=== PATIENT | male | born 1950 | race Caucasian/White ===

== ENCOUNTER 2024-01-20 09:47 | Outpatient (OUT) | payer MEDICARE, SELFPAY ==
--- NOTE | 2024-01-20 09:56 | ECG_ITS ---
[facility] Test Date: 2024-01-20 Pat Name: EDWARD SANDERS Department: Room: - Gender: Male Content Writer: : 1950 Requested By: SLOAN DOWNEY Order Number: [id number] Reading MD: NAOMI MONTOYA Measurements Intervals [place] Rate: 70 P: NM: 200 QRS: 41 QRSD: 141 T: 43 QT: 410 QTc: 444 Interpretive Statements Sinus rhythm with first degree AV block RIGHT BUNDLE BRANCH BLOCK [120+ ms QRS DURATION, UPRIGHT V1, 40+ ms S IN I/aVL/V4/V5/V6] No previous ECG available for comparison Electronically Signed On 01-20-2024 18:02:10 EDT by NAOMI MONTOYA
--- NOTE | 2024-01-20 11:09 | P.GSHP_ITS ---
History of Present Illness History of Present Illness Chief complaint: bph with obst Narrative: Patient presents for preadmission testing. Please see HPI from Dr. Ruff dated January 13, 2024. Review of Systems ROS Narrative Please see ROS from Dr. Ruff dated January 13, 2024. PFSH PFS Medical History (Updated 01/20/24 @ 10:39 by Ana Rosa Luque NP) Arthritis ?M19.90 - Unspecified osteoarthritis, unspecified site (ICD-10) Migraine ?G43.909 - Migraine, unspecified, not intractable, without status migrainosus (ICD-10) Cataract ?H26.9 - Unspecified cataract (ICD-10) Sleep apnea ?G47.30 - Sleep apnea, unspecified (ICD-10) Back pain with history of spinal surgery ?M54.9 - Dorsalgia, unspecified (ICD-10) ?Z98.890 - Other specified postprocedural states (ICD-10) Headache ?R51.9 - Headache, unspecified (ICD-10) Diabetes ?E11.9 - Type 2 diabetes mellitus without complications (ICD-10) Hypertension ?I10 - Essential (primary) hypertension (ICD-10) Incomplete bladder emptying ?R33.9 - Retention of urine, unspecified (ICD-10) Hyperlipidemia ?E78.5 - Hyperlipidemia, unspecified (ICD-10) Gout ?M10.9 - Gout, unspecified (ICD-10) Elevated PSA ?R97.20 - Elevated prostate specific antigen [PSA] (ICD-10) BPH with obstruction/lower urinary tract symptoms ?N40.1 - Benign prostatic hyperplasia with lower urinary tract symptoms (ICD- 10) ?N13.8 - Other obstructive and reflux uropathy (ICD-10) Surgical History (Updated 01/20/24 @ 10:39 by Ana Rosa Luque NP) History of esophagogastroduodenoscopy (EGD) ?Z98.890 - Other specified postprocedural states (ICD-10) History of carpal tunnel release ?Z98.890 - Other specified postprocedural states (ICD-10) H/O shoulder surgery ?Z98.890 - Other specified postprocedural states (ICD-10) History of lumbar surgery ?Z98.890 - Other specified postprocedural states (ICD-10) Hx of tonsillectomy ?Z90.89 - Acquired absence of other organs (ICD-10) H/O colonoscopy ?Z98.890 - Other specified postprocedural states (ICD-10) History of cataract extraction with lens replacement H/O prostate biopsy ?Z98.890 - Other specified postprocedural states (ICD-10) History of cholecystectomy ?Z90.49 - Acquired absence of other specified parts of digestive tract (ICD- 10) Family History (Updated 01/20/24 @ 10:39 by Ana Rosa Luque NP) Other Family history of Alzheimer's disease Family history of hypertension Family history of lung cancer Family history of myocardial infarction Family history of prostate cancer Social History (Updated 01/20/24 @ 10:28 by Ana Rosa Luque NP) Within the past year, how often did you have a drink containing alcohol: 2-3 times a week Smoking status: Former smoker Non-prescribed substance use: denies use Previous occupational history: Retired Highest level of school completed/degree received: some college, no degree Meds Home Medications and Allergies Home Medications ?Medication ?Instructions ?Recorded ?Confirmed ?Type alfuzosin 10 mg tablet,extended 10 mg PO DAILY 01/20/24 01/20/24 History release 24 hr allopurinol 100 mg tablet 100 mg PO Q12H 01/20/24 01/20/24 History fiber 1 cap PO DAILY 01/20/24 01/20/24 History lisinopril 20 1 tab PO DAILY 01/20/24 01/20/24 History mg-hydrochlorothiazide 25 mg tablet metoprolol succinate 50 mg 50 mg PO DAILY 01/20/24 01/20/24 History tablet,extended release 24 hr pravastatin 40 mg tablet 40 mg PO DAILY 01/20/24 01/20/24 History semaglutide 7 mg tablet (Rybelsus) 7 mg PO DAILY 01/20/24 01/20/24 History vitamin A-vitamin C-vit E-min 1 tab PO DAILY 01/20/24 01/20/24 History tablet Allergies Allergy/AdvReac Type Severity Reaction Status Date / Time sulfamethoxazole (From Allergy SOB Verified 01/20/24 10:20 Bactrim) trimethoprim (From Bactrim) Allergy SOB Verified 01/20/24 10:20 Exam Narrative Exam Narrative: Constitutional: Awake, alert, comfortable, well-appearing, nontoxic, interactive, vital signs as charted Head: Normocephalic, atraumatic Neck: Supple, normal appearance, normal range of motion, no meningeal signs, no lymphadenopathy Respiratory: No respiratory distress, breath sounds clear Cardiovascular: Regular rate and rhythm, strong and regular heart tones Abdomen: Nontender, normal bowel sounds, soft, no CVA tenderness Musculoskeletal: Normal gait, no swelling or edema Skin: No rashes or induration, no lesions, only visible skin inspected Neuro: No neurological deficits, normal sensation Psychiatric: Oriented ?3, normal affect Assessment and Plan Assessment and Plan (1) BPH with obstruction/lower urinary tract symptoms: (2) Elevated PSA: Plan Cystoscopy/TURP scheduled with Dr. Ruff February 04, 2024.
[2024-01-20 11:33] LABS: INR 1.05; Partial Thromboplastin Time 29.5 sec (22.3-36.2); Prothrombin Time 11.1 sec (9.0-11.6)
== END 2024-01-20 09:48 | disposition home or self-care (01) ==
LOC: PST 09:51
PROVIDERS: PCP Family Medicine; Visit Provider Urology
DX: Z01.810 Encounter for preprocedural cardiovascular examination (principal); Z01.812 Encounter for preprocedural laboratory examination; Z01.818 Encounter for other preprocedural examination; N40.1 Benign prostatic hyperplasia with lower urinary tract symptoms
CPT/HCPCS: 80048; 85610; 85730; 93005; G0463

== ENCOUNTER 2024-02-04 10:23 | Day surgery (SDC) | payer MEDICARE, SELFPAY ==
[2024-01-20 10:50] VITALS: BP 154/87; PULSE 77; TEMP 36.6; O2SAT 95; BMI 40.7
[2024-02-04] VITALS (16 sets, daily range): BP systolic 138–166; BP diastolic 75–124; PULSE 64–86; TEMP 36.1–36.8; O2SAT 90–96; BMI 40.9
--- OUTSIDE RECORDS SUMMARY | 2024-02-04 10:40 | XMS_ITS | CCD ---
Author Organization [facility] Care Team Providers Care Senior Sas Developer Name Role Phone EDGAR, VALERIE A Unavailable Unavailable EDGAR, VALERIE A Unavailable Unavailable EDGAR, VALERIE A Unavailable Unavailable EDGAR, VALERIE A Unavailable Unavailable MICHAELA VILLAVICENCIO Primary Care Physician [phone] Michaela Villavicencio Unavailable Unavailable Unavailable Mary MCKINLEY, Dr. Adalberto Stinson Referring Unavailable Mary MCKINLEY, Dr. Adalberto Stinson Attending Unavailable Maye, Dr. Michaela Atkinson Primary Care Unavaila ble MAYE, DR WALTER Admitting Unavailable MAYE, DR WALTER Primary Care Unavailable MAYE, DR WALTER Consulting Unavailable MAYE, DR WALTER Attending Unavailable MAYE, DR WALTER Admitting Unavailable MAYE, DR WALTER Consulting Unavailable MAYE, DR WALTER Attending Unavailable MAYE, DR WALTER Attending Unavailable MAYE, DR WALTER Admitting Unavailable MAYE, DR WALTER Primary Care Unavailable Maye, MD Michaela Santillan Primary Care Provider [phone] DO Taran James Attending Provider Taran James Attending Unavailable Michaela Villavicencio Primary Care Unavailable Taran James Admitting Unavailable Taran James Admitting Unavailable Taran James Attending Unavailable Michaela Villavicencio Primary Care Unavailable Maye Michaela CARMONA Primary Care Provider MICHAELA VILLAVICENCIO Attending Unavailable MICHAELA VILLAVICENCIO Attending Unavailable BRITTNY ALVARADO Attending Unavailable MICHAELA VILLAVICENCIO Referring Unavailable MICHAELA VILLAVICENCIO Attending Unavailable Milad RUFF Referring Unavailable Milad RUFF Admitting Unavailable RUFF, Milad R Attending Unavailable RUFF, Milad R Attending Unavailable RUFF, Milad R Admitting Unavailable RUFF, Milad R Attending Unavailable RUFF, Milad R Attending Unavailable RUFF, Milad R Attending Unavailable RUFF, Milad R Attending Unavailable RUFF, Milad R Attending Unavailable RUFF, Milad R Attending Unavailable Allergies Allergy Classification Reported Allergen(s) Allergy Type Date of Onset Reaction(s) Facility (14 sources) Sulfamethoxazole / Trimethoprim; Translations: [sulfamethoxazole-t rimethoprim] Drug Allergy 11-10-19 Eruption of skin (disorder), Tachycardia (finding) [facility] (3 sources) Sulfonamides (Antibiotic); Translations: [Sulfa (Sulfonamide Antibiotics)] Propensity to adverse reactions 01-14-20 Palpitations [facility] Medications Current Medications Medication Drug Class(es) Dates Sig (Normalized) Sig (Original) acetaminophen 325 mg / HYDROcodone bitartrate 7.5 mg oral tablet (1 source) Opioid Agonist Start: 06-26-2022 take 1 tablet by mouth once [place] 325 mg-7.5 mg oral tablet 1 tab(s), Oral, Once, 1 tab(s), Refill(s) 0, Take 1 hour prior to procedure DX: R97.20, [facility], 177, cm, 06/25/22 15:16:00 EDT, Height/Length Dosing, 125.8, kg, 06/25/22 15:16:00 EDT, Weight Dosing Start Date: 06/26/22 Status: Ordered acetaminophen 325 mg / oxyCODONE hydrochloride 5 mg oral tablet (1 source) Opioid Agonist Start: 01-27-2023 take 1 tablet by mouth every six hours Oxycodone-Acetami nophen (Percocet) 5-325 mg tablet Active 1 TAB PO Q6H 12 January 27, 2023 Start: 01-27-2023 take 1 tablet by king th every six hours Oxycodone-Acetaminophen (Percocet) 5-325 mg tablet Active 1 TAB PO Q6H 12 January 27, 2023 24 hr alfuzosin hydrochloride 10 mg extended release oral tablet (12 sources) alpha-Adrenergic Christopher Start: 01-13-2024 End: 01-07-2025 take 1 tablet by mouth once daily alfuzosin 10 mg ER Tab 10 mg = 1 tab(s), Oral, Daily, X 30 day(s), # 30 tab(s), Refills(s) 11, Pharmacy: [facility], 177, cm, 01/13/24 14:10:00 EDT, Height/Length Dosing, 124.5, kg, 01/13/24 14:10:00 EDT, Weight Dosing Start Date: 01/13/24 Stop Date: 01/07/25 Status: Ordered Start: 10-17-2022 take 1 tablet by king th every twenty-four hours in the morning alfuzosin ER (Uroxatral) 10 MG 24 hr tablet Take 1 tablet by mouth in the morning. 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 0 10/04/2022 Active Start: 07-10-2022 take 1 tablet by king th at bedtime Atorvastatin Calcium 10 MG Oral Tablet take 1 tablet by mouth at bedtime Quantity: 90 Refills: 3 Ordered: 10-Jul-2022 Adalberto Hernandez MD Start : 10-Jul-2022 Active stop pravastatin/ new start betamethasone 0.5 mg/ml topical cream (5 sources) Corticosteroid Start: 12-02-2022 betamethasone dipropionate 0.05 % cream Indications: Eczema, unspecified type Apply 1 application topically Daily as needed for irritation. 45 g 2 12/02/2022 Active calcium polycarbophil 625 mg oral tablet (5 sources) take 1 tablet by mouth in the morning polycarbophil (Fibercon) 625 MG tablet Take 1 tablet by mouth in the morning. Active dutasteride 0.5 mg oral capsule (6 sources) 5-alpha Reductase Inhibitor Start: 07-24-2022 take 1 capsule by mouth in the morning dutasteride (Avodart) 0.5 MG capsule Take 0.5 mg by mouth in the morning. 0 10/17/2022 Active Fiber (4 sources) Start: 01-13-2024 take 1 mg by mouth four times daily Fiber Lax mg, Oral, QID, Refills(s) 0 Start Date: 01/13/24 Status: Ordered Start: 01-13-2023 take 1 tablet by king th once daily at bedtime Fiber Active 1 TAB PO Daily at bedtime January 13, 2023 12:00am Fiber TABS USE A S DIRECTED. Quantity: 0 Refills: 0 Ordered: 10-Jul-2022 DO Active hydroCHLOROthiazide 25 mg / lisinopril 20 mg oral tablet (15 sources) Thiazide Diuretic, Angiotensin Converting Enzyme Inhibitor Start: 10-13-2022 take 1 tablet by mouth in the morning lisinopril-hydroCHLOROthiazide 20-25 MG tablet Indications: Primary hypertension (CMS/HCC) Take 1 tablet by mouth in the morning. 100 tablet 3 10/13/2022 Active Start: 06-25-2022 take 1 tablet by king th once daily lisinopril-hydroCHLOROthiazide 20-25 MG tablet Indications: Primary hypertension (CMS/HCC) Take 1 tablet by mouth Daily 100 tablet 3 12/17/2023 Active take 1 tablet by king th once daily Lisinopril-hydroCHLOROthiazide 20-12.5 M G Oral Tablet TAKE 1 TABLET DAILY. Quantity: 90 Refills: 3 Ordered: 13-Apr-2023 DO Active indomethacin 50 mg oral capsule (13 sources) Nonsteroidal Anti-inflammatory Drug Start: 06-01-2023 take 1 capsule by mouth once daily indomethacin (Indocin) 50 MG capsule Indications: Gout, unspecified cause, unspecified chronicity, unspecified site Take 1 capsule (50 mg) by mouth 1 (one) time each day at the same time 06/01/2023 Active Start: 01-13-2023 take 50 mg by mouth once daily Indomethacin Active 50 MG PO Daily January 13, 2023 12:00am Start: 06-25-2022 take 1 mg by mouth t hree times daily indomethacin 50 mg oral capsule mg cap(s), Oral, TID Start Date: 06/25/22 Status: Ordered 24 hr metoprolol succinate 50 mg extended release oral tablet (15 sources) beta-Adrenergic Christopher Start: 06-25-2022 take 1 tablet by mouth once daily metoprolol succinate XL (Toprol-XL) 50 MG 24 hr tablet Indications: Essential hypertension (CMS/HCC) Take 1 tablet by mouth once daily 100 tablet 3 02/09/2023 Active pravastatin sodium 40 mg oral tablet (10 sources) HMG-CoA Reductase Inhibitor Start: 06-25-2022 End: 09-07-2024 take 1 tablet by mouth once daily pravastatin (Pravachol) 40 MG tablet Indications: Hyperchylomicronemia (CMS/HCC) Take 1 tablet (40 mg) by mouth Daily 100 tablet 3 08/04/2023 09/07/2024 Active semaglutide 7 mg oral tablet (6 sources) Start: 08-31-2023 take 1 tablet by mouth once daily Rybelsus 7 mg oral tablet 7 mg = 1 tab(s), Oral, Daily Start Date: 01/13/24 Status: Ordered Start: 11-10-2022 take 1 tablet by king th before mealtime semaglutide (Rybelsus) 3 MG tablet Indications: Impaired fasting glucose Take 1 tablet (3 mg) by mouth in the morning. Take before meals. 30 tablet 0 11/10/2022 Active tamsulosin hydrochloride 0.4 mg oral capsule (2 sources) alpha-Adrenergic Christopher take 1 capsule by mouth once daily tamsulosin (Flomax) 0.4 MG 24 hr capsule Take 1 capsule by mouth 1 (one) time each day at the same time. 0 Active Completed/Discontinued Medications Medication Drug Class(es) Dates Sig (Normalized) Sig (Original) aspirin 81 mg delayed release oral tablet (1 source) Platelet Aggregation Inhibitor, Nonsteroidal Anti-inflammatory Drug Start: 07-10-2022 take 1 tablet by mouth once daily Aspirin 81 MG Oral Tablet Delayed Release TAKE 1 TABLET DAILY. Quantity: 90 Refills: 3 Ordered: 10-Jul-2022 Adalberto Hernandez MD Start : 10-Jul-2022 Active new start ciprofloxacin 500 mg oral tablet (3 sources) Quinolone Antimicrobial Start: 02-04-2023 Cipro 500 mg Tab 500 mg = 1 tab(s), Oral, As Directed, Patient to take 1 tab the day before procedure and the 2nd tab the day of procedure once completed, # 2 tab(s), Refills(s) 0, Pharmacy: [facility], 177, cm, 02/04/23 9:52:00 EST, Height/Length Dosing, 125, kg, 02/04/23 9:52:00 EST, Weight Dosing Start Date: 02/04/23 Status: Ordered take 1 tablet by mouth once moraima y Ciprofloxacin HCl - 500 MG Oral Tablet TAKE 1 TABLET EVERY 12 HOURS DAILY. Quantity: 0 Refills: 0 Ordered: 10-Jul-2022 DO Active Eye Vitamins CAPS (1 source) Eye Vitamins CAP S TAKE DIRECTED. Quantity: 0 Refills: 0 Ordered: 10-Jul-2022 DO Active Problems Active Problems Problem Classification Problem Date Documented Date Episodic/Chronic Cardiac dysrhythmias (7 sources) Premature atrial contraction; Translations: [Supraventricular premature beats] Onset: 11-08-2022 11-08-2022 Chronic Conduction disorders (1 source) EKG: right bundle branch block; Translations: [Right bundle branch block] Chronic Diabetes mellitus with complications (5 sources) Type 2 diabetes mellitus; Translations: [Type 2 diabetes mellitus with other specified complication] Onset: 09-22-2023 01-11-2024 Chronic Disorders of lipid metabolism (18 sources) Hyperlipidemia; Translations: [Other and unspecified hyperlipidemia] Onset: 06-10-2022 06-25-2022 Chronic Diverticulosis and diverticulitis (10 sources) Diverticulosis of colon; Translations: [Diverticulosis of large intestine without perforation or abscess without bleeding] Onset: 11-08-2022 11-08-2022 Chronic Essential hypertension (20 sources) Essential (primary) hypertension; Translations: [Hypertensive disorder] Onset: 01-11-2018 06-25-2022 Chronic Gout and other crystal arthropathies (12 sources) Gout; Translations: [Primary chronic gout without tophus of ankle and/or foot] Onset: 11-08-2022 06-25-2022 Chronic Headache; including migraine (7 sources) Headache 06-25-2022 Episodic Heart valve disorders (1 source) Nonrheumatic mitral (valve) insufficiency; Translations: [NONRHEUMATIC MITRAL INSUFFICIENCY] Onset: 07-11-2022 Chronic Hyperplasia of prostate (17 sources) Benign prostatic hypertrophy with outflow obstruction; Translations: [Benign prostatic hyperplasia with lower urinary tract symptoms] Onset: 06-25-2022 Chronic Immunizations and screening for infectious disease (4 sources) Encounter for immunization; Translations: [Patient encounter status] Onset: 01-11-2018 01-11-2024 Episodic Inflammatory conditions of male genital organs (6 sources) Prostatitis; Translations: [Inflammatory disease of prostate, unspecified] Onset: 02-04-2023 07-23-2022 Episodic Nonspecific chest pain (8 sources) Chest pain, unspecified; Translations: [Atypical chest pain] Onset: 01-11-2018 Episodic Osteoarthritis (10 sources) Idiopathic osteoarthritis; Translations: [Primary osteoarthritis, unspecified site] Onset: 11-08-2022 11-08-2022 Chronic Other circulatory disease (1 source) H/O: rheumatic fever; Translations: [Personal history of other infectious and parasitic diseases] Episodic Other congenital anomalies (5 sources) Congenital spondylolisthesis; Translations: [Spondylolisthesis] Onset: 11-08-2022 11-08-2022 Chronic Other connective tissue disease (2 sources) Pain in unspecified lower leg; Translations: [Pain in unspecified lower leg] Onset: 01-11-2018 Episodic Other connective tissue disease (1 source) Pain in left lower leg; Translations: [Pain in left lower leg] Onset: 01-11-2018 Episodic Other diseases of bladder and urethra (2 sources) Urethral false passage; Translations: [Urethral false passage] Onset: 01-13-2024 Episodic Other diseases of kidney and ureters (1 source) Urinary tract obstruction; Translations: [Other obstructive and reflux uropathy] Onset: 01-21-2023 Episodic Other ear and sense organ disorders (3 sources) Hearing loss of right ear; Translations: [Unspecified hearing loss, right ear] Onset: 09-22-2023 09-22-2023 Chronic Other endocrine disorders (5 sources) Male hypogonadism; Translations: [Testicular hypofunction] Onset: 11-08-2022 11-08-2022 Chronic Other liver diseases (5 sources) Steatosis of liver; Translations: [Fatty (change of) liver, not elsewhere classified] Onset: 12-02-2022 12-02-2022 Chronic Other male genital disorders (2 sources) Male erectile dysfunction, unspecified; Translations: [Erectile dysfunction] Onset: 01-13-2024 Chronic Other nutritional; endocrine; and metabolic disorders (1 source) Body mass index 40+ - severely obese; Translations: [Morbid obesity] Chronic Other nutritional; endocrine; and metabolic disorders (2 sources) Morbid obesity; Translations: [Morbid (severe) obesity due to excess calories] Onset: 11-08-2022 11-08-2022 Chronic Other nutritional; endocrine; and metabolic disorders (5 sources) Body mass index 30+ - obesity; Translations: [Obesity, unspecified] Onset: 11-08-2022 11-08-2022 Chronic Other nutritional; endocrine; and metabolic disorders (5 sources) Obesity caused by energy imbalance; Translations: [Morbid (severe) obesity due to excess calories] Onset: 11-08-2022 01-11-2024 Chronic Other screening for suspected conditions (not mental disorders or infectious disease) (16 sources) Raised prostate specific antigen; Translations: [Elevated prostate specific antigen [PSA]] Onset: 06-25-2022 Episodic Other upper respiratory disease (5 sources) Allergic rhinitis; Translations: [Allergic rhinitis, unspecified] Onset: 11-08-2022 11-08-2022 Chronic Residual codes; unclassified (1 source) Obstructive sleep apnea syndrome; Translations: [Obstructive sleep apnea (adult)(pediatric)] Chronic Residual codes; unclassified (7 sources) Sleep apnea; Translations: [Sleep apnea, unspecified] Onset: 11-08-2022 11-08-2022 Chronic Screening and history of mental health and substance abuse codes (1 source) Ex-smoker; Translations: [Personal history of tobacco use] Episodic Comment on above: 20+ years ago; Spondylosis; intervertebral disc disorders; other back problems (5 sources) Inflammation of sacroiliac joint; Translations: [Sacroiliitis, not elsewhere classified] Onset: 11-08-2022 11-08-2022 Chronic Unclassified (2 sources) Localized edema; Translations: [Localized edema] Onset: 01-11-2018 Episodic Unclassified (7 sources) Finding of sensation of bladder 06-25-2022 Unclassified (1 source) Encounter for preprocedural laboratory examination; Translations: [Encounter for preprocedural laboratory examination] Onset: 01-13-2023 Past or Other Problems Problem Classification Problem Date Documented Da te Episodic/Chronic Abdominal pain (5 sources) Left lower quadrant pain; Translations: [Left lower quadrant pain] Onset: 11-10-2022 11-10-2022 Episodic Allergic reactions (5 sources) Eczema; Translations: [Dermatitis, unspecified] Onset: 12-02-2022 12-02-2022 Episodic Biliary tract disease (8 sources) Biliary calculus; Translations: [Calculus of gallbladder with chronic cholecystitis without obstruction] Onset: 12-18-2022 01-27-2023 Episodic Diabetes mellitus without complication (9 sources) Impaired fasting glycemia; Translations: [Impaired fasting glucose] Onset: 11-08-2022 11-08-2022 Episodic Gastrointestinal hemorrhage (5 sources) Blood-tinged feces; Translations: [Melena] Onset: 11-10-2022 11-10-2022 Episodic Genitourinary symptoms and ill-defined conditions (18 sources) Sensation as if bladder still full; Translations: [Feeling of incomplete bladder emptying] Onset: 06-25-2022 Episodic Results Test Name Value Interpretation Reference Range Facility [facility] APTTon 01-20-2024 aPTT Coag (Bld) [Time] 29.5 s NO [facility] No Panel Informationon 01-19 [facility] PROTHROMBIN TIME INR W/O COUMon 01-20-2024 PT Coag (PPP) [Time] 11.1 s [facility] TB INR 1.05 [facility] Comment on above: DESIRED INR: 2.0-3.0 CONDITIONS NOT LISTED BELOW 2.5-3.5 FOR PROSTHETIC HEART VALVE REPLACEMENT 2.5-3.5 RECURRENT THROMBOSIS Ambulatory Visit Summaryon Ambulatory Visit Summary Ambulatory Visit Summary EDWARD DARBY :1950 Visit Date:01/13/2024 Ambulatory Visit Instructions Your Diagnosis Elevated PSA BPH with obstruction/lower urinary tract symptoms Incomplete bladder emptying Urethral false passage Erectile dysfunction Your Care Team Attending Physician - Milad RUFF MD Primary Care Physician - MICHAELA VILLAVICENCIO MD This Is Your Medications List alfuzosin (alfuzosin 10 mg ER Tab) Contact prescribing physician if questions or concerns allopurinol (allopurinol 100 mg Tab) hydrochlorothiazide-lis inopril (hydrochlorothiazide-li sinopril 25 mg-20 mg Tab) metoprolol (metoprolol 50 mg ER Tab) multivitamin with minerals (Ocuvite) polycarbophil (Fiber Lax) pravastatin (pravastatin 40 mg Tab) semaglutide (Rybelsus 7 mg oral tablet) Procedures Performed Gallbladder (01/27/2023), Transrectal needle biopsy of prostate (07/09/2022), Cataract extraction and insertion of intraocular lens, Colonoscopy, Procedure on back, Tonsillectomy. Discharge Vitals Heart Rate (Peripheral) 74 Respiratory Rate 16 Blood Pressure 146/78 Height 177 cm Height 70 in Weight 124.5 kg Weight 273.9 lb BMI 39.74 What to do next Scheduled Follow-Up Appointments Thursday 9:30 AM EST With: Where: [facility] [address] [address]- Thursday 9:15 AM EST With: Milad RUFF MD Where: [facility] [address] [address]- You Need to Schedule the Following Appointments Follow Up with Milad RUFF MD, URL When: Where: [facility] [address] [place] [address] [place] [address]- Medications What How Much When Instructions New alfuzosin (alfuzosin 10 mg ER Tab) 1 Tablets By Mouth Every day Duration: 30 Days Refills: 11 Pickup at [facility] Unchanged allopurinol (allopurinol 100 mg Tab) By Mouth Contact prescribing physician if questions or concerns Unchanged hydrochlorothiazide-lis inopril (hydrochlorothiazide-li sinopril 25 mg-20 mg Tab) By Mouth Every day Contact prescribing physician if questions or concerns Unchanged metoprolol (metoprolol 50 mg ER Tab) By Mouth Every day Contact prescribing physician if questions or concerns Unchanged multivitamin with minerals (Ocuvite) By Mouth Every day Contact prescribing physician if questions or concerns Unchanged polycarbophil (Fiber Lax) By Mouth 4 times a day Contact prescribing physician if questions or concerns Unchanged pravastatin (pravastatin 40 mg Tab) By Mouth Every day Contact prescribing physician if questions or concerns Unchanged semaglutide (Rybelsus 7 mg oral tablet) 1 Tablets By Mouth Every day Contact prescribing physician if questions or concerns Pharmacy Information [facility]: [address] [place], [place] [id number] [phone] Allergies Bactrim (Rash, Tachycardia) Problems Ongoing - Any problem that you are currently receiving treatment for. BPH with obstruction/lower urinary tract symptoms Elevated PSA Erectile dysfunction Feeling of incomplete bladder emptying Gout Head ache Hyperlipidemia Hypertension Incomplete bladder emptying Urethral false passage Historical - Any problem that you are no longer receiving treatment for. Prostatitis Patient Survey You may receive a survey via text or e-mail asking about your office visit. Please share your experience with us by completing your survey. We appreciate your feedback and thank you for choosing us for your care. Education Materials Erectile Dysfunction Erectile dysfunction (ED) is the inability to get or keep an erection in order to have sexual intercourse. ED is considered a symptom of an underlying disorder and is not considered a disease. ED may include: ? Inability to get an erection. ? Lack of enough hardness of the erection to allow penetration. ? Loss of erection before sex is finished. What are the causes? This condition may be caused by: ? Physical causes, such as: ? Artery problems. This may include heart disease, high blood pressure, atherosclerosis, and diabetes. ? Hormonal problems, such as low testosterone. ? Obesity. ? Nerve problems. This may include back or pelvic injuries, multiple sclerosis, Parkinson's disease, spinal cord injury, and stroke. ? Certain medicines, such as: ? Pain relievers. ? Antidepressants. ? Blood pressure medicines and water pills (diuretics). ? Cancer medicines. ? Antihistamines. ? Muscle relaxants. ? Lifestyle factors, such as: ? Use of drugs such as marijuana, cocaine, or opioids. ? Excessive use of alcohol. ? Smoking. ? Lack of physical activity or exercise. ? Psychological causes, such as: ? Anxiety or stress. ? Sadness or depression. (more content not included)... Normal [facility] Urology Office/Clinic Noteon 01-13-2024 Urology Office/Clinic Note Urology Office/Clinic Note Chief Complaint Office visit HPI Staff Office visit due to elevated PSA Previous DX: BPH w/ obstruction/lower urinary tract symptoms, elevated PSA, feeling of incomplete bladder emptying. S/P TRUS/bx done on 07/09/22. Pathology done on 07/10/22 was negative. Previous PSA 4.6 done 01/21/23, Current PSA 9.39 01/11/24 Dysuria: denies pain or burning Incomplete bladder emptying: denies Hematuria: denies visible blood Frequency: denies Urgency: denies Nocturia: denies Stream: denies hesitancy, denies weak stream Leaking: denies Post void dripping: denies Wearing pads/ Depends: denies Urge incontinence: denies Stress incontinence: denies Incontinence without Sensory Awareness: denies Abdominal pain: denies Flank pain: denies Sexual complaints: denies History of Present Illness Tests reviewed: UA, PSA I have reviewed the previous health record information and history for this patient from Dr. Ruff. I have reviewed and verified the staff HPI to be accurate for this encounter. Review of Systems PHQ Score Initial Depression Screen Score: 0 SCORE ROS - Provider Constitutional: denies weight loss, denies hot flashes. Eyes: denies eye problems. Gastrointestinal: denies nausea, denies vomiting. Cardiovascular: denies chest pain or angina. Integumentary: no dryness Musculoskeletal: denies musculoskeletal symptoms. ENMT: denies otolaryngeal symptoms. Respiratory: no shortness of breath. Heme/Lymph: denies easy bleeding tendency, denies easy bruising tendency. Psychiatric: no confusion, no anxiety. Genitourinary: See HPI. Physical Exam Vitals & Measurements HR: 74(Peripheral) RR: 16 BP: 146/78 HT: 70 in HT: 177 cm WT: 124.5 kg WT: 273.9 lb BMI: 39.74 General Appearance: alert, no distress, well nourished, well developed male. Assessment/Plan Pt here with his today. 1. Elevated PSA (R97.20: Elevated prostate specific antigen [PSA]) PSA: 09/04/20 - 2.97 05/09/22 - 5.18 completed abx course 06/11/22 - 7.10 & 11% 07/23/22 - started Dutasteride 08/14/23 - completed 3 wk abx course for prostatitis 01/21/23 - 4.60 (9.20) 02/04/23 - stopped Dutasteride 01/11/24 - 9.39 TRUS/bx 07/09/22 - Neg. Prostate volume 55.8 cc. PSA increased from prior. Will cont to monitor since pt is now interested in TURP, will repeat after TURP. 2. 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 [2] Trabeculated (Severe (3), Open diverticuli diffusely. [3] He is desirous for TURP. [4] Urodynamics 03/31/23 - Avg flow rate 2.5 ml/sec, max flow 5.7 ml/sec. Max detrusor pressure 57.1 cm H2O. PVR 16 cc. Urodynamically, he is obstructed. [1] UA neg. IPSS 10 (13). No longer taking Alfuzosin 10 mg ER qd either, states it gave him UUI. Stopped Dutasteride at prior OV due to SE of ED. Urination stable. Nocturia 1-3x/night. Reviewed cysto and uros findings with pt. Educated pt on risks of chronic RM including urinary retention/atonic bladder, infection. Recommended either oral therapy or prostate procedure (TURP) to help prevent these risks. R/Bs of options discussed. Pt elects to restart Alfuzosin. -Restart Alfuzosin 10 mg ER qd. SEs discussed. Rx sent to [facility]. Please notify office if pt makes any medication changes on his own. -Will schedule TURP. The procedural risks, benefits, details, and treatment alternatives have been discussed with the patient. These include bleeding, infection, need for blood transfusion, continued urinary difficulties, urinary leakage which could be permanent, need for catheter, retrograde ejaculation, scar tissue formation in the urinary channel or area of prostate shaving, erection problems, blood clot formation in the lower extremities which could travel to the lungs, among others. A secondary operation could also be required. Full informed consent has been obtained. Will order General anesthesia. 3. Incomplete bladder emptying (R33.9: Retention of urine, unspecified) PVR (cc): 06/25/22 - 92 02/04/23 - 166 01/13/24 - 46 Emptying improved. Mostly feels he empties completely. 4. 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 [1] 5. Erectile dysfunction (N52.9: Male erectile dysfunction, unspecified) Briefly discussed oral meds for ED. Pt not interested at this time but knows to call if he would like to start oral therapy. Follow-up With When Contact Information Milad RUFF MD, URL [facility] [address], [place] [address]- Additional Instructions: schedule TURP Patient Education Erectile Dysfunction Prostate Cancer Screening I, Silvia Choi, personally scribed for Dr. Ruff on 01/13/2024 15:06:37. . Documentation recorde (more content not included)... [facility] Comment on above: Result Comment: Elec tronically Signed By: Milad RUFF MD\.br\Date and Time Signed: 01/13/24 15:08 EDT\.br\Electronically Co-Signed By: Silvia Choi\.br\Date and Time Co-Signed: 01/13/24 15:07 EDT Laboratory - Hematology and Cell countson 01-11-2024 HbA1c (Bld) [Mass fraction] 6.2 % [facility] No Panel Informationon 01-10 Interpretation and review of laboratory results Normal [facility] Consent for Procedure/Surger yon 03-31-2023 Consent for Procedure/Surgery [id number]#1.00 TIFF [facility] Consent for Treatmenton Consent for Treatment [id number] IFF [facility] IntraOperative Documentson 0 03-31-2023 IntraOperative Documents [id number]#1.00 TIFF [facility] IntraOperative Documents [id number] TIFF [facility] Main OR Intraoperative Recor don 03-31-2023 Main OR Intraoperative Record IntraOp Document Type FTURO Summary Primary Physician: Milad RUFF MD Finalized Date/Time: 03/31/23 10:53:50 Pt. Name: EDWARD DARBY/Sex: 1950 Male Med Rec #: [id number] Physician: Milad RUFF MD Financial #: [id number] Pt. Type: O Room/Bed: / Admit/Disch: 03/31/23 08:55:00 - Institution: Case Times FTURO Entry 1 Patient Times In Room 03/31/23 10:44:00 Out Room 03/31/23 10:56:00 Procedure Times Start 03/31/23 10:47:00 Stop 03/31/23 10:51:00 Anesthesia Times Last Modified By: Lara CALLE, Lotus SWARTZ 03/31/23 10:51:39 Case Attendance FTURO Entry 1 Entry 2 Entry 3 Case Attendee Milad RUFF MD, RN, JANELOR, Heather Mitchell Role Performed Surgeon - Primary Lock Assembler - Primary Scrub - Primary Time In 03/31/23 10:44:00 03/31/23 10:44:00 03/31/23 10:44:00 Time Out 03/31/23 10:56:00 03/31/23 10:56:00 03/31/23 10:56:00 Procedure CYSTOSCOPY LOCAL(.) CYSTOSCOPY LOCAL(.) CYSTOSCOPY LOCAL(.) Jin REID RN IN ORIENTATION Last Modified By: Lara CALLE, CNOR, Lara CALLE, JANELOR, Lara CALLE, MAXIME, Lotus 03/31/23 Lotus 03/31/23 Lotus 03/31/23 10:51:42 10:51:42 10:51:42 Surgical Procedures FTURO Entry 1 Procedure Description Procedure CYSTOSCOPY LOCAL Modifiers . Surgeon Description CYSTOCOPY Primary Procedure Yes Primary Surgeon Milad RUFF MD 03/31/23 10:47:00 Stop 03/31/23 10:51:00 Anesthesia Type Local Surgical Service Urology Wound Class 2 - Clean-Contaminated Last Modified By: MAXIME Bermudez RN, Ruthann 03/31/23 10:51:44 General Case Data FTURO Pre-Care Text: Classifies surgical wound, implements aseptic technique, initiates traffic control Entry 1 Case Information OR URO 1 FT Case Level None Wound Class 2 - Clean-Contaminated Specialty Urology Preop Diagnosis BPH WITH LUTS AND Postop Same As Preop No INCOMPLETE EMPTYING Postop Diagnosis BPH WITH LUTS, FALSE Outcomes Met? Yes PASSAGE Last Modified By: MAXIME Bermudez RN, Ruthann 03/31/23 10:51:28 Post-Care Text: The patient is free from signs and symptoms of infection EU IntraOp - FTURO Pre-Care Text: Implements protective measures prior to operative or invasive procedure, confirms identity before the operative or invasive procedure, verifies operative procedure, surgical site, and laterality Entry 1 EU Perioperative Protocols Procedure(s) CYSTOSCOPY LOCAL(.) Patient Identity Birthday, ID Band Verified (select at Check, Patient least 2): Participation Consents / H and P HandP, Surgery/Procedure Operative Site N/A Verified Consent, Transfusion Marking Verified Consent Surgical Site Yes Laterality Verified Yes Verified Procedure Verified Yes Correct Patient Yes Position Verified Availability Equipment, Medication Time Out Heather Mitchell, Verified (If Participants MAXIME Bermudez RN, Applicable) Lotus Time Out Complete 03/31/23 10:45:00 Allergies Reviewed? Yes Allergies Reviewed Self/Patient With Body Position Supine Prep Area PERINEAL AREA Prep Agents Betadine Solution Skin. Condition Dry, Warm Additional None Specimens Collected Vitals - EU Blood Pressure 156/90 Pulse 69 bpm Respirations 16 br/min SPO2 94 % EBL 0 IandO - EU Total Intake 0 mL Total Output 0 mL Outcomes Met? Yes Last Modified By: MAXIME Bermudez RN, Ruthann 03/31/23 10:49:23 Post-Care Text: The patient is free from signs and symptoms of injury caused by extraneous objects Sign Out FTURO Entry 1 Before Patient Leaves OR Nurse verbally Yes Nurse verbally n/a confirms with the confirms with the team the name of team that the procedure(s) instrument, sponge, recorded and needle counts are correct (or N/A) Nurse verbally n/a Nurse verbally n/a confirms with the confirms with the team how the team whether there specimen is labeled are any equipment (including patient problems to be name), if applicable addressed Sign Out Complete 03/31/23 10:51:00 Last Modified By: MAXIME Bermudez RN, Ruthann 03/31/23 10:51:31 Case Comments Finalized By: MAXIME Bermudez RN, Ruthann Document Signatures Signed By: MAXIME Bermudez RN, Ruthann 03/31/23 10:51 MAXIME Bermudez RN, Ruthann 03/31/23 10:53 Normal [facility] Main OR Preoperative Recordo n 03-31-2023 Main OR Preoperative Record Holding Area Document Type FTURO Summary Primary Physician: Milad RUFF MD Finalized Date/Time: 03/31/23 10:12:02 Pt. Name: EDWARD DARBY/Sex: 1950 Male Med Rec #: [id number] Physician: Milad RUFF MD Financial #: [id number] Pt. Type: O Room/Bed: / Admit/Disch: 03/31/23 08:55:00 - Institution: Case Times Holding FTURO Pre-Care Text: Verifies consent for planned procedure, identifies individual values and wishes concerning care, includes family members in perioperative teaching Secures patient's records' belongings, and valuables, maintains patient's dignity and privacy, and maintains patient confidentiality Entry 1 In Holding 03/31/23 10:09:00 Outcomes Met? Yes Last Modified By: Savanna Snowden RN 03/31/23 10:09:55 Post-Care Text: The patient participates in decisions affecting his or her perioperative plan of care The patient's right to privacy is maintained Surgery Checklist FTURO Entry 1 Patient Birthday, ID Band Procedure History and Physical, Identification: Check, Patient Verification: Surgical Consent, With Participation Patient NPO after Midnight: n/a Personal Items: Cataract Lens Implant, Glasses, Jewelry Personal Items BILATERAL CATARACT LENS Limitations: UP AD MATHIEU Comment: IMPLANTS, GLASSES, RING X 2 Complaints of Pain: No Pain Comment: 0/10 Skin Integrity Dry, Warm Vitals - EU Blood Pressure 156/90 Pulse 69 bpm Respirations 16 br/min SPO2 94 % Additional None RN Reviewed Yes Specimens Collected Last Modified By: Savanna Snowden RN 03/31/23 10:11:14 Finalized By: Savanna Snowden RN Document Signatures Signed By: Savanna Snowden RN 03/31/23 10:12 [facility] Operative Reporton Operative Report Patient: MELODY DARBY Age: 72 years Sex: Male : 1950 Associated Diagnoses: None Author: Milad RUFF MD Procedure Operative Information Details: Date/ Time: 03/31/2023 11:02:00. Pre-Op Dx: BPH w/ LUTS - N40.1, Incomplete Bladder Emptying - R39.14. Post-Op Dx: Same. Anesthesia Type: Local. Procedure: Local Cystoscopy. Complications: None. Risks/Benefits/Informed Consent: Surgical risks, benefits, details of the procedure have been explained to the patient, Full informed consent has been obtained. Intraoperative Information Prepped: Patient is brought back to the endoscopy suite, Patient is placed in supine position, Patient prepped in the usual fashion with Betadine solution, 2% Xylocaine Jelly is placed per Urethra, After waiting several minutes the Cystoscope is introduced. 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 The Prostatic Urethra is: Obstructed, Obstructing lateral lobes.. The Bladder is: Abnormal, Trabeculated (Severe (3), Open diverticuli diffusely. No bladder tumors.). The ureteral orifices: Show efflux of clear urine. Devices Implanted: None. Removal: Cystoscope is removed, The patient tolerated it well. Postoperative Information Discharge: Patient is discharged home with antibiotic coverage, Follow up arranged. He is desirous for TURP. He will talk with his and call us back. Urodynamically, he is obstructed.. [facility] Comment on above: Result Comment: Elec tronically Signed By: Milad RUFF MD\.br\Date and Time Signed: 03/31/23 11:04 EST Outpatient Surgery Discharge Instructionon 03-31-2023 Outpatient Surgery Discharge Instruction [id number] TIFF [facility] Screenson 02-05-2023 Screens [id number]#[id number] 0TIFF [facility] Ambulatory Visit Summaryon 1 04-06-2022 Ambulatory Visit Summary TOMMY, EDWARD Toussaint :1950 Visit Date:02/04/2023 Ambulatory Visit Instructions Your Diagnosis Elevated PSA BPH with obstruction/lower urinary tract symptoms Incomplete bladder emptying Prostatitis Tests Performed Urnls Dip Stick Auto w/o Microscopy POC 22630 Your Care Team Attending Physician - Milad RUFF MD Primary Care Physician - MICHAELA VILLAVICENCIO MD This Is Your Medications List alfuzosin (alfuzosin 10 mg ER Tab) dutasteride (dutasteride 0.5 mg Cap) Contact prescribing physician if questions or concerns allopurinol (allopurinol 100 mg Tab) hydrochlorothiazide-lis inopril (hydrochlorothiazide-li sinopril 25 mg-20 mg Tab) indomethacin (indomethacin 50 mg oral capsule) metoprolol (metoprolol 50 mg ER Tab) pravastatin (pravastatin 40 mg Tab) Procedures Performed Gallbladder (01/27/2023), Transrectal needle biopsy of prostate (07/09/2022), Cataract extraction and insertion of intraocular lens, Colonoscopy, Procedure on back, Tonsillectomy. Discharge Vitals Heart Rate (Peripheral) 70 Blood Pressure 125/67 Height 177 cm Height 70 in Weight 125.4 kg Weight 275.88 lb BMI 40.03 What to do next You Need to Schedule the Following Appointments Follow Up with NASREEN CARMONA, Milad Westfall, SIXTO When: Where: [facility] [address] [place] [address]- Medications What How Much When Instructions Unchanged alfuzosin (alfuzosin 10 mg ER Tab) 1 Tablets By Mouth Every day Duration: 30 Days Unchanged dutasteride (dutasteride 0.5 mg Cap) 1 Capsules By Mouth Every day Unchanged allopurinol (allopurinol 100 mg Tab) By Mouth Contact prescribing physician if questions or concerns Unchanged hydrochlorothiazide-lis inopril (hydrochlorothiazide-li sinopril 25 mg-20 mg Tab) By Mouth Every day Contact prescribing physician if questions or concerns Unchanged indomethacin (indomethacin 50 mg oral capsule) By Mouth 3 times a day Contact prescribing physician if questions or concerns Unchanged metoprolol (metoprolol 50 mg ER Tab) By Mouth Every day Contact prescribing physician if questions or concerns Unchanged pravastatin (pravastatin 40 mg Tab) By Mouth Every day Contact prescribing physician if questions or concerns Test Results Urnls Dip Stick Auto w/o Microscopy POC 66267 (02/04/2023) Bilirubin Urine Dipstick - Negative Blood Urine Dipstick - Trace-intact Glucose Urine Dipstick - Negative Ketones Urine Dipstick - Negative Leukocytes Urine Dipstick - Negative Nitrite Urine Dipstick - Negative Protein Urine Dipstick - Negative Specific [place] Urine Dipstick - 1.020 Urine Appearance Urine Dipstick - Clear Urine Color Urine Dipstick - Yellow Urobilinogen Urine Dipstick - Normal 0.2-1 EU/dl pH Urine Dipstick - 7.5 Allergies Bactrim (Rash, Tachycardia) Problems Ongoing - Any problem that you are currently receiving treatment for. BPH with obstruction/lower urinary tract symptoms Elevated PSA Feeling of incomplete bladder emptying Gout Head ache Hyperlipidemia Hypertension Incomplete bladder emptying Prostatitis Patient Survey You may receive a survey via text or e-mail asking about your office visit. Please share your experience with us by completing your survey. We appreciate your feedback and thank you for choosing us for your care. Education Materials Urodynamic Testing Urodynamic tests are done to determine how well your lower urinary tract is working. The lower urinary tract includes your bladder and the part of your body that drains urine from the bladder (urethra). When your kidneys filter your blood, urine is stored in your bladder until you feel the urge to urinate. Urination requires coordination between the nerves and muscles of your bladder and urethra. When your lower urinary tract is working well, you should be able to: ? Start urinating when your bladder is full. ? Empty your bladder completely. ? Control the flow of your urine. Why do I need urodynamic testing? You may need urodynamic testing to help find the cause of any of these problems: ? Leaking urine (incontinence). ? Problems starting or stopping your urine flow. ? Frequent or painful urination. ? Frequent urinary tract infections. ? Being unable to empty your bladder completely. ? Having strong urges to pass urine (urgency). ? Having a weak flow of urine. What are the risks? Generally, these tests are safe. However, some of the tests have risks, including: ? Discomfort. ? Frequent urge to urinate. ? Bleeding. ? Infection. ? Allergic reactions to medicines or dyes (contrast material). What happens before the test? ? Ask your health care provider about changing or stopping your regular medicines. This is especially important if you are taking diabetes medicines or blood thinners. ? You may be asked to avoid urinating before coming to the test so that you (more content not included)... [facility] Patient Educationon 02-05-20 Patient Education Urology Urodynamic Testing Urodynamic tests are done to determine how well your lower urinary tract is working. The lower urinary tract includes your bladder and the part of your body that drains urine from the bladder (urethra). When your kidneys filter your blood, urine is stored in your bladder until you feel the urge to urinate. Urination requires coordination between the nerves and muscles of your bladder and urethra. When your lower urinary tract is working well, you should be able to: ? Start urinating when your bladder is full. ? Empty your bladder completely. ? Control the flow of your urine. Why do I need urodynamic testing? You may need urodynamic testing to help find the cause of any of these problems: ? Leaking urine (incontinence). ? Problems starting or stopping your urine flow. ? Frequent or painful urination. ? Frequent urinary tract infections. ? Being unable to empty your bladder completely. ? Having strong urges to pass urine (urgency). ? Having a weak flow of urine. What are the risks? Generally, these tests are safe. However, some of the tests have risks, including: ? Discomfort. ? Frequent urge to urinate. ? Bleeding. ? Infection. ? Allergic reactions to medicines or dyes (contrast material). What happens before the test? ? Ask your health care provider about changing or stopping your regular medicines. This is especially important if you are taking diabetes medicines or blood thinners. ? You may be asked to avoid urinating before coming to the test so that you arrive with a full bladder. ? Tell a health care provider about: ? Any allergies you have. ? All medicines you are taking, including vitamins, herbs, eye drops, creams, and [id number] medicines. ? Whether you are or may be . What happens during the test? You may have various urodynamic tests. The tests may be done separately or may all be done during one visit. You may be given an antibiotic medicine before or after testing to help prevent infection. The types of tests that may be done include: Uroflowmetry This test measures how much urine you pass and how long it takes to pass. ? You will urinate into a certain type of toilet or device (flowmeter). ? The device will measure the volume and the time of your urine flow. ? These measurements will be sent to a computer that creates a graph of your urine flow. Postvoid residual measurement This test measures how much urine is left in your bladder after you urinate. ? The test may be done with ultrasound. In this method, sound waves and a computer will be used to create an image of your bladder. ? The test can also be done by inserting a thin, flexible tube (catheter) into your bladder after you urinate. The remaining urine will be removed through the catheter so it can be measured. ? Remaining urine will be measured in milliliters (mL). If you have more than 100 mL left in your bladder after you urinate, your bladder is not emptying as it should. Cystometric testing This test uses a type of bladder catheter that can measure pressure. ? You may be given a medicine to numb the area (local anesthetic). ? The area around the opening of your urethra will be cleaned. ? A urinary catheter will be passed through your urethra into your bladder and used to empty your bladder completely. ? A measuring catheter will be placed, and your bladder will be filled with warm, germ-free (sterile) water. ? Pressure measurements will be taken: ? As your bladder fills. ? When you feel the need to urinate. ? As your bladder is emptied. ? You may be asked to cough or bear down to check for leakage. ? In some cases, your bladder may be filled with a material that shows up on X-rays (contrast material) so that X-ray pictures can be taken during the test. Electromyogram This test measures the electrical activity of the nerves and muscles of your bladder and the opening of your urethra. ? Sticky patches (electrodes) will be placed near your rectum and urethra to measure electrical activity. ? The measurements will show how well your nerves are communicating with your muscles. What can I expect after the test? ? You should be able to go home right away and do your usual activities. ? You may be told to drink a glass of water every 30 minutes for the first 2 hours after testing. ? Taking a warm bath or using warm, wet cloths (warm compresses) may relieve any discomfort near your urethra. What do the results mean? Talk with your health care provider about what your results mean. Some common causes for abnormal results from urodynamic tests include: ? Enlarged prostate in men. ? Overactive bladder. ? Urinary tract infection. ? Nervous system diseases. ? Spinal cord damage. Questions to ask your health care provider Ask your health care provider, or the department that is doing the test: ? When will my results be (more content not included)... [facility] Urology Office/Clinic Noteon 02-04-2023 Urology Office/Clinic Note Chief Complaint 6 month follow up w/ PSA HPI Staff 6 month follow up w/PSA. Current PSA 4.6 done 01/21/23-[facility] [place], previous PSA 7.1 & 11% done 06/11/22. Previous DX: BPH w/ obstruction/lower urinary tract symptoms, elevated PSA, feeling of incomplete bladder emptying. S/P TRUS/bx done on 07/09/22. Pathology done on 07/10/22 was negative. *Dutasteride 0.5mg qd, Alfuzosin 10mg ER qd. PVR today 166ml. Dysuria: denies pain and burning Incomplete bladder emptying: denies Hematuria: denies visible blood Frequency: sometimes every hour Urgency: denies Nocturia: 4x a night Stream: denies hesitancy, strong stream Leaking: sometimes Post void dripping: sometimes Wearing pads/ Depends: denies Urge incontinence: denies Stress incontinence: denies Incontinence without Sensory Awareness: denies Abdominal pain: denies Flank pain: denies Sexual complaints: Pt states he believes Dutasteride medication is causing ED History of Present Illness Tests reviewed: reviewed UA, PSA I have reviewed the previous health record information and history for this patient from Dr. Ruff. I have reviewed and verified the staff HPI to be accurate for this encounter. There have been no associated fever, chills, flank pain, or blood in the urine. Denies any urinary infections since last encounter. Review of Systems ROS - Provider Constitutional: denies weight loss, denies hot flashes. Eyes: denies eye problems. Gastrointestinal: denies nausea, denies vomiting. Cardiovascular: denies chest pain or angina. Integumentary: no dryness Musculoskeletal: denies musculoskeletal symptoms. ENMT: denies otolaryngeal symptoms. Respiratory: no shortness of breath. Heme/Lymph: denies easy bleeding tendency, denies easy bruising tendency. Psychiatric: no confusion, no anxiety. Genitourinary: See HPI. Physical Exam Vitals & Measurements HR: 70(Peripheral) BP: 125/67 HT: 70 in HT: 177 cm WT: 125.4 kg WT: 275.88 lb BMI: 40.03 General Appearance: alert, no distress, well nourished, well developed male. Genitourinary: normal scrotum, normal testes, normal urethra, normal epididymis, normal vas deferens/spermatic cord. Flank Pain: none. Bladder: nonpalpable. Assessment/Plan Pt here with a family member today. 1. Elevated PSA (R97.20: Elevated prostate specific antigen [PSA]) PSA: 09/04/20 - 2.97 05/09/22 - 5.18 Completed abx course 06/11/22 - 7.10 & 11% Started Dutasteride 07/23/22 01/21/23 - 4.60 (9.2 Dutasteride) Denies paternal or fraternal hx of prostate cancer. [1] TRUS/bx 07/09/22 - All benign. Prostate volume 55.8 cc. PSA increased from prior. Will cont to monitor. -PSA FT in 6 mos (due 07/2023). -Consider MRI in future if PSA concerning. 2. BPH with obstruction/lower urinary tract symptoms (N40.1: Benign prostatic hyperplasia with lower urinary tract symptoms) Started Dutasteride 0.5 mg qd at prior OV. Taking Alfuzosin 10 mg ER qd. IPSS 13 (11). Pt does not like Dutasteride, developed ED as a SE after he started taking. No noticeable SE from Alfuzosin. Educated pt on RM and long-term effects, including but not limited to atonic bladder. Discussed evaluation process including cysto and uros which could lead to a RM procedure. -D/c Dutasteride. -Will schedule urodynamics and cysto. The risks and benefits for cystoscopy have been discussed. The risks include bleeding, infection, and irritation of the bladder and urinary channel, among others. The patient, after being informed of procedural details and after questions have been answered, wishes to proceed. Full informed consent has been obtained. Will order Local anesthesia. prophylactic abx sent to [facility]. 3. Incomplete bladder emptying (R33.9: Retention of urine, unspecified) PVR (cc): 06/25/22 - 92 02/04/23 - 166 Emptying has worsened as well, proceed with workup for #2. 4. Prostatitis (N41.9: Inflammatory disease of prostate, unspecified) Completed Doxycycline 100 mg bid x 3 week course from prior OV. UA today negative for blood and infection, prostatitis resolved. Follow-up With When Contact Information NASREEN CARMONA, Milad Westfall, URL [facility] [address], [place] [address]- Additional Instructions: schedule cysto and uros Patient Education Urodynamic Testing Cystoscopy I, Silvia Choi, personally scribed for Dr. Ruff on 02/04/2023 10:39:14. . Documentation recorded by the scribe, Silvia Choi, accurately reflects the services(s) I performed and decisions made by me. Authenticated by Dr. Ruff on 02/04/2023 10:42:59. Problem List/Past Medical History Ongoing BPH with obstruction/lower urinary tract symptoms Elevated PSA Feeling of incomplete bladder emptying Gout Head ache Hyperlipidemia Hypertension Incomplete bladder emptying Prostatitis Historical No qualifying data Procedure/Surgical History Gallbladder (01/27/2023), Transrec (more content not included)... Normal [facility] Comment on above: Result Comment: Elec tronically Signed By: Milad RUFF MD\.br\Date and Time Signed: 02/04/23 10:43 EST\.br\Electronically Co-Signed By: Silvia Choi\.br\Date and Time Co-Signed: 11/08/23 10:39 EST Alkaline Phosphataseon 10-31 -2023 ALP [Catalytic activity/Vol] 88 U/L Normal 34-104 [facility] Comment on above: Performed By: #### A KULDEEP MALIK AMY #### [facility] [address] Alkaline phosphatase [Enzyma tic activity/volume] in Serum or PlasmaOrdered By: Taran James on 01-27-2023 ALP [Catalytic activity/Vol] 88 U/L 34-104 [facility] Amylaseon 01-27-2023 Amylase [Catalytic activity/Vol] 38 U/L Normal 29-103 [facility] Comment on above: Result Comment: PERF ORMED BY: [facility] [address] [place] [address] PATHOLOGIST [employer] MAGALY CEJA M.D. Performed By: #### A KULDEEP MALIK AMY #### [facility] [address] Amylase [Enzymatic activity/ volume] in Serum or PlasmaOrdered By: Taran James on 01-27-2023 Amylase [Catalytic activity/Vol] 38 U/L 29-103 [facility] Bilirubin,Totalon 01-27-2023 Bilirubin [Mass/Vol] 0.6 mg/dL Normal 0.3-1.[address] [facility] Comment on above: Performed By: #### A KULDEEP MALIK AMY #### [facility] [address] Bilirubin.total [Mass/volume ] in Serum or PlasmaOrdered By: Taran James on 01-27-2023 Bilirubin [Mass/Vol] 0.6 mg/dL 0.3-1.[address] [facility] Hipolito 01-27-2023 L --- Specimen: [id number] Received: 01/27/23 Status: ADIA Chavezlayo Num: [id number] Spec Type: Surgical Subm Dr: Taran James DO Tissues: A Gallbladder (GALLBLADDER) B Lymph Node - Biopsy (Needle or Incisional) (LN) Procedures: HE/3, Gross/Micro L4, Gross/Micro L3 Age/ Patient Sex Location Account Attending Physician Edward Darby/M ID [id number] Taran James DO SPEC NUM: [id number] RECD: 01/27/23 STATUS: ADIA LINDA NUM: [id number] ASHIA: 01/27/23- SUBM DR: Taran James DO ENTERED: 01/27/[address]: SPEC TYPE: Surgical DEPT: S ORDERED: HE/3, Gross/Micro L4, Gross/Micro L3 ORDERED: HE/3, Gross/Micro L4, Gross/Micro L3 Pathological Diagnosis A. Gallbladder, cholecystectomy: - Chronic cholecystitis and cholelithiasis B. Lymph node, calot , excision: - One reactive lymph node (0) Clinical Information Cholelithiasis Gross Description A. Received in formalin labeled with the patient's name, date of and gallbladder is a 9.8 x 3.5 x 3.2 cm previously incised gallbladder with a yellow-green, focally hyperemic serosa. The average wall thickness is 0.1 cm. The lumen contains green bile and multiple (greater than 30) yellow, multifaceted choleliths measuring up to 2.2 cm. The mucosa is ayon red to green, focally denuded and trabecular. The 0.1 cm in diameter apparent cystic duct margin is inked. Boat Hop sections are submitted in one cassette labeled A1. B. Received in formalin labeled with the patient's name, date of and calot lymph node Is a 0.7 x 0.5 x 0.3 cm ayon-randolph rubbery tissue. Entirely submitted in one cassette Specimen: [id number] Received: 01/27/23 Status: ADIA Redman Num: [id number] Spec Type: Surgical Subm Dr: Taran James DO Tissues: A Gallbladder (GALLBLADDER) B Lymph Node - Biopsy (Needle or Incisional) (LN) Procedures: HE/, Gross/Micro L4, Gross/Micro L3 Patient: Edward Darby [id number] (Continued) Specimen: [id number] Received: 01/27/23 (Continued) Gross Description (Continued) Signed (signature on file) Harley Aguilar MD 01/29/23 1311 Specimen: [id number] Received: 01/27/23 Status: ADIA Redman Num: [id number] Spec Type: Surgical Subm Dr: Taran James DO Tissues: A Gallbladder (GALLBLADDER) B Lymph Node - Biopsy (Needle or Incisional) (LN) Procedures: LORENZA/Miguel, Gross/Micro L4, Gross/Micro L3 Patient: Edward Darby [id number] (Continued) Specimen: [id number] Received: 01/27/23 (Continued) Gross Description (Continued) labeled B1. Microscopic Description A. One H E slide reviewed. The microscopic examination confirms the diagnosis. B. One H E slide reviewed. The microscopic examination confirms the diagnosis. CPT Codes 26453, 21016 Specimen: [id number] Received: 01/27/23 Status: ALEXMazin Redman Num: [id number] Spec Type: Surgical Subm Dr: Taran James DO Tissues: A Gallbladder (GALLBLADDER) B Lymph Node - Biopsy (Needle or Incisional) (LN) Procedures: HE/3, Gross/Micro L4, Gross/Micro L3 Patient: Edward Darby [id number] (Continued) Signed (signature on file) Harley Aguilar MD 01/29/23 1311 [facility] CHEMISTRYOrdered By: SYSTEM SYSTEM on 01-21-2023 Prostate specific Ag [Mass/Vol] 4.6 ng/mL High 0.1 - 3.5 ng/mL [facility]isol Comment on above: Interpretive Data: T he concentration of PSA determined by different manufacturers can vary due to differences in assay methods and reagent specificity. Values obtained from different assay methods cannot be used interchangeably. The methodology used for this result was chemiluminescence using [employer]'s Access Hybritech PSA reagent. PSA Totalon 01-21-2023 Prostate specific Ag [Mass/Vol] 4.6 ng/mL High 0.1-3.5 [facility] Comment on above: Result Comment: The concentration of PSA determined by different manufacturers can vary due to differences in assay methods and reagent specificity. Values obtained from different assay methods cannot be used interchangeably. The methodology used for this result was chemiluminescence using [employer] [place]'s Access Hybritech PSA reagent. Performed By: #### 1 [id number] ####[facility] [address] [place] [address] Basic Metabolic Panelon 12-28 Anion gap [Moles/Vol] 9.7 mmol/L Normal 6.0-15.0 [facility] Comment on above: Performed By: #### B MP, CBC #### [facility] [address] Calcium [Mass/Vol] 9.3 mg/dL Normal 8.6-10.3 [facility] Comment on above: Result Comment: PERF ORMED BY: [facility] [address] [place] [address] PATHOLOGIST [employer] MAGALY CEJA M.D. Performed By: #### B MP, CBC #### [facility] [address] [place] [id number] [place] Chloride [Moles/Vol] 102 mmol/L Normal 98-[address] [facility] Comment on above: Performed By: #### B MP, CBC #### [facility] [address] [place] [id number] [place] CO2 [Moles/Vol] 29.3 mmol/L Normal 21.0-31.0 [facility] Comment on above: Performed By: #### B MP, CBC #### [facility] [address] [place] [address] [place] Creatinine [Mass/Vol] 0.77 mg/dL Normal 0.70-1.30 [facility] Comment on above: Performed By: #### B MP, CBC #### [facility] [address] [place] [address] [place] GFR/1.73 sq M.predicted MDRD (S/P/Bld) [Vol rate/Area] mL/min/{1.73_m2} Normal [facility] Comment on above: Performed By: #### B MP, CBC #### [place] [address] [place] Glucose [Mass/Vol] 148 mg/dL High 70-100 [facility] Comment on above: Result Comment: [place] Glucose Reference Range is dependent on time and content of last meal. Glucose of more than 200 mg/dL in a nonstressed, ambulatory subject supports the diagnosis of Diabetes Mellitus. ADA recommended reference range Performed By: #### B MP, CBC #### [facility] [address] [place] [address] [place] Potassium [Moles/Vol] 4.0 mmol/L Normal 3.5-5.1 [facility] Comment on above: Performed By: #### B MP, CBC #### [facility] [address] [place] [id number] [place] Sodium [Moles/Vol] 137 mmol/L Normal 136-145 [facility] Comment on above: Performed By: #### B MP, CBC #### [facility] [address] Urea nitrogen [Mass/Vol] 13 mg/dL Normal 7-25 [facility] Comment on above: Performed By: #### B MP, CBC #### [facility] [address] Basophils Auto (Bld) [#/Vol] Ordered By: Taran James on 01-13-2023 Basophils (Bld) [#/Vol] 0.1 10*3/uL 0.0-0.2 [facility] Basophils/100 WBC Auto (Bld) Ordered By: Taran James on 01-13-2023 Basophils/100 WBC (Bld) 1.2 % . F [facility] Calcium [Mass/volume] in Ser um or PlasmaOrdered By: Taran James on 01-13-2023 Calcium [Mass/Vol] 9.3 mg/dL 8.6-10.3 [facility] Carbon dioxide, total [Moles /volume] in Serum or PlasmaOrdered By: Taran James on 01-13-2023 CO2 [Moles/Vol] 29.3 mmol/L 21.0-31.0 [facility] Chloride [Moles/volume] in S shweta or PlasmaOrdered By: Taran James on 01-13-2023 Chloride [Moles/Vol] 102 mmol/L 98-[address] [facility] Complete Blood Count Auto Di ffon 01-13-2023 Basophils (Bld) [#/Vol] 0.1 10*3/uL Normal 0.0-0.2 [facility] Comment on above: Result Comment: PERF ORMED BY: [place] [address] PATHOLOGIST [employer] MAGALY CEJA M.D. Performed By: #### B MP, CBC #### [facility] [address] Basophils/100 WBC (Bld) 1.2 % Normal . F [facility] Comment on above: Performed By: #### B MP, CBC #### [facility] [address] Eosinophils (Bld) [#/Vol] 0.1 10*3/uL Normal 0.0-0.45 [facility] Comment on above: Performed By: #### B MP, CBC #### [address] Eosinophils/100 WBC (Bld) 2.0 % Normal . [facility] Comment on above: Performed By: #### B MP, CBC #### [address] Erythrocyte distribution width (RBC) [Ratio] 14.2 % Normal 12.0-14.8 [facility] Comment on above: Performed By: #### B MP, CBC #### [address] Hematocrit (Bld) [Volume fraction] 45.0 % Normal 38.8-50.0 [facility] Comment on above: Performed By: #### B MP, CBC #### [address] Hemoglobin (Bld) [Mass/Vol] 15.5 g/dL Normal 13.0-17.0 [facility] Comment on above: Performed By: #### B MP, CBC #### [address] Lymphocytes (Bld) [#/Vol] 1.0 10*3/uL Normal 1.00-4.8 [facility] Comment on above: Performed By: #### B MP, CBC #### [place] [address] [place] Lymphocytes/100 WBC (Bld) 20.5 % Normal . [facility] Comment on above: Performed By: #### B MP, CBC #### [address] MCH (RBC) [Entitic mass] 30.9 pg Normal 27.5-35.2 [facility] Comment on above: Performed By: #### B MP, CBC #### [facility] [address] MCV (RBC) [Entitic vol] 89.5 fL Normal 83.5-[address] [facility] Comment on above: Performed By: #### B MP, CBC #### [facility] [address] Mean Corpuscular HGB Conc 34.5 g/dL Normal 32.5-35.6 [facility] Comment on above: Performed By: #### B MP, CBC #### [facility] [address] Monocytes (Bld) [#/Vol] 0.5 10*3/uL Normal 0.0-0.8 [facility] Comment on above: Performed By: #### B MP, CBC #### [address] Monocytes/100 WBC (Bld) 9.3 % Normal . F [facility] Comment on above: Performed By: #### B MP, CBC #### [address] Neutrophils (Bld) [#/Vol] 3.4 10*3/uL Normal 1.8-7.7 [facility] Comment on above: Performed By: #### B MP, CBC #### [address] Neutrophils/100 WBC (Bld) 67.0 % Normal . [facility] Comment on above: Performed By: #### B MP, CBC #### [address] NRBC% 0.1 /100{WBC} Normal 0-0.5 [facility] Comment on above: Performed By: #### B MP, CBC #### [address] Platelet mean volume (Bld) [Entitic vol] 7.4 fL Normal 6.6-10.1 [facility] Comment on above: Performed By: #### B MP, CBC #### [address] [place] [address] [place] Platelets (Bld) [#/Vol] 177 10*3/uL Normal 150-450 [facility] Comment on above: Performed By: #### B MP, CBC #### [address] RBC (Bld) [#/Vol] 5.02 10*6/uL Normal 3.90-5.60 [facility] Comment on above: Performed By: #### B MP, CBC #### [facility] [address] WBC (Bld) [#/Vol] 5.1 10*3/uL Normal 4.1-10.5 [facility] Comment on above: Performed By: #### B MP, CBC #### [address] Creatinine [Mass/volume] in Serum or PlasmaOrdered By: Taran James on 01-13-2023 Creatinine [Mass/Vol] 0.77 mg/dL 0.70-1.30 [facility] ECG 12 lead ECGon 01-13-2023 ECG 12 lead ECG [facility] Main Show Low [address] [place] [address] Electrocardiograph Report Signed Patient: Edward Darby MR#: [id number] : 1950 Acct:[id number] Age/Sex: 72 / M ADM Date: 01/13/23 Loc: Room: Type: [facility] Attending Dr: Taran James DO Ordering Provider: Taran James DO Date of Service: 01/13/23 ECG/ECG 12 lead ECG: surgery 01/27 Copies to: Test Reason : Blood Pressure : / mmHG Vent. Rate : 068 BPM Atrial Rate : 068 BPM P-R Int : 172 ms QRS Dur : 134 ms QT Int : 414 ms P-R-T Axes : 024 068 040 degrees QTc Int : 440 ms Normal sinus rhythm Right bundle branch block Abnormal ECG No previous ECGs available Confirmed by MARY CARMONA [id number] on 01/13/2023 2:42:48 PM Referred By: MAME Electronically Signed By:MILAD HERNANDEZ MD [facility] Transcribed By: MUS Signed By Adalberto Hernandez MD 01/13/23 1442 Normal [facility] Eosinophils Auto (Bld) [#/Vo l]Ordered By: Taran James on 01-13-2023 Eosinophils (Bld) [#/Vol] 0.1 10*3/uL 0.0-0.45 [facility] Eosinophils/100 WBC Auto (Bl d)Ordered By: Taran James on 01-13-2023 Eosinophils/100 WBC (Bld) 2.0 % . [facility] Erythrocyte distribution wid th Auto (RBC) [Ratio]Ordered By: Taran James on 01-13-2023 Erythrocyte distribution width (RBC) [Ratio] 14.2 % 12.0-14.8 [facility] Glucose [Mass/volume] in Ser um or PlasmaOrdered By: Taran James on 01-13-2023 Glucose [Mass/Vol] 148 mg/dL 70-100 [facility] Comment on above: ADA recommended refe rence rangeRandom Glucose Reference Range is dependent on time and content of last meal. Glucose of more than 200 mg/dL in a nonstressed, ambulatory subject supports the diagnosis of Diabetes Mellitus. Hematocrit Auto (Bld) [Volum e fraction]Ordered By: Taran James on 01-13-2023 Hematocrit (Bld) [Volume fraction] 45.0 % 38.8-50.0 [facility] Hemoglobin [Mass/volume] in BloodOrdered By: Taran James on 01-13-2023 Hemoglobin (Bld) [Mass/Vol] 15.5 g/dL 13.0-17.0 [facility] Leukocytes [#/volume] correc shahbaz for nucleated erythrocytes in Blood by Automated counOrdered By: Taran James on 01-13-2023 WBC corrected for nucl RBC Auto (Bld) [#/Vol] 5.1 10*3/uL 4.1-10.5 [facility] Lymphocytes Auto (Bld) [#/Vo l]Ordered By: Taran James on 01-13-2023 Lymphocytes (Bld) [#/Vol] 1.0 10*3/uL 1.00-4.8 [facility] Lymphocytes/100 WBC Auto (Bl d)Ordered By: Taran James on 01-13-2023 Lymphocytes/100 WBC (Bld) 20.5 % . [facility] MCH Auto (RBC) [Entitic mass ]Ordered By: Taran James on 01-13-2023 MCH (RBC) [Entitic mass] 30.9 pg 27.5-35.2 [facility] MCHC Auto (RBC) [Mass/Vol]Or dered By: Taran James on 01-13-2023 MCHC (RBC) [Mass/Vol] 34.5 g/dL 32.5-35.6 [facility] MCV Auto (RBC) [Entitic vol] Ordered By: Taran James on 01-13-2023 MCV (RBC) [Entitic vol] 89.5 fL 83.5-[address] [facility] Monocytes Auto (Bld) [#/Vol] Ordered By: Taran James on 01-13-2023 Monocytes (Bld) [#/Vol] 0.5 10*3/uL 0.0-0.8 [facility] Monocytes/100 WBC Auto (Bld) Ordered By: Taran James on 01-13-2023 Monocytes/100 WBC (Bld) 9.3 % . F [facility] Neutrophils Auto (Bld) [#/Vo l]Ordered By: Taran James on 01-13-2023 Neutrophils (Bld) [#/Vol] 3.4 10*3/uL 1.8-7.7 [facility] Neutrophils/100 WBC Auto (Bl d)Ordered By: Taran James on 01-13-2023 Neutrophils/100 WBC (Bld) 67.0 % . [facility] No Panel InformationOrdered By: Taran James on 01-13-2023 Estimated GFR (CKD-EPI) > 60.0 mL/Min [facility] Creatinine Clearance (Chem N/A [facility] Nucleated erythrocytes [Pres ence] in Blood by Automated countOrdered By: Taran James on 01-13-2023 Nucleated RBC Auto Ql (Bld) 0.1 /100{WBC} 0-0.5 [facility] Platelet mean volume Auto (B ld) [Entitic vol]Ordered By: Taran James on 01-13-2023 Platelet mean volume (Bld) [Entitic vol] 7.4 fL 6.6-10.1 [facility] Platelets Auto (Bld) [#/Vol] Ordered By: Taran James on 01-13-2023 Platelets (Bld) [#/Vol] 177 10*3/uL 150-450 [facility] Potassium [Moles/volume] in Serum or PlasmaOrdered By: Taran James on 01-13-2023 Potassium [Moles/Vol] 4.0 mmol/L 3.5-5.1 [facility] RBC Auto (Bld) [#/Vol]Ordere d By: Taran James on 01-13-2023 RBC (Bld) [#/Vol] 5.02 10*6/uL 3.90-5.60 [facility] Serum or plasma anion gap de terminationOrdered By: Taran James on 01-13-2023 Anion gap [Moles/Vol] 9.7 mmol/L 6.0-15.0 [facility] Sodium [Moles/volume] in Ser um or PlasmaOrdered By: Taran James on 01-13-2023 Sodium [Moles/Vol] 137 mmol/L 136-145 [facility] Urea nitrogen [Mass/volume] in Serum or PlasmaOrdered By: Taran James on 01-13-2023 Urea nitrogen [Mass/Vol] 13 mg/dL 7-25 [facility] WBC Auto (Bld) [#/Vol]Ordere d By: Taran James on 01-13-2023 WBC (Bld) [#/Vol] 5.1 10*3/uL 4.1-10.5 [facility] Office Visit (Cardiology)on 07-10-2022 Follow-up visit Diagnoses/Problems Assessed Chest pain, atypical (786.59) (R07.89) Abnormal stress test (794.39) (R94.39) Hyperlipidemia (272.4) (E78.5) Hypertension (401.9) (I10) History of rheumatic fever (V12.09) (Z86.79) Former smoker (V15.82) (Z87.891) 20+ years ago Morbid obesity with BMI of 40.0-44.9, adult (278.01,V85.41) (E66.01,Z68.41) Obstructive sleep apnea on CPAP (327.23,V46.8) (G47.33,Z99.89) Right bundle branch block (RBBB) on electrocardiography (426.4) (I45.10) PAC (premature atrial contraction) (427.61) (I49.1) PVC (premature ventricular contraction) (427.69) (I49.3) Orders Abnormal stress test, Chest pain, atypical IO EKG Electrocardiogram- 12 Lead; Status:Complete; Done: [id number] Abnormal stress test, Chest pain, atypical, Hyperlipidemia Start: Aspirin 81 MG Oral Tablet Delayed Release; TAKE 1 TABLET DAILY Hyperlipidemia Start: Atorvastatin Calcium 10 MG Oral Tablet; take 1 tablet by mouth at bedtime Morbid obesity with BMI of 40.0-44.9, adult Healthy Weight Tips; Status:Complete - Retrospective Authorization; Done: [id number] Some eating tips that can help you lose weight.; Status:Complete - Retrospective Authorization; Done: [id number] SocHx: Former smoker Stop: Pravastatin Sodium 40 MG Oral Tablet Tobacco Use Screening; Status:Complete; Done: [id number] Patient Instructions Please bring all medicines, vitamins, and herbal supplements with you when you come to the office. Prescriptions will not be filled unless you are compliant with your follow up appointments or have a follow up appointment scheduled as per instruction of your physician. Refills should be requested at the time of your visit. Follow up in 6 months Chief Complaint EDWARD DARBY is being seen for a consultation for abnormal test(s) results. History of Present Illness Patient is seen at the request of his primary care physician because of an abnormal echocardiogram He is an individual who has a history of hypertension. He has also been treated for hyperlipidemia. He was checking his blood pressure and noted an irregular rhythm. Because of this history physician ordered a stress test. It was a treadmill Cardiolite. The electrocardiographic component of this study is not available to us as it was not sent. The perfusion study, though, was provided to us. It demonstrates diaphragmatic attenuation. He was told that his stress test was okay and because of this he was not concerned about blockage. He does describe chest pain but it is atypical and more often occurs at rest and with activity. He had an echocardiogram as well. It also had some findings. It demonstrated biatrial enlargement, right ventricular dilatation and enlargement, and diastolic dysfunction. No segmental wall motion abnormalities, no left ventricular dysfunction. Advised him that his findings on the echo are most consistent with obstructive sleep apnea. He acknowledges this and in fact is being treated with CPAP. I also pointed out to him that increased body mass index will cause these findings and he is working diligently on a diet. It appears that pressure is adequately controlled. We had a long detailed discussion, though, regarding risk. Apparently all of his siblings have coronary disease or had a coronary event. The patient himself is on a low potency statin. Blood pressure is acceptable. He is not on aspirin. He was told recently that he has hyperglycemia and her diabetes and is not being treated. I advised him that he needs to be on a more aggressive statin and we will make a change from pravastatin to atorvastatin. He also should be on aspirin even without a diagnosis of coronary disease because of a high suspicion of subclinical disease. Also very important is he needs to be on a GLP-1 inhibitor because it is his best chance and/or possibility of mitigating risk of progressive coronary atherosclerosis. I provided him information on this and encouraged him to talk to his primary care physician in this regard. We discussed his smoking history. He was congratulated on cessation. Body mass index and the importance of dieting were also discussed. Lastly I explained to him that with prompted all of this testing was PACs and PVCs which are evident on today's EKG. They are benign in the absence of coronary disease or structural heart disease and because of this he was advised that no treatment is necessary. Because he requires aggressive risk factor modification and attention to detail I suggest he see me in about 6 months. Surgical History Problems History of Back surgery L4, L5 fused History of Carpal tunnel surgery rt History of Colonoscopy History of Shoulder surgery History of Tonsillectomy Current Meds Medication NameInstruction Alfuzosin HCl ER 10 MG Oral Tablet Extended Release 24 HourTAKE 1 TABLET DAILY. Allopurinol 100 MG Oral TabletTAKE 1 TABLET TWICE DAILY. Ciprofloxacin HCl - 500 MG Oral TabletTAKE 1 TABLET EVERY 12 HOURS DAILY. [facility] (more content not included)... Normal [facility] Tobacco Screening.on 023 Adult depression screening assessment No [facility] [employer] 250 DO Work Phone: Fall risk assessment a) No falls within the last year [facility] [employer] [employer] [place] 250 DO Work Phone: Tobacco use status CPHS b) No M [facility] [employer] 250 DO Work Phone: ECHOCARDIO M/2D COMPLETEon 0 07-02-2022 ECHOCARDIO M/2D COMPLETE Patient: EDWARD DARBY Exam Date: 07/02/2022 : 1950 Gender:M Ordering : DR MICHAELA VILLAVICENCIO M.D. Admission #: [id number] Family : Order #: [id number] CLICK HERE TO VIEW EXAM ECHOCARDIOGRAM REPORT PROCEDURE: CARDIO PULMONARY ECHOCARDIO M/2D COMP INDICATIONS: Abnormal stress test, hypertension, former smoker, h/o rheumatic fever COMPARISON: None. DESCRIPTION: COMPLETE ECHOCARDIOGRAM Real-time transthoracic echocardiography with 2D, M-mode, spectral and color flow Doppler performed. QUALITY: Technical quality was good. LEFT VENTRICLE: Normal chamber size. Normal left ventricular wall thickness. LV EF: Normal left ventricular ejection fraction, (55%). DIASTOLIC: Grade II diastolic dysfunction. Doppler velocities indicate elevated filling pressures. ATRIAL SEPTUM: Visually appears intact. LEFT ATRIUM: Moderate dilatation. RIGHT ATRIUM: Moderate dilatation. RIGHT VENTRICLE: Mild dilatation. Mildly decreased right ventricular systolic function. TRICUSPID VALVE: Normal mobility and thickness. No stenosis with trivial regurgitation. Unable to assess right-sided pressures due to lack of measurable tricuspid regurgitation. MITRAL VALVE: Normal mobility and thickness. No evidence of mitral valve stenosis. Mild mitral annular calcification. Trivial mitral regurgitation. AORTIC VALVE: Normal trileaflet appearance. Mildly calcified aortic valve. Normal leaflet mobility. No evidence of aortic valve stenosis. No aortic regurgitation. AORTIC ROOT: Normal diameter and appearance. PULMONIC VALVE: Normal thickness and mobility. No stenosis. No regurgitation. PERICARDIUM: No evidence of pericardial effusion. IVC: Collapses with inspirations. PLEURA: CONCLUSION: 1. Normal left ventricular systolic function. LVEF is 55%. 2. Mildly dilated right ventricle with mildly decreased right ventricular systolic function. 3. Grade 2 diastolic dysfunction. Doppler velocities indicate elevated filling pressures. 4. Moderate biatrial dilatation. 5. No significant valvular dysfunction. 6. Unable to assess right-sided pressures due to lack of measurable tricuspid regurgitation. Adult Echocardiography Procedure Report Left Ventricle LVEDD (3.7 - 5.6 cm): 5.26 cm LVESD (2.2 - 4.0 cm): 3.52 cm LVIVS thickness (0.6 - 1.2 cm): 1.03 cm LVPW thickness (0.5 - 1.0 cm): 1.00 cm e': 0.06 m/s E - e': 14.86 LVOT Max Gradient: 3.74 mm[Hg] Peak Velocity (LVOT): 0.97 m/s LVOT Diameter 2.38 cm Left Ventricular Ejection Fraction: 55 % Left Atrium LA Volume Index (2D A2C): 103.19 ml, 103.19 ml Left Atrium Systolic Dimension: 4.18 cm Mitral Valve MV E to A Ratio: 0.83 Mitral Valve A-Wave Peak Velocity: 1.15 m/s Mitral Valve E-Wave Peak Velocity: 0.95 m/s Right Ventricle Aorta AO Root Diam: 3.55 cm Aortic Valve AoV Area (Peak Lloyd): 2.46 cm2, 2.46 cm2 Peak Velocity(Antegrade Flow): 1.75 m/s Peak Gradient(Antegrade Flow): 12.19 mm[Hg] Tricuspid Valve Peak Velocity (Regurgitant Flow): 2.42 m/s Peak Velocity: 0.55 m/s Pulmonic Valve Peak Velocity: 1.07 m/s, 1.19 m/s Peak Gradient: 4.60 mm[Hg], 5.67 mm[Hg] Right Atrium Right Atrium Systolic Pressure: 62.53 ml, 62.53 ml Dictated by: Dagoberto Rider M.D. on 07/03/2022 at 18:53 Approved by: Dagoberto Rider M.D. on 07/03/2022 at 18:57 Normal [facility] NM STRESS/REST MULTIon 05-22 NM STRESS/REST MULTI Patient: REESE DARBY Exam Date: 05/22/2022 : 1950 Gender:M Ordering : DR MICHAELA VILLAVICENCIO M.D. Admission #: [id number] Family : Order #: [id number] CLICK HERE TO VIEW EXAM RADIOLOGY REPORT PROCEDURE: RADIONUCLIDE IMAGING STRESS/REST MULTI COMPARISON: None. INDICATIONS: Chest pain TECHNIQUE: Exam Description: Stress/Rest two day protocol gated SPECT Rest Imagin.4 mCi Tc-99m Cardiolite IV on 05/22/2022 Stress Imaging 25.0 mCi Tc-99m Cardiolite IV on 05/22/2022 Exercise Protocol: Sriram Heart Rate (bpm): Rest: 81 Max: 131 PMHR: 86 Blood Pressure: Rest: 132/78 Max: 188/80 Exercise Time: Minutes: 4 Seconds: 00 Stage Reached: Stage: 2 Mets 5.6 Symptoms: Rest and peak stress ECG findings were abnormal and the exercise portion of the study was abnormal per attending physician Dr. Hanks due to EKG changes. For more details please see separate cardiac stress test report. FINDINGS: QUALITY OF STUDY: PERFUSION DEFECT: LOCATION: Basal inferior. Mid-inferior. SIZE: Small (1-2 segments). SEVERITY: Mild. TYPE: Persistent. WALL MOTION: Normal. LV SIZE: Normal. 95 mL. TID / TCD: None; 1.0 LVEF: Normal. Calculated EF 70%. SUMMARY: Myocardial perfusion imaging study has ABNORMAL findings. CONCLUSION: 1. Decreased activity in the inferior wall, diaphragmatic attenuation artifact versus a fixed defect 2. No reversible ischemia 3. Abnormal exercise test secondary EKG changes Dictated by: Theo Barragan MD on 06/09/2022 at 13:53 Approved by: Theo Barragan MD on 06/09/2022 at 13:55 Normal [facility] XR Hip Complete Right*on XR Hip Complete Right* FINDINGS: Mild superior medial hip joint space loss. No pincer or CAM deformities. No cortical or stress fracture. Lumbosacral fusion. IMPRESSION: 1. Mild bilateral hip osteoarthritis. Report reported and signed by Deven Mcguire on 08/02/2021 1422 Normal [facility] Assistant XR Knee Complete Right*on XR Knee Complete Right* FINDINGS: Mild to moderate patellofemoral joint space reduction is seen. Tibial plateaus are maintained in height. No significant osteophyte formation is present. Small to moderate size superior patellar enthesophyte. Moderate size infrapatellar enthesophyte, sclerotic rimmed lucency separting it from the anterior patellar base (nonacute appearance). 1.0 x 2.5 cm anterior tibial ossicle, nonacute appearance. Small suprapatellar effusion is suggested. Menisci are non-calcified. IMPRESSION: 1. Mild patellofemoral arthritis, no acute fracture. 2. Anterior tibial tubercle consistent with remote [place]. Report reported and signed by Deven Mcguire on 08/02/2021 1422 Normal [facility] [employer] XR Knee Standing AP Bilatera hipolito 08-02-2021 XR Knee Standing AP Bilateral FINDINGS: Standing weight-bearing view demonstrates mild joint space reduction within the left medial compartment without cortical or subchondral fracture suggested. Menisci are not calcified. IMPRESSION: Mild left medial joint space loss. Report reported and signed by Deven Mcguire on 08/02/2021 1424 Normal [facility] Vital Signs Date Time Vital Sign Value Performing Clinician Facility 01-13-2024 14:07-0400 Blood Pressure Location Miladkevin RUFF [facility] 01-13-2024 14:07-0400 Diastolic blood pressure 78 mm[Hg] Milad RUFF [facility] 01-13-2024 14:07-0400 Heart rate 74 /min Milad RUFF [facility] 01-13-2024 14:07-0400 Respiratory rate 16 /min Milad RUFF [facility] 01-13-2024 14:07-0400 Systolic blood pressure 146 mm[Hg] Milad RUFF [facility] 01-11-2024 11:01-0400 Body height 177.8 cm Michaela Villavicencio MD Work Phone: [facility] 01-11-2024 11:01-0400 Body mass index (BMI) [Ratio] 38.88 kg/m2 Michaela Villavicencio MD Work Phone: [facility] 01-11-2024 11:01-0400 Body weight 122.92 kg Michaela Villavicencio MD Work Phone: [facility] 01-11-2024 11:01-0400 Diastolic blood pressure 80 mm[Hg] Michaela Villavicencio MD Work Phone: [facility] 01-11-2024 11:01-0400 Heart rate 69 /min Michaela Villavicencio MD Work Phone: [facility] 01-11-2024 11:01-0400 SaO2% (BldA) [Mass fraction] 96 % Michaela Villavicencio MD Work Phone: [facility] 01-11-2024 11:01-0400 Systolic blood pressure 128 mm[Hg] Michaela Villavicencio MD Work Phone: [facility] 02-04-2023 09:32-0500 Blood Pressure Location Milad RUFF [facility] 02-04-2023 09:32-0500 Diastolic blood pressure 67 mm[Hg] Milad RUFF [facility] 02-04-2023 09:32-0500 Heart rate 70 /min Milad RUFF [facility] 02-04-2023 09:32-0500 Systolic blood pressure 125 mm[Hg] Milad RUFF [facility] 10-31-2023 10:50-0400 Diastolic blood pressure 68 mm[Hg] MD Michaela Villavicencio Work Phone: [facility] 01-27-2023 10:50-0400 Heart rate 74 /min MD Michaela Villavicencio Work Phone: [facility] 01-27-2023 10:50-0400 Respiratory rate 16 /min MD Michaela Villavicencio Work Phone: [facility] 01-27-2023 10:50-0400 SaO2% (BldA) [Mass fraction] 96 % MD Michaela Villavicencio Work Phone: [facility] 01-27-2023 10:50-0400 Systolic blood pressure 115 mm[Hg] MD Michaela Villavicencio Work Phone: [facility] 01-27-2023 09:30-0400 Body temperature 98.2 [degF] MD Michaela Villavicencio Work Phone: [facility] 01-27-2023 09:30-0400 Inhaled oxygen flow rate 3 L/min MD Michaela Villavicencio Work Phone: [facility] 01-27-2023 08:02-0400 Body height 177.8 cm MD Michaela Villavicencio Work Phone: [facility] 01-27-2023 08:02-0400 Body mass index (BMI) [Ratio] 39.7 kg/m2 MD Michaela Villavicencio Work Phone: [facility] 01-27-2023 08:02-0400 Body weight 125.64 kg MD Michaela Villavicencio Work Phone: [facility] 07-10-2022 09:46-0400 Body height 177.8 cm Michaela Villavicencio Work Phone: [facility] 250 DO Work Phone: 07-10-2022 09:46-0400 Body mass index (BMI) [Ratio] 40.03 kg/m2 Michaela Kima Work Phone: [facility] 250 DO Work Phone: 07-10-2022 09:46-0400 Body surface area Derived from formula 2.4 m2 Rugen M Maye Work Phone: [facility] 250 DO Work Phone: 07-10-2022 09:46-0400 Body weight 126.55 kg Rugen M Maye Work Phone: [facility] 250 DO Work Phone: 07-10-2022 09:46-0400 Diastolic blood pressure 82 mm[Hg] Rugen M Kelly Work Phone: [facility] 250 DO Work Phone: 07-10-2022 09:46-0400 Diastolic blood pressure 72 mm[Hg] Rugen M Kelly Work Phone: [facility] 250 DO Work Phone: 07-10-2022 09:46-0400 Heart rate 81 /min Rugen M Kelly Work Phone: [facility] 250 DO Work Phone: 07-10-2022 09:46-0400 Systolic blood pressure 128 mm[Hg] Rugen M Maye Work Phone: [facility] 250 DO Work Phone: 07-10-2022 09:46-0400 Systolic blood pressure 132 mm[Hg] Rugen M Kelly Work Phone: [facility] 250 DO Work Phone: 07-09-2022 07:40-0400 Blood Pressure Location Milad RUFF [facility] 07-09-2022 07:40-0400 Diastolic blood pressure 84 mm[Hg] Milad RUFF [facility] 07-09-2022 07:40-0400 Heart rate 72 /min Milad RUFF [facility] 07-09-2022 07:40-0400 Respiratory rate 16 /min Milad RUFF [facility] 07-09-2022 07:40-0400 Systolic blood pressure 137 mm[Hg] Miladkevin RUFF [facility] 06-25-2022 15:07-0400 Blood Pressure Location Miladkevin RUFF [facility] 06-25-2022 15:07-0400 Diastolic blood pressure 74 mm[Hg] Milad RUFF [facility] 06-25-2022 15:07-0400 Heart rate 65 /min Milad RUFF [facility] 06-25-2022 15:07-0400 Systolic blood pressure 138 mm[Hg] Milad RUFF [facility] Encounters Encounter Date Encounter Type Care Provider Facility Start: 02-29-2024 ambulatory Milad Alvarezi ty:[facility] [place] Start: 02-08-2024 ambulatory Milad R RUFF Facili ty:[facility] Start: 02-04-2024 ambulatory Milad R RUFF Facili ty:[id number] Start: 01-20-2024 End: 01-20-2024 Clinisync Result Encounter Generic External Data Provider [facility] External Department Unsolicited Start: 01-20-2024 End: 01-20-2024 Clinisync Result Encounter Generic External Data Provider [facility] External Department Unsolicited Start: 01-13-2024 End: 01-13-2024 ambulatory Milad RUFF Facility:[facility] Start: 01-13-2024 End: 01-13-2024 Patient encounter procedure Milad RUFF [facility] [place] Start: 01-11-2024 End: 01-11-2024 Assay of hemosiderin, quant Michaela Villavicencio MD Work Phone: [facility] Start: 01-11-2024 End: 01-11-2024 Patient encounter procedure Michaela Villavicencio MD Work Phone: [facility] Comment on above: [facility] (Primary Dx); Abnormal glucose tolerance test; Benign essential hypertension ([facility]/HCC); Nocturia; Medicare annual wellness visit, subsequent; Hyperlipidemia, unspecified hyperlipidemia type (CMS/HCC); Impaired fasting glucose; Hyperchylomicronemia (CMS/HCC); Type 2 diabetes mellitus with other specified complication, without long-term current use of insulin (CMS/[facility]); Morbid (severe) obesity due to excess calories ([facility]); Encounter for vaccination; Sleep apnea in adult Start: 01-11-2024 ambulatory RUGEN M MAYE Not Availa ble Start: 12-02-2023 End: 12-02-2023 ambulatory BRITTNY ALVARADO Not Available Start: 09-22-2023 End: 09-22-2023 ambulatory RUGEN M MAYE Not Available Start: 06-01-2023 End: 06-01-2023 ambulatory RUGEN M MAYE Not Available Start: 05-10-2023 Chart abstracting Michaela Villavicencio MD Work Phone: [facility] Start: 03-31-2023 End: 03-31-2023 ambulatory Milad RUFF Facility:[facility] Start: 03-31-2023 End: 03-31-2023 Patient encounter procedure Milad RUFF [facility] Start: 02-04-2023 End: 02-04-2023 ambulatory Milad RUFF Facility: [place] Start: 02-04-2023 End: 02-04-2023 Patient encounter procedure Milad RUFF [facility] [place] Start: 01-27-2023 End: 01-27-2023 ambulatory Taran Mame Facility:[facility] Start: 01-27-2023 End: 01-27-2023 Admission to same day surgery center MD Michaela Villavicencio Work Phone: [facility] Start: 01-27-2023 End: 01-27-2023 ambulatory MD Michaela Villavicencio Work Phone: [facility] Work Phone: Start: 01-21-2023 End: 01-21-2023 Lab Drop off Milad RUFF [facility] Start: 01-21-2023 End: 01-21-2023 ambulatory Milad RUFF Facility:[facility] Start: 01-21-2023 End: 01-21-2023 Patient encounter procedure Milad RUFF [facility] Start: 01-13-2023 End: 01-13-2023 ambulatory Taran Mame Facility:[facility] Start: 01-13-2023 End: 01-13-2023 ambulatory MD Michaela Villavicencio Work Phone: [facility] Work Phone: Start: 01-13-2023 End: 01-13-2023 Patient encounter procedure MD Michaela Villavicencio Work Phone: [facility] Work Phone: Start: 07-10-2022 Office consultation new/estab patient 80 min Michaela Villavicencio Work Phone: [facility] 250 DO Work Phone: Start: 07-10-[address] Adalberto Hernandez II Facility: Start: 07-09-2022 End: 07-09-2022 Patient encounter procedure Milad RUFF [facility] [place] Start: 07-02-2022 End: 07-03-[address] MICHAELA VILLAVICENCIO Facility:[facility] Start: 06-25-2022 End: 06-25-2022 Patient encounter procedure Milad RUFF [facility] [place] Start: 06-09-2022 End: 06-10-[address] MICHAELA VILLAVICENCIO Facility:[facility] Start: 05-22-2022 End: 05-23-[address] MICHAELA VILLAVICENCIO Facility:[facility] Start: 01-11-2018 End: 01-14-2018 Patient encounter VALERIE HERÁNNDEZ [facility] Procedures Date Procedure Procedure Detail Performing Clinician Start: 01-20-2024 [facility] APTT Generic Ex ternal Data Provider Start: 01-20-2024 SRMCOH PROTHROMBIN T JONES INR W/O COUM Generic External Data Provider Start: 01-11-2024 Hemoglobin glycosylated a1c Michaela Villavicencio MD Work Phone: Start: 01-27-2023 Laparoscopic cholecystectomy MD Michaela Villavicencio Work Phone: Start: 01-27-2023 Gallbladder structur e (body structure) Milad RUFF Start: 12-29-2022 Colonoscopy Michaela Villavicencio MD Work Phone: Start: 07-09-2022 Transrectal needle b iopsy of prostate Milad RUFF Start: 01-11-2018 Dup-scan xtr veins unilateral/limited study VALERIE HERNÁNDEZ Start: 01-11-2018 EKG 12-LEAD VALERIEKEVIN Urena Cataract extraction and insertion of intraocular lens Milad RUFF Colonoscopy Milad RUFF Colonoscopy Michaela Santillan Kelly Work Phone: Decompression of med wander nerve Michaela Santillan Kelly Work Phone: Comment on above: rt; Procedure on back Milad PHILLIPS Procedure on back Michaela Hager da Work Phone: Comment on above: L4, L5 fused; Repair of shoulder Michaela Santillan A lda Work Phone: Tonsillectomy Milad RUFF Tonsillectomy Michaela Villavicencio Work Phone: Plan of Treatment Date Care Activity Detail Author Start: 12-29-2032 Screening for malign ant neoplasm of colon [facility] Start: 2025 Glaucoma screening Diabetes: R etinopathy Screening [facility] Start: 01-10-2025 Medicare Annual Wellness (AWV) Medicare Annual Wellness (AWV) [facility] Start: 01-10-2025 Urine screening for protein Diabetes: Urine Protein Screening [facility] Start: 09-21-2024 Urine screening for protein Diabetes: Urine Protein Screening [facility] Start: 04-12-2024 Hemoglobin A1c measurement Diabetes: Hemoglobin A1C [facility] Start: 01-11-2024 End: 01-10-2025 CBC W Auto Differential panel - Blood CBC and differential Lab Routine Medicare annual wellness visit, subsequent Hyperlipidemia, unspecified hyperlipidemia type (CMS/HCC) Impaired fasting glucose Expected: 01/11/2024 (Approximate), Expires: 01/10/2025 [facility] Work Phone: Comment on above: Expected: 01/11/2024 (Approximate), Expires: 01/10/2025 Start: 01-11-2024 End: 01-10-2025 Comprehensive metabolic 2000 panel - Serum or Plasma Comprehensive metabolic panel Lab Routine Abnormal glucose tolerance test Benign essential hypertension (CMS/HCC) Medicare annual wellness visit, subsequent Expected: 01/11/2024 (Approximate), Expires: 01/10/2025 [facility] Comment on above: Expected: 01/11/2024 (Approximate), Expires: 01/10/2025 Start: 01-11-2024 End: 01-10-2025 Lipid 1996 panel - Serum or Plasma Lipid panel Lab Routine Medicare annual wellness visit, subsequent Hyperlipidemia, unspecified hyperlipidemia type (CMS/HCC) Expected: 01/11/2024 (Approximate), Expires: 01/10/2025 [facility] Comment on above: Expected: 01/11/2024 (Approximate), Expires: 01/10/2025 Start: 01-11-2024 End: 01-10-2025 Prostate specific Ag [Mass/volume] in Serum or Plasma PSA Lab Routine Nocturia Medicare annual wellness visit, subsequent Expected: 01/11/2024 (Approximate), Expires: 01/10/2025 [facility] Comment on above: Expected: 01/11/2024 (Approximate), Expires: 01/10/2025 Start: 01-07-2024 Medicare Annual Wellness (AWV) Medicare Annual Wellness (AWV) [facility] Start: 05-11-2023 End: 05-11-2023 Patient encounter procedure 05/11/2023 2:30 PM EST Office Visit [facility] [address] [facility] [address] [place] [id number] Michaela Villavicencio MD [address] [place] [facility] [address] [place] [address] [facility] Start: 01-27-2023 [facility] Start: 01-27-2023 [facility] Start: 01-21-2023 FUV, Provider: Adalberto Hernandez, Status: Pen, Time: 9:10 AM FUV, Provider: Adalberto Hernandez, Status: Pen, Time: 9:10 AM -[facility] 250 DO Work Phone: Start: 1950 Screening for malign ant neoplasm of colon [facility] Patient referral [facility] Work Phone: Immunizations Immunization Date Immunization Notes Care Provider Fa cility 01-11-2024 Influenza, High-dose Seasonal, Quadrivalent, Preservative Free Michaela Villavicencio MD Work Phone: [facility] 01-06-2023 influenza virus vacc ine, unspecified formulation Milad RUFF [facility] 01-06-2023 Influenza, High-dose Seasonal, Quadrivalent, Preservative Free Michaela Villavicencio MD Work Phone: [facility] 02-14-2022 Moderna COVID-19 Biv al Booster 50 MCG/0.5ML Intramuscular Suspension Rugen M Maye Work Phone: [facility] 01-09-2022 Fluzone High-Dose Quadrivalent 0.7 ML Intramuscular Suspension Prefilled Syringe Rugen M Maye Work Phone: [facility] 250 DO Work Phone: 01-09-2022 influenza virus vacc ine, unspecified formulation Milad RUFF [facility] 08-21-2021 Moderna COVID-19 Vac cine 100 MCG/0.5ML Intramuscular Suspension Rugen M Kelly Work Phone: [facility] Comment on above: Result Comment: 2022: [id number] 04-21-2021 Moderna COVID-19 Vac cine 100 MCG/0.5ML Intramuscular Suspension Rugen M Maye Work Phone: [facility] 02-18-2021 Fluzone High-Dose Quadrivalent 0.7 ML Intramuscular Suspension Prefilled Syringe Rugen M Maye Work Phone: [facility] 250 DO Work Phone: 02-18-2021 influenza virus vacc ine, unspecified formulation Milad [employer] [facility] 01-22-2021 Moderna COVID-19 Vac cine 100 MCG/0.5ML Intramuscular Suspension Rugen M Kelly Work Phone: [facility] 06-20-2020 Moderna COVID-19 Vac cine 100 MCG/0.5ML Intramuscular Suspension Rugen M Maye Work Phone: [facility] 05-23-2020 Moderna COVID-19 Vac cine 100 MCG/0.5ML Intramuscular Suspension Rugen M Kelly Work Phone: [facility] 03-06-2020 pneumococcal polysaccharide vaccine, 23 valent Rugen M Kelly Work Phone: [facility] 12-23-2019 influenza virus vacc ine, unspecified formulation ReferralMD [facility] 12-23-2019 Seasonal, quadrivale nt, recombinant, injectable influenza vaccine, preservative free Rugen M Maye Work Phone: [facility] 250 DO Work Phone: 03-04-2019 pneumococcal conjuga te vaccine, 13 valent Rugen M Maye Work Phone: [facility] 02-08-2019 influenza virus vacc ine, unspecified formulation [facility]erralMD [facility] 02-08-2019 influenza, high dose seasonal, preservative-free Rugen M Maye Work Phone: [facility] 250 DO Work Phone: Payers Date Payer Category Payer Self-pay 2021 Medicaid [employer] MEDICARE A DVANTAGE [id number] 2021 Medicare A[employer]NA MEDICARE A DVANTAGE AETNA MEDICARE REPLACEMENT [id number] 2021-Present [address] [place] [address] [id number] 2017 Medicare [id number] 1959 Private Health Insurance [id number] 1950 Unknown [id number] 1950 Unknown [id number] 1950 Unknown [id number] 1950 Unknown [id number] 1950 Unknown [id number] 1950 Unknown [id number] 1950 Unknown [id number]. 1259 1950 Unknown [id number] 2.16.840.1.249822.3.579.2. 1259 1950 Unknown [id number] 2.16.840.1.291910.3.579.2. 1259 1950 Unknown [id number] 2.16.840.1.484385.3.579.2. 1259 1950 Unknown [id number] 2.16.840.1.940750.3.579.2. 727 1950 Unknown [id number] 2.16.840.1.752267.3.579.2. 727 1950 Unknown [id number] 2.16.840.1.007573.3.579.2. 727 1950 Unknown [id number] 2.16.840.1.408157.3.579.2. 727 1950 Unknown [id number] 2.16.840.1.547729.3.579.2. 727 1950 Unknown [id number] 2.16.840.1.668641.3.579.2. 727 1950 Unknown [id number] 2.16.840.1.254801.3.579.2. 727 Medicare Medicare [id number] Unknown [employer] Unknown O [id number] Unknown [id number] 2.16.840.1.653903.3.579.2. 531 Unknown [id number] 2.16.840.1.810059.3.579.2. 531 Social History Date Type Detail Facility Start: 06-25-2022 End: 11-10-2022 Tobacco smoking status Ex-smoker (finding) [facility] Tobacco smoking status Never [facility] Start: 11-10-2022 End: 01-11-2024 Sex Assigned At Male [facility] Start: 11-10-2022 End: 01-11-2024 No illicit drug use No illicit drug use [place] [id number] DO Work Phone: Comment on above: 20+ years ago; Start: 1950 Sex Assigned At Male F [facility] End: 03-30-2001 History of tobacco use Current smoker [facility] End: 03-30-2001 History of tobacco use Cigarette Smoker [facility] Start: 11-10-2022 Tobacco use and exposure Former smokeless tobacco user [facility] End: 03-30-1979 History of tobacco use Chews Tobacco [facility] Start: 05-08-2023 End: 01-11-2024 Alcohol intake Current drinker of alcohol (finding) [facility] How often to you hav e a drink containing alcohol? 4 or more times a week [facility] How many standard drinks containing alcohol do you have on a typical day? 1 or 2 [facility] How often do you hav e 6 or more drinks on 1 occasion? Never [facility] Start: 11-13-2022 Alcohol Comment 1-2 drinks 2-4 times a month [facility] Start: 1950 Sex Assigned At Not on file [facility] Goals Date Patient Goal Desired Activity /State Functional Status Date Assessment Result Facility 01-13-2024 Functional Status N/A [facility] 03-31-2023 Functional Status N/A [facility] 02-04-2023 Functional Status N/A [facility] 07-09-2022 Functional Status N/A [facility] 06-25-2022 Functional Status N/A [facility] Clinical Notes 06-25-2022 to 01-13-2024 Michaela Villavicencio MD - 01/11/2024 11:21 AM Rose Marie Villavicencio MD - 01/11/2024 11:09 AM Rose Marie Villavicencio MD - 01/11/2024 11:09 AM Rose Marie Villavicencio MD - 01/11/2024 11:09 AM [facility] Date & Type Note Facility 01-13-2024 Hospital Discharge instructions Patient Education 01/13/2024 15:21:36 Transurethral Resection of the Prostate Transurethral Resection of the Prostate Transurethral resection of the prostate (TURP) is the removal, or resection, of part of the prostate tissue. This procedure is done to treat an enlarged prostate gland (benign prostatic hyperplasia). The goal of TURP is to remove enough prostate tissue to allow for a normal flow of urine. The procedure will allow you to empty your bladder more completely when you urinate so that you can urinate less often. In a transurethral resection, a thin telescope with a light, a camera, and an electric cutting edge (resectoscope) is passed through the urethra and into the prostate. The opening of the urethra is at the end of the penis. Tell a health care provider about: Any allergies you have. All medicines you are taking, including vitamins, herbs, eye drops, creams, and iwyw-suj-wobrype medicines. Any problems you or family members have had with anesthetic medicines. Any bleeding problems you have. Any surgeries you have had. Any medical conditions you have. Any prostate infections you have had. What are the risks? Generally, this is a safe procedure. However, problems may occur, including: Infection. Bleeding. Allergic reactions to medicines. Blood in the urine (hematuria). Damage to nearby structures or organs. Other problems may occur, but they are rare. They include: Dry ejaculation, or having no semen come out during orgasm. Erectile dysfunction, or being unable to have or keep an erection. Scarring that leads to narrowing of the urethra. This narrowing may block the flow of urine. Inability to control when you urinate (incontinence). Deep vein thrombosis. This is a blood clot that can develop in your leg. TURP syndrome. This can happen when you lose too much sodium during or after the procedure. Some signs and symptoms of this condition include: ?Weakness. ?Headaches. ?Nausea or vomiting. ?Muscle cramping. What happens before the procedure? When to stop eating and drinking Follow instructions from your health care provider about what you may eat and drink before your procedure. These may include: 8 hours before your procedure ?Stop eating most foods. Do not eat meat, fried foods, or fatty foods. ?Eat only light foods, such as toast or crackers. ?All liquids are okay except energy drinks and alcohol. 6 hours before your procedure ?Stop eating. ?Drink only clear liquids, such as water, clear fruit juice, black coffee, plain tea, and sports drinks. ?Do not drink energy drinks or alcohol. 2 hours before your procedure ?Stop drinking all liquids. ?You may be allowed to take medicines with small sips of water. If you do not follow your health care provider's instructions, your procedure may be delayed or canceled. Medicines Ask your health care provider about: Changing or stopping your regular medicines. This is especially important if you are taking diabetes medicines or blood thinners. Taking medicines such as aspirin and ibuprofen. These medicines can thin your blood. Do not take these medicines unless your health care provider tells you to take them. Taking jlrj-mlg-aabavhd medicines, vitamins, herbs, and supplements. Surgery safety Ask your health care provider what steps will be taken to help prevent infection. These steps may include: Removing hair at the surgery site. Washing skin with a germ-killing soap. Taking antibiotic medicine. General instructions Do not use any products that contain nicotine or tobacco for at least 4 weeks before the procedure. These products include cigarettes, chewing tobacco, and vaping devices, such as e-cigarettes. If you need help quitting, ask your health care provider. If you will be going home right after the procedure, plan to have a responsible adult: ?Take you home from the hospital or clinic. You will not be allowed to drive. ?Care for you for the time you are told. What happens during the procedure? An IV will be inserted into one of your veins. You will be given one or more of the following: ?A medicine to help you relax (sedative). ?A medicine to make you fall asleep (general anesthetic). ?A medicine that is injected into your spine to numb the area below and slightly above the injection site (spinal anesthetic). Your legs will be placed in foot rests (stirrups) so that your legs are apart and your knees are bent. The resectoscope will be passed through your urethra to your prostate. Parts of your prostate will be resected using the cutting edge of the resectoscope. Fluid will be passed to rinse out the cut tissues (irrigation). The resectoscope will be removed. A small, thin tube (catheter) will be passed through your urethra and into your bladder. The catheter will drain urine into a bag outside of your body. The procedure may vary among health care providers and hospitals. What happens after the procedure? Your blood pressure, heart rate, breathing rate, and blood oxygen level will be monitored until you leave the hospital or clinic. You will be given fluids through the IV. The IV will be removed when you start eating and drinking normally. You may have some pain. Pain medicine will be available to help you. You will have a catheter draining your urine. ?You may have blood in your urine. Your catheter may be kept in until your urine is clear. ?Your urinary drainage will be monitored. If necessary, your bladder may be rinsed out (irrigated) through your catheter. You will be encouraged to walk around as soon as possible. You may have to wear compression stockings. These stockings help to prevent blood clots and reduce swelling in your legs. If you were given a sedative during the procedure, it can affect you for several hours. Do not drive or operate machinery until your health care provider says that it is safe. Summary Transurethral resection of the prostate (TURP) is the removal (resection) of part of the prostate tissue. The goal of this procedure is to remove enough prostate tissue to allow for a normal flow of urine. Follow instructions from your health care provider about taking medicines and about eating and drinking before the procedure. This information is not intended to replace advice given to you by your health care provider. Make sure you discuss any questions you have with your health care provider. Document Revised: 12/10/2021 Document Reviewed: 12/10/2021 [employer] Patient Education 2023 [employer]. 01/13/2024 15:06:23 Erectile Dysfunction Erectile Dysfunction Erectile dysfunction (ED) is the inability to get or keep an erection in order to have sexual intercourse. ED is considered a symptom of an underlying disorder and is not considered a disease. ED may include: Inability to get an erection. Lack of enough hardness of the erection to allow penetration. Loss of erection before sex is finished. What are the causes? This condition may be caused by: Physical causes, such as: ?Artery problems. This may include heart disease, high blood pressure, atherosclerosis, and diabetes. ?Hormonal problems, such as low testosterone. ?Obesity. ?Nerve problems. This may include back or pelvic injuries, multiple sclerosis, Parkinson's disease, spinal cord injury, and stroke. Certain medicines, such as: ?Pain relievers. ?Antidepressants. ?Blood pressure medicines and water pills (diuretics). ?Cancer medicines. ?Antihistamines. ?Muscle relaxants. Lifestyle factors, such as: ?Use of drugs such as marijuana, cocaine, or opioids. ?Excessive use of alcohol. ?Smoking. ?Lack of physical activity or exercise. Psychological causes, such as: ?Anxiety or stress. ?Sadness or depression. ?Exhaustion. ?Fear about sexual performance. ?Guilt. What are the signs or symptoms? Symptoms of this condition include: Inability to get an erection. Lack of enough hardness of the erection to allow penetration. Loss of the erection before sex is finished. Sometimes having normal erections, but with frequent unsatisfactory episodes. Low sexual satisfaction in either partner due to erection problems. A curved penis occurring with erection. The curve may cause pain, or the penis may be too curved to allow for intercourse. Never having nighttime or morning erections. How is this diagnosed? This condition is often diagnosed by: Performing a physical exam to find other diseases or specific problems with the penis. Asking you detailed questions about the problem. Doing tests, such as: ?Blood tests to check for diabetes mellitus or high cholesterol, or to measure hormone levels. ?Other tests to check for underlying health conditions. ?An ultrasound exam to check for scarring. ?A test to check blood flow to the penis. Doing a sleep study at home to measure nighttime erections. How is this treated? This condition may be treated by: Medicines, such as: ?Medicine taken by mouth to help you achieve an erection (oral medicine). ?Hormone replacement therapy to replace low testosterone levels. ?Medicine that is injected into the penis. Your health care provider may instruct you how to give yourself these injections at home. ?Medicine that is delivered with a short applicator tube. The tube is inserted into the opening at the tip of the penis, which is the opening of the urethra. A tiny pellet of medicine is put in the urethra. The pellet dissolves and enhances erectile function. This is also called MUSE (medicated urethral system for erections) therapy. Vacuum pump. This is a pump with a ring on it. The pump and ring are placed on the penis and used to create pressure that helps the penis become erect. Penile implant surgery. In this procedure, you may receive: ?An inflatable implant. This consists of cylinders, a pump, and a reservoir. The cylinders can be inflated with a fluid that helps to create an erection, and they can be deflated after intercourse. ?A semi-rigid implant. This consists of two silicone rubber rods. The rods provide some rigidity. They are also flexible, so the penis can both curve downward in its normal position and become straight for sexual intercourse. Blood vessel surgery to improve blood flow to the penis. During this procedure, a blood vessel from a different part of the body is placed into the penis to allow blood to flow around (bypass) damaged or blocked blood vessels. Lifestyle changes, such as exercising more, losing weight, and quitting smoking. Follow these instructions at home: Medicines Take rkiu-ofv-bfpqwaz and prescription medicines only as told by your health care provider. Do not increase the dosage without first discussing it with your health care provider. If you are using self-injections, do injections as directed by your health care provider. Make sure you avoid any veins that are on the surface of the penis. After giving an injection, apply pressure to the injection site for 5 minutes. Talk to your health care provider about how to prevent headaches while taking ED medicines. These medicines may cause a sudden headache due to the increase in blood flow in your body. General instructions Exercise regularly, as directed by your health care provider. Work with your health care provider to lose weight, if needed. Do not use any products that contain nicotine or tobacco. These products include cigarettes, chewing tobacco, and vaping devices, such as e-cigarettes. If you need help quitting, ask your health care provider. Before using a vacuum pump, read the instructions that come with the pump and discuss any questions with your health care provider. Keep all follow-up visits. This is important. Contact a health care provider if: You feel nauseous. You are vomiting. You get sudden headaches while taking ED medicines. You have any concerns about your sexual health. Get help right away if: You are taking oral or injectable medicines and you have an erection that lasts longer than 4 hours. If your health care provider is unavailable, go to the nearest emergency room for evaluation. An erection that lasts much longer than 4 hours can result in permanent damage to your penis. You have severe pain in your groin or abdomen. You develop redness or severe swelling of your penis. You have redness spreading at your groin or lower abdomen. You are unable to urinate. You experience chest pain or a rapid heartbeat (palpitations) after taking oral medicines. These symptoms may represent a serious problem that is an emergency. Do not wait to see if the symptoms will go away. Get medical help right away. Call your local emergency services (911 in the [place] Do not drive yourself to the hospital. Summary Erectile dysfunction (ED) is the inability to get or keep an erection during sexual intercourse. This condition is diagnosed based on a physical exam, your symptoms, and tests to determine the cause. Treatment varies depending on the cause and may include medicines, hormone therapy, surgery, or a vacuum pump. You may need follow-up visits to make sure that you are using your medicines or devices correctly. Get help right away if you are taking or injecting medicines and you have an erection that lasts longer than 4 hours. This information is not intended to replace advice given to you by your health care provider. Make sure you discuss any questions you have with your health care provider. Document Revised: 06/12/2021 Document Reviewed: 06/12/2021 [employer] Patient Education 2023 [employer]. 01/13/2024 14:41:49 Prostate Cancer Screening Prostate Cancer Screening Prostate cancer screening is testing that is done to check for the presence of prostate cancer in men. The prostate gland is a walnut-sized gland that is located below the bladder and in front of the rectum in males. The function of the prostate is to add fluid to semen during ejaculation. Prostate cancer is one of the most common types of cancer in men. Who should have prostate cancer screening? Screening recommendations vary based on age and other risk factors, as well as between the professional organizations who make the recommendations. In general, screening is recommended if: You are age 50 to 70 and have an average risk for prostate cancer. You should talk with your health care provider about your need for screening and how often screening should be done. Because most prostate cancers are slow growing and will not cause , screening in this age group is generally reserved for men who have a 10- to 15-year life expectancy. You are younger than age 50, and you have these risk factors: ?Having a father, brother, or uncle who has been diagnosed with prostate cancer. The risk is higher if your family member's cancer occurred at an early age or if you have multiple family members with prostate cancer at an early age. ?Being a male who is Black or is of Daniel or sub-Saharan descent. In general, screening is not recommended if: You are younger than age 40. You are between the ages of 40 and 49 and you have no risk factors. You are 70 years of age or older. At this age, the risks that screening can cause are greater than the benefits that it may provide. If you are at high risk for prostate cancer, your health care provider may recommend that you have screenings more often or that you start screening at a younger age. How is screening for prostate cancer done? The recommended prostate cancer screening test is a blood test called the prostate-specific antigen (PSA) test. PSA is a protein that is made in the prostate. As you age, your prostate naturally produces more PSA. Abnormally high PSA levels may be caused by: Prostate cancer. An enlarged prostate that is not caused by cancer (benign prostatic hyperplasia, or BPH). This condition is very common in older men. A prostate gland infection (prostatitis) or urinary tract infection. Certain medicines such as male hormones (like testosterone) or other medicines that raise testosterone levels. A rectal exam may be done as part of prostate cancer screening to help provide information about the size of your prostate gland. When a rectal exam is performed, it should be done after the PSA level is drawn to avoid any effect on the results. Depending on the PSA results, you may need more tests, such as: A physical exam to check the size of your prostate gland, if not done as part of screening. Blood and imaging tests. A procedure to remove tissue samples from your prostate gland for testing (biopsy). This is the only way to know for certain if you have prostate cancer. What are the benefits of prostate cancer screening? Screening can help to identify cancer at an early stage, before symptoms start and when the cancer can be treated more easily. There is a small chance that screening may lower your risk of dying from prostate cancer. The chance is small because prostate cancer is a slow-growing cancer, and most men with prostate cancer from a different cause. What are the risks of prostate cancer screening? The main risk of prostate cancer screening is diagnosing and treating prostate cancer that would never have caused any symptoms or problems. This is called overdiagnosisand overtreatment. PSA screening cannot tell you if your PSA is high due to cancer or a different cause. A prostate biopsy is the only procedure to diagnose prostate cancer. Even the results of a biopsy may not tell you if your cancer needs to be treated. Slow-growing prostate cancer may not need any treatment other than monitoring, so diagnosing and treating it may cause unnecessary stress or other side effects. Questions to ask your health care provider When should I start prostate cancer screening? What is my risk for prostate cancer? How often do I need screening? What type of screening tests do I need? How do I get my test results? What do my results mean? Do I need treatment? Where to find more information [employer]: www.cancer.org [employer]: www.auanet.org Contact a health care provider if: You have difficulty urinating. You have pain when you urinate or ejaculate. You have blood in your urine or semen. You have pain in your back or in the area of your prostate. Summary Prostate cancer is a common type of cancer in men. The prostate gland is located below the bladder and in front of the rectum. This gland adds fluid to semen during ejaculation. Prostate cancer screening may identify cancer at an early stage, when the cancer can be treated more easily and is less likely to have spread to other areas of the body. The prostate-specific antigen (PSA) test is the recommended screening test for prostate cancer, but it has associated risks. Discuss the risks and benefits of prostate cancer screening with your health care provider. If you are age 70 or older, the risks that screening can cause are greater than the benefits that it may provide. This information is not intended to replace advice given to you by your health care provider. Make sure you discuss any questions you have with your health care provider. Document Revised: 09/09/2021 Document Reviewed: 09/09/2021 [employer] Patient Education 2023 [employer]. Follow Up Care 01/12/2024 15:01:17 With:NASREEN ACRMONA, Milad Westfall, URL Address: [facility] [address] , [place] [address]- When: Unknown [facility] 01-13-2024 Note Patient Education Oncology Prostate Cancer Screening Prostate cancer screening is testing that is done to check for the presence of prostate cancer in men. The prostate gland is a walnut-sized gland that is located below the bladder and in front of the rectum in males. The function of the prostate is to add fluid to semen during ejaculation. Prostate cancer is one of the most common types of cancer in men. Who should have prostate cancer screening? Screening recommendations vary based on age and other risk factors, as well as between the professional organizations who make the recommendations. In general, screening is recommended if: ? You are age 50 to 70 and have an average risk for prostate cancer. You should talk with your health care provider about your need for screening and how often screening should be done. Because most prostate cancers are slow growing and will not cause , screening in this age group is generally reserved for men who have a 10- to 15-year life expectancy. ? You are younger than age 50, and you have these risk factors: ? Having a father, brother, or uncle who has been diagnosed with prostate cancer. The risk is higher if your family member's cancer occurred at an early age or if you have multiple family members with prostate cancer at an early age. ? Being a male who is Black or is of Daniel or sub-Saharan descent. In general, screening is not recommended if: ? You are younger than age 40. ? You are between the ages of 40 and 49 and you have no risk factors. ? You are 70 years of age or older. At this age, the risks that screening can cause are greater than the benefits that it may provide. If you are at high risk for prostate cancer, your health care provider may recommend that you have screenings more often or that you start screening at a younger age. How is screening for prostate cancer done? The recommended prostate cancer screening test is a blood test called the prostate-specific antigen (PSA) test. PSA is a protein that is made in the prostate. As you age, your prostate naturally produces more PSA. Abnormally high PSA levels may be caused by: ? Prostate cancer. ? An enlarged prostate that is not caused by cancer (benign prostatic hyperplasia, or BPH). This condition is very common in older men. ? A prostate gland infection (prostatitis) or urinary tract infection. ? Certain medicines such as male hormones (like testosterone) or other medicines that raise testosterone levels. A rectal exam may be done as part of prostate cancer screening to help provide information about the size of your prostate gland. When a rectal exam is performed, it should be done after the PSA level is drawn to avoid any effect on the results. Depending on the PSA results, you may need more tests, such as: ? A physical exam to check the size of your prostate gland, if not done as part of screening. ? Blood and imaging tests. ? A procedure to remove tissue samples from your prostate gland for testing (biopsy). This is the only way to know for certain if you have prostate cancer. What are the benefits of prostate cancer screening? ? Screening can help to identify cancer at an early stage, before symptoms start and when the cancer can be treated more easily. ? There is a small chance that screening may lower your risk of dying from prostate cancer. The chance is small because prostate cancer is a slow-growing cancer, and most men with prostate cancer from a different cause. What are the risks of prostate cancer screening? The main risk of prostate cancer screening is diagnosing and treating prostate cancer that would never have caused any symptoms or problems. This is called overdiagnosisand overtreatment. PSA screening cannot tell you if your PSA is high due to cancer or a different cause. A prostate biopsy is the only procedure to diagnose prostate cancer. Even the results of a biopsy may not tell you if your cancer needs to be treated. Slow-growing prostate cancer may not need any treatment other than monitoring, so diagnosing and treating it may cause unnecessary stress or other side effects. Questions to ask your health care provider ? When should I start prostate cancer screening? ? What is my risk for prostate cancer? ? How often do I need screening? ? What type of screening tests do I need? ? How do I get my test results? ? What do my results mean? ? Do I need treatment? Where to find more information ? [employer]: www.cancer.org ? [employer]: www.auanet.org Contact a health care provider if: ? You have difficulty urinating. ? You have pain when you urinate or ejaculate. ? You have blood in your urine or semen. ? You have pain in your back or in the area of your prostate. Summary ? Prostate cancer is a common type of cancer in men. The prostate gland is located below the bladder and in front of the rectum. (more content not included)... [facility] 01-11-2024 History of Present illness Narrative Associated Problem(s): Sleep apnea in adult Patient is compliant with CPAP usage and perceives benefit from treatment. Treatment has been effective in controlling the patient's symptoms of Sleep Apnea. Will continue to monitor with routine follow up appointments. Associated Problem(s): Hyperlipidemia (CMS/HCC) This is a chronic medical condition that is stable since last assessment. No changes in treatment are suggested at this time. Continue Current meds. Associated Problem(s): Medicare annual wellness visit, subsequent Colonoscopy every 10 years or Cologuard every 3 years ages 50-75 Flu Vaccine yearly Pneumovax and Prevnar Mammo yearly for women and PSA yearly for men Labs/Screening yearly to rule out Diabetes, Chronic Kidney disease and liver disease Hepatitis Screen forat risk populations Shingles vaccine after 65 if indicated Tetanus Vaccine every 10 years Lipids yearly under the age of 75 If Smoking history: one time CT scan of chest and Ultrasound of Aorta to screen for Anuerysm Associated Problem(s): Morbid (severe) obesity due to excess calories (CMS/HCC) Weight loss encouraged Associated Problem(s): Type 2 diabetes mellitus with other specified complication (CMS/HCC) No Tobacco use Follow ADA 1800 diet low carbohydrate Continue Med Compliance Goal LDL less than 100 Goal BP 130/80 Goal HgbA1c < 7.0% Monitor Feet, monitor for infection Needs Exercise Yearly eye exams Prior to your visit today we reviewed your chart and outlined testing and treatment needed for your care. Reviewed poissble complications of diabetes including, loss of vision, kidney failure and increased risk of heart attacks and stroke. We made recommendations on how to control your blood sugars, and minimize your risk of these complications. We discussed your current barriers to a healthy living and importance of healthy diet and exercise. Images from the original note were not included. Subjective : Chief Complaint: Edward Darby is an 73 y.o. male here for an annual wellness visit. Had some issues with taking a breath I have reviewed and reconciled the history and medication list with the patient today. Current Outpatient Medications Medication Sig Dispense Refill allopurinol (Zyloprim) 100 MG tablet Take 1 tablet by mouth twice daily 200 tablet 3 betamethasone dipropionate 0.05 % cream Apply 1 application topically Daily as needed for irritation. 45 g 2 indomethacin (Indocin) 50 MG capsule Take 1 capsule (50 mg) by mouth 1 (one) time each day at the same time lisinopril-hydroCHLOROthiazide 20-25 MG tablet Take 1 tablet by mouth Daily 100 tablet 3 metoprolol succinate XL (Toprol-XL) 50 MG 24 hr tablet Take 1 tablet by mouth once daily 100 tablet 3 polycarbophil (Fibercon) 625 MG tablet Take 1 tablet by mouth in the morning. pravastatin (Pravachol) 40 MG tablet Take 1 tablet (40 mg) by mouth Daily 100 tablet 3 Rybelsus 7 MG tablet TAKE 1 TABLET BY MOUTH IN THE MORNING BEFORE MEAL(S) 90 tablet 0 No current facility-administered medications for this visit. Review of Systems Constitutional: Negative for chills, fatigue, fever and unexpected weight change. Respiratory: Negative for cough. Cardiovascular: Negative for chest pain. Gastrointestinal: Negative for abdominal pain, blood in stool, constipation, diarrhea, nausea and vomiting. Genitourinary: Negative for dysuria, enuresis, frequency and hematuria. Musculoskeletal: Negative for back pain and gait problem. Neurological: Negative for dizziness, tremors, syncope, facial asymmetry and speech difficulty. Psychiatric/Behavioral: Negative for agitation, behavioral problems, confusion and dysphoric mood. The patient is not nervous/anxious. List of current healthcare providers: Patient Care Team: Michaela Villavicencio MD as PCP - General (Family Medicine) Medicare Annual Visit Over the past 2 weeks, how often have you been bothered by any of the following problems? Little interest or pleasure in doing things: Not at all Feeling down, depressed, or hopeless: Not at all Patient Health Questionnaire-2 Score: 0 Green [place] Risk History of Falling, Immediate or Within 3 Months: No Health Risk Assessment Form Do you need help eating, bathing, using the toilet, dressing, or getting around your home?: No Can you prepare your own meals?: Yes Can you do your own housework without help?: Yes Can you shop for groceries or clothes without help?: Yes Do you exercise for about 20 minutes 3 or more days a week?: Yes How confident are you that you can control and manage most of your health problems?: Very confident Can you mange your money, credit cards and accounts, pay bills and taxes?: Yes Vision Screening: Yes, no gross abnormalities Hearing Screening: Yes, no gross abnormalities Cognitive Screening Self Assessment: No overt cognitive deficiency is apparent by direct observation Three Word Registration: Banana, [place], Chair Clock Drawing: Normal Clock - 2 Three Word Recall: All 3 words correct - 3 Total Score (0-5 Points): 5 Pain Assessment Pain Score: 0 - No pain Objective : BP 128/80 Pulse 69 Ht 5' 10 Wt 271 lb SpO2 96% BMI 38.88 kg/m No results found. Physical Exam Vitals reviewed. Constitutional: Appearance: Normal appearance. HENT: Head: Normocephalic. Neck: Vascular: No carotid bruit. Cardiovascular: Rate and Rhythm: Normal rate and regular rhythm. Pulses: Normal pulses. Pulmonary: Effort: Pulmonary effort is normal. Breath sounds: Normal breath sounds. Neurological: General: No focal deficit present. Mental Status: He is alert and oriented to person, place, and time. Psychiatric: Mood and Affect: Mood normal. Office Visit on 01/11/2024 Component Date Value Ref Range Status Hemoglobin A1C 01/11/2024 6.2 Final Assessment/Plan : The following health maintenance schedule was reviewed with the patient and provided in printed form in the after visit summary: Health Maintenance Topic Date Due Medicare Annual Wellness (AWV) 01/07/2024 Diabetes: Hemoglobin A1C 04/12/2024 Diabetes: Urine Protein Screening 09/21/2024 Diabetes: Retinopathy Screening 2025 Colorectal Cancer Screening 12/29/2032 Influenza Vaccine Completed Pneumococcal Vaccine: 65+ Years Completed Advance Care Planning Patient willing to discuss ACP. If in place, renew periodically. If not in place, recommend obtaining ACP. Assessment/Plan Problem List Items Addressed This Visit Benign essential hypertension (CMS/HCC) Relevant Orders Comprehensive metabolic panel Hyperlipidemia (CMS/HCC) This is a chronic medical condition that is stable since last assessment. No changes in treatment are suggested at this time. Continue Current meds. Relevant Orders CBC and differential Lipid panel Impaired fasting glucose Relevant Orders CBC and differential Morbid (severe) obesity due to excess calories (CMS/HCC) Weight loss encouraged Nocturia Relevant Orders PSA Sleep apnea in adult Patient is compliant with CPAP usage and perceives benefit from treatment. Treatment has been effective in controlling the patient's symptoms of Sleep Apnea. Will continue to monitor with routine follow up appointments. Type 2 diabetes mellitus with other specified complication (CMS/HCC) No Tobacco use Follow ADA 1800 diet low carbohydrate Continue Med Compliance Goal LDL less than 100 Goal BP 130/80 Goal HgbA1c < 7.0% Monitor Feet, monitor for infection Needs Exercise Yearly eye exams Prior to your visit today we reviewed your chart and outlined testing and treatment needed for your care. Reviewed poissble complications of diabetes including, loss of vision, kidney failure and increased risk of heart attacks and stroke. We made recommendations on how to control your blood sugars, and minimize your risk of these complications. We discussed your current barriers to a healthy living and importance of healthy diet and exercise. Relevant Orders POCT Glycated hemoglobin, total (Completed) Medicare annual wellness visit, subsequent Colonoscopy every 10 years or Cologuard every 3 years ages 50-75 Flu Vaccine yearly Pneumovax and Prevnar Mammo yearly for women and PSA yearly for men Labs/Screening yearly to rule out Diabetes, Chronic Kidney disease and liver disease Hepatitis Screen forat risk populations Shingles vaccine after 65 if indicated Tetanus Vaccine every 10 years Lipids yearly under the age of 75 If Smoking history: one time CT scan of chest and Ultrasound of Aorta to screen for Anuerysm Relevant Orders CBC and differential Comprehensive metabolic panel Lipid panel PSA Other Visit Diagnoses Routine general medical examination at health care facility - Primary Abnormal glucose tolerance test Relevant Orders Comprehensive metabolic panel Encounter for vaccination Relevant Orders Influenza, high-dose seasonal, quadrivalent, PF (HYH227) (Fluzone High Dose [place] 0.7mL dose) (Completed) Orders Placed This Encounter Procedures Influenza, high-dose seasonal, quadrivalent, PF (ZIE646) (Fluzone High Dose [place] 0.7mL dose) CBC and differential Standing Status: Future Number of Occurrences: 1 Standing Expiration Date: 01/10/2025 Order Specific Question: Print requisition? Answer: No Comprehensive metabolic panel Standing Status: Future Number of Occurrences: 1 Standing Expiration Date: 01/10/2025 Order Specific Question: Print requisition? Answer: No Lipid panel Standing Status: Future Number of Occurrences: 1 Standing Expiration Date: 01/10/2025 PSA Standing Status: Future Number of Occurrences: 1 Standing Expiration Date: 01/10/2025 Order Specific Question: Print requisition? Answer: No POCT Glycated hemoglobin, total Electronically signed by Michaela Villavicencio MD on January 11, 2024 documented in this encounter [facility] 03-31-2023 Hospital Discharge instructions Patient Education 03/31/2023 11:00:44 EU - Cystoscopy Discharge Instructions (CUSTOM) Cystoscopy Voiding after the procedure: there may be some pain, burning, urgency, frequency and blood tinged urine following the procedure. These symptoms usually resolve within 2-5 days. Drink the amount of fluid it takes to keep the urine pink to yellow or clear in color. Drinking enough water and fluids will help to ease any discomfort after your procedure. If you are having problems that seem out of the ordinary, please call. If unable to contact your physician and you feel it is an emergency, go to the nearest emergency room or call 911 Diet you may resume your normal diet. Activity you may resume your normal activities Call if you have a fever over 100 degrees. Follow Up Care 02/04/2023 10:56:49 With:Milad RUFF Address: [facility] [address] [place] [address]- Business (1) When: Unknown Comments:Patient will callPlease call if you need to reschedule [facility] 03-31-2023 Note [id number] [facility] 03-31-2023 Note Custom Cystoscopy ? Voiding after the procedure: there may be some pain, burning, urgency, frequency and blood tinged urine following the procedure. These symptoms usually resolve within 2-5 days. Drink the amount of fluid it takes to keep the urine pink to yellow or clear in color. Drinking enough water and fluids will help to ease any discomfort after your procedure. ? If you are having problems that seem out of the ordinary, please call. ? If unable to contact your physician and you feel it is an emergency, go to the nearest emergency room or call 911 ? Diet ? you may resume your normal diet. ? Activity ? you may resume your normal activities ? Call if you have a fever over 100 degrees. [facility] 02-04-2023 Hospital Discharge instructions Patient Education 02/04/2023 10:34:35 Urodynamic Testing Urodynamic Testing Urodynamic tests are done to determine how well your lower urinary tract is working. The lower urinary tract includes your bladder and the part of your body that drains urine from the bladder (urethra). When your kidneys filter your blood, urine is stored in your bladder until you feel the urge to urinate. Urination requires coordination between the nerves and muscles of your bladder and urethra. When your lower urinary tract is working well, you should be able to: Start urinating when your bladder is full. Empty your bladder completely. Control the flow of your urine. Why do I need urodynamic testing? You may need urodynamic testing to help find the cause of any of these problems: Leaking urine (incontinence). Problems starting or stopping your urine flow. Frequent or painful urination. Frequent urinary tract infections. Being unable to empty your bladder completely. Having strong urges to pass urine (urgency). Having a weak flow of urine. What are the risks? Generally, these tests are safe. However, some of the tests have risks, including: Discomfort. Frequent urge to urinate. Bleeding. Infection. Allergic reactions to medicines or dyes (contrast material). What happens before the test? Ask your health care provider about changing or stopping your regular medicines. This is especially important if you are taking diabetes medicines or blood thinners. You may be asked to avoid urinating before coming to the test so that you arrive with a full bladder. Tell a health care provider about: ?Any allergies you have. ?All medicines you are taking, including vitamins, herbs, eye drops, creams, and mmrm-ogj-fndtejm medicines. ?Whether you are or may be . What happens during the test? You may have various urodynamic tests. The tests may be done separately or may all be done during one visit. You may be given an antibiotic medicine before or after testing to help prevent infection. The types of tests that may be done include: Uroflowmetry This test measures how much urine you pass and how long it takes to pass. You will urinate into a certain type of toilet or device (flowmeter). The device will measure the volume and the time of your urine flow. These measurements will be sent to a computer that creates a graph of your urine flow. Postvoid residual measurement This test measures how much urine is left in your bladder after you urinate. The test may be done with ultrasound. In this method, sound waves and a computer will be used to create an image of your bladder. The test can also be done by inserting a thin, flexible tube (catheter) into your bladder after you urinate. The remaining urine will be removed through the catheter so it can be measured. Remaining urine will be measured in milliliters (mL). If you have more than 100 mL left in your bladder after you urinate, your bladder is not emptying as it should. Cystometric testing This test uses a type of bladder catheter that can measure pressure. You may be given a medicine to numb the area (local anesthetic). The area around the opening of your urethra will be cleaned. A urinary catheter will be passed through your urethra into your bladder and used to empty your bladder completely. A measuring catheter will be placed, and your bladder will be filled with warm, germ-free (sterile) water. Pressure measurements will be taken: ?As your bladder fills. ?When you feel the need to urinate. ?As your bladder is emptied. You may be asked to cough or bear down to check for leakage. In some cases, your bladder may be filled with a material that shows up on X-rays (contrast material) so that X-ray pictures can be taken during the test. Electromyogram This test measures the electrical activity of the nerves and muscles of your bladder and the opening of your urethra. Sticky patches (electrodes) will be placed near your rectum and urethra to measure electrical activity. The measurements will show how well your nerves are communicating with your muscles. What can I expect after the test? You should be able to go home right away and do your usual activities. You may be told to drink a glass of water every 30 minutes for the first 2 hours after testing. Taking a warm bath or using warm, wet cloths (warm compresses) may relieve any discomfort near your urethra. What do the results mean? Talk with your health care provider about what your results mean. Some common causes for abnormal results from urodynamic tests include: Enlarged prostate in men. Overactive bladder. Urinary tract infection. Nervous system diseases. Spinal cord damage. Questions to ask your health care provider Ask your health care provider, or the department that is doing the test: When will my results be ready? How will I get my results? What are my treatment options? What other tests do I need? What are my next steps? Contact a health care provider if: You have pain. You have blood in your urine. You have chills. You have a fever. Summary Urodynamic tests are done to determine how well your lower urinary tract is working. The lower urinary tract includes your bladder and urethra. You may need urodynamic testing to help find the cause of various problems with urination, such as leaking urine (incontinence) or problems starting or stopping your urine flow. You may have various urodynamic tests. The tests may be done separately or may all be done during one testing visit. Talk with your health care provider about what your results mean. Contact your health care provider if you have pain, chills, a fever, or blood in your urine. This information is not intended to replace advice given to you by your health care provider. Make sure you discuss any questions you have with your health care provider. Document Revised: 11/27/2021 Document Reviewed: 10/19/2020 [employer] Patient Education 2022 [employer]. 02/04/2023 10:34:28 Cystoscopy Cystoscopy Cystoscopy is a procedure that is used to help diagnose and sometimes treat conditions that affect the lower urinary tract. The lower urinary tract includes the bladder and the urethra. The urethra is the tube that drains urine from the bladder. Cystoscopy is done using a thin, tube-shaped instrument with a light and camera at the end (cystoscope). The cystoscope may be hard or flexible, depending on the goal of the procedure. The cystoscope is inserted through the urethra, into the bladder. Cystoscopy may be recommended if you have: Urinary tract infections that keep coming back. Blood in the urine (hematuria). An inability to control when you urinate (urinary incontinence) or an overactive bladder. Unusual cells found in a urine sample. A blockage in the urethra, such as a urinary stone. Painful urination. An abnormality in the bladder found during an intravenous pyelogram (IVP) or CT scan. Cystoscopy may also be done to remove a sample of tissue to be examined under a microscope (biopsy). Tell a health care provider about: Any allergies you have. All medicines you are taking, including vitamins, herbs, eye drops, creams, and dmya-bjv-nspwcyi medicines. Any problems you or family members have had with anesthetic medicines. Any blood disorders you have. Any surgeries you have had. Any medical conditions you have. Whether you are or may be . What are the risks? Generally, this is a safe procedure. However, problems may occur, including: Infection. Bleeding. Allergic reactions to medicines. Damage to other structures or organs. What happens before the procedure? Medicines Ask your health care provider about: Changing or stopping your regular medicines. This is especially important if you are taking diabetes medicines or blood thinners. Taking medicines such as aspirin and ibuprofen. These medicines can thin your blood. Do not take these medicines unless your health care provider tells you to take them. Taking woln-zwt-qvzyhcm medicines, vitamins, herbs, and supplements. Tests You may have an exam or testing, such as: X-rays of the bladder, urethra, or kidneys. CT scan of the abdomen or pelvis. Urine tests to check for signs of infection. General instructions Follow instructions from your health care provider about eating or drinking restrictions. Ask your health care provider what steps will be taken to help prevent infection. These steps may include: ?Washing skin with a germ-killing soap. ?Taking antibiotic medicine. Plan to have a responsible adult take you home from the hospital or clinic. What happens during the procedure? You will be given one or more of the following: ?A medicine to help you relax (sedative). ?A medicine to numb the area (local anesthetic). The area around the opening of your urethra will be cleaned. The cystoscope will be passed through your urethra into your bladder. Germ-free (sterile) fluid will flow through the cystoscope to fill your bladder. The fluid will stretch your bladder so that your health care provider can clearly examine your bladder hoffman. Your doctor will look at the urethra and bladder. Your doctor may take a biopsy or remove stones. The cystoscope will be removed, and your bladder will be emptied. The procedure may vary among health care providers and hospitals. What can I expect after the procedure? After the procedure, it is common to have: Some soreness or pain in your abdomen and urethra. Urinary symptoms. These include: ?Mild pain or burning when you urinate. Pain should stop within a few minutes after you urinate. This may last for up to 1 week. ?A small amount of blood in your urine for several days. ?Feeling like you need to urinate but producing only a small amount of urine. Follow these instructions at home: Medicines Take adpg-pgu-plhjumz and prescription medicines only as told by your health care provider. If you were prescribed an antibiotic medicine, take it as told by your health care provider. Do not stop taking the antibiotic even if you start to feel better. General instructions Return to your normal activities as told by your health care provider. Ask your health care provider what activities are safe for you. If you were given a sedative during the procedure, it can affect you for several hours. Do not drive or operate machinery until your health care provider says that it is safe. Watch for any blood in your urine. If the amount of blood in your urine increases, call your health care provider. Follow instructions from your health care provider about eating or drinking restrictions. If a tissue sample was removed for testing (biopsy) during your procedure, it is up to you to get your test results. Ask your health care provider, or the department that is doing the test, when your results will be ready. Drink enough fluid to keep your urine pale yellow. Keep all follow-up visits. This is important. Contact a health care provider if: You have pain that gets worse or does not get better with medicine, especially pain when you urinate. You have trouble urinating. You have more blood in your urine. Get help right away if: You have blood clots in your urine. You have abdominal pain. You have a fever or chills. You are unable to urinate. Summary Cystoscopy is a procedure that is used to help diagnose and sometimes treat conditions that affect the lower urinary tract. Cystoscopy is done using a thin, tube-shaped instrument with a light and camera at the end. After the procedure, it is common to have some soreness or pain in your abdomen and urethra. Watch for any blood in your urine. If the amount of blood in your urine increases, call your health care provider. If you were prescribed an antibiotic medicine, take it as told by your health care provider. Do not stop taking the antibiotic even if you start to feel better. This information is not intended to replace advice given to you by your health care provider. Make sure you discuss any questions you have with your health care provider. Document Revised: 11/27/2021 Document Reviewed: 10/26/2020 [employer] Patient Education 2022 [employer]. Follow Up Care 07/23/2022 10:08:45 With:NASREEN CARMONA, Milad Westfall, URL Address: [facility] [address] , [place] [address]- When: Unknown [facility] 07-09-2022 Hospital Discharge instructions Patient Education 07/09/2022 07:45:12 Transrectal Ultrasound-Guided Prostate Biopsy, Care After Transrectal Ultrasound-Guided Prostate Biopsy, Care After This sheet gives you information about how to care for yourself after your procedure. Your health care provider may also give you more specific instructions. If you have problems or questions, contact your health care provider. What can I expect after the procedure? After the procedure, it is common to have: Pain and discomfort near your rectum, especially while sitting. Torrey-colored urine due to small amounts of blood in your urine. A burning feeling while urinating. Blood in your stool (feces) or bleeding from your rectum. Blood in your semen. Follow these instructions at home: Medicines Take lhwj-kmp-glqddbo and prescription medicines only as told by your health care provider. If you were prescribed antibiotic medicine, take it as told by your health care provider. Do not stop taking the antibiotic even if you start to feel better. Activity Do not drive for 24 hours if you were given a medicine to help you relax (sedative) during your procedure. Return to your normal activities as told by your health care provider. Ask your health care provider what activities are safe for you. Ask your health care provider when it is okay for you to resume sexual activity. Do not lift anything that is heavier than 10 lb (4.5 kg), or the limit that you are told, until your health care provider says that it is safe. General instructions Drink enough water to keep your urine pale yellow. Watch your urine, stool, and semen for new or increased bleeding. Keep all follow-up visits as told by your health care provider. This is important. Contact a health care provider if: You have any of the following: ?Blood clots in your urine or stool. ?Blood in your urine more than 2 weeks after the procedure. ?Blood in your semen more than 2 months after the procedure. ?New or increased bleeding in your urine, stool, or semen. ?Severe pain in your abdomen. Your urine smells bad or unusual. You have trouble urinating. Your lower abdomen feels firm. You have problems getting an erection. You have nausea or you vomit. Get help right away if: You have a fever or chills. This could be a sign of infection. You have bright red urine. You have severe pain that does not get better with medicine. You cannot urinate. Summary After this procedure, it is common to have pain and discomfort around your rectum, especially while sitting. You may have blood in your urine and stool after the procedure. It is common to have blood in your semen for 1 2 months after this procedure. If you were prescribed antibiotic medicine, take it as told by your health care provider. Do not stop taking the antibiotic even if you start to feel better. Get help right away if you have a fever or chills. This could be a sign of infection. This information is not intended to replace advice given to you by your health care provider. Make sure you discuss any questions you have with your health care provider. Document Released: 09/07/2017 Document Revised: 07/06/2019 Document Reviewed: 09/07/2017 [employer] Patient Education 2020 [employer]. Follow Up Care 06/25/2022 16:49:16 With:NASREEN CARMONA, Milad Westfall, URL Address: [facility] [address] , [place] [address]- When: Unknown [facility] 06-25-2022 Hospital Discharge instructions Patient Education 06/25/2022 16:06:14 Prostate Cancer Screening Prostate Cancer Screening The prostate is a walnut-sized gland that is located below the bladder and in front of the rectum in males. The function of the prostate (prostate gland) is to add fluid to semen during ejaculation. Prostate cancer is the second most common type of cancer in men. A screening test for cancer is a test that is done before cancer symptoms start. Screening can help to identify cancer at an early stage, when the cancer can be treated more easily. The recommended prostate cancer screening test is a blood test called the prostate-specific antigen (PSA) test. PSA is a protein that is made in the prostate. As you age, your prostate naturally produces more PSA. Abnormally high PSA levels may be caused by: Prostate cancer. An enlarged prostate that is not caused by cancer (benign prostatic hyperplasia, BPH). This condition is very common in older men. A prostate gland infection (prostatitis). Medicines to assist with hair growth, such as finasteride. Depending on the PSA results, you may need more tests, such as: A physical exam to check the size of your prostate gland. Blood and imaging tests. A procedure to remove tissue samples from your prostate gland for testing (biopsy). Who should have screening? Screening recommendations vary based on age. If you are younger than age 40, screening is not recommended. If you are age 40 54 and you have no risk factors, screening is not recommended. If you are younger than age 55, ask your health care provider if you need screening if you have one of these risk factors: ?Being of -[place] descent. ?Having a family history of prostate cancer. If you are age 55 69, talk with your health care provider about your need for screening and how often screening should be done. If you are older than age 70, screening is not recommended. This is because the risks that screening can cause are greater than the benefits that it may provide (risks outweigh the benefits). If you are at high risk for prostate cancer, your health care provider may recommend that you have screenings more often or start screening at a younger age. You may be at high risk if you: Are older than age 55. Are -T[place]. Have a father, brother, or uncle who has been diagnosed with prostate cancer. The risk may be higher if your family member's cancer occurred at an early age. What are the benefits of screening? There is a small chance that screening may lower your risk of dying from prostate cancer. The chance is small because prostate cancer is typically a slow-growing cancer, and most men with prostate cancer from a different cause. What are the risks of screening? The main risk of prostate cancer screening is diagnosing and treating prostate cancer that would never have caused any symptoms or problems (overdiagnosis and overtreatment). PSA screening cannot tell you if your PSA is high due to cancer or a different cause. A prostate biopsy is the only procedure to diagnose prostate cancer. Even the results of a biopsy may not tell you if your cancer needs to be treated. Slow-growing prostate cancer may not need any treatment other than monitoring, so diagnosing and treating it may cause unnecessary stress or other side effects. A prostate biopsy may also cause: Infection or fever. A false negative. This is a result that shows that you do not have prostate cancer when you actually do have prostate cancer. Questions to ask your health care provider When should I start prostate cancer screening? What is my risk for prostate cancer? How often do I need screening? What type of screening tests do I need? How do I get my test results? What do my results mean? Do I need treatment? Contact a health care provider if: You have difficulty urinating. You have pain when you urinate or ejaculate. You have blood in your urine or semen. You have pain in your back or in the area of your prostate. You have trouble getting or maintaining an erection (erectile dysfunction, ED). Summary Prostate cancer is a common type of cancer in men. The prostate (prostate gland) is located below the bladder and in front of the rectum. This gland adds fluid to semen during ejaculation. Prostate cancer screening may identify cancer at an early stage, when the cancer can be treated more easily. The prostate-specific antigen (PSA) test is the recommended screening test for prostate cancer. Discuss the risks and benefits of prostate cancer screening with your health care provider. If you are age 70 or older, screening is likely to lead to more risks than benefits (risks outweigh the benefits). This information is not intended to replace advice given to you by your health care provider. Make sure you discuss any questions you have with your health care provider. Document Released: 12/25/2017 Document Revised: 02/26/2018 Document Reviewed: 12/25/2017 [employer] Patient Education 2020 [employer]. Follow Up Care 06/24/2022 15:07:03 With:Milad RUFF MD, URL Address: [facility] [address] , [place] [address]- When: Unknown [facility] Chief complaint Narrative - Reported EDWARD DARBY is being seen for a consultation for abnormal test(s) results. [facility] 250 DO Work Phone: Evaluation + Plan note Future Appointments Appointment Date:07/09/2022 07:45:00 AM Scheduled Provider:Milad RUFF MD Location[facility] Appointment Type:URO Procedure 15 min Appointment Date:07/23/2022 08:45:00 AM Scheduled Provider:Milad RUFF MD Location:Critical access hospital Appointment Type:URO Office Visit [facility] Evaluation + Plan note Future Appointments Appointment Date:07/23/2022 08:45:00 AM Scheduled Provider:Milad RUFF MD Location:Critical access hospital Appointment Type:URO Office Visit Diagnostic Tests PendingProstate Histology ([facility]) 07/09/22 [facility] Evaluation + Plan note Future Appointments Appointment Date:02/04/2023 09:45:00 AM Scheduled Provider:Milad RUFF MD Location:Critical access hospital Appointment Type:URO Office Visit [facility] Evaluation + Plan note Future Appointments Appointment Date:03/31/2023 09:00:00 AM Scheduled Provider: Location:[facility] Appointment Type:Urology FT Appointment Date:03/31/2023 10:00:00 AM Scheduled Provider: Location:[facility] Appointment Type:Urology FT Future Scheduled TestsPSA Free & Total 07/29/23 [facility] Evaluation + Plan note Future Scheduled TestsPSA Free & Total 07/29/23 [facility] Evaluation + Plan note Future Appointments Appointment Date:02/08/2024 09:30:00 AM Scheduled Provider: Location:[facility] Appointment Type:URO Nurse Visit Appointment Date:02/29/2024 09:15:00 AM Scheduled Provider:Milad RUFF MD [facility] Appointment Type:URO Office Visit Future Scheduled TestsPSA Free & Total 07/29/23 [facility] Evaluation note No assessment inform ation available [facility] Work Phone: Evaluation note Diagnosis Impaired fasting glucose- Primary Blood in stool, chaim LLQ pain Abdominal pain, left lower quadrant Diverticulitis Diverticulitis of colon (without mention of hemorrhage) Eczema, unspecified type- Primary Blood in stool, chaim Hepatic steatosis Other chronic nonalcoholic liver disease Routine general medical examination at health care facility- Primary Routine general medical examination at a health care facility Essential hypertension (CMS/HCC) Unspecified essential hypertension Benign prostatic hyperplasia with urinary frequency Impaired fasting glucose Calculus of gallbladder without cholecystitis without obstruction Flu vaccine need Essential hypertension (CMS/HCC)- Primary Unspecified essential hypertension Gout, unspecified cause, unspecified chronicity, unspecified site Impaired fasting glucose Type 2 diabetes mellitus without complication, without long-term current use of insulin (CMS/HCC) Morbid (severe) obesity due to excess calories (E66.01) Body mass index [BMI] 40.0-44.9, adult (Z68.41) Sleep apnea in adult LLQ pain- Primary Abdominal pain, left lower quadrant Impaired fasting glucose Low back pain without sciatica, unspecified back pain laterality, unspecified chronicity Type 2 diabetes mellitus with other specified complication (CMS/HCC) Hyperlipidemia, unspecified (CMS/HCC) Other specified hearing loss of right ear, unspecified hearing status on contralateral side Routine general medical examination at health care facility- Primary Routine general medical examination at a health care facility Abnormal glucose tolerance test Impaired glucose tolerance test Benign essential hypertension (CMS/HCC) Essential hypertension, benign Nocturia Medicare annual wellness visit, subsequent Hyperlipidemia, unspecified hyperlipidemia type (CMS/HCC) Impaired fasting glucose Hyperchylomicronemia (CMS/HCC) Hyperchylomicronemia Type 2 diabetes mellitus with other specified complication, without long-term current use of insulin (CMS/HCC) Morbid (severe) obesity due to excess calories (CMS/HCC) Encounter for vaccination Sleep apnea in adult documented in this encounter [facility]* Patient is seen at the request of his primary care physician because of an abnormal echocardiogram * He is an individual who has a history of hypertension. He has also been treated for hyperlipidemia.He was checking his blood pressure and noted an irregular rhythm. Because of this history physicianordered a stress test. It was a treadmill Cardiolite. The electrocardiographic component of this study is not available to us as it was not sent. The perfusion study, though, was provided to us. It demonstrates diaphragmatic attenuation. He was told that his stress test was okay and because of this he was not concerned about blockage. He does describe chest pain but it is atypical and more often occurs at rest and with activity. * He had an echocardiogram as well. It also had some findings. It demonstrated biatrial enlargement, right ventricular dilatation and enlargement, and diastolic dysfunction. No segmental wall motion abnormalities, no left ventricular dysfunction. * Advised him that his findings on the echo are most consistent with obstructive sleep apnea. He acknowledges this and in fact is being treated with CPAP. I also pointed out to him that increased body mass index will cause these findings and he is working diligently on a diet. It appears that pressure is adequately controlled. * We had a long detailed discussion, though, regarding risk. Apparently all of his siblings have coronary disease or had a coronary event. The patient himself is on a low potency statin. Blood pressureis acceptable. He is not on aspirin. He was told recently that he has hyperglycemia and her diabetes and is not being treated. * I advised him that he needs to be on a more aggressive statin and we will make a change from pravastatin to atorvastatin. He also should be on aspirin even without a diagnosis of coronary disease because of a high suspicion of subclinical disease. Also very important is he needs to be on a GLP-1 inh ibitor because it is his best chance and/or possibility of mitigating risk of progressive coronary atherosclerosis. I provided him information on this and encouraged him to talk to his primary care physician in this regard. * We discussed his smoking history. He was congratulated on cessation. Body mass index and the importance of dieting were also discussed. Lastly I explained to him that with prompted all of this testing was PACs and PVCs which are evident on today's EKG. They are benign in the absence of coronary disease or structural heart disease and because of this he was advised that no treatment is necessary. Because he requires aggressive risk factor modification and attention to detail I suggest he see me in about 6 months. [facility] 250 DO Work Phone: Hospital course Narrative No data available for this section [facility] Hospital Discharge instructions No data available for this section [facility] Hospital Discharge instructions Additional Instructions DISCHARGE INSTRUCTIONS FOR GENERAL SURGERY YOUR ACTIVITY MAY INCLUDE: -Going up and down stairs slowly. -Walking around the house or outside if the weather is satisfactory. -No driving until you are seen in office and cleared for driving. -Light work permitted in 2 weeks. -Heavy lifting permitted when cleared by Dr. James At your first office visit we will discuss: Return to normal activities WOUND CARE/INCISION CARE: The sutures are underneath the skin and will dissolve by themselves. The incisions are covered with surgical glue, there is no need for additional Band-Aids It is safe to get the wounds wet with soap and water in the shower, no hot tubs or tub baths. -Is it common to feel pulling or sharp sticking sensations in the area of incision, these sensations are a part of the normal healing process. -If you develop fever, increasing pain, redness, or swelling around the incision, please notify our office MEDICATION -Resume all previous medications that you were taking for problems unrelated to your surgery, unless informed otherwise. If there are any problems with this, please call the original prescribing doctor. If you have any other questions regarding medications, please call our office. -Over the counter medications such as Acetaminophen, Ibuprofen, Naproxen, and others may be used as directed for pain unless a prescription was provided.[facility] Work Phone: Progress note No data available for this section [facility] Summary Purpose Family History Unknown Family Member Name Dates Details Family history of myocardial infarction: Mother, Father(V17.3, Z82.49) Status:Active Family history of cardiac di sorder: Mother, Father, Brother(V17.49, Z82.49) Status:Active Coronary artery graft presen t: Mother, Father, Brother Status:Active Family history of malignant neoplasm: Mother, Father, Sister, Brother(V16.9, Z80.9) Status:Active Family history of lung cance r: Mother, Father, Sister, Brother(V16.1, Z80.1) Status:Active Relationship Condition Age at Onset Recorded Date/T jones father Myocardial infarction Unknown Not Specified Myocardial infarction Unknown brother Myocardial infarction Unknown Alzheimer's disease Unknown sister Malignant neoplasm of lung Unknown Advance Directives Advance Directive Response Recorded Date/ Time Advance Directives No January 05, 2023 4:19pm Chief Complaint and Reason for Visit Chief Complaint Cholelithiasis Chief Complaint Cholelithiasis Cholelithiasis Additional Source Comments (unrecognized sect ion and content) No Status Records FoundNo Status Records FoundNo Status Records FoundNo Status Records FoundNo Status Records FoundNo Status Records FoundNo Status Records FoundNo Status Records Found INFORMATION SOURCE (unrecogn ized section and content) DATE CREATED AUTHOR 02/14/2018 [facility] DATE CREATED AUTHOR AUTHOR'S ORGANIZ ATION 08/03/2021 [facility] DATE CREATED AUTHOR AUTHOR'S ORGANIZ ATION 07/12/2022 [facility] DATE CREATED AUTHOR AUTHOR'S ORGANIZ ATION 07/12/2022 [employer] DATE CREATED AUTHOR AUTHOR'S ORGANIZ ATION 07/12/2022 [facility] DATE CREATED AUTHOR AUTHOR'S ORGANIZ ATION 02/20/[address] [facility] DATE CREATED AUTHOR AUTHOR'S ORGANIZ ATION 01/12/2024 [facility] EPIC DATE CREATED AUTHOR AUTHOR'S ORGANIZ ATION 01/14/2024 [facility] Patient Care team informatio n (unrecognized section and content) Team Status: Active Member Role Status Dates Micheala Villavicencio MD Primary Care Provider Active Team Status: Inactive Member Role Status Dates Michaela Villavicencio MD Primary Care Provider Active Taran James DO Attending Provider Active Senior Sas Developer Relationship Specialty Start Date End Date Michaela Villavicencio MD [address] [address] PCP - General Family Medicine 08/05/22 Senior Sas Developer Relationship Specialty Start Date End Date Michaela Villavicencio MD [address] [address] PCP - General Family Medicine 08/05/22 Senior Sas Developer Relationship Specialty Start Date End Date Michaela Villavicencio MD [address] [address] PCP - General Family Medicine 08/05/22 Goals (unrecognized section and content) Goals may be documented in a n alternate section Reason for Visit (unrecogniz ed section and content) Reason Comments Medicare Annual Wellness Visit Subsequen t FOR RECORDS PERTAINING TO PATIENTS WHO ARE OR HAVE BEEN ENROLLED IN A CHEMICAL DEPENDENCY/SUBSTANCEABUSE PROGRAM, SOME INFORMATION MAY BE OMITTED. This clinical summary was aggregated from multiple sources. Caution should be exercised in using it in the provision of clinical care. This summary normalizes information from multiple sources, and as a consequence, information in this document may materially change the coding, format and clinical context of patient data. In addition, data may be omitted in some cases. CLINICAL DECISIONS SHOULD BE BASED ON THE PRIMARY CLINICAL RECORDS. [employer] provides no warranty or guarantee of the accuracy or completeness of information in this document.
[2024-02-04 11:10] LABS: Glucometer 107 mg/dL (74-106)
[2024-02-04] MEDS: LACTATED RINGER'S SOLUTION 1,000 ML 50 ML IV (11:17)
[2024-02-04] MEDS: LEVOFLOXACIN IN DEXTROSE 5 % 500 MG/100 ML PREMIX 100 MG IV (12:59)
[2024-02-04] MEDS: LACTATED RINGER'S SOLUTION 1,000 ML 1000 ML IV (14:27)
--- NOTE | 2024-02-04 14:39 | PM.URSON ---
Urology Surgery Operative Note Operative Note Procedure Date: 02/04/24 Time Out Performed: yes Pre-op Diagnosis: BPH with LUTS refractory to medications Post-op Diagnosis: same as pre-op Procedures performed: 1. Cystoscopy. 2. Transurethral resection of the prostate. Anesthesia: GETA Primary Surgeon: Milad Ruff Complications: None Estimated blood loss (mL): 20 Findings: 1. 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 High median bar. 3. Obstructing lateral lobes and apical lobes Specimens: Prostate tissue Drains: 22 Martiniquais three-way coud? Morel catheter to traction and CBI Indications for Procedures: This gentleman has rather significant bladder outlet obstructive symptoms despite taking maximal medications. He is obstructed urodynamically and endoscopically. He is strongly desirous for TURP. He has signed an informed consent after risks were explained. Some of these risks include bleeding, infection, anesthesia, urinary incontinence both temporary and permanent, retrograde ejaculation, erectile dysfunction, need for further operations and persistent difficulty voiding just to name a few. 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 Detailed description of Procedure: The patient was brought to the operating room and placed on the operating room table in the supine position. SCDs were placed on the lower extremities and turned on and functioning during the entire case. Timeout was done by all parties in the room. We all agreed upon the patient's identification and the planned procedures for this patient. Genn. anesthesia was then administered. The patient was then repositioned into the modified dorsal lithotomy position. All pressure points were satisfactorily padded. Genitalia were sterilely prepped and draped in usual fashion. I started by passing a 26 Martiniquais Olympus resectoscope with a standard bipolar loop electrode per urethra. As I arrived near the prostate 1 could see a very large cavernous posterior false passage in the prostatic membranous region I had to torque the scope up anteriorly to get over this and over his high median bar and into the bladder. The ureteral orifices were identified and marked with the loop electrode. I started on the median lobe and resected this high median bar down to the bladder neck level. I then resected posteriorly from the bladder neck to the Veru level. The left lateral lobe was then taken down similarly as was the right lateral lobe. Purulence pockets were unroofed. The anterior tissue was taken down similarly. The bladder neck was opened up at the 5 and 7:00 positions. The apex was rather tightly obstructing and protruding beyond the distorted veru. I open these up to relieve the coaptation. The resection bed was fulgurated with the loop electrode. The Ilich evacuator was used to get all the chips out of the bladder. Upon completion, there was no bleeding. The prostatic urethra was wide open. There were no chips remaining in the bladder. I elected to pass a Glidewire through the resectoscope sheath into the bladder and removed the sheath. I then cut the tip on the 22 Martiniquais three-way coud? Morel and passed it over the wire into the bladder. The wire was removed. The catheter was manually irrigated to verify correct placement. 30 cc of fluid was placed in the balloon. CBI was started. It was taped to traction and it irrigated to a clear color. He was then transferred to a gurnew [place] bed after the anesthetic was reversed. He was then transferred to PACU in stable condition. Urinary Catheter Management Urinary Catheter Management 3-way Urethral: Cath placed during this visit: no
[2024-02-04] MEDS: SODIUM CHLORIDE IRRIG SOLUTION 3,000 ML 3000 ML IRR ×10 (15:41→23:13)
[2024-02-04] MEDS: 0.9 % SODIUM CHLORIDE 1,000 ML 80 ML IV (15:41)
[2024-02-04] MEDS: SOLIFENACIN SUCCINATE 10 MG TABLET PO (15:41)
[2024-02-04] MEDS: TEMAZEPAM 15 MG CAPSULE PO (20:53)
[2024-02-05] MEDS: SODIUM CHLORIDE IRRIG SOLUTION 3,000 ML 3000 ML IRR ×5 (00:03→03:30)
[2024-02-05 03:00] VITALS: BP 164/75; PULSE 81; TEMP 36.3; O2SAT 90
[2024-02-05] MEDS: 0.9 % SODIUM CHLORIDE 1,000 ML 80 ML IV (04:21)
[2024-02-05 07:42] LABS: Glucometer 156 mg/dL (74-106)
[2024-02-05 07:57] VITALS: BP 151/78; PULSE 71; TEMP 36.4; O2SAT 91
--- OUTSIDE RECORDS SUMMARY | 2024-02-05 08:12 | XMS_ITS | CCD ---
Author Organization [facility] CliniSyin Care Team Providers Care Ticket Scheduler Name Role Phone EDGAR, VALERIE A Unavailable Unavailable EDGAR, VALERIE A Unavailable Unavailable EDGAR, VALERIE A Unavailable Unavailable EDGAR, VALERIE A Unavailable Unavailable MICHAELA VILLAVICENCIO Primary Care Physician [phone] Michaela Villavicencio Unavailable Unavailable Unavailable Mary MCKINLEY, [...] Maye, MD Michaela Santillan Primary Care Provider [phone] DO Taran James Attending Provider [phone] Taran James Attending Unavailable Michaela Villavicencio Primary [...] skin (disorder), Tachycardia (finding) [facility] (3 sources) Sulfonamides (Antibiotic); Translations: [Sulfa (Sulfonamide Antibiotics)] Propensity to adverse reactions 01-14-20 Palpitations [facility] Medications Current Medications Medication Drug Class(es) Dates Sig (Normalized) Sig (Original) acetaminophen 325 mg / HYDROcodone bitartrate 7.5 mg oral tablet (1 source) Opioid Agonist Start: 06-26-2022 take 1 tablet by mouth once Triplett 325 mg-7.5 mg oral tablet 1 tab(s), Oral, Once, 1 tab(s), Refill(s) 0, Take 1 hour prior to procedure DX: R97.20, [facility], 177, cm, 06/25/22 15:16:00 EDT, [...] day(s), # 30 tab(s), Refills(s) 11, Pharmacy: [facility], 177, cm, 01/13/24 14:10:00 EDT, [...] day(s), # 30 tab(s), Refills(s) 11, Pharmacy: [facility], 177, cm, 06/25/22 15:16:00 EDT, [...] Active Start: 07-10-2022 take 1 tablet by kign th at bedtime Atorvastatin Calcium 10 MG [...] completed, # 2 tab(s), Refills(s) 0, Pharmacy: [facility], 177, cm, 02/04/23 9:52:00 EST, Height/Length [...] aPTT Coag (Bld) [Time] 29.5 s NO [facility] No Panel Informationon 01-19 [facility] SRMCOH PROTHROMBIN TIME INR W/O COUMon 01-20-2024 PT Coag (PPP) [Time] 11.1 s [facility] TB INR 1.05 [facility] Comment on above: DESIRED INR: 2.0-3.0 CONDITIONS [...] AM EST With: Where: [facility] [address] [address]- Thursday 9:15 AM EST With: Milad RUFF MD Where: [facility] [address] [address]- You Need to Schedule the Following Appointments Follow Up with Milad RUFF MD, URL When: Where: [facility] [address] [place] [address] [place] [address]- Medications What How Much When Instructions New alfuzosin (alfuzosin 10 mg ER Tab) 1 Tablets By Mouth Every day Duration: 30 Days Refills: 11 Pickup at [facility] Unchanged allopurinol (allopurinol 100 mg [...] physician if questions or concerns Pharmacy Information [facility]: [address] [place], [place] [id number] [phone] Allergies Bactrim (Rash, Tachycardia) Problems Ongoing - [...] depression. (more content not included)... Normal [facility] Urology Office/Clinic Noteon 01-13-2024 Urology Office/Clinic Note [...] Urology [address], [place] [address]- Additional Instructions: schedule TURP Patient Education Erectile Dysfunction Prostate Cancer Screening I, Silvia Choi, personally scribed for Dr. Ruff on 01/13/2024 15:06:37. . Documentation recorde (more content not included)... [facility] Comment on above: Result Comment: Elec tronically Signed By: Milad RUFF MD\.br\Date and Time Signed: 01/13/24 15:08 EDT\.br\Electronically Co-Signed By: Silvia Choi\.br\Date and Time Co-Signed: 01/13/24 15:07 EDT Laboratory - Hematology and Cell countson 01-11-2024 HbA1c (Bld) [Mass fraction] 6.2 % [facility] No Panel Informationon 01-10 Interpretation and review of laboratory results Normal [facility] Consent for Procedure/Surger yon 03-31-2023 Consent for Procedure/Surgery [id number]#1.00 TIFF [facility] Consent for Treatmenton Consent for Treatment [id number] IFF Normal [facility] IntraOperative Documentson 0 03-31-2023 IntraOperative Documents [id number]#1.00 TIFF Normal [facility] IntraOperative Documents [id number]#[id number] TIFF Normal [facility] Main OR Intraoperative Recor don 03-31-2023 Main OR Intraoperative Record IntraOp Document Type FTURO Summary Primary Physician: Milad RUFF MD Finalized Date/Time: 03/31/23 10:53:50 Pt. Name: EDWARD DARBY/Sex: 1950 Male Med Rec #: [id number] Physician: Milad RUFF MD Financial #: [id number] Pt. Type: O Room/Bed: / Admit/Disch: 03/31/23 [...] Heather Mitchell Role Performed Surgeon - Primary Physician Coder - Primary Scrub - Primary Time In [...] MAXIME Bermudez RN, Ruthann 03/31/23 10:53 Normal [facility] Main OR Preoperative Recordo n 03-31-2023 Main OR Preoperative Record Holding Area Document Type FTURO Summary Primary Physician: Milad RUFF MD Finalized Date/Time: 03/31/23 10:12:02 Pt. Name: EDWARD DARBY/Sex: 1950 Male Med Rec #: [id number] Physician: Milad RUFF MD Financial #: [id number] Pt. Type: O Room/Bed: / Admit/Disch: 03/31/23 [...] By: Savanna Snowden RN 03/31/23 10:12 Normal [facility] Operative Reporton Operative Report Patient: MELODY DARBY [...] us back. Urodynamically, he is obstructed.. Normal [facility] Comment on above: Result Comment: Elec tronically Signed By: Milad RUFF MD\.br\Date and Time Signed: 03/31/23 11:04 EST Outpatient Surgery Discharge Instructionon 03-31-2023 Outpatient Surgery Discharge Instruction [id number] TIFF Normal [facility] Screenson 02-05-2023 Screens [id number]#1.0 0TIFF Normal [facility] Ambulatory Visit Summaryon 1 04-06-2022 Ambulatory Visit Summary TOMMY, EDWARD Toussaint :1950 Visit Date:02/04/2023 Ambulatory Visit Instructions Your Diagnosis Elevated PSA BPH with obstruction/lower urinary tract symptoms Incomplete bladder emptying Prostatitis Tests Performed Urnls Dip Stick Auto w/o Microscopy POC 04253 Your Care Team Attending Physician - Milad [...] When: Where: [facility] [address] [place] [address]- Medications What How Much When Instructions Unchanged [...] Urnls Dip Stick Auto w/o Microscopy POC 51186 (02/04/2023) Bilirubin Urine Dipstick - Negative Blood Urine Dipstick - Trace-intact Glucose Urine Dipstick - Negative Ketones Urine Dipstick - Negative Leukocytes Urine Dipstick - Negative Nitrite Urine Dipstick - Negative Protein Urine Dipstick - Negative Specific [place] Urine Dipstick - 1.020 Urine Appearance Urine [...] that you (more content not included)... Normal [facility] Patient Educationon 02-05-20 Patient Education Urology Urodynamic [...] including vitamins, herbs, eye drops, creams, and uwaa-stf-welcczg medicines. ? Whether you are or may [...] results be (more content not included)... Normal [facility] Urology Office/Clinic Noteon 02-04-2023 Urology Office/Clinic Note Chief Complaint 6 month follow up w/ PSA HPI Staff 6 month follow up w/PSA. Current PSA 4.6 done [facility], previous PSA 7.1 & [...] [facility] [address], [place] [address]- Additional Instructions: schedule cysto and uros Patient [...] (01/27/2023), Transrec (more content not included)... Normal [facility] Comment on above: Result Comment: Elec tronically Signed By: Milad RUFF MD\.br\Date and Time Signed: 02/04/23 10:43 EST\.br\Electronically Co-Signed By: Silvia Choi\.br\Date and Time Co-Signed: 11/08/23 10:39 EST Alkaline Phosphataseon 10-31 -2023 ALP [Catalytic activity/Vol] 88 U/L Normal 34-104 [facility] Comment on above: Performed By: #### A KULDEEP MALIK AMY #### [facility] [address] Alkaline phosphatase [Enzyma tic activity/volume] in Serum or PlasmaOrdered By: Taran James on 01-27-2023 ALP [Catalytic activity/Vol] 88 U/L 34-104 [facility] Amylaseon 01-27-2023 Amylase [Catalytic activity/Vol] 38 U/L Normal 29-103 [facility] Comment on above: Result Comment: PERF ORMED BY: [facility] [address] [place] [address] PATHOLOGIST EXERCISE TEACHER MAGALY CEJA M.D. Performed By: #### A KULDEEP MALIK AMY #### [facility] [address] Amylase [Enzymatic activity/ volume] in Serum or PlasmaOrdered By: Taran James on 01-27-2023 Amylase [Catalytic activity/Vol] 38 U/L 29-103 [facility] Bilirubin,Totalon 01-27-2023 Bilirubin [Mass/Vol] 0.6 mg/dL Normal 0.3-1.0 [facility] Comment on above: Performed By: #### A KULDEEP MALIK AMY #### [facility] [address] Bilirubin.total [Mass/volume ] in Serum or PlasmaOrdered By: Taran James on 01-27-2023 Bilirubin [Mass/Vol] 0.6 mg/dL 0.3-1.0 [facility] Hipolito 01-27-2023 L --- Specimen: [id number] Received: 01/27/23 Status: ADIA Chavezlayo Num: [id number] Spec Type: Surgical Subm Dr: Taran James DO Tissues: A Gallbladder (GALLBLADDER) B Lymph Node - Biopsy (Needle or Incisional) (LN) Procedures: HE/3, Gross/Micro L4, Gross/Micro L3 Age/ Patient Sex Location Account Attending Physician Edward Darby/M [place] [id number] Taran James DO SPEC NUM: [id number] RECD: 01/27/23 STATUS: ADIA LINDA NUM: [id number] ASHIA: 01/27/23- SUBM DR: Taran James DO [...] diameter apparent cystic duct margin is inked. Credit Collections Manager sections are submitted in one cassette labeled A1. B. Received in formalin labeled with the patient's name, date of and calot lymph node Is a 0.7 x 0.5 x 0.3 cm ayon-randolph rubbery tissue. Entirely submitted in one cassette Specimen: [id number] Received: 01/27/23 Status: ADIA Redman Num: [id number] Spec Type: Surgical Subm Dr: Taran James DO Tissues: A Gallbladder (GALLBLADDER) B Lymph Node - Biopsy (Needle or Incisional) (LN) Procedures: HE/, Gross/Micro L4, Gross/Micro L3 Patient: Edward Darby [id number] (Continued) Specimen: [id number] Received: 01/27/23 (Continued) Gross Description (Continued) Signed (signature on file) Harley Aguilar MD 01/29/23 1311 Specimen: [id number] Received: 01/27/23 Status: ADIA Redman Num: [id number] Spec Type: Surgical Subm Dr: Taran James DO Tissues: A Gallbladder (GALLBLADDER) B Lymph Node - Biopsy (Needle or Incisional) (LN) Procedures: LORENZA/Miguel, Gross/Micro L4, Gross/Micro L3 Patient: Edward Darby [id number] (Continued) Specimen: [id number] Received: 01/27/23 (Continued) Gross Description (Continued) labeled B1. Microscopic Description A. One H E slide reviewed. The microscopic examination confirms the diagnosis. B. One H E slide reviewed. The microscopic examination confirms the diagnosis. CPT Codes 65098, 32992 Specimen: [id number] Received: 01/27/23 Status: ALEXMazin Redman Num: [id number] Spec Type: Surgical Subm Dr: Taran James DO Tissues: A Gallbladder (GALLBLADDER) B Lymph Node - Biopsy (Needle or Incisional) (LN) Procedures: HE/3, Gross/Micro L4, Gross/Micro L3 Patient: Edward Darby [id number] (Continued) Signed (signature on file) Harley Aguilar MD 01/29/23 1311 [facility] CHEMISTRYOrdered By: SYSTEM SYSTEM on 01-21-2023 Prostate specific Ag [Mass/Vol] 4.6 ng/mL High 0.1 - 3.5 ng/mL [facility] Remisol Comment on above: [...] specific Ag [Mass/Vol] 4.6 ng/mL High 0.1-3.5 [facility] Comment on above: Result Comment: The concentration of PSA determined by different manufacturers can vary due to differences in assay methods and reagent specificity. Values obtained from different assay methods cannot be used interchangeably. The methodology used for this result was chemiluminescence using [employer] Access Hybrite[employer] PSA reagent. Performed By: #### 1 [id number] ####[facility] [address] [place] [address] Basic Metabolic Panelon 12-28 Anion gap [Moles/Vol] 9.7 mmol/L Normal 6.0-15.0 [facility] Comment on above: Performed By: #### B MP, CBC #### [facility] [address] Calcium [Mass/Vol] 9.3 mg/dL Normal 8.6-10.3 [facility] Comment on above: Result Comment: PERF ORMED BY: [facility] [address] [place] [address] PATHOLOGIST EXERCISE TEACHER MAGALY CEJA M.D. Performed By: #### B MP, CBC #### [facility] [address] [place] [id number] [place] Chloride [Moles/Vol] 102 mmol/L Normal 98-107 [facility] Comment on above: Performed By: #### B MP, CBC #### [facility] [address] [place] [id number] [place] CO2 [Moles/Vol] 29.3 mmol/L Normal 21.0-31.0 [facility] Comment on above: Performed By: #### B MP, CBC #### [facility] [address] [place] [address] [place] Creatinine [Mass/Vol] 0.77 mg/dL Normal 0.70-1.30 [facility] Comment on above: Performed By: #### B MP, CBC #### [facility] [address] [place] [address] [place] GFR/1.73 sq M.predicted MDRD (S/P/Bld) [Vol rate/Area] mL/min/{1.73_m2} Normal [facility] Comment on above: Performed By: #### B MP, CBC #### [place] [address] [place] Glucose [Mass/Vol] 148 mg/dL High 70-100 [facility] Comment on above: Result Comment: Drury Glucose Reference Range is dependent on time and content of last meal. Glucose of more than 200 mg/dL in a nonstressed, ambulatory subject supports the diagnosis of Diabetes Mellitus. ADA recommended reference range Performed By: #### B MP, CBC #### [facility] [address] [place] [address] [place] Potassium [Moles/Vol] 4.0 mmol/L Normal 3.5-5.1 [facility] Comment on above: Performed By: #### B MP, CBC #### [facility] [address] [place] [phone] [place] Sodium [Moles/Vol] 137 mmol/L Normal 136-145 [facility] Comment on above: Performed By: #### B MP, CBC #### [facility] [address] Urea nitrogen [Mass/Vol] 13 mg/dL Normal 7-25 [facility] Comment on above: Performed By: #### B MP, CBC #### [facility] [address] Basophils Auto (Bld) [#/Vol] Ordered By: Taran James on 01-13-2023 Basophils (Bld) [#/Vol] 0.1 10*3/uL 0.0-0.2 [facility] Basophils/100 WBC Auto (Bld) Ordered By: Taran James on 01-13-2023 Basophils/100 WBC (Bld) 1.2 % . F [facility] Calcium [Mass/volume] in Ser um or PlasmaOrdered By: Taran James on 01-13-2023 Calcium [Mass/Vol] 9.3 mg/dL 8.6-10.3 [facility] Carbon dioxide, total [Moles /volume] in Serum or PlasmaOrdered By: Taran James on 01-13-2023 CO2 [Moles/Vol] 29.3 mmol/L 21.0-31.0 [facility] Chloride [Moles/volume] in S shweta or PlasmaOrdered By: Taran James on 01-13-2023 Chloride [Moles/Vol] 102 mmol/L 98-107 [facility] Complete Blood Count Auto Di ffon 01-13-2023 Basophils (Bld) [#/Vol] 0.1 10*3/uL Normal 0.0-0.2 [facility] Comment on above: Result Comment: PERF ORMED BY: [place] [address] PATHOLOGIST EXERCISE TEACHER MAGALY CEJA M.D. Performed By: #### B MP, CBC #### [facility] [address] Basophils/100 WBC (Bld) 1.2 % Normal . F [facility] Comment on above: Performed By: #### B MP, CBC #### [facility] [address] Eosinophils (Bld) [#/Vol] 0.1 10*3/uL Normal 0.0-0.45 [facility] Comment on above: Performed By: #### B MP, CBC #### [address] Eosinophils/100 WBC (Bld) 2.0 % Normal . [facility] Comment on above: Performed By: #### B MP, CBC #### [address] Erythrocyte distribution width (RBC) [Ratio] 14.2 % Normal 12.0-14.8 [facility] Comment on above: Performed By: #### B MP, CBC #### [address] Hematocrit (Bld) [Volume fraction] 45.0 % Normal 38.8-50.0 [facility] Comment on above: Performed By: #### B MP, CBC #### [address] Hemoglobin (Bld) [Mass/Vol] 15.5 g/dL Normal 13.0-17.0 [facility] Comment on above: Performed By: #### B MP, CBC #### [address] Lymphocytes (Bld) [#/Vol] 1.0 10*3/uL Normal 1.00-4.8 [facility] Comment on above: Performed By: #### B MP, CBC #### [place] [address] [place] Lymphocytes/100 WBC (Bld) 20.5 % Normal . [facility] Comment on above: Performed By: #### B MP, CBC #### [address] MCH (RBC) [Entitic mass] 30.9 pg Normal 27.5-35.2 [facility] Comment on above: Performed By: #### B MP, CBC #### [facility] [address] MCV (RBC) [Entitic vol] 89.5 fL Normal 83.5-101 F [facility] Comment on above: Performed By: #### B MP, CBC #### [facility] [address] Mean Corpuscular HGB Conc 34.5 g/dL Normal 32.5-35.6 [facility] Comment on above: Performed By: #### B MP, CBC #### [facility] [address] Monocytes (Bld) [#/Vol] 0.5 10*3/uL Normal 0.0-0.8 [facility] Comment on above: Performed By: #### B MP, CBC #### [address] Monocytes/100 WBC (Bld) 9.3 % Normal . F [facility] Comment on above: Performed By: #### B MP, CBC #### [address] Neutrophils (Bld) [#/Vol] 3.4 10*3/uL Normal 1.8-7.7 [facility] Comment on above: Performed By: #### B MP, CBC #### [address] Neutrophils/100 WBC (Bld) 67.0 % Normal . [facility] Comment on above: Performed By: #### B MP, CBC #### [address] NRBC% 0.1 /100{WBC} Normal 0-0.5 [facility] Comment on above: Performed By: #### B MP, CBC #### [address] Platelet mean volume (Bld) [Entitic vol] 7.4 fL Normal 6.6-10.1 [facility] Comment on above: Performed By: #### B MP, CBC #### [address] [place] [address] [place] Platelets (Bld) [#/Vol] 177 10*3/uL Normal 150-450 [facility] Comment on above: Performed By: #### B MP, CBC #### [address] RBC (Bld) [#/Vol] 5.02 10*6/uL Normal 3.90-5.60 [facility] Comment on above: Performed By: #### B MP, CBC #### [facility] [address] WBC (Bld) [#/Vol] 5.1 10*3/uL Normal 4.1-10.5 [facility] Comment on above: Performed By: #### B MP, CBC #### [address] Creatinine [Mass/volume] in Serum or PlasmaOrdered By: Taran James on 01-13-2023 Creatinine [Mass/Vol] 0.77 mg/dL 0.70-1.30 [facility] ECG 12 lead ECGon 01-13-2023 ECG 12 lead ECG [facility] Main [place] [address] [place] [address] Electrocardiograph Report Signed Patient: Edward Darby MR#: [id number] : 1950 Acct:[id number] Age/Sex: 72 / M ADM Date: 01/13/23 Loc: Room: Type: [facility] Attending Dr: Taran James DO Ordering Provider: [...] previous ECGs available Confirmed by MARY CARMONA [id number] on 01/13/2023 2:42:48 PM Referred By: MAME Electronically Signed By:MILAD HERNANDEZ MD [facility] Transcribed By: MUS Signed By Adalberto Hernandez MD 01/13/23 1442 Normal [facility] Eosinophils Auto (Bld) [#/Vo l]Ordered By: Taran James on 01-13-2023 Eosinophils (Bld) [#/Vol] 0.1 10*3/uL 0.0-0.45 [facility] Eosinophils/100 WBC Auto (Bl d)Ordered By: Taran James on 01-13-2023 Eosinophils/100 WBC (Bld) 2.0 % . [facility] Erythrocyte distribution wid th Auto (RBC) [Ratio]Ordered By: Taran James on 01-13-2023 Erythrocyte distribution width (RBC) [Ratio] 14.2 % 12.0-14.8 [facility] Glucose [Mass/volume] in Ser um or PlasmaOrdered By: Taran James on 01-13-2023 Glucose [Mass/Vol] 148 mg/dL 70-100 [facility] Comment on above: ADA recommended refe rence rangeRandom Glucose Reference Range is dependent on time and content of last meal. Glucose of more than 200 mg/dL in a nonstressed, ambulatory subject supports the diagnosis of Diabetes Mellitus. Hematocrit Auto (Bld) [Volum e fraction]Ordered By: Taran James on 01-13-2023 Hematocrit (Bld) [Volume fraction] 45.0 % 38.8-50.0 [facility] Hemoglobin [Mass/volume] in BloodOrdered By: Taran James on 01-13-2023 Hemoglobin (Bld) [Mass/Vol] 15.5 g/dL 13.0-17.0 [facility] Leukocytes [#/volume] correc shahbaz for nucleated erythrocytes in Blood by Automated counOrdered By: Taran James on 01-13-2023 WBC corrected for nucl RBC Auto (Bld) [#/Vol] 5.1 10*3/uL 4.1-10.5 [facility] Lymphocytes Auto (Bld) [#/Vo l]Ordered By: Taran James on 01-13-2023 Lymphocytes (Bld) [#/Vol] 1.0 10*3/uL 1.00-4.8 [facility] Lymphocytes/100 WBC Auto (Bl d)Ordered By: Taran James on 01-13-2023 Lymphocytes/100 WBC (Bld) 20.5 % . [facility] MCH Auto (RBC) [Entitic mass ]Ordered By: Taran James on 01-13-2023 MCH (RBC) [Entitic mass] 30.9 pg 27.5-35.2 [facility] MCHC Auto (RBC) [Mass/Vol]Or dered By: Taran James on 01-13-2023 MCHC (RBC) [Mass/Vol] 34.5 g/dL 32.5-35.6 [facility] MCV Auto (RBC) [Entitic vol] Ordered By: Taran James on 01-13-2023 MCV (RBC) [Entitic vol] 89.5 fL 83.5-101 F [facility] Monocytes Auto (Bld) [#/Vol] Ordered By: Taran James on 01-13-2023 Monocytes (Bld) [#/Vol] 0.5 10*3/uL 0.0-0.8 [facility] Monocytes/100 WBC Auto (Bld) Ordered By: Taran James on 01-13-2023 Monocytes/100 WBC (Bld) 9.3 % . F [facility] Neutrophils Auto (Bld) [#/Vo l]Ordered By: Taran James on 01-13-2023 Neutrophils (Bld) [#/Vol] 3.4 10*3/uL 1.8-7.7 [facility] Neutrophils/100 WBC Auto (Bl d)Ordered By: Taran James on 01-13-2023 Neutrophils/100 WBC (Bld) 67.0 % . [facility] No Panel InformationOrdered By: Taran James on 01-13-2023 Estimated GFR (CKD-EPI) > 60.0 mL/Min [facility] Creatinine Clearance (Chem N/A [facility] Nucleated erythrocytes [Pres ence] in Blood by Automated countOrdered By: Taran James on 01-13-2023 Nucleated RBC Auto Ql (Bld) 0.1 /100{WBC} 0-0.5 [facility] Platelet mean volume Auto (B ld) [Entitic vol]Ordered By: Taran James on 01-13-2023 Platelet mean volume (Bld) [Entitic vol] 7.4 fL 6.6-10.1 [facility] Platelets Auto (Bld) [#/Vol] Ordered By: Taran James on 01-13-2023 Platelets (Bld) [#/Vol] 177 10*3/uL 150-450 [facility] Potassium [Moles/volume] in Serum or PlasmaOrdered By: Taran James on 01-13-2023 Potassium [Moles/Vol] 4.0 mmol/L 3.5-5.1 [facility] RBC Auto (Bld) [#/Vol]Ordere d By: Taran James on 01-13-2023 RBC (Bld) [#/Vol] 5.02 10*6/uL 3.90-5.60 [facility] Serum or plasma anion gap de terminationOrdered By: Taran James on 01-13-2023 Anion gap [Moles/Vol] 9.7 mmol/L 6.0-15.0 [facility] Sodium [Moles/volume] in Ser um or PlasmaOrdered By: Taran James on 01-13-2023 Sodium [Moles/Vol] 137 mmol/L 136-145 [facility] Urea nitrogen [Mass/volume] in Serum or PlasmaOrdered By: Taran James on 01-13-2023 Urea nitrogen [Mass/Vol] 13 mg/dL 7-25 [facility] WBC Auto (Bld) [#/Vol]Ordere d By: Taran James on 01-13-2023 WBC (Bld) [#/Vol] 5.1 10*3/uL 4.1-10.5 [facility] Office Visit (Cardiology)on 07-10-2022 Follow-up visit Diagnoses/Problems [...] IO EKG Electrocardiogram- 12 Lead; Status:Complete; Done: [id number] Abnormal stress test, Chest pain, atypical, Hyperlipidemia Start: Aspirin 81 MG Oral Tablet Delayed Release; TAKE 1 TABLET DAILY Hyperlipidemia Start: Atorvastatin Calcium 10 MG Oral Tablet; take 1 tablet by mouth at bedtime Morbid obesity with BMI of 40.0-44.9, adult Healthy Weight Tips; Status:Complete - Retrospective Authorization; Done: [id number] Some eating tips that can help you lose weight.; Status:Complete - Retrospective Authorization; Done: [id number] SocHx: Former smoker Stop: Pravastatin Sodium 40 MG Oral Tablet Tobacco Use Screening; Status:Complete; Done: [id number] Patient Instructions Please bring all medicines, vitamins, [...] Eye Barbara (more content not included)... Normal [facility]ria Tobacco Screening.on 023 Adult depression screening assessment No [facility] [email or web address] 250 DO Work Phone: Fall risk assessment a) No falls within the last year [facility] [email or web address] Me [place] 250 DO Work Phone: Tobacco use status CPHS b) No [facility] MobileAware 250 DO Work Phone: ECHOCARDIO M/2D COMPLETEon 0 07-02-2022 ECHOCARDIO M/2D COMPLETE Patient: EDWARD DARBY Exam Date: 07/02/2022 : 1950 Gender:M Ordering : DR MICHAELA VILLAVICENCIO M.D. Admission #: [id number] Family : Order #: [id number] CLICK HERE TO VIEW EXAM ECHOCARDIOGRAM REPORT [...] Rider M.D. on 07/03/2022 at 18:57 Normal [facility] NM STRESS/REST MULTIon 05-22 NM STRESS/REST MULTI Patient: REESE DARBY Exam Date: 05/22/2022 : 1950 Gender:M Ordering : DR MICHAELA VILLAVICENCIO M.D. Admission #: [id number] Family : Order #: [id number] CLICK HERE TO VIEW EXAM RADIOLOGY REPORT [...] Barragan MD on 06/09/2022 at 13:55 Normal [facility] XR Hip Complete Right*on XR Hip Complete Right* FINDINGS: Mild superior medial hip joint space loss. No pincer or CAM deformities. No cortical or stress fracture. Lumbosacral fusion. IMPRESSION: 1. Mild bilateral hip osteoarthritis. Report reported and signed by Deven Mcguire on 08/02/2021 1422 Normal [facility] Audio/Video Engineer XR Knee Complete Right*on XR Knee Complete [...] 2. 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 Report reported and signed by Deven Mcguire on 08/02/2021 1422 Normal [facility] Audio/Video Engineer XR Knee Standing AP Bilatera hipolito 08-02-2021 XR Knee Standing AP Bilateral FINDINGS: Standing weight-bearing view demonstrates mild joint space reduction within the left medial compartment without cortical or subchondral fracture suggested. Menisci are not calcified. IMPRESSION: Mild left medial joint space loss. Report reported and signed by Deven Mcguire on 08/02/2021 1424 Normal [facility] Vital Signs Date Time Vital Sign Value Performing Clinician Facility 01-13-2024 14:07-0400 Blood Pressure Location Miladkevin RUFF [facility] 01-13-2024 14:07-0400 Diastolic blood pressure 78 mm[Hg] Milad RUFF [facility] 01-13-2024 14:07-0400 Heart rate 74 /min Milad RUFF [facility] 01-13-2024 14:07-0400 Respiratory rate 16 /min Milad RUFF [facility] 01-13-2024 14:07-0400 Systolic blood pressure 146 mm[Hg] Milad RUFF [facility] 01-11-2024 11:01-0400 Body height 177.8 cm Michaela Villavicencio MD Work Phone: [facility] 01-11-2024 11:01-0400 Body mass index (BMI) [Ratio] 38.88 kg/m2 Michaela Villavicencio MD Work Phone: [facility] 01-11-2024 11:01-0400 Body weight 122.92 kg Michaela Villavicencio MD Work Phone: [facility] 01-11-2024 11:01-0400 Diastolic blood pressure 80 mm[Hg] Michaela Villavicencio MD Work Phone: [facility] 01-11-2024 11:01-0400 Heart rate 69 /min Michaela Villavicencio MD Work Phone: [facility] 01-11-2024 11:01-0400 SaO2% (BldA) [Mass fraction] 96 % Michaela Villavicencio MD Work Phone: [facility] 01-11-2024 11:01-0400 Systolic blood pressure 128 mm[Hg] Michaela Villavicencio MD Work Phone: [facility] 02-04-2023 09:32-0500 Blood Pressure Location Milad RUFF [facility] 02-04-2023 09:32-0500 Diastolic blood pressure 67 mm[Hg] Milad RUFF [facility] 02-04-2023 09:32-0500 Heart rate 70 /min Milad RUFF [facility] 02-04-2023 09:32-0500 Systolic blood pressure 125 mm[Hg] Milad RUFF [facility] 10-31-2023 10:50-0400 Diastolic blood pressure 68 mm[Hg] MD Michaela Villavicencio Work Phone: [facility] 01-27-2023 10:50-0400 Heart rate 74 /min MD Michaela Villavicencio Work Phone: [facility] 01-27-2023 10:50-0400 Respiratory rate 16 /min MD Michaela Villavicencio Work Phone: [facility] 01-27-2023 10:50-0400 SaO2% (BldA) [Mass fraction] 96 % MD Michaela Villavicencio Work Phone: [facility] 01-27-2023 10:50-0400 Systolic blood pressure 115 mm[Hg] MD Michaela Villavicencio Work Phone: [facility] 01-27-2023 09:30-0400 Body temperature 98.2 [degF] MD Michaela Villavicencio Work Phone: [facility] 01-27-2023 09:30-0400 Inhaled oxygen flow rate 3 L/min MD Michaela Villavicencio Work Phone: [facility] 01-27-2023 08:02-0400 Body height 177.8 cm MD Michaela Villavicencio Work Phone: [facility] 01-27-2023 08:02-0400 Body mass index (BMI) [Ratio] 39.7 kg/m2 MD Michaela Villavicencio Work Phone: [facility] 01-27-2023 08:02-0400 Body weight 125.64 kg MD Michaela Villavicencio Work Phone: [facility] 07-10-2022 09:46-0400 Body height 177.8 cm Michaela Villavicencio Work Phone: [facility] 250 DO Work Phone: 07-10-2022 09:46-0400 Body mass index (BMI) [Ratio] 40.03 kg/m2 Michaela [place] Work Phone: [facility] 250 DO Work Phone: 07-10-2022 09:46-0400 Body surface area Derived from formula 2.4 m2 Rugen M Maye Work Phone: [facility] 250 DO Work Phone: 07-10-2022 09:46-0400 Body weight 126.55 kg Rugen M Maye Work Phone: [facility] 250 DO Work Phone: 07-10-2022 09:46-0400 Diastolic blood pressure 82 mm[Hg] Rugen M Keo Work Phone: [facility] 250 DO Work Phone: 07-10-2022 09:46-0400 Diastolic blood pressure 72 mm[Hg] Rugen M Keo Work Phone: [facility] 250 DO Work Phone: 07-10-2022 09:46-0400 Heart rate 81 /min Rugen M Keo Work Phone: [facility] 250 DO Work Phone: 07-10-2022 09:46-0400 Systolic blood pressure 128 mm[Hg] Rugen M Maye Work Phone: [facility] 250 DO Work Phone: 07-10-2022 09:46-0400 Systolic blood pressure 132 mm[Hg] Rugen M Keo Work Phone: [facility] 250 DO Work Phone: 07-09-2022 07:40-0400 Blood Pressure Location Milad RUFF [facility] 07-09-2022 07:40-0400 Diastolic blood pressure 84 mm[Hg] Milad RUFF [facility] 07-09-2022 07:40-0400 Heart rate 72 /min Milad RUFF [facility] 07-09-2022 07:40-0400 Respiratory rate 16 /min Milad RUFF [facility] 07-09-2022 07:40-0400 Systolic blood pressure 137 mm[Hg] Miladkevin RUFF [facility] 06-25-2022 15:07-0400 Blood Pressure Location Miladkevin RUFF [facility] 06-25-2022 15:07-0400 Diastolic blood pressure 74 mm[Hg] Milad RUFF [facility] 06-25-2022 15:07-0400 Heart rate 65 /min Milad RUFF [facility] 06-25-2022 15:07-0400 Systolic blood pressure 138 mm[Hg] Milad RUFF [facility] Encounters Encounter Date Encounter Type Care Provider Facility Start: 02-29-2024 ambulatory Milad Alvarezi ty:[facility] [place] Start: 02-08-2024 ambulatory Milad R RUFF Facili ty:[facility] Start: 02-04-2024 ambulatory Milad R RUFF Facili ty:[id number] Start: 01-20-2024 End: 01-20-2024 Clinisync Result Encounter Generic External Data Provider [facility] External Department Unsolicited Start: 01-20-2024 End: 01-20-2024 Clinisync Result Encounter Generic External Data Provider [facility] External Department Unsolicited Start: 01-13-2024 End: 01-13-2024 ambulatory Milad RUFF Facility:[facility] Start: 01-13-2024 End: 01-13-2024 Patient encounter procedure Milad RUFF [facility] Start: 01-11-2024 End: 01-11-2024 Assay of hemosiderin, quant Michaela Villavicencio MD Work Phone: [facility] Start: 01-11-2024 End: 01-11-2024 Patient encounter procedure Michaela Villavicencio MD Work Phone: [facility] Comment on above: Routine general medi viri examination at [facility] (Primary Dx); Abnormal glucose tolerance test; Benign essential hypertension ([facility]/HCC); Nocturia; Medicare annual wellness visit, subsequent; Hyperlipidemia, unspecified hyperlipidemia type (CMS/HCC); Impaired fasting glucose; Hyperchylomicronemia (CMS/HCC); Type 2 diabetes mellitus with other specified complication, without long-term current use of insulin (CMS/[facility]); Morbid (severe) obesity due to excess calories ([facility]); Encounter for vaccination; Sleep apnea in adult [...] Start: 03-31-2023 End: 03-31-2023 ambulatory Milad RUFF Facility:[facility] Start: 03-31-2023 End: 03-31-2023 Patient encounter procedure Milad RUFF [facility] Start: 02-04-2023 End: 02-04-2023 ambulatory Milad RUFF Facility: [place] Start: 02-04-2023 End: 02-04-2023 Patient encounter procedure Milad RUFF [facility] Start: 01-27-2023 End: 01-27-2023 ambulatory Taran Mame Facility:[facility] Start: 01-27-2023 End: 01-27-2023 Admission to same day surgery center MD Michaela Villavicencio Work Phone: [facility] [place] Start: 01-27-2023 End: 01-27-2023 ambulatory MD Michaela Villavicencio Work Phone: [facility] Work Phone: Start: 01-21-2023 End: 01-21-2023 Lab Drop off Milad RUFF [facility] Start: 01-21-2023 End: 01-21-2023 ambulatory Milad RUFF Facility:[facility] Start: 01-21-2023 End: 01-21-2023 Patient encounter procedure Milad RUFF [facility] Start: 01-13-2023 End: 01-13-2023 ambulatory Taran Mame Facility:[facility] Start: 01-13-2023 End: 01-13-2023 ambulatory MD Michaela Villavicencio Work Phone: [facility] Work Phone: Start: 01-13-2023 End: 01-13-2023 Patient encounter procedure MD Michaela Villavicencio Work Phone: [facility] Work Phone: Start: 07-10-2022 Office consultation new/estab patient 80 min Michaela Villavicencio Work Phone: [facility] 250 DO Work Phone: Start: 07-10-[address] Adalberto Hernandez II Facility: Start: 07-09-2022 End: 07-09-2022 Patient encounter procedure Milad RUFF [facility] Start: 07-02-2022 End: 07-03-[address] MICHAELA VILLAVICENCIO Facility:[facility] Start: 06-25-2022 End: 06-25-2022 Patient encounter procedure Milad RUFF [facility] Start: 06-09-2022 End: 06-10-[address] MICHAELA VILLAVICENCIO Facility:[facility] Start: 05-22-2022 End: 05-23-[address] MICHAELA VILLAVICENCIO Facility:[facility] Start: 01-11-2018 End: 01-14-2018 Patient encounter VALERIE HERNÁNDEZ [facility] Procedures Date Procedure Procedure Detail Performing Clinician [...] extraction and insertion of intraocular lens Milad URFF Colonoscopy Milad RUFF Colonoscopy Michaela Santillan Keo Work Phone: Decompression of med wander nerve Michaela Santillan Keo Work Phone: Comment on above: rt; Procedure on back Milad PHILLIPS Procedure on back Michaela Hager da Work Phone: Comment on above: L4, L5 fused; Repair of shoulder Michaela Santillan A lda Work Phone: Tonsillectomy Milad RUFF Tonsillectomy Michaela Villavicencio Work Phone: Plan of Treatment Date Care Activity Detail Author Start: 12-29-2032 Screening for malign ant neoplasm of colon [facility] Start: 2025 Glaucoma screening Diabetes: R etinopathy Screening [facility] Start: 01-10-2025 Medicare Annual Wellness (AWV) Medicare Annual Wellness (AWV) [facility] Start: 01-10-2025 Urine screening for protein Diabetes: Urine Protein Screening [facility] Start: 09-21-2024 Urine screening for protein Diabetes: Urine Protein Screening [facility] Start: 04-12-2024 Hemoglobin A1c measurement Diabetes: Hemoglobin A1C [facility] Start: 01-11-2024 End: 01-10-2025 CBC W Auto Differential panel - Blood CBC and differential Lab Routine Medicare annual wellness visit, subsequent Hyperlipidemia, unspecified hyperlipidemia type (CMS/HCC) Impaired fasting glucose Expected: 01/11/2024 (Approximate), Expires: 01/10/2025 [facility] Work Phone: Comment on above: Expected: 01/11/2024 (Approximate), Expires: 01/10/2025 Start: 01-11-2024 End: 01-10-2025 Comprehensive metabolic 2000 panel - Serum or Plasma Comprehensive metabolic panel Lab Routine Abnormal glucose tolerance test Benign essential hypertension (CMS/HCC) Medicare annual wellness visit, subsequent Expected: 01/11/2024 (Approximate), Expires: 01/10/2025 [facility] Comment on above: Expected: 01/11/2024 (Approximate), Expires: 01/10/2025 Start: 01-11-2024 End: 01-10-2025 Lipid 1996 panel - Serum or Plasma Lipid panel Lab Routine Medicare annual wellness visit, subsequent Hyperlipidemia, unspecified hyperlipidemia type (CMS/HCC) Expected: 01/11/2024 (Approximate), Expires: 01/10/2025 [facility] Comment on above: Expected: 01/11/2024 (Approximate), Expires: 01/10/2025 Start: 01-11-2024 End: 01-10-2025 Prostate specific Ag [Mass/volume] in Serum or Plasma PSA Lab Routine Nocturia Medicare annual wellness visit, subsequent Expected: 01/11/2024 (Approximate), Expires: 01/10/2025 [facility] Comment on above: Expected: 01/11/2024 (Approximate), Expires: 01/10/2025 Start: 01-07-2024 Medicare Annual Wellness (AWV) Medicare Annual Wellness (AWV) [facility] Start: 05-11-2023 End: 05-11-2023 Patient encounter procedure 05/11/2023 2:30 PM EST Office Visit [facility] [address] [facility] [address] [place] [id number] Michaela Villavicencio MD [address] [facility] [address] [place] [address] [facility] Start: 01-27-2023 [facility] Start: 01-27-2023 [facility] Start: 01-21-2023 FUV, Provider: Adalberto Hernandez, Status: Pen, Time: 9:10 AM FUV, Provider: Adalberto Hernandez, Status: Pen, Time: 9:10 AM -[facility] 250 DO Work Phone: Start: 1950 Screening for malign ant neoplasm of colon [facility] Patient referral [facility] Work Phone: Immunizations Immunization Date Immunization Notes Care Provider Fa cility 01-11-2024 Influenza, High-dose Seasonal, Quadrivalent, Preservative Free Michaela Villavicencio MD Work Phone: [facility] 01-06-2023 influenza virus vacc ine, unspecified formulation Milad RUFF [facility] 01-06-2023 Influenza, High-dose Seasonal, Quadrivalent, Preservative Free Michaela Villavicencio MD Work Phone: [facility] 02-14-2022 Moderna COVID-19 Biv al Booster 50 MCG/0.5ML Intramuscular Suspension Rugen M Maye Work Phone: [facility] 01-09-2022 Fluzone High-Dose Quadrivalent 0.7 ML Intramuscular Suspension Prefilled Syringe Rugen M Maye Work Phone: [facility] 250 DO Work Phone: 01-09-2022 influenza virus vacc ine, unspecified formulation Milad RUFF [facility] 08-21-2021 Moderna COVID-19 Vac cine 100 MCG/0.5ML Intramuscular Suspension Rugen M Keo Work Phone: [facility] Comment on above: Result Comment: 2022: [id number] 04-21-2021 Moderna COVID-19 Vac cine 100 MCG/0.5ML Intramuscular Suspension Rugen M Maye Work Phone: [facility] 02-18-2021 Fluzone High-Dose Quadrivalent 0.7 ML Intramuscular Suspension Prefilled Syringe Rugen M Maey Work Phone: [facility] 250 DO Work Phone: 02-18-2021 influenza virus vacc ine, unspecified formulation Milad 3nder [facility] 01-22-2021 Moderna COVID-19 Vac cine 100 MCG/0.5ML Intramuscular Suspension Rugen M Keo Work Phone: [facility] 06-20-2020 Moderna COVID-19 Vac cine 100 MCG/0.5ML Intramuscular Suspension Rugen M Maye Work Phone: [facility] 05-23-2020 Moderna COVID-19 Vac cine 100 MCG/0.5ML Intramuscular Suspension Rugen M Keo Work Phone: [facility] 03-06-2020 pneumococcal polysaccharide vaccine, 23 valent Rugen M Keo Work Phone: [facility] 12-23-2019 influenza virus vacc ine, unspecified formulation [facility] 12-23-2019 Seasonal, quadrivale nt, recombinant, injectable influenza vaccine, preservative free Rugen M Maye Work Phone: [facility] 250 DO Work Phone: 03-04-2019 pneumococcal conjuga te vaccine, 13 valent Rugen M Maye Work Phone: [facility] 02-08-2019 influenza virus vacc ine, unspecified formulation [facility] 02-08-2019 influenza, high dose seasonal, preservative-free Rugen M Maye Work Phone: [facility] 250 DO Work Phone: Payers Date Payer Category Payer Self-pay 2021 Medicaid [employer] MEDICARE A DVANTAGE [id number] 2021 Medicare AETNA MEDICARE A DVANTAGE AETNA MEDICARE REPLACEMENT [id number] 2021-Present [address] [place] [address] [id number] 2017 Medicare [id number] Private Health Insurance [id number] 1950 Unknown [id number] 2.16.840.1.272945.3.579.2. 173 1950 Unknown [id number] 2.16.840.1.161028.3.579.2. 173 1950 Unknown [id number] 2.16.840.1.917462.3.579.2. 356 1950 Unknown [id number] 2.16.840.1.528126.3.579.2. 593 1950 Unknown [id number] 2.16.840.1.620504.3.579.2. 593 1950 Unknown [id number] 2.16.840.1.744724.3.579.2. 593 1950 Unknown [id number] 2.16.840.1.132865.3.579.2. 1259 1950 Unknown [id number] 2.16.840.1.878074.3.579.2. 1259 1950 Unknown [id number] 2.16.840.1.711505.3.579.2. 1259 1950 Unknown [id number] 2.16.840.1.085320.3.579.2. 1259 1950 Unknown [id number] 2.16.840.1.696505.3.579.2. 727 1950 Unknown [id number] 2.16.840.1.371306.3.579.2. 727 1950 Unknown [id number] 2.16.840.1.078397.3.579.2. 727 1950 Unknown [id number] 2.16.840.1.306991.3.579.2. 727 1950 Unknown [id number] 2.16.840.1.791476.3.579.2. 727 1950 Unknown [id number] 2.16.840.1.489163.3.579.2. 727 1950 Unknown [id number] 2.16.840.1.225831.3.579.2. 727 Medicare Medicare [id number] Unknown [employer] Unknown O [id number] Unknown [id number] 2.16.840.1.162451.3.579.2. 531 Unknown [id number] 2.16.840.1.556416.3.579.2. 531 Social History Date Type Detail Facility Start: 06-25-2022 End: 11-10-2022 Tobacco smoking status Ex-smoker (finding) [facility] Tobacco smoking status Never [facility] Start: 11-10-2022 End: 01-11-2024 Sex Assigned At Male [facility] Start: 11-10-2022 End: 01-11-2024 No illicit drug use No illicit drug use [place] [address] DO Work Phone: Comment on above: 20+ years ago; Start: 1950 Sex Assigned At Male F [facility] End: 03-30-2001 History of tobacco use Current smoker [facility] End: 03-30-2001 History of tobacco use [...] Facility 01-13-2024 Functional Status N/A [facility] 03-31-2023 Functional Status N/A [facility] 02-04-2023 Functional Status N/A [facility] 07-09-2022 Functional Status N/A [facility] 06-25-2022 Functional Status N/A [facility] Clinical Notes 06-25-2022 to 01-13-2024 Michaela [...] including vitamins, herbs, eye drops, creams, and ijix-fxw-hhmeths medicines. Any problems you or family members [...] provider tells you to take them. Taking skyc-xqn-frcfdmn medicines, vitamins, herbs, and supplements. Surgery safety [...] provider. Document Revised: 12/10/2021 Document Reviewed: 12/10/2021 [employer] Patient Education 2023 [employer]. 01/13/2024 15:06:23 Erectile Dysfunction Erectile Dysfunction Erectile [...] Follow these instructions at home: Medicines Take tywt-jkg-bviuavc and prescription medicines only as told by [...] provider. Document Revised: 06/12/2021 Document Reviewed: 06/12/2021 [employer] Patient Education 2023 [employer]. 01/13/2024 14:41:49 Prostate Cancer Screening Prostate Cancer [...] treatment? Where to find more information The [employer]: www.cancer.org [employer]: www.auanet.org Contact a health care [...] provider. Document Revised: 09/09/2021 Document Reviewed: 09/09/2021 [employer] Patient Education 2023 Informed[employer]. Follow Up Care 01/12/2024 15:01:17 With:NASREEN CARMONA, Milad Westfall, URL Address: [facility] [address] [place] [address]- When: Unknown [facility] 01-13-2024 Note Patient Education Oncology Prostate [...] Where to find more information ? The [employer]: www.cancer.org ? [employer]: www.auanet.org Contact a health care [...] of the rectum. (more content not included)... [facility] 01-11-2024 History of Present illness Narrative Associated [...] by direct observation Three Word Registration: Banana, [place]ville, Chair Clock Drawing: Normal Clock - 2 [...] Relevant Orders Influenza, high-dose seasonal, quadrivalent, PF ([id number]) (Fluzone High Dose Quad North 0.7mL dose) (Completed) Orders Placed This Encounter Procedures Influenza, high-dose seasonal, quadrivalent, PF ([id number]) (Fluzone High Dose Quad North 0.7mL dose) [...] January 11, 2024 documented in this encounter [facility] 03-31-2023 Hospital Discharge instructions Patient Education 03/31/2023 [...] Address: [facility] [address] [place] [address]- Business (1) When: Unknown Comments:Patient will callPlease call if you need to reschedule [facility] 03-31-2023 Note [phone] [id number] [facility] 03-31-2023 Note Custom Cystoscopy ? Voiding after [...] you have a fever over 100 degrees. [facility] 02-04-2023 Hospital Discharge instructions Patient Education 02/04/2023 [...] including vitamins, herbs, eye drops, creams, and zrza-gur-jxznfql medicines. ?Whether you are or may be [...] provider. Document Revised: 11/27/2021 Document Reviewed: 10/19/2020 [employer] Patient Education 2022 [employer]. 02/04/2023 10:34:28 Cystoscopy Cystoscopy Cystoscopy is a [...] including vitamins, herbs, eye drops, creams, and mvjq-axe-pipriwo medicines. Any problems you or family members [...] provider tells you to take them. Taking xvfe-lqx-pewzqcx medicines, vitamins, herbs, and supplements. Tests You [...] Follow these instructions at home: Medicines Take zyus-vur-psjbdqy and prescription medicines only as told by [...] provider. Document Revised: 11/27/2021 Document Reviewed: 10/26/2020 [employer] Patient Education 2022 Informed[employer]. Follow Up Care 07/23/2022 10:08:45 With:NASREEN CARMONA, Milad Westfall, URL Address: [facility] [address] , [place] [address]- When: Unknown [facility] 07-09-2022 Hospital Discharge instructions Patient Education [...] discomfort near your rectum, especially while sitting. Gall[place]in-colored urine due to small amounts of blood in your urine. A burning feeling while urinating. Blood in your stool (feces) or bleeding from your rectum. Blood in your semen. Follow these instructions at home: Medicines Take vqxz-yqp-dhvnzlb and prescription medicines only as told by [...] 09/07/2017 Document Revised: 07/06/2019 Document Reviewed: 09/07/2017 [employer] Patient Education 2020 [employer]. Follow Up Care 06/25/2022 16:49:16 With:NASREEN CARMONA, Milad Westfall, URL Address: [facility] [address] , [place] [id number]- When: Unknown [facility] 06-25-2022 Hospital Discharge instructions Patient Education [...] one of these risk factors: ?Being of -[place] descent. ?Having a family history of prostate [...] you: Are older than age 55. Are -Swedish. Have a father, brother, or uncle who [...] 12/25/2017 Document Revised: 02/26/2018 Document Reviewed: 12/25/2017 [employer] Patient Education 2020 [employer]. Follow Up Care 06/24/2022 15:07:03 With:Milad RUFF MD, URL Address: [facility] [address] , [place] [id number]- When: Unknown [facility] Chief complaint Narrative - Reported EDWARD DARBY is being seen for a consultation for abnormal test(s) results. [facility] 250 DO Work Phone: Evaluation + Plan note Future Appointments Appointment Date:07/09/2022 07:45:00 AM Scheduled Provider:Milad RUFF MD Location:[facility] Appointment Type:URO Procedure 15 min Appointment Date:07/23/2022 08:45:00 AM Scheduled Provider:Milad RUFF MD Location:[facility] Appointment Type:URO Office Visit [facility] Evaluation + Plan note Future Appointments Appointment Date:07/23/2022 08:45:00 AM Scheduled Provider:Milad RUFF MD Location:[facility] Appointment Type:URO Office Visit Diagnostic Tests PendingProstate Histology ([facility]) 07/09/22 [facility] Evaluation + Plan note Future Appointments Appointment Date:02/04/2023 09:45:00 AM Scheduled Provider:Milad RUFF MD Location:[facility] Appointment Type:URO Office Visit [facility] Evaluation + Plan note Future Appointments Appointment Date:03/31/2023 09:00:00 AM Scheduled Provider: Location:[facility] Appointment Type:Urology FT Appointment Date:03/31/2023 10:00:00 AM Scheduled Provider: Location:[facility] Appointment Type:Urology FT Future Scheduled TestsPSA Free & Total 07/29/23 [facility] Evaluation + Plan note Future Scheduled TestsPSA Free & Total 07/29/23 [facility] Evaluation + Plan note Future Appointments Appointment Date:02/08/2024 09:30:00 AM Scheduled Provider: Location:[facility] Appointment Type:URO Nurse Visit Appointment Date:02/29/2024 09:15:00 AM Scheduled Provider:Milad RUFF MD [facility] Appointment Type:URO Office Visit Future Scheduled TestsPSA Free & Total 07/29/23 [facility] Evaluation note No assessment inform ation available [facility] Work Phone: Evaluation note Diagnosis Impaired fasting [...] he see me in about 6 months. [facility] 250 DO Work Phone: Hospital course Narrative No data available for this section [facility] Hospital Discharge instructions No data available for this section [facility] Hospital Discharge instructions Additional Instructions DISCHARGE [...] directed for pain unless a prescription was provided.[facility] Work Phone: Progress note No data available for this section [facility] Summary Purpose Family History Unknown Family [...] DATE CREATED AUTHOR AUTHOR'S ORGANIZ ATION 08/03/2021 [facility] Special[facility] DATE CREATED AUTHOR AUTHOR'S ORGANIZ ATION 07/12/2022 [facility] DATE CREATED AUTHOR AUTHOR'S ORGANIZ ATION 07/12/2022 [facility] DATE CREATED AUTHOR AUTHOR'S ORGANIZ ATION 07/12/2022 [facility] DATE CREATED AUTHOR AUTHOR'S ORGANIZ ATION 02/20/2023 [facility] DATE CREATED AUTHOR AUTHOR'S ORGANIZ ATION 01/12/2024 [facility]ists EPIC DATE CREATED AUTHOR AUTHOR'S ORGANIZ ATION 01/14/2024 [facility] Patient Care team informatio n (unrecognized section and content) Team Status: Active Member Role Status Dates Michaela Villavicencio MD Primary Care Provider Active Team Status: Inactive Member Role Status Dates Michaela Villavicencio MD Primary Care Provider Active Taran James DO Attending Provider Active Ticket Scheduler Relationship Specialty Start Date End Date Michaela Villavicencio MD [address] [address] PCP - General Family Medicine 08/05/22 Ticket Scheduler Relationship Specialty Start Date End Date Michaela Villavicencio MD [address] [address] PCP - General Family Medicine 08/05/22 Ticket Scheduler Relationship Specialty Start Date End Date Michaela Villavicencio MD [address] [address] PCP - General Family Medicine 08/05/22 Goals [...] BE BASED ON THE PRIMARY CLINICAL RECORDS. [employer] provides no warranty or guarantee of the accuracy or completeness of information in this document.
[2024-02-05] MEDS: SOLIFENACIN SUCCINATE 10 MG TABLET PO (09:27)
== END 2024-02-05 09:32 | disposition home or self-care (01) ==
LOC: SURGOUT 14:34 → MS 02-05 08:39
PROVIDERS: PCP Family Medicine; Visit Provider Urology
PROC: (CPT 52601; principal; 2024-02-04 12:05)
DX: N40.1 Benign prostatic hyperplasia with lower urinary tract symptoms (principal); C61 Malignant neoplasm of prostate; R97.20 Elevated prostate specific antigen [PSA]; M10.9 Gout, unspecified; R33.8 Other retention of urine; I10 Essential (primary) hypertension; E11.9 Type 2 diabetes mellitus without complications; Z90.49 Acquired absence of other specified parts of digestive tract; Z87.891 Personal history of nicotine dependence; G47.33 Obstructive sleep apnea (adult) (pediatric); E78.5 Hyperlipidemia, unspecified; E66.01 Morbid (severe) obesity due to excess calories; Z68.41 Body mass index [BMI] 40.0-44.9, adult
CPT/HCPCS: 52601; 36415; 82948; 88305; 88344; J0330; J1100; J2250; J2405; J2704; J2710; J3010

== ENCOUNTER 2024-02-05 22:30 | Emergency (ER) | payer MEDICARE, SELFPAY ==
--- OUTSIDE RECORDS SUMMARY | 2024-02-05 22:38 | XMS_ITS | CCD ---
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 Name Role Phone EDGAR, VALERIE A Unavailable Unavailable EDGAR, VALERIE A Unavailable Unavailable EDGAR, VALERIE A Unavailable Unavailable EDGAR, VALERIE A Unavailable Unavailable MICHAELA VILLAVICENCIO Primary Care Physician [phone] Michaela Villavicencio Unavailable Unavailable Unavailable Mary MCKINLEY, [...] Maye, MD Michaela Santillan Primary Care Provider [phone] DO Taran James Attending Provider [phone] Taran James Attending Unavailable Michaela Villavicencio Primary Care Unavailable Taran James Admitting Unavailable Taran James Admitting Unavailable Taran James Attending Unavailable Michaela Villavicencio Primary Care Unavailable Maye Michaela CARMONA Primary Care Provider [phone] MICHAELA VILLAVICENCIO Attending Unavailable MICHAELA VILLAVICENCIO Attending [...] skin (disorder), Tachycardia (finding) [facility] (3 sources) Sulfonamides (Antibiotic); Translations: [Sulfa (Sulfonamide Antibiotics)] Propensity to adverse reactions 01-14-20 Palpitations [facility] Medications Current Medications Medication Drug Class(es) Dates Sig (Normalized) Sig (Original) acetaminophen 325 mg / HYDROcodone bitartrate 7.5 mg oral tablet (1 source) Opioid Agonist Start: 06-26-2022 take 1 tablet by mouth once [place] 325 mg-7.5 mg oral tablet 1 tab(s), Oral, Once, 1 tab(s), Refill(s) 0, Take 1 hour prior to procedure DX: R97.20, [facility], 177, cm, 06/25/22 15:16:00 EDT, [...] day(s), # 30 tab(s), Refills(s) 11, Pharmacy: [facility], 177, cm, 01/13/24 14:10:00 EDT, [...] day(s), # 30 tab(s), Refills(s) 11, Pharmacy: [facility], 177, cm, 06/25/22 15:16:00 EDT, [...] completed, # 2 tab(s), Refills(s) 0, Pharmacy: [facility], 177, cm, 02/04/23 9:52:00 EST, Height/Length [...] aPTT Coag (Bld) [Time] 29.5 s NO [facility] No Panel Informationon 01-19 [facility] SRMCOH PROTHROMBIN TIME INR W/O COUMon 01-20-2024 PT Coag (PPP) [Time] 11.1 s [facility] TB INR 1.05 [facility] Comment on above: DESIRED INR: 2.0-3.0 CONDITIONS [...] AM EST With: Where: [facility] [address] [address]- Thursday 9:15 AM EST With: Milad RUFF MD Where: [facility] [address] [address]- You Need to Schedule the Following Appointments Follow Up with Milad RUFF MD, URL When: Where: [facility] [address] [place] [address] [place] [address]- Medications What How Much When Instructions New alfuzosin (alfuzosin 10 mg ER Tab) 1 Tablets By Mouth Every day Duration: 30 Days Refills: 11 Pickup at [facility] Unchanged allopurinol (allopurinol 100 mg [...] physician if questions or concerns Pharmacy Information [facility]: [address] [place], [place] [id number] [phone] Allergies Bactrim (Rash, Tachycardia) Problems Ongoing - [...] not included)... Normal [facility] Urology Office/Clinic Noteon 01-13-2024 Urology Office/Clinic Note [...] Urology [address], [place] [address]- Additional Instructions: schedule TURP Patient Education Erectile Dysfunction Prostate Cancer Screening I, Silvia Choi, personally scribed for Dr. Ruff on 01/13/2024 15:06:37. . Documentation recorde (more content not included)... [facility] Comment on above: Result Comment: Elec tronically Signed By: Milad RUFF MD\.br\Date and Time Signed: 01/13/24 15:08 EDT\.br\Electronically Co-Signed By: Silvia Choi\.br\Date and Time Co-Signed: 01/13/24 15:07 EDT Laboratory - Hematology and Cell countson 01-11-2024 HbA1c (Bld) [Mass fraction] 6.2 % [facility] No Panel Informationon 01-10 Interpretation and review of laboratory results Normal [facility] Consent for Procedure/Surger yon 03-31-2023 Consent for Procedure/Surgery [id number]#1.00 TIFF [facility] Consent for Treatmenton Consent for Treatment [id number] IFF Normal [facility] IntraOperative Documentson 0 03-31-2023 IntraOperative Documents [id number] TIFF Normal [facility] IntraOperative Documents [id number] TIFF Normal [facility] Main OR Intraoperative Recor don 03-31-2023 Main OR Intraoperative Record IntraOp Document Type FTURO Summary Primary Physician: Milad RUFF MD Finalized Date/Time: 03/31/23 10:53:50 Pt. Name: EDWARD DARBY/Sex: 1950 Male Med Rec #: [id number] Physician: Milad RUFF MD Financial #: [id number] Pt. Type: O Room/Bed: / Admit/Disch: 03/31/23 [...] Heather Mitchell Role Performed Surgeon - Primary Salon Coordinator - Primary Scrub - Primary Time In [...] MAXIME Bermudez RN, Ruthann 03/31/23 10:53 Normal [facility] Main OR Preoperative Recordo n 03-31-2023 Main OR Preoperative Record Holding Area Document Type FTURO Summary Primary Physician: Milad RUFF MD Finalized Date/Time: 03/31/23 10:12:02 Pt. Name: EDWARD DARBY/Sex: 1950 Male Med Rec #: [id number] Physician: Milad RUFF MD Financial #: [id number] Pt. Type: O Room/Bed: / Admit/Disch: 03/31/23 [...] By: Savanna Snowden RN 03/31/23 10:12 Normal [facility] Operative Reporton Operative Report Patient: MELODY [...] us back. Urodynamically, he is obstructed.. Normal [facility] Comment on above: Result Comment: Elec tronically Signed By: Milad RUFF MD\.br\Date and Time Signed: 03/31/23 11:04 EST Outpatient Surgery Discharge Instructionon 03-31-2023 Outpatient Surgery Discharge Instruction [id number]#1.00 TIFF Normal [facility] Screenson 02-05-2023 Screens [id number]#1.0 0TIFF Normal [facility] Ambulatory Visit Summaryon 1 04-06-2022 Ambulatory Visit Summary TOMMY, EDWARD Toussaint :1950 Visit Date:02/04/2023 Ambulatory Visit Instructions Your Diagnosis Elevated PSA BPH with obstruction/lower urinary tract symptoms Incomplete bladder emptying Prostatitis Tests Performed Urnls Dip Stick Auto w/o Microscopy POC 05636 Your Care Team Attending Physician - Milad [...] When: Where: [facility] [address] [place] [address]- Medications What How Much When Instructions Unchanged [...] Urnls Dip Stick Auto w/o Microscopy POC 54853 (02/04/2023) Bilirubin Urine Dipstick - Negative Blood Urine Dipstick - Trace-intact Glucose Urine Dipstick - Negative Ketones Urine Dipstick - Negative Leukocytes Urine Dipstick - Negative Nitrite Urine Dipstick - Negative Protein Urine Dipstick - Negative Specific [place] Urine Dipstick - 1.020 Urine Appearance Urine [...] that you (more content not included)... Normal [facility] Patient Educationon 02-05-20 Patient Education Urology [...] including vitamins, herbs, eye drops, creams, and jthj-cuj-hztthui medicines. ? Whether you are or may [...] results be (more content not included)... Normal [facility] Urology Office/Clinic Noteon 02-04-2023 Urology Office/Clinic Note Chief Complaint 6 month follow up w/ PSA HPI Staff 6 month follow up w/PSA. Current PSA 4.6 done [facility], previous PSA 7.1 & 11% done 06/11/22. [...] [facility] [address], [place] [address]- Additional Instructions: schedule cysto and uros Patient [...] (01/27/2023), Transrec (more content not included)... Normal [facility] Comment on above: Result Comment: Elec tronically Signed By: Milad RUFF MD\.br\Date and Time Signed: 02/04/23 10:43 EST\.br\Electronically Co-Signed By: Silvia Choi\.br\Date and Time Co-Signed: 11/08/23 10:39 EST Alkaline Phosphataseon 10-31 -2023 ALP [Catalytic activity/Vol] 88 U/L Normal 34-104 [facility] Comment on above: Performed By: #### A KULDEEP MALIK AMY #### [facility] [address] Alkaline phosphatase [Enzyma tic activity/volume] in Serum or PlasmaOrdered By: Taran James on 01-27-2023 ALP [Catalytic activity/Vol] 88 U/L 34-104 [facility] Amylaseon 01-27-2023 Amylase [Catalytic activity/Vol] 38 U/L Normal 29-103 [facility] Comment on above: Result Comment: PERF ORMED BY: [facility] [address] [place] [address] PATHOLOGIST AUDIT TECH MAGALY CEJA M.D. Performed By: #### A KULDEEP MALIK AMY #### [facility] [address] Amylase [Enzymatic activity/ volume] in Serum or PlasmaOrdered By: Taran James on 01-27-2023 Amylase [Catalytic activity/Vol] 38 U/L 29-103 [facility] Bilirubin,Totalon 01-27-2023 Bilirubin [Mass/Vol] 0.6 mg/dL Normal 0.3-1.0 [facility] Comment on above: Performed By: #### A KULDEEP MALIK AMY #### [facility] [address] Bilirubin.total [Mass/volume ] in Serum or PlasmaOrdered By: Taran James on 01-27-2023 Bilirubin [Mass/Vol] 0.6 mg/dL 0.3-1.0 [facility] Hipolito 01-27-2023 L --- Specimen: [id number] Received: 01/27/23 Status: ADIA Chavezlayo Num: [id number] Spec Type: Surgical Subm Dr: Taran James DO Tissues: A Gallbladder (GALLBLADDER) B Lymph Node - Biopsy (Needle or Incisional) (LN) Procedures: HE/3, Gross/Micro L4, Gross/Micro L3 Age/ Patient Sex Location Account Attending Physician Edward Darby/M [place] [id number] Taran James DO SPEC NUM: [id number] RECD: 01/27/23 STATUS: ADIA LINDA NUM: [id number] ASHIA: 01/27/23- SUBM DR: Taran James DO [...] diameter apparent cystic duct margin is inked. Index Clerk sections are submitted in one cassette labeled A1. B. Received in formalin labeled with the patient's name, date of and calot lymph node Is a 0.7 x 0.5 x 0.3 cm ayon-randolph rubbery tissue. Entirely submitted in one cassette Specimen: [id number] Received: 01/27/23 Status: ADIA Redman Num: [id number] Spec Type: Surgical Subm Dr: Taran James DO Tissues: A Gallbladder (GALLBLADDER) B Lymph Node - Biopsy (Needle or Incisional) (LN) Procedures: HE/, Gross/Micro L4, Gross/Micro L3 Patient: Edward Darby [id number] (Continued) Specimen: [id number] Received: 01/27/23 (Continued) Gross Description (Continued) Signed (signature on file) Harley Aguilar MD 01/29/23 1311 Specimen: [id number] Received: 01/27/23 Status: ADIA Redman Num: [id number] Spec Type: Surgical Subm Dr: Taran James DO Tissues: A Gallbladder (GALLBLADDER) B Lymph Node - Biopsy (Needle or Incisional) (LN) Procedures: LORENZA/Miguel, Gross/Micro L4, Gross/Micro L3 Patient: Edward Darby [id number] (Continued) Specimen: [id number] Received: 01/27/23 (Continued) Gross Description (Continued) labeled B1. Microscopic Description A. One H E slide reviewed. The microscopic examination confirms the diagnosis. B. One H E slide reviewed. The microscopic examination confirms the diagnosis. CPT Codes 71154, 20858 Specimen: [id number] Received: 01/27/23 Status: ALEXMazin Redman Num: [id number] Spec Type: Surgical Subm Dr: Taran James DO Tissues: A Gallbladder (GALLBLADDER) B Lymph Node - Biopsy (Needle or Incisional) (LN) Procedures: HE/3, Gross/Micro L4, Gross/Micro L3 Patient: Edward Darby [id number] (Continued) Signed (signature on file) Harley Aguilar MD 01/29/23 1311 [facility] CHEMISTRYOrdered By: SYSTEM SYSTEM on 01-21-2023 Prostate specific Ag [Mass/Vol] 4.6 ng/mL High 0.1 - 3.5 ng/mL [facility] Remisol Comment on above: Interpretive Data: T he concentration of PSA determined by different manufacturers can vary due to differences in assay methods and reagent specificity. Values obtained from different assay methods cannot be used interchangeably. The methodology used for this result was chemiluminescence using [employer]'s Access Hybritech PSA reagent. PSA Totalon 01-21-2023 Prostate specific Ag [Mass/Vol] 4.6 ng/mL High 0.1-3.5 [facility] Comment on above: Result Comment: The concentration of PSA determined by different manufacturers can vary due to differences in assay methods and reagent specificity. Values obtained from different assay methods cannot be used interchangeably. The methodology used for this result was chemiluminescence using [employer] [place]'s Access Hybritech PSA reagent. Performed By: #### 1 [id number] ####[facility] [address] [place] [address] Basic Metabolic Panelon 12-28 Anion gap [Moles/Vol] 9.7 mmol/L Normal 6.0-15.0 [facility] Comment on above: Performed By: #### B MP, CBC #### [facility] [address] Calcium [Mass/Vol] 9.3 mg/dL Normal 8.6-10.3 [facility] Comment on above: Result Comment: PERF ORMED BY: [facility] [address] [place] [address] PATHOLOGIST AUDIT TECH MAGALY CEJA M.D. Performed By: #### B MP, CBC #### [facility] [address] [place] [id number] [place] Chloride [Moles/Vol] 102 mmol/L Normal 98-107 [facility] Comment on above: Performed By: #### B MP, CBC #### [facility] [address] [place] [id number] [place] CO2 [Moles/Vol] 29.3 mmol/L Normal 21.0-31.0 [facility] Comment on above: Performed By: #### B MP, CBC #### [facility] [address] [place] [address] [place] Creatinine [Mass/Vol] 0.77 mg/dL Normal 0.70-1.30 [facility] Comment on above: Performed By: #### B MP, CBC #### [facility] [address] [place] [address] [place] GFR/1.73 sq M.predicted MDRD (S/P/Bld) [Vol rate/Area] mL/min/{1.73_m2} Normal [facility] Comment on above: Performed By: #### B MP, CBC #### [place] [address] [place] Glucose [Mass/Vol] 148 mg/dL High 70-100 [facility] Comment on above: Result Comment: [place] Glucose Reference Range is dependent on time and content of last meal. Glucose of more than 200 mg/dL in a nonstressed, ambulatory subject supports the diagnosis of Diabetes Mellitus. ADA recommended reference range Performed By: #### B MP, CBC #### [facility] [address] [place] [address] [place] Potassium [Moles/Vol] 4.0 mmol/L Normal 3.5-5.1 [facility] Comment on above: Performed By: #### B MP, CBC #### [facility] [address] [place] [id number] [place] Sodium [Moles/Vol] 137 mmol/L Normal 136-145 [facility] Comment on above: Performed By: #### B MP, CBC #### [facility] [address] Urea nitrogen [Mass/Vol] 13 mg/dL Normal 7-25 [facility] Comment on above: Performed By: #### B MP, CBC #### [facility] [address] Basophils Auto (Bld) [#/Vol] Ordered By: Taran James on 01-13-2023 Basophils (Bld) [#/Vol] 0.1 10*3/uL 0.0-0.2 [facility] Basophils/100 WBC Auto (Bld) Ordered By: Taran James on 01-13-2023 Basophils/100 WBC (Bld) 1.2 % . [facility] Calcium [Mass/volume] in Ser um or PlasmaOrdered By: Taran James on 01-13-2023 Calcium [Mass/Vol] 9.3 mg/dL 8.6-10.3 [facility] Carbon dioxide, total [Moles /volume] in Serum or PlasmaOrdered By: Taran James on 01-13-2023 CO2 [Moles/Vol] 29.3 mmol/L 21.0-31.0 [facility] Chloride [Moles/volume] in S shweta or PlasmaOrdered By: Taran James on 01-13-2023 Chloride [Moles/Vol] 102 mmol/L 98-107 [facility] Complete Blood Count Auto Di ffon 01-13-2023 Basophils (Bld) [#/Vol] 0.1 10*3/uL Normal 0.0-0.2 [facility] Comment on above: Result Comment: PERF ORMED BY: [place] [address] PATHOLOGIST AUDIT TECH MAGALY CEJA M.D. Performed By: #### B MP, CBC #### [facility] [address] Basophils/100 WBC (Bld) 1.2 % Normal . [facility] Comment on above: Performed By: #### B MP, CBC #### [facility] [address] Eosinophils (Bld) [#/Vol] 0.1 10*3/uL Normal 0.0-0.45 [facility] Comment on above: Performed By: #### B MP, CBC #### [address] Eosinophils/100 WBC (Bld) 2.0 % Normal . [facility] Comment on above: Performed By: #### B MP, CBC #### [address] Erythrocyte distribution width (RBC) [Ratio] 14.2 % Normal 12.0-14.8 [facility] Comment on above: Performed By: #### B MP, CBC #### [address] Hematocrit (Bld) [Volume fraction] 45.0 % Normal 38.8-50.0 [facility] Comment on above: Performed By: #### B MP, CBC #### [address] Hemoglobin (Bld) [Mass/Vol] 15.5 g/dL Normal 13.0-17.0 [facility] Comment on above: Performed By: #### B MP, CBC #### [address] Lymphocytes (Bld) [#/Vol] 1.0 10*3/uL Normal 1.00-4.8 [facility] Comment on above: Performed By: #### B MP, CBC #### [place] [address] [place] Lymphocytes/100 WBC (Bld) 20.5 % Normal . [facility] Comment on above: Performed By: #### B MP, CBC #### [address] MCH (RBC) [Entitic mass] 30.9 pg Normal 27.5-35.2 [facility] Comment on above: Performed By: #### B MP, CBC #### [facility] [address] MCV (RBC) [Entitic vol] 89.5 fL Normal 83.5-101 [facility] Comment on above: Performed By: #### B MP, CBC #### [facility] [address] Mean Corpuscular HGB Conc 34.5 g/dL Normal 32.5-35.6 [facility] Comment on above: Performed By: #### B MP, CBC #### [facility] [address] Monocytes (Bld) [#/Vol] 0.5 10*3/uL Normal 0.0-0.8 [facility] Comment on above: Performed By: #### B MP, CBC #### [address] Monocytes/100 WBC (Bld) 9.3 % Normal . [facility] Comment on above: Performed By: #### B MP, CBC #### [address] Neutrophils (Bld) [#/Vol] 3.4 10*3/uL Normal 1.8-7.7 [facility] Comment on above: Performed By: #### B MP, CBC #### [address] Neutrophils/100 WBC (Bld) 67.0 % Normal . [facility] Comment on above: Performed By: #### B MP, CBC #### [address] NRBC% 0.1 /100{WBC} Normal 0-0.5 [facility] Comment on above: Performed By: #### B MP, CBC #### [address] Platelet mean volume (Bld) [Entitic vol] 7.4 fL Normal 6.6-10.1 [facility] Comment on above: Performed By: #### B MP, CBC #### [address] [place] [address] [place] Platelets (Bld) [#/Vol] 177 10*3/uL Normal 150-450 [facility] Comment on above: Performed By: #### B MP, CBC #### [address] RBC (Bld) [#/Vol] 5.02 10*6/uL Normal 3.90-5.60 [facility] Comment on above: Performed By: #### B MP, CBC #### [facility] [address] WBC (Bld) [#/Vol] 5.1 10*3/uL Normal 4.1-10.5 [facility] Comment on above: Performed By: #### B MP, CBC #### [address] Creatinine [Mass/volume] in Serum or PlasmaOrdered By: Taran James on 01-13-2023 Creatinine [Mass/Vol] 0.77 mg/dL 0.70-1.30 [facility] ECG 12 lead ECGon 01-13-2023 ECG 12 lead ECG [facility] Main [place] [address] [place] [address] Electrocardiograph Report Signed Patient: Edward Darby MR#: [id number] : 1950 Acct:[id number] Age/Sex: 72 / M ADM Date: 01/13/23 Loc: Room: Type: [facility] Attending Dr: Taran James DO Ordering [...] previous ECGs available Confirmed by MARY CARMONA [id number] on 01/13/2023 2:42:48 PM Referred By: MAME Electronically Signed By:MILAD HERNANDEZ MD [facility] Transcribed By: MUS Signed By Adalberto Hernandez MD 01/13/23 1442 Normal [facility] Eosinophils Auto (Bld) [#/Vo l]Ordered By: Taran James on 01-13-2023 Eosinophils (Bld) [#/Vol] 0.1 10*3/uL 0.0-0.45 [facility] Eosinophils/100 WBC Auto (Bl d)Ordered By: Taran James on 01-13-2023 Eosinophils/100 WBC (Bld) 2.0 % . [facility] Erythrocyte distribution wid th Auto (RBC) [Ratio]Ordered By: Taran James on 01-13-2023 Erythrocyte distribution width (RBC) [Ratio] 14.2 % 12.0-14.8 [facility] Glucose [Mass/volume] in Ser um or PlasmaOrdered By: Taran James on 01-13-2023 Glucose [Mass/Vol] 148 mg/dL 70-100 [facility] Comment on above: ADA recommended refe rence rangeRandom Glucose Reference Range is dependent on time and content of last meal. Glucose of more than 200 mg/dL in a nonstressed, ambulatory subject supports the diagnosis of Diabetes Mellitus. Hematocrit Auto (Bld) [Volum e fraction]Ordered By: Taran James on 01-13-2023 Hematocrit (Bld) [Volume fraction] 45.0 % 38.8-50.0 [facility] Hemoglobin [Mass/volume] in BloodOrdered By: Taran James on 01-13-2023 Hemoglobin (Bld) [Mass/Vol] 15.5 g/dL 13.0-17.0 [facility] Leukocytes [#/volume] correc shahbaz for nucleated erythrocytes in Blood by Automated counOrdered By: Taran James on 01-13-2023 WBC corrected for nucl RBC Auto (Bld) [#/Vol] 5.1 10*3/uL 4.1-10.5 [facility] Lymphocytes Auto (Bld) [#/Vo l]Ordered By: Taran James on 01-13-2023 Lymphocytes (Bld) [#/Vol] 1.0 10*3/uL 1.00-4.8 [facility] Lymphocytes/100 WBC Auto (Bl d)Ordered By: Taran James on 01-13-2023 Lymphocytes/100 WBC (Bld) 20.5 % . [facility] MCH Auto (RBC) [Entitic mass ]Ordered By: Taran James on 01-13-2023 MCH (RBC) [Entitic mass] 30.9 pg 27.5-35.2 [facility] MCHC Auto (RBC) [Mass/Vol]Or dered By: Taran James on 01-13-2023 MCHC (RBC) [Mass/Vol] 34.5 g/dL 32.5-35.6 [facility] MCV Auto (RBC) [Entitic vol] Ordered By: Taran James on 01-13-2023 MCV (RBC) [Entitic vol] 89.5 fL 83.5-101 [facility] Monocytes Auto (Bld) [#/Vol] Ordered By: Taran James on 01-13-2023 Monocytes (Bld) [#/Vol] 0.5 10*3/uL 0.0-0.8 [facility] Monocytes/100 WBC Auto (Bld) Ordered By: Taran James on 01-13-2023 Monocytes/100 WBC (Bld) 9.3 % . [facility] Neutrophils Auto (Bld) [#/Vo l]Ordered By: Taran James on 01-13-2023 Neutrophils (Bld) [#/Vol] 3.4 10*3/uL 1.8-7.7 [facility] Neutrophils/100 WBC Auto (Bl d)Ordered By: Taran James on 01-13-2023 Neutrophils/100 WBC (Bld) 67.0 % . [facility] No Panel InformationOrdered By: Taran James on 01-13-2023 Estimated GFR (CKD-EPI) > 60.0 mL/Min [facility] Pharmacy Creatinine Clearance (Chem N/A [facility] Nucleated erythrocytes [Pres ence] in Blood by Automated countOrdered By: Taran James on 01-13-2023 Nucleated RBC Auto Ql (Bld) 0.1 /100{WBC} 0-0.5 [facility] Platelet mean volume Auto (B ld) [Entitic vol]Ordered By: Taran James on 01-13-2023 Platelet mean volume (Bld) [Entitic vol] 7.4 fL 6.6-10.1 [facility] Platelets Auto (Bld) [#/Vol] Ordered By: Taran James on 01-13-2023 Platelets (Bld) [#/Vol] 177 10*3/uL 150-450 [facility] Potassium [Moles/volume] in Serum or PlasmaOrdered By: Taran James on 01-13-2023 Potassium [Moles/Vol] 4.0 mmol/L 3.5-5.1 [facility] RBC Auto (Bld) [#/Vol]Ordere d By: Taran James on 01-13-2023 RBC (Bld) [#/Vol] 5.02 10*6/uL 3.90-5.60 [facility] Serum or plasma anion gap de terminationOrdered By: Taran James on 01-13-2023 Anion gap [Moles/Vol] 9.7 mmol/L 6.0-15.0 [facility] Sodium [Moles/volume] in Ser um or PlasmaOrdered By: Taran James on 01-13-2023 Sodium [Moles/Vol] 137 mmol/L 136-145 [facility] Urea nitrogen [Mass/volume] in Serum or PlasmaOrdered By: Taran James on 01-13-2023 Urea nitrogen [Mass/Vol] 13 mg/dL 7-25 [facility] WBC Auto (Bld) [#/Vol]Ordere d By: Taran James on 01-13-2023 WBC (Bld) [#/Vol] 5.1 10*3/uL 4.1-10.5 [facility] Office Visit (Cardiology)on 07-10-2022 Follow-up [...] IO EKG Electrocardiogram- 12 Lead; Status:Complete; Done: [id number] Abnormal stress test, Chest pain, atypical, Hyperlipidemia Start: Aspirin 81 MG Oral Tablet Delayed Release; TAKE 1 TABLET DAILY Hyperlipidemia Start: Atorvastatin Calcium 10 MG Oral Tablet; take 1 tablet by mouth at bedtime Morbid obesity with BMI of 40.0-44.9, adult Healthy Weight Tips; Status:Complete - Retrospective Authorization; Done: [id number] Some eating tips that can help you lose weight.; Status:Complete - Retrospective Authorization; Done: [id number] SocHx: Former smoker Stop: Pravastatin Sodium 40 MG Oral Tablet Tobacco Use Screening; Status:Complete; Done: [id number] Patient Instructions Please bring all medicines, vitamins, [...] Eye Barbara (more content not included)... Normal [employer] Tobacco Screening.on 023 Adult depression screening assessment No [facility] [employer] 250 DO Work Phone: Fall risk assessment a) No falls within the last year [facility] [employer] [place] 250 DO Work Phone: Tobacco use status [facility] b) No M [facility] [employer] 250 DO Work Phone: ECHOCARDIO M/2D COMPLETEon 0 07-02-2022 ECHOCARDIO M/2D COMPLETE Patient: EDWARD DARBY Exam Date: 07/02/2022 : 1950 Gender:M Ordering : DR MICHAELA VILLAVICENCIO M.D. Admission #: [id number] Family : Order #: [id number] CLICK HERE TO VIEW EXAM ECHOCARDIOGRAM REPORT [...] Rider M.D. on 07/03/2022 at 18:57 Normal [facility] NM STRESS/REST MULTIon 05-22 NM STRESS/REST MULTI Patient: REESE DARBY Exam Date: 05/22/2022 : 1950 Gender:M Ordering : DR MICHAELA VILLAVICENCIO M.D. Admission #: [id number] Family : Order #: [id number] CLICK HERE TO VIEW EXAM RADIOLOGY REPORT [...] Barragan MD on 06/09/2022 at 13:55 Normal [facility] XR Hip Complete Right*on XR Hip Complete Right* FINDINGS: Mild superior medial hip joint space loss. No pincer or CAM deformities. No cortical or stress fracture. Lumbosacral fusion. IMPRESSION: 1. Mild bilateral hip osteoarthritis. Report reported and signed by Deven Mcguire on 08/02/2021 1422 Normal [facility] [employer] XR Knee Complete Right*on XR Knee Complete [...] 2. Anterior tibial tubercle consistent with [place]. Report reported and signed by Deven Mcguire on 08/02/2021 1422 Normal [facility] [employer] XR Knee Standing AP Bilatera hipolito 08-02-2021 XR Knee Standing AP Bilateral FINDINGS: Standing weight-bearing view demonstrates mild joint space reduction within the left medial compartment without cortical or subchondral fracture suggested. Menisci are not calcified. IMPRESSION: Mild left medial joint space loss. Report reported and signed by Deven Mcguire on 08/02/2021 1424 Normal [facility] Vital Signs Date Time Vital Sign Value Performing Clinician Facility 01-13-2024 14:07-0400 Blood Pressure Location Miladkevin RUFF [facility] 01-13-2024 14:07-0400 Diastolic blood pressure 78 mm[Hg] Milad RUFF [facility] 01-13-2024 14:07-0400 Heart rate 74 /min Milad RUFF [facility] 01-13-2024 14:07-0400 Respiratory rate 16 /min Milad RUFF [facility] 01-13-2024 14:07-0400 Systolic blood pressure 146 mm[Hg] Milad RUFF [facility] 01-11-2024 11:01-0400 Body height 177.8 cm Michaela Villavicencio MD Work Phone: [facility] 01-11-2024 11:01-0400 Body mass index (BMI) [Ratio] 38.88 kg/m2 Michaela Villavicencio MD Work Phone: [facility] 01-11-2024 11:01-0400 Body weight 122.92 kg Michaela Villavicencio MD Work Phone: [facility] 01-11-2024 11:01-0400 Diastolic blood pressure 80 mm[Hg] Michaela Villavicencio MD Work Phone: [facility] 01-11-2024 11:01-0400 Heart rate 69 /min Michaela Villavicencio MD Work Phone: [facility] 01-11-2024 11:01-0400 SaO2% (BldA) [Mass fraction] 96 % Michaela Villavicencio MD Work Phone: [facility] 01-11-2024 11:01-0400 Systolic blood pressure 128 mm[Hg] Michaela Villavicencio MD Work Phone: [facility] 02-04-2023 09:32-0500 Blood Pressure Location Milad RUFF [facility] 02-04-2023 09:32-0500 Diastolic blood pressure 67 mm[Hg] Milad RUFF [facility] 02-04-2023 09:32-0500 Heart rate 70 /min Milad RUFF [facility] 02-04-2023 09:32-0500 Systolic blood pressure 125 mm[Hg] Milad RUFF [facility] 10-31-2023 10:50-0400 Diastolic blood pressure 68 mm[Hg] MD Michaela Villavicencio Work Phone: [facility] 01-27-2023 10:50-0400 Heart rate 74 /min MD Michaela Villavicencio Work Phone: [facility] 01-27-2023 10:50-0400 Respiratory rate 16 /min MD Michaela Villavicencio Work Phone: [facility] 01-27-2023 10:50-0400 SaO2% (BldA) [Mass fraction] 96 % MD Michaela Villavicencio Work Phone: [facility] 01-27-2023 10:50-0400 Systolic blood pressure 115 mm[Hg] MD Michaela Villavicencio Work Phone: [facility] 01-27-2023 09:30-0400 Body temperature 98.2 [degF] MD Michaela Villavicencio Work Phone: [facility] 01-27-2023 09:30-0400 Inhaled oxygen flow rate 3 L/min MD Michaela Villavicencio Work Phone: [facility] 01-27-2023 08:02-0400 Body height 177.8 cm MD Michaela Villavicencio Work Phone: [facility] 01-27-2023 08:02-0400 Body mass index (BMI) [Ratio] 39.7 kg/m2 MD Michaela Villavicencio Work Phone: [facility] 01-27-2023 08:02-0400 Body weight 125.64 kg MD Michaela Villavicencio Work Phone: [facility] 07-10-2022 09:46-0400 Body height 177.8 cm Michaela Villavicencio Work Phone: [facility] 250 DO Work Phone: 07-10-2022 09:46-0400 Body mass index (BMI) [Ratio] 40.03 kg/m2 Michaela [place] Work Phone: [facility] 250 DO Work Phone: 07-10-2022 09:46-0400 Body surface area Derived from formula 2.4 m2 Rugen M Maye Work Phone: [facility] 250 DO Work Phone: 07-10-2022 09:46-0400 Body weight 126.55 kg Rugen M Maye Work Phone: [facility] 250 DO Work Phone: 07-10-2022 09:46-0400 Diastolic blood pressure 82 mm[Hg] Rugen M [place] Work Phone: [facility] 250 DO Work Phone: 07-10-2022 09:46-0400 Diastolic blood pressure 72 mm[Hg] Rugen M [place] Work Phone: [facility] 250 DO Work Phone: 07-10-2022 09:46-0400 Heart rate 81 /min Rugen M [place] Work Phone: [facility] 250 DO Work Phone: 07-10-2022 09:46-0400 Systolic blood pressure 128 mm[Hg] Rugen M Maye Work Phone: [facility] 250 DO Work Phone: 07-10-2022 09:46-0400 Systolic blood pressure 132 mm[Hg] Rugen M [place] Work Phone: [facility] 250 DO Work Phone: 07-09-2022 07:40-0400 Blood Pressure Location Milad RUFF [facility] 07-09-2022 07:40-0400 Diastolic blood pressure 84 mm[Hg] Milad RUFF [facility] 07-09-2022 07:40-0400 Heart rate 72 /min Milad RUFF [facility] 07-09-2022 07:40-0400 Respiratory rate 16 /min Milad RUFF [facility] 07-09-2022 07:40-0400 Systolic blood pressure 137 mm[Hg] Miladkevin RUFF [facility] 06-25-2022 15:07-0400 Blood Pressure Location Miladkevin RUFF [facility] 06-25-2022 15:07-0400 Diastolic blood pressure 74 mm[Hg] Milad RUFF [facility] 06-25-2022 15:07-0400 Heart rate 65 /min Milad RUFF [facility] 06-25-2022 15:07-0400 Systolic blood pressure 138 mm[Hg] Milad RUFF [facility] Encounters Encounter Date Encounter Type Care Provider Facility Start: 02-29-2024 ambulatory Milad Alvarezi ty:[facility] [place] Start: 02-08-2024 ambulatory Milad R RUFF Facili ty:[facility] [place] Start: 02-04-2024 ambulatory Milad R RUFF Facili ty:[id number] Start: 01-20-2024 End: 01-20-2024 Clinisync Result Encounter Generic External Data Provider [facility] External Department Unsolicited Start: 01-20-2024 End: 01-20-2024 Clinisync Result Encounter Generic External Data Provider [facility] External Department Unsolicited Start: 01-13-2024 End: 01-13-2024 ambulatory Milad RUFF Facility:[facility] Start: 01-13-2024 End: 01-13-2024 Patient encounter procedure Milad RUFF [facility] [place] Start: 01-11-2024 End: 01-11-2024 Assay of hemosiderin, quant Michaela Villavicencio MD Work Phone: [facility] Start: 01-11-2024 End: 01-11-2024 Patient encounter procedure Michaela Villavicencio MD Work Phone: [facility] Comment on above: Routine general medi viri examination at [facility] (Primary Dx); Abnormal glucose tolerance test; Benign essential hypertension ([facility]/HCC); Nocturia; Medicare annual wellness visit, subsequent; Hyperlipidemia, unspecified hyperlipidemia type (CMS/HCC); Impaired fasting glucose; Hyperchylomicronemia (CMS/HCC); Type 2 diabetes mellitus with other specified complication, without long-term current use of insulin (CMS/[facility]); Morbid (severe) obesity due to excess calories ([facility]); Encounter for vaccination; Sleep apnea [...] Start: 03-31-2023 End: 03-31-2023 ambulatory Milad RUFF Facility[facility] Start: 03-31-2023 End: 03-31-2023 Patient encounter procedure Milad RUFF [facility] Start: 02-04-2023 End: 02-04-2023 ambulatory Milad RUFF Facility: [place] Start: 02-04-2023 End: 02-04-2023 Patient encounter procedure Milad RUFF [facility] [place] Start: 01-27-2023 End: 01-27-2023 ambulatory Taran Mame Facility:[facility] Start: 01-27-2023 End: 01-27-2023 Admission to same day surgery center MD Michaela Villavicencio Work Phone: [facility] [place] Start: 01-27-2023 End: 01-27-2023 ambulatory MD Michaela Villavicencio Work Phone: [facility] Work Phone: Start: 01-21-2023 End: 01-21-2023 Lab Drop off Milad RUFF [facility] Start: 01-21-2023 End: 01-21-2023 ambulatory Milad RUFF Facility:[facility] Start: 01-21-2023 End: 01-21-2023 Patient encounter procedure Milad RUFF [facility] [place] Start: 01-13-2023 End: 01-13-2023 ambulatory Taran Mame Facility:[facility] Start: 01-13-2023 End: 01-13-2023 ambulatory MD Michaela Villavicencio Work Phone: [facility] Work Phone: Start: 01-13-2023 End: 01-13-2023 Patient encounter procedure MD Michaela Villavicencio Work Phone: [facility] Work Phone: Start: 07-10-2022 Office consultation new/estab patient 80 min Michaela Villavicencio Work Phone: [facility] 250 DO Work Phone: Start: 07-10-[address] Adalberto Hernandez II Facility: Start: 07-09-2022 End: 07-09-2022 Patient encounter procedure Milad RUFF [facility] [place] Start: 07-02-2022 End: 07-03-[address] MICHAELA VILLAVICENCIO Facility:[facility] Start: 06-25-2022 End: 06-25-2022 Patient encounter procedure Milad RUFF [facility] [place] Start: 06-09-2022 End: 06-10-[address] MICHAELA VILLAVICENCIO Facility:[facility] Start: 05-22-2022 End: 05-23-[address] MICHAELA VILLAVICENCIO Facility:[facility] Start: 01-11-2018 End: 01-14-2018 Patient encounter VALERIE HERNÁNDEZ [facility] Procedures Date Procedure Procedure Detail Performing [...] RUFF Colonoscopy Milad RUFF Colonoscopy Michaela Santillan [place] Work Phone: Decompression of med wander nerve Michaela Santillan [place] Work Phone: Comment on above: rt; Procedure on back Milad PHILLIPS Procedure on back Michaela Hager da Work Phone: Comment on above: L4, L5 fused; Repair of shoulder Michaela Santillan A lda Work Phone: Tonsillectomy Milad RUFF Tonsillectomy Michaela Villavicencio Work Phone: Plan of Treatment Date Care Activity Detail Author Start: 12-29-2032 Screening for malign ant neoplasm of colon [facility] Start: 2025 Glaucoma screening Diabetes: R etinopathy Screening [facility] Start: 01-10-2025 Medicare Annual Wellness (AWV) Medicare Annual Wellness (AWV) [facility] Start: 01-10-2025 Urine screening for protein Diabetes: Urine Protein Screening [facility] Start: 09-21-2024 Urine screening for protein Diabetes: Urine Protein Screening [facility] Start: 04-12-2024 Hemoglobin A1c measurement Diabetes: Hemoglobin A1C [facility] Start: 01-11-2024 End: 01-10-2025 CBC W Auto Differential panel - Blood CBC and differential Lab Routine Medicare annual wellness visit, subsequent Hyperlipidemia, unspecified hyperlipidemia type (CMS/HCC) Impaired fasting glucose Expected: 01/11/2024 (Approximate), Expires: 01/10/2025 [facility] Work Phone: Comment on above: Expected: 01/11/2024 (Approximate), Expires: 01/10/2025 Start: 01-11-2024 End: 01-10-2025 Comprehensive metabolic 2000 panel - Serum or Plasma Comprehensive metabolic panel Lab Routine Abnormal glucose tolerance test Benign essential hypertension (CMS/HCC) Medicare annual wellness visit, subsequent Expected: 01/11/2024 (Approximate), Expires: 01/10/2025 [facility] Comment on above: Expected: 01/11/2024 (Approximate), Expires: 01/10/2025 Start: 01-11-2024 End: 01-10-2025 Lipid 1996 panel - Serum or Plasma Lipid panel Lab Routine Medicare annual wellness visit, subsequent Hyperlipidemia, unspecified hyperlipidemia type (CMS/HCC) Expected: 01/11/2024 (Approximate), Expires: 01/10/2025 [facility] Comment on above: Expected: 01/11/2024 (Approximate), Expires: 01/10/2025 Start: 01-11-2024 End: 01-10-2025 Prostate specific Ag [Mass/volume] in Serum or Plasma PSA Lab Routine Nocturia Medicare annual wellness visit, subsequent Expected: 01/11/2024 (Approximate), Expires: 01/10/2025 [facility] Comment on above: Expected: 01/11/2024 (Approximate), Expires: 01/10/2025 Start: 01-07-2024 Medicare Annual Wellness (AWV) Medicare Annual Wellness (AWV) [facility] Start: 05-11-2023 End: 05-11-2023 Patient encounter procedure 05/11/2023 2:30 PM EST Office Visit [facility] [address] [facility] [address] [place] [id number] Michaela Villavicencio MD [address] [facility] [address] [place] [address] [facility] Start: 01-27-2023 [facility] Start: 01-27-2023 [facility] Start: 01-21-2023 FUV, Provider: Adalberto Hernandez, Status: Pen, Time: 9:10 AM FUV, Provider: Adalberto Hernandez, Status: Pen, Time: 9:10 AM -[facility] 250 DO Work Phone: Start: 1950 Screening for malign ant neoplasm of colon [facility] Patient referral [facility] Work Phone: Immunizations Immunization Date Immunization Notes Care Provider Fa cility 01-11-2024 Influenza, High-dose Seasonal, Quadrivalent, Preservative Free Michaela Villavicencio MD Work Phone: [facility] 01-06-2023 influenza virus vacc ine, unspecified formulation Milad RUFF [facility] 01-06-2023 Influenza, High-dose Seasonal, Quadrivalent, Preservative Free Michaela Villavicencio MD Work Phone: [facility] 02-14-2022 Moderna COVID-19 Biv al Booster 50 MCG/0.5ML Intramuscular Suspension Rugen M Maye Work Phone: [facility] 01-09-2022 Fluzone High-Dose Quadrivalent 0.7 ML Intramuscular Suspension Prefilled Syringe Rugen M Maye Work Phone: [facility] 250 DO Work Phone: 01-09-2022 influenza virus vacc ine, unspecified formulation Milad RUFF [facility] 08-21-2021 Moderna COVID-19 Vac cine 100 MCG/0.5ML Intramuscular Suspension Rugen M [place] Work Phone: [facility] Comment on above: Result Comment: 2022: [id number] 04-21-2021 Moderna COVID-19 Vac cine 100 MCG/0.5ML Intramuscular Suspension Rugen M Maye Work Phone: [facility] 02-18-2021 Fluzone High-Dose Quadrivalent 0.7 ML Intramuscular Suspension Prefilled Syringe Rugen M Maye Work Phone: [facility] 250 DO Work Phone: 02-18-2021 influenza virus vacc ine, unspecified formulation Milad [employer] [facility] 01-22-2021 Moderna COVID-19 Vac cine 100 MCG/0.5ML Intramuscular Suspension Rugen M [place] Work Phone: [facility] 06-20-2020 Moderna COVID-19 Vac cine 100 MCG/0.5ML Intramuscular Suspension Rugen M Maye Work Phone: [facility] 05-23-2020 Moderna COVID-19 Vac cine 100 MCG/0.5ML Intramuscular Suspension Rugen M [place] Work Phone: [facility] 03-06-2020 pneumococcal polysaccharide vaccine, 23 valent Rugen M [place] Work Phone: [facility] 12-23-2019 influenza virus vacc ine, unspecified formulation [employer] [facility] 12-23-2019 Seasonal, quadrivale nt, recombinant, injectable influenza vaccine, preservative free Rugen M Maye Work Phone: [facility] 250 DO Work Phone: 03-04-2019 pneumococcal conjuga te vaccine, 13 valent Rugen M Maye Work Phone: [facility] 02-08-2019 influenza virus vacc ine, unspecified formulation [employer] [facility] 02-08-2019 influenza, high dose seasonal, preservative-free Rugen M Maye Work Phone: [facility] 250 DO Work Phone: Payers Date Payer Category Payer Self-pay 2021 Medicaid [employer] MEDICARE A DVANTAGE [id number] 2021 Medicare AETNA MEDICARE A DVANTAGE AETNA MEDICARE REPLACEMENT [id number] 2021-Present [address] [place] [address] [id number] 2017 Medicare [id number] 1959 Private Health Insurance [id number] 1950 Unknown [id number] 2.16.840.1.795500.3.579.2. 173 1950 Unknown [id number] 2.16.840.1.420427.3.579.2. 173 1950 Unknown [id number] 2.16.840.1.938969.3.579.2. 356 1950 Unknown [id number] 2.16.840.1.850053.3.579.2. 593 1950 Unknown [id number] 2.16.840.1.250630.3.579.2. 593 1950 Unknown [id number] 2.16.840.1.565810.3.579.2. 593 1950 Unknown [id number] 2.16.840.1.301204.3.579.2. 1259 1950 Unknown [id number] 2.16.840.1.864962.3.579.2. 1259 1950 Unknown [id number] 2.16.840.1.963595.3.579.2. 1259 1950 Unknown [id number] 2.16.840.1.125848.3.579.2. 1259 1950 Unknown [id number] 2.16.840.1.582511.3.579.2. 727 1950 Unknown [id number] 2.16.840.1.262155.3.579.2. 727 1950 Unknown [id number] 2.16.840.1.435784.3.579.2. 727 1950 Unknown [id number] 2.16.840.1.968406.3.579.2. 727 1950 Unknown [id number] 2.16.840.1.519229.3.579.2. 727 1950 Unknown [id number] 2.16.840.1.163729.3.579.2. 727 1950 Unknown [id number] 2.16.840.1.608823.3.579.2. 727 Medicare Medicare [id number] Unknown [employer] Unknown O [id number] Unknown [id number] 2.16.840.1.861009.3.579.2. 531 Unknown [id number] 2.16.840.1.509398.3.579.2. 531 Social History Date Type Detail Facility Start: 06-25-2022 End: 11-10-2022 Tobacco smoking status Ex-smoker (finding) [facility] Tobacco smoking status Never [facility] Start: 11-10-2022 End: 01-11-2024 Sex Assigned At Male [facility] Start: 11-10-2022 End: 01-11-2024 No illicit drug use No illicit drug use [place] [address] DO Work Phone: Comment on above: 20+ years ago; Start: 1950 Sex Assigned At Male F [facility] End: 03-30-2001 History of tobacco use Current smoker [facility] End: 03-30-2001 History of tobacco use [...] Facility 01-13-2024 Functional Status N/A [facility] 03-31-2023 Functional Status N/A [facility] 02-04-2023 Functional Status N/A [facility] 07-09-2022 Functional Status N/A [facility] 06-25-2022 Functional Status N/A [facility] Clinical Notes 06-25-2022 to 01-13-2024 Michaela [...] including vitamins, herbs, eye drops, creams, and wfdg-rdt-ikiautg medicines. Any problems you or family members [...] provider tells you to take them. Taking epcw-qqd-osmqqto medicines, vitamins, herbs, and supplements. Surgery safety [...] provider. Document Revised: 12/10/2021 Document Reviewed: 12/10/2021 [employer] Patient Education 2023 [employer] 01/13/2024 15:06:23 Erectile Dysfunction Erectile Dysfunction Erectile [...] Follow these instructions at home: Medicines Take ylrx-qqk-cjjdwgt and prescription medicines only as told by [...] provider. Document Revised: 06/12/2021 Document Reviewed: 06/12/2021 [employer] Patient Education 2023 [employer] 01/13/2024 14:41:49 Prostate Cancer Screening Prostate Cancer [...] treatment? Where to find more information [employer] [place] [employer]: www.cancer.org [place] [employer]: www.auanet.org Contact a health care [...] provider. Document Revised: 09/09/2021 Document Reviewed: 09/09/2021 [employer] Patient Education 2023 [employer] Follow Up Care 01/12/2024 15:01:17 With:NASREEN CARMONA, Milad Westfall, URL Address: [facility] [address] [place] [address]- When: Unknown [facility] [place] 01-13-2024 Note Patient Education Oncology Prostate [...] Where to find more information ? [employer] [place] [employer]: www.cancer.org ? [place] [employer]: www.auanet.org Contact a health care [...] of the rectum. (more content not included)... [place] [facility] History of Present illness Narrative [...] by direct observation Three Word Registration: Banana, Silvana, Chair Clock Drawing: Normal Clock - 2 [...] Relevant Orders Influenza, high-dose seasonal, quadrivalent, PF (MXU590) (Fluzone High Dose Quad North 0.7mL dose) (Completed) Orders Placed This Encounter Procedures Influenza, high-dose seasonal, quadrivalent, PF (TGP803) (Fluzone High Dose Quad North 0.7mL dose) [...] January 11, 2024 documented in this encounter [facility] 03-31-2023 Hospital Discharge instructions Patient Education 03/31/2023 [...] Address: [facility] [address] [place] [address]- Business (1) When: Unknown Comments:Patient will callPlease call if you need to reschedule [facility] 03-31-2023 Note [id number] [facility] 03-31-2023 Note Custom Cystoscopy ? Voiding [...] you have a fever over 100 degrees. [facility] 02-04-2023 Hospital Discharge instructions Patient Education [...] including vitamins, herbs, eye drops, creams, and cnxz-kpw-cxbrwzs medicines. ?Whether you are or may be [...] provider. Document Revised: 11/27/2021 Document Reviewed: 10/19/2020 [employer] Patient Education 2022 [employer] 02/04/2023 10:34:28 Cystoscopy Cystoscopy Cystoscopy is a [...] including vitamins, herbs, eye drops, creams, and gpde-qht-mdvlray medicines. Any problems you or family members [...] provider tells you to take them. Taking oqwz-kuz-rnevxgn medicines, vitamins, herbs, and supplements. Tests You [...] Follow these instructions at home: Medicines Take fsuw-pgd-bkpziir and prescription medicines only as told by [...] provider. Document Revised: 11/27/2021 Document Reviewed: 10/26/2020 [employer] Patient Education 2022 [employer] Follow Up Care 07/23/2022 10:08:45 With:NASREEN CARMONA, Milad Westfall, URL Address: [facility] [address] , [place] [address]- When: Unknown [facility] 07-09-2022 Hospital Discharge instructions Patient Education [...] discomfort near your rectum, especially while sitting. [place]-colored urine due to small amounts of blood in your urine. A burning feeling while urinating. Blood in your stool (feces) or bleeding from your rectum. Blood in your semen. Follow these instructions at home: Medicines Take ranf-tkq-ufkmmlz and prescription medicines only as told by [...] 09/07/2017 Document Revised: 07/06/2019 Document Reviewed: 09/07/2017 [employer] Patient Education 2020 [employer] Follow Up Care 06/25/2022 16:49:16 With:NASREEN CARMONA, Milad Westfall, URL Address: [facility] [address] , [place] [address]- When: Unknown [facility] 06-25-2022 Hospital Discharge instructions Patient Education [...] one of these risk factors: ?Being of -[place] descent. ?Having a family history of prostate [...] you: Are older than age 55. Are -[place]ian. Have a father, brother, or uncle who [...] 12/25/2017 Document Revised: 02/26/2018 Document Reviewed: 12/25/2017 [employer] Patient Education 2020 [employer] Follow Up Care 06/24/2022 15:07:03 With:Milad RUFF MD, URL Address: [facility] [address] , [place] [address]- When: Unknown [facility] Chief complaint Narrative - Reported EDWARD DARBY is being seen for a consultation for abnormal test(s) results. [facility] 250 DO Work Phone: Evaluation + Plan note Future Appointments Appointment Date:07/09/2022 07:45:00 AM Scheduled Provider:Milad RUFF MD Location:[facility] Appointment Type:URO Procedure 15 min Appointment Date:07/23/2022 08:45:00 AM Scheduled Provider:Milad RUFF MD Location:[facility] Appointment Type:URO Office Visit [facility] Evaluation + Plan note Future Appointments Appointment Date:07/23/2022 08:45:00 AM Scheduled Provider:Milad RUFF MD Location:[facility] Appointment Type:URO Office Visit Diagnostic Tests PendingProstate Histology ([facility]) 07/09/22 [facility] Evaluation + Plan note Future Appointments Appointment Date:02/04/2023 09:45:00 AM Scheduled Provider:Milad RUFF MD Location:[facility] Appointment Type:URO Office Visit [facility] Evaluation + Plan note Future Appointments Appointment Date:03/31/2023 09:00:00 AM Scheduled Provider: Location:[facility] Appointment Type:Urology FT Appointment Date:03/31/2023 10:00:00 AM Scheduled Provider: Location:[facility] Appointment Type:Urology FT Future Scheduled TestsPSA Free & Total 07/29/23 [facility] Evaluation + Plan note Future Scheduled TestsPSA Free & Total 07/29/23 [facility] Evaluation + Plan note Future Appointments Appointment Date:02/08/2024 09:30:00 AM Scheduled Provider: Location:[facility] Appointment Type:URO Nurse Visit Appointment Date:02/29/2024 09:15:00 AM Scheduled Provider:Milad RUFF MD [facility] Type:URO Office Visit Future Scheduled TestsPSA Free & Total 07/29/23 [facility] Evaluation note No assessment inform ation available [facility] Work Phone: Evaluation note Diagnosis Impaired [...] he see me in about 6 months. [facility] 250 DO Work Phone: Hospital course Narrative No data available for this section [facility] Hospital Discharge instructions No data available for this section [facility] Hospital Discharge instructions Additional Instructions DISCHARGE [...] directed for pain unless a prescription was provided.[facility] Work Phone: Progress note No data available for this section [facility] Summary Purpose Family History Unknown Family [...] DATE CREATED AUTHOR AUTHOR'S ORGANIZ ATION 08/03/2021 [facility] dical Specialist DATE CREATED AUTHOR AUTHOR'S ORGANIZ ATION 07/12/2022 [facility] DATE CREATED AUTHOR AUTHOR'S ORGANIZ ATION 07/12/2022 [employer] DATE CREATED AUTHOR AUTHOR'S ORGANIZ ATION 07/12/2022 [facility] DATE CREATED AUTHOR AUTHOR'S ORGANIZ ATION 02/20/2023 [facility] DATE CREATED AUTHOR AUTHOR'S ORGANIZ ATION 01/12/2024 [facility] dical Specialists EPIC DATE CREATED AUTHOR AUTHOR'S ORGANIZ ATION 01/14/2024 [facility] Patient Care team informatio n (unrecognized section and content) Team Status: Active Member Role Status Dates Michaela Villavicencio MD Primary Care Provider Active Team Status: Inactive Member Role Status Dates Michaela Villavicencio MD Primary Care Provider Active Taran James DO Attending Provider Active 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 [employer] provides no warranty or guarantee of the accuracy or completeness of information in this document.
[2024-02-05 22:40] VITALS: BP 138/80; PULSE 81; TEMP 36.4; O2SAT 95; BMI 40.6
--- NOTE | 2024-02-05 22:51 | PC.NURSE ---
PT STATES TURP YESTERDAY WITH DR DOWNEY. PT STATES DC FROM [place] THIS MORNING AND HAS HAD LEAKING AROUND CATH SINCE 1 PM THIS AFTERNOON
--- NOTE | 2024-02-05 23:39 | ED.MALEGU1 ---
HPI - Male Genitourinary General Chief complaint: Urogenital-Male Stated complaint: PROSTATE SURGERY YESTERDAY, CATH COMP Time Seen by Provider: 02/05/24 23:36 Source: patient Mode of arrival: walk-in Limitations: no limitations History of Present Illness HPI Narrative: patient s/p TURP procedure yesterday. Also informed he has a false passage. Discharged home this AM. Shaun describes urine leaking around the catheter Related Data Home Medications ?Medication ?Instructions ?Recorded ?Confirmed alfuzosin 10 mg tablet,extended 10 mg PO DAILY 01/20/24 02/04/24 release 24 hr allopurinol 100 mg tablet 100 mg PO Q12H 01/20/24 02/04/24 fiber 1 cap PO DAILY 01/20/24 02/04/24 lisinopril 20 1 tab PO DAILY 01/20/24 02/04/24 mg-hydrochlorothiazide 25 mg tablet metoprolol succinate 50 mg 50 mg PO DAILY 01/20/24 02/04/24 tablet,extended release 24 hr pravastatin 40 mg tablet 40 mg PO DAILY 01/20/24 02/04/24 semaglutide 7 mg tablet (Rybelsus) 7 mg PO DAILY 01/20/24 02/04/24 vitamin A-vitamin C-vit E-min 1 tab PO DAILY 01/20/24 02/04/24 tablet Previous Rx's ?Medication ?Instructions ?Recorded doxycycline hyclate 100 mg capsule 100 mg PO BID 7 days #14 caps 02/04/24 solifenacin 10 mg tablet (Vesicare) 10 mg PO DAILY #7 tabs 02/04/24 Allergies Allergy/AdvReac Type Severity Reaction Status Date / Time sulfamethoxazole (From Allergy SOB Verified 02/05/24 22:40 Bactrim) trimethoprim (From Bactrim) Allergy SOB Verified 02/05/24 22:40 [facility] Medical History (Updated 02/05/24 @ 23:54 by Roland Leos MD) Arthritis ?M19.90 - Unspecified osteoarthritis, unspecified site (ICD-10) Migraine ?G43.909 - Migraine, unspecified, not intractable, without status migrainosus (ICD-10) Cataract ?H26.9 - Unspecified cataract (ICD-10) Sleep apnea ?G47.30 - Sleep apnea, unspecified (ICD-10) Back pain with history of spinal surgery ?M54.9 - Dorsalgia, unspecified (ICD-10) ?Z98.890 - Other specified postprocedural states (ICD-10) Headache ?R51.9 - Headache, unspecified (ICD-10) Diabetes ?E11.9 - Type 2 diabetes mellitus without complications (ICD-10) Hypertension ?I10 - Essential (primary) hypertension (ICD-10) Incomplete bladder emptying ?R33.9 - Retention of urine, unspecified (ICD-10) Hyperlipidemia ?E78.5 - Hyperlipidemia, unspecified (ICD-10) Gout ?M10.9 - Gout, unspecified (ICD-10) Elevated PSA ?R97.20 - Elevated prostate specific antigen [PSA] (ICD-10) BPH with obstruction/lower urinary tract symptoms ?N40.1 - Benign prostatic hyperplasia with lower urinary tract symptoms (ICD-10) ?N13.8 - Other obstructive and reflux uropathy (ICD-10) Surgical History (Updated 01/20/24 @ 10:39 by Ana Rosa Luque NP) History of esophagogastroduodenoscopy (EGD) ?Z98.890 - Other specified postprocedural states (ICD-10) History of carpal tunnel release ?Z98.890 - Other specified postprocedural states (ICD-10) H/O shoulder surgery ?Z98.890 - Other specified postprocedural states (ICD-10) History of lumbar surgery ?Z98.890 - Other specified postprocedural states (ICD-10) Hx of tonsillectomy ?Z90.89 - Acquired absence of other organs (ICD-10) H/O colonoscopy ?Z98.890 - Other specified postprocedural states (ICD-10) History of cataract extraction with lens replacement H/O prostate biopsy ?Z98.890 - Other specified postprocedural states (ICD-10) History of cholecystectomy ?Z90.49 - Acquired absence of other specified parts of digestive tract (ICD-10) Family History (Updated 01/20/24 @ 10:39 by Ana Rosa Luque NP) Other Family history of Alzheimer's disease Family history of hypertension Family history of lung cancer Family history of myocardial infarction Family history of prostate cancer Social History (Updated 02/04/24 @ 11:05 by Marilin Leong) Within the past year, how often did you have a drink containing alcohol: 2-3 times a week Smoking status: Former smoker What tobacco products do you use: cigarettes Smoking quit date/years: >15 years ago Non-prescribed substance use: denies use Previous occupational history: Retired Highest level of school completed/degree received: some college, no degree Little interest or pleasure in doing things: not at all Feeling down, depressed, or hopeless: not at all Exam Constitutional Vital Signs, click to edit/add: Last Vital Signs Temp 97.6 F 02/05/24 22:40 Pulse 81 02/05/24 22:40 Resp 18 02/05/24 22:40 BP 138/80 02/05/24 22:40 Pulse Ox 95 02/05/24 22:40 O2 Del Method Room Air 02/05/24 22:40 Course Vital Signs Vital signs: Vital Signs Temperature 97.6 F 02/05/24 22:40 Pulse Rate 81 02/05/24 22:40 Respiratory Rate 18 02/05/24 22:40 Blood Pressure 138/80 02/05/24 22:40 Pulse Oximetry 95 02/05/24 22:40 Oxygen Delivery Method Room Air 02/05/24 22:40 Temperature 97.6 F 02/05/24 22:40 Pulse Rate 81 02/05/24 22:40 Respiratory Rate 18 02/05/24 22:40 Blood Pressure 138/80 02/05/24 22:40 Pulse Oximetry 95 02/05/24 22:40 Oxygen Delivery Method Room Air 02/05/24 22:40 MDM - Male Genitourinary MDM Narrative Medical decision making narrative: patient s/p TURP procedure yesterday. Has maciel in place. Also informed to not have the maciel removed because he has a false passage. Bladder scan with only 20cc of urine in the bladder. leg bag nearly full. Patient describes episodes of some urine leaking around the catheter. Patient informed is likely related to bladder spasm. Given dose of Ditropan and discharged home and advised to use Vesciare presribed by Urology Discharge Plan Discharge Chief Complaint: Urogenital-Male Clinical Impression: Bladder spasm Patient Disposition: Home, Self-Care Prescriptions / Home Meds: No Action alfuzosin 10 mg tablet extended release 24 hr 10 mg PO DAILY allopurinol 100 mg tablet 100 mg PO Q12H lisinopril-hydrochlorothiazide 20-25 mg tablet 1 tab PO DAILY metoprolol succinate 50 mg tablet extended release 24 hr 50 mg PO DAILY pravastatin 40 mg tablet 40 mg PO DAILY Rybelsus 7 mg tablet 7 mg PO DAILY fiber Capsule 1 cap PO DAILY vitamin A-vitamin C-vit E-min Tablet 1 tab PO DAILY doxycycline hyclate 100 mg capsule 100 mg PO BID 7 Days Qty: 14 0RF solifenacin [Vesicare] 10 mg tablet 10 mg PO DAILY Qty: 7 0RF Print Language: Bahraini Instructions: Transurethral Prostatectomy (DC) Additional Instructions: follow up Referrals: JOSE ANGEL VILLAVICENCIO [Primary Care Provider] - 1 week
[2024-02-06] MEDS: OXYBUTYNIN chloride 5 MG TABLET 10 MG PO (00:02)
== END 2024-02-06 00:10 | disposition home or self-care (01) ==
PROVIDERS: Emergency Provider Internal Medicine; PCP Family Medicine
DX: N32.89 Other specified disorders of bladder (principal); Z87.891 Personal history of nicotine dependence
CPT/HCPCS: 99283

== ENCOUNTER 2025-03-03 08:53 | Outpatient (OUT) | payer MEDICARE, SELFPAY ==
--- OUTSIDE RECORDS SUMMARY | 2025-03-03 09:00 | XMS_ITS | CCD ---
Author Organization [facility] Care Team Providers Care [employer] [facility] Worker Name Role Phone EDGAR, VALERIE A Unavailable Unavailable EDGAR, VALERIE A Unavailable Unavailable EDGAR, VALERIE A Unavailable Unavailable EDGAR, VALERIE A Unavailable Unavailable JOSE ANGEL VILLAVICENCIO Primary Care Physician [phone] Jose Angel Villavicencio Unavailable Unavailable Unavailable Judith MCKINLEY, Dr. Adalberto Stinson Referring Unavailable Judith MCKINLEY, Dr. Adalberto Stinson Attending Unavailable [place], Dr. Jose Angel Atkinson Primary Care Unavaila ble MAYE, DR WALTER Admitting Unavailable MAYE, DR WALTER Primary Care Unavailable MAYE, DR WALTER Consulting Unavailable MAYE, DR WALTER Attending Unavailable MAYE, DR WALTER Admitting Unavailable MAYE, DR WALTER Consulting Unavailable MAYE, DR WALTER Attending Unavailable MAYE, DR WALTER Attending Unavailable MAYE, DR WALTER Admitting Unavailable MAYE, DR WALTER Primary Care Unavailable Maye, MD Jose Angel Santillan Primary Care Provider DO Taran James Attending Provider Jose Angel Villavicencio MD Primary Care Provider Sloan Downey MD Attending Provider [phone] Jose Angel Villavicencio MD Primary Care Provider [phone] Sloan Downey Attending Unavailable Sloan Downey Admitting Unavailable Jose Angel Villavicencio Primary Care Unavailable Sloan Downey Admitting Unavailable Sloan Downey Attending Unavailable Jose Angel Villavicencio Primary Care Unavailable Sloan Downey Admitting Unavailable Sloan Downey Attending Unavailable Sloan DOWNEY Attending Unavailable Sloan DOWNEY Attending Unavailable Sloan DOWNEY Admitting Unavailable DOWNEY, Sloan R Attending Unavailable DOWNEY, Sloan R Attending Unavailable DOWNEY, Sloan R Attending Unavailable DOWNEY, Sloan R Attending Unavailable DOWNEY, Sloan R Attending Unavailable DOWNEY, Sloan R Attending Unavailable DOWNEY, Sloan R Attending Unavailable DOWNEY, Sloan R Attending Unavailable DOWNEY, Sloan R Attending Unavailable DOWNEY, Sloan R Admitting Unavailable [place] , [facility] Provider RUDDY CABELLO Attending [facility]available [facility] Primary Care Unavailable RUDDY CABELLO Referring Unavailable MAYE, [facility] Primary Care Unavailable RUDDY CABELLO Referring Unavailable MAYE, [facility] Care Unavailable STACEY GUAN Attending Unavailable JOSE ANGEL VILLAVICENCIO Attending Unavailable PRIYANKA SAENZ Attending Unavailable STACEY GUAN Attending Unavailable Rey WELLS [facility] Un[facility] Rey WELLS Referring Unavailable [facility] Primary Care Unavailable Rey WELLS Attending Unavailable Rey WELLS Referring Unavailable [facility] Primary Care Unavailable Rey WELLS Referring Unavailable [facility] Primary Care Unavailable Rey WELLS Attending Unavailable Rey WELLS [facility] Rey WELLS Attending Unavailable Rey WELLS Referring Unavailable [facility] Primary Care Unavailable Rey WELLS Referring Unavailable MAYE, [facility] Primary Care Unavailable Rey WELLS Referring Unavailable MAYE, [facility] Primary Care Unavailable Rey WELLS Referring Unavailable MAYE, [facility] Primary Care Unavailable Rey WELLS Referring Unavailable [facility] Primary Care Unavailable Rey WELLS Referring Unavailable [facility] Primary Care Unavailable Rey WELLS Referring [facility]available [facility] Primary Care Unavailable Rey WELLS Referring [facility]available [facility] Primary Care Unavailable Rey WELLS Referring Unavailable [facility] Primary Care Unavailable Rey WELLS Attending Unavailable [facility] Primary Care Unavailable Rey WELLS Referring Unavailable MAYE, [facility] Primary Care Unavailable Rey WELLS Referring Unavailable MAYE, [facility] Primary Care Unavailable Rey WELLS Referring Unavailable MAYE, [facility] Primary Care Unavailable Rey WELLS Referring Unavailable Rey WELLS Attending Unavailable [facility] Primary Care Unavailable Rey WELLS Referring Unavailable MAYE, [facility] Primary Care Unavailable Rey WELLS Referring Unavailable MAYE, [facility] Primary Care Unavailable Rey WELLS Attending Unavailable Rey WELLS Referring Unavailable MAYE, [facility] Primary Care Unavailable Rey WELLS Attending Unavailable Rey WELLS Referring Unavailable MAYE, [facility] Primary Care Unavailable eRy WELLS Referring Unavailable MAYE, [facility] Primary Care Unavailable SLOAN DOWNEY Referring Unavailable Rey WELLS Attending Unavailable [facility] Primary Care Unavailable Rey WELLS Attending Unavailable MAYE, [facility] Primary Care Unavailable Rey WELLS Referring Unavailable eRy WELLS Attending Unavailable [facility] Primary Care Unavailable Rey WELLS Referring Unavailable Rey WELLS Referring Unavailable MAYE, [facility] Primary Care Unavailable Rey WELLS Referring Unavailable MAYE, [facility] Primary Care Unavailable Rey WELLS Referring Unavailable MAYE, [facility] Primary Care Unavailable Rey WELLS Referring Unavailable MAYE, [facility] Primary Care Unavailable Rey WELLS Attending Unavailable Rey WELLS Referring Unavailable MAYE, [facility] Primary Care Unavailable Rey WELLS Referring Unavailable MAYE, [facility] Primary Care Unavailable Rey WELLS Referring Unavailable MAYE, [facility] Primary Care Unavailable Rey WELLS Referring Unavailable MAYE, [facility] Primary Care Unavailable MAYE, [facility] Primary Care Unavailable Rey WELLS Attending Unavailable MAYE, RUGEN MABALAY Primary Care Unavailable ENGELERRey Referring Unavailable MAYE, RUGEN MABALAY Primary Care Unavailable Rey WELLS Referring Unavailable MAYE, RUGEN MABALAY Primary Care Unavailable ENGRey CRUZIP Referring Unavailable MAYE, RUGEN MABALAY Primary Care Unavailable ENGRey CRUZIP Referring Unavailable MAYE, RUGEN MABALAY Primary Care Unavailable Rey WELLSIP Referring Unavailable MAYE, RUGEN MABALAY Primary Care Unavailable Rey WELLS Attending Unavailable MAYE, RUGEN MABALAY Primary Care Unavailable Allergies Allergy ClassificationReported Allergen(s)Allergy TypeDate of OnsetReaction(s) Facility (20 sources)Sulfamethoxazole / Trimethoprim; Translations: [sulfamethoxazole-trimethoprim]Drug Iqcpanv91-66-9391Hipbmzuz of skin (disorder), Tachycardia (finding), Hives, Shortness of Breath, RashExecutive [facility]rology of [facility] (3 sources)Sulfonamides (Antibiotic); Translations: [Sulfa (Sulfonamide Antibiotics)]Propensity to adverse oszcuregl23-08-6762IzjqbcaenozhXatcxcvnp [facility] (4 sources)Tetanus Vaccines And Toxoid; Translations: [TETANUS VACCINES AND TOXOID]Propensity to adverse gecgrqvop32-38-0086TmrfsWrldarnuwiMercy Memorial Hospital Work Phone: (3 sources)Sulfamethoxazole / Trimethoprim; Translations: [SULFAMETHOXAZOLE-TRIMETHOPRIM]Drug [id number] (3 sources)Tetanus rkgvuja10-92-2650WbmknTRTM Healthcare Medications Current Medications MedicationDrug Class(es)DatesSig (Normalized)Sig (Original)acetaminophen 325 mg / HYDROcodone bitartrate 7.5 mg oral tablet (1 source)Opioid AgonistStart: 30-08-8648rifx 1 tablet by mouth onceNorco 325 mg-7.5 mg oral tablet 1 tab(s), Oral, Once, 1 tab(s), Refill(s) 0, Take 1 hour prior to procedure DX: R97.20, [facility], 177, cm, 06/25/22 15:16:00 EDT, Height/Length Dosing, 125.8, kg, 03/29/23 15:16:00 EDT, Weight Dosing Start Date: 06/26/22 Status: Orderedacetaminophen 325 mg / oxyCODONE hydrochloride 5 mg oral tablet (2 sources)Opioid AgonistStart: 85-74-4455dawt 1 tablet by mouth every six hours as needed for painOxycodone-Acetaminophen (Percocet) 5-325 mg tablet Active 1 TAB PO Q6H as needed for pain 12 3 January 27, 20220503 hr alfuzosin hydrochloride 10 mg extended release oral tablet (20 sources)alpha-Adrenergic BlockerStart: 95-91-9442fkgn 1 tablet by mouth every twenty-four hours in the morningalfuzosin ER (Uroxatral) 10 MG 24 hr tablet Take 1 tablet by mouth in the morning. 0 10/17/2022 ActiveStart: 06-25-2022 End: 58-68-7687ugra 1 tablet by mouth once dailyalfuzosin 10 mg ER Tab 10 mg = 1 tab(s), Oral, Daily, X 30 day(s), # 30 tab(s), Refills(s) 11, Pharmacy: [facility], 177, cm, 01/13/24 14:10:00 EDT, Height/Length Dosing, 124.5, kg, 01/13/24 14:10:00 EDT, Weight Dosing Start Date: 01/13/24 Stop Date: 01/07/25 Status: Ordered Quantity: 30.0 Unit: tab(s) Repeat number: 12allopurinol 100 mg oral tablet (20 sources)Xanthine Oxidase InhibitorStart: 96-63-4621esgr 1 tablet by mouth twice dailyallopurinol (Zyloprim) 100 MG tablet Indications: 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 01/13/2023 ActiveStart: 08-43-5955drfa 1 tablet by mouth at bedtimeAtorvastatin Calcium 10 MG Oral Tablet take 1 tablet by mouth at bedtime Quantity: 90 Refills: 3 Ordered: 10-Jul-2022 Adalberto Wong MD Start : 10-Jul-2022 Active stop pravastatin/ new startbetamethasone 0.5 mg/ml topical cream (20 sources)CorticosteroidStart: 12-02-2022 End: 59-27-9469hbaesekrdxxel dipropionate 0.05 % cream Indications: Eczema, unspecified type Apply 1 application topically Daily as needed for irritation 45 g 2 11/01/2024 Activebicalutamide 50 mg oral tablet (20 sources)Androgen Receptor InhibitorStart: 03-08-2024 End: 62-69-1830saqboktlqrip 50 mg Tab 50 mg = 1 tab(s), Refills(s) 0 Start Date: 03/14/24 Status: Ordered Repeat number: 1calcium polycarbophil 625 mg oral tablet (20 sources)take 1 tablet by mouth in the morningpolycarbophil (Fibercon) 625 MG tablet Take 1 tablet by mouth in the morning. Activeciprofloxacin 500 mg oral tablet (4 sources)Quinolone AntimicrobialStart: 02-15-2024 End: 38-99-7814wcrj 1 tablet by mouth every twelve hoursciprofloxacin 500 mg Tab 500 mg = 1 tab(s), Oral, q12hr, X 10 day(s), # 20 tab(s), Refills(s) 0, Pha rmacy: [facility], 177, cm, 02/15/24 9:54:00 EST, Height/Length Dosing, 124, kg, 02/15/24 9:54:00 EST, Weight Dosing Start Date: 02/15/24 Stop Date: 02/25/24 Status: OrderedStart: 63-82-7740Oycyb 500 mg Tab 500 mg = 1 tab(s), Oral, As Directed, Patient to take 1 tab the day before procedure and the 2nd tab the day of procedure once completed, # 2 tab(s), Refills(s) 0, Pharmacy: [facility], 177, cm, 02/04/23 9:52:00 EST, Height/Length Dosing, 125, kg, 02/04/23 9:52:00 EST, Weight Dosing Start Date: 02/04/23 Status: Orderedtake 1 tablet by mouth once dailyCiprofloxacin HCl - 500 MG Oral Tablet TAKE 1 TABLET EVERY 12 HOURS DAILY. Quantity: 0 Refills: 0 Ordered: 10-Jul-2022 DO Activedutasteride 0.5 mg oral capsule (7 sources)5-alpha Reductase InhibitorStart: 00-79-9923tlhu 1 capsule by mouth once daily at bedtimeDutasteride (Avodart) 0.5 mg capsule Active 0.5 MG PO Daily at bedtime January 12, 2023 11:00pmFiber (11 sources)Start: 01-88-7365hnsh 1 mg by mouth four times dailyFiber Lax mg, Oral, QID, Refills(s) 0 Start Date: 01/13/24 Status: Ordered Repeat number: 1 Start: 88-00-1188kowo 1 mg by mouth four times dailyFiber Lax mg, Oral, QID, Refills(s) 0 Start Date: 01/13/24 Status: OrderedStart: 25-97-3834nqjd 1 tablet by mouth once daily at bedtimeFiber Tablet Active 1 TAB PO Daily at bedtime January 12, 2023 11:00pmStart: 13-54-5628shgu 1 tablet by mouth once daily at bedtimeFiber Active 1 TAB PO Daily at bedtime January 13, 2023 12:00amFiber TABS USE DIRECTED. Quantity: 0 Refills: 0 Ordered: 10-Jul-2022 DO Active indomethacin 50 mg oral capsule (20 sources)Nonsteroidal Anti-inflammatory DrugStart: 32-74-9985zfdx 1 capsule by mouth three times dailyindomethacin 50 mg oral capsule 50 mg = 1 cap(s), Oral, TID, Refills(s) 0 Start Date: 03/14/24 Status: Ordered Repeat number: 1 Start: 53-50-7611mktn 1 capsule by mouth once dailyindomethacin (Indocin) 50 MG capsule Indications: Gout, unspecified cause, unspecified chronicity, u nspecified site Take 1 capsule (50 mg) by mouth 1 (one) time each day at the same time 06/01/2023 ActiveStart: 88-94-8510joyb 1 mg by mouth three times daily indomethacin 50 mg oral capsule mg cap(s), Oral, TID Start Date: 06/25/22 Status: Munvmpu25 hr metoprolol succinate 50 mg extended release oral tablet (20 sources)beta-Adrenergic BlockerStart: 97-71-4680mafi 1 tablet by mouth once dailymetoprolol succinate XL (Toprol-XL) 50 MG 24 hr tablet Indications: Essential hypertension Take 1 tablet by mouth once daily 100 tablet 3 06/01/2024 ActiveMultiple Vitamins-Minerals (OCUVITE PO) (8 sources)Start: 42-78-8489cvsf 1 tablet by mouth once dailyMultiple Vitamins- Minerals (OCUVITE PO) Take 1 tablet by mouth Daily 01/13/2024 Activepravastatin sodium 40 mg oral tablet (20 sources)HMG-CoA Reductase InhibitorStart: 06-25-2022 End: 26-16-1167yszg 1 tablet by mouth once dailypravastatin (Pravachol) 40 MG tablet Indications: Hyperchylomicronemia Take 1 tablet by mouth once daily 100 tablet 3 08/09/2024 Activesemaglutide 7 mg oral tablet (20 sources)Start: 14-49-8569gvjd 1 tablet by mouth before mealtimesemaglutide (Rybelsus) 7 MG tablet Indications: Impaired fasting glucose Take 1 tablet (7 mg) by mouth in the morning. Take before meals. 90 tablet 06/01/2024 Active Start: 40-37-2165cbsj 1 tablet by mouth before mealtimesemaglutide (Rybelsus) 3 MG tablet Indications: Impaired fasting glucose Take 1 tablet (3 mg) by mouth in the morning. Take before meals. 30 tablet 0 11/10/2022 Activetadalafil 20 mg oral tablet (9 sources)Phosphodiesterase 5 InhibitorStart: 66-24-4214Cwomfl 20 mg Tab 20 mg = 1 tab(s), Oral, As Directed, Take one to two hours prior to sexual activity. Do NOT exceed 20 mg (1 tab) in 24 hours., # 30 tab(s), Refills(s) 3, Pharmacy: [facility], 177, cm, 09/05/24 14:38:00 EDT, Height/Length Dosing, 131.1, kg, 09/05/24 14:38:00 EDT, Weight Dosing Start Date: 09/05/24 Status: Ordered Quantity: 30.0 Unit: tab(s) Repeat number: 4Start: 78-99-4548hfer 1 tablet by mouth every twenty-four hours as neededCialis 20 MG tablet Take 20 mg by mouth Daily as needed for erectile dysfunction 09/05/2024 Activetamsulosin hydrochloride 0.4 mg oral capsule (2 sources)alpha-Adrenergic Blockertake 1 capsule by mouth once dailytamsulosin (Flomax) 0.4 MG 24 hr capsule Take 1 capsule by mouth 1 (one) time each day at the same time. 0 Activevits A,C,E/lutein/minerals (OCUVITE WITH LUTEIN ORAL) (20 sources)Start: 57-15-5108sxrr A,C,E/lutein/minerals (OCUVITE WITH LUTEIN ORAL) Take by mouth. 01/13/2024 Active Completed/Discontinued Medications MedicationDrug Class(es)DatesSig (Normalized)Sig (Original)[id number] 200 actuat albuterol 0.09 mg/actuat metered dose inhaler (6 sources)beta2-Adrenergic AgonistStart: 05-18-2024 End: 65-69-4336ujtb 2 puff(s) by inhalation every four hours for wheezing albuterol HFA 90 mcg/act inhaler Indications: Acute bronchitis, unspecified organism Inhale 2 puffsevery 4 (four) hours if needed for wheezing or shortness of breath for up to 10 days 18 g 05/18/2024 11/01/2024 Discontinued (Therapy completed)apixaban 5 mg oral tablet (7 sources)Factor Xa InhibitorStart: 11-01-2024 End: 41-34-2760obim 1 tablet by mouth in the morningapixaban (Eliquis) 5 MG tablet Indications: Atrial fibrillation, unspecified type (HCC) Take 1 tablet (5 mg) by mouth in the morning and 1 tablet (5 mg) before bedtime. 60 tablet 2 11/01/2024 01/17/2025 Discontinued (Therapy completed)aspirin 81 mg delayed release oral tablet (6 sources)Platelet Aggregation Inhibitor, Nonsteroidal Anti-inflammatory Drug Start: 23-96-5172hffp 1 tablet by mouth once dailyAspirin 81 MG Oral Tablet Delayed Release TAKE 1 TABLET DAILY. Quantity: 90 Refills: 3 Ordered: 2022 Adalberto Wong MD Start : 10-Jul-2022 Active new startazithromycin 250 mg oral tablet (6 sources)Macrolide AntimicrobialStart: 05-18-2024 End: 93-97-6987kufwwdgkyccy (Zithromax) 250 MG tablet Indications: Acute bronchitis, unspecified organism 2 tabs x1 day, then 1 tab x 4 days 6 tablet 05/18/2024 11/01/2024 Discontinued (Therapy completed)benzonatate 200 mg oral capsule (2 sources)Non-narcotic AntitussiveStart: 05-18-2024 End: 11-09-9367djrl 1 capsule by mouth in the morning, then take 1 capsule by mouth in the evening, then take 1 capsule by mouth at bedtimebenzonatate (Tessalon) 200 MG capsule Indications: Acute bronchitis, unspecified organism Take 1 capsule (200 mg) by mouth in the morning and 1 capsule (200 mg) in the evening and 1 capsule (200 mg) before bedtime. Do all this for 10 days. Do not crush or chew.. 20 capsule 05/18/2024 05/28/2024 ExpiredEye Vitamins CAPS (1 source)Eye Vitamins CAPS TAKE DIRECTED. Quantity: 0 Refills: 0 Ordered: 10-Jul-2022 DO Activefamciclovir 500 mg oral tablet (7 sources)Herpes Simplex Virus Nucleoside Analog DNA Polymerase InhibitorStart: 06-20-2024 End: 55-42-0088vvgk 1 tablet by mouth three times dailyfamciclovir (FAMVIR) 500 mg tablet Take 1 tablet by mouth three times a day. 15 tablet 5 06/20/2024 07/14/2024 Discontinued (Course of therapy completed)hydroCHLOROthiazide 25 mg / lisinopril 20 mg oral tablet (20 sources)Thiazide Diuretic, Angiotensin Converting Enzyme InhibitorStart: 12-19-2024 End: 41-64-1208rnhs 1 tablet by mouth in the morninglisinopril- hydroCHLOROthiazide 20-25 MG tablet Indications: Primary hypertension TAKE 1 TABLET BY MOUTH IN THE MORNING 100 tablet 12/19/2024 01/17/2025 Discontinued (Dose adjustment)Start: 11-07-2024 End: 27-33-4505roic 1 tablet by mouth once dailylisinopril-hydroCHLOROthiazide 10-12.5 MG tablet Take 1 tablet by mouth Daily 11/07/2024 ActiveStart: 53-86-1926hjfmbtkwsiqfczwzxfb-lisinopril 25 mg-20 mg Tab 1 tab(s), Refill(s) 0 Start Date: 03/14/24 Status: Ordered Repeat number: 1Start: 92-53-1308sgte 1 tablet by mouth in the morninglisinopril-hydroCHLOROthiazide 20-25 MG tablet Indications: Primary hypertension (CMS/HCC) TAKE 1 TABLET BY MOUTH IN THE MORNING 100 tablet 3 11/18/2023 ActiveStart: 67-72-4394gaiu 1 tablet by mouth in the morninglisinopril-hydroCHLOROthiazide 20-25 MG tablet Indications: Primary hypertension (CMS/HCC) Take 1 tablet by mouth in the morning. 100 tablet 3 10/13/2022 ActiveStart: 56-18-0863pgci 1 tablet by mouth once dailylisinopril- hydroCHLOROthiazide 20-25 MG tablet Indications: Primary hypertension Take 1 tablet by mouth Daily 100 tablet 3 12/17/2023 Activetake 1 tablet by mouth once dailyLisinopril-hydroCHLOROthiazide 20-12.5 MG Oral Tablet TAKE 1 TABLET DAILY. Quantity: 90 Refills: 3 Ordered: 10-Jul-2022 DO ActivemethylPREDNISolone (2 sources)CorticosteroidStart: 05-18-2024 End: 54-86-7559qreqxdMBPRGFXcsqtu (Medrol Dospak) 4 MG tablets Indications: Acute bronchitis, unspecified organismFollow schedule on package instructions 21 tablet 05/18/2024 05/25/2024 Expiredperflutren protein A microsphere (Optison) injection 0.5 mL (1 source)Start: 12-01-2024 End: 50.5 mL, intravenous, Once, On Gia 12/01/24 at 1415, For 1 dose solifenacin succinate 10 mg oral tablet (2 sources)Cholinergic Muscarinic AntagonistStart: 48-58-3957vqsowwrdwwc 10 mg Tab 7 EA, 0 Refill(s), TAKE 1 TABLET BY MOUTH ONCE DAILY, Refills(s) 0 Start Date: 02/09/24 Status: Ordered Problems Active Problems Problem ClassificationProblemDateDocumented DateEpisodic/ChronicAcute bronchitis (2 sources)Acute bronchitis; Translations: [Acute bronchitis, unspecified] 74-66-9299KixhifkiRbouujkklvujkf/social admission (2 sources)Patient encounter status; Translations: [Other specified counseling] 09-33-5186IblyncjmBjshoh of prostate (20 sources)Malignant neoplasm of prostate; Translations: [Malignant tumor of prostate]Onset: 77-50-6886IconppkUchbhag dysrhythmias (20 sources)Premature atrial contraction; Translations: [Supraventricular premature beats]Onset: 498798-41-0254BaffufcWgrqwhw dysrhythmias (13 sources)Palpitations; Translations: [Palpitations]Onset: 11-07-2024 38-71-5212VtjndcizDmtrhnhddw associated with dizziness or vertigo (2 sources)Dizziness; Translations: [Dizziness and giddiness]24-80-7571Hptyhenp Conduction disorders (13 sources)EKG: right bundle branch block; Translations: [Right bundle branch block]Onset: 575493-31-3388ZgtfyxcFrvwqrgu mellitus with complications (20 sources)Type 2 diabetes mellitus; Translations: [Type 2 diabetes mellitus with other specified complication]Onset: 085787-85-8125GiphdiuKidisgucy of lipid metabolism (20 sources)Hyperlipidemia; Translations: [Other and unspecified hyperlipidemia] Onset: 416015-14-4494JugsypzPmuunpshkspaff and diverticulitis (20 sources)Diverticulosis of colon; Translations: [Diverticulosis of large intestine without perforation or abscess without bleeding]Onset: 11-08-2022 Resolved: 107017-57-5965SbqfhbeOevacpocf hypertension (20 sources)Essential (primary) hypertension; Translations: [Hypertensive disorder]Onset: 811905-36-9614PbtcoqpSgrm and other crystal arthropathies (20 sources)Gout; Translations: [Primary chronic gout without tophus of ankle and/or foot]Onset: 356820-09-5780JzsussvRewsonap; including migraine (13 sources)Iinyzynn86-44-9422YzxqyxmlUgovd valve disorders (1 source)Nonrheumatic mitral (valve) insufficiency; Translations: [NONRHEUMATIC MITRAL INSUFFICIENCY]Onset: 02-48-6455OdhwdtxSysvopoacqogq and screening for infectious disease (5 sources)Encounter for immunization; Translations: [Patient encounter status] Onset: 835191-92-9833VrbmdigwMqmddrrfvapl conditions of male genital organs (13 sources)Prostatitis; Translations: [Inflammatory disease of prostate, unspecified]Onset: 512318-96-7343HkekemmxVaghuqwavor chest pain (8 sources)Chest pain, unspecified; Translations: [Atypical chest pain]Onset: 33-60-5346CegzsogdEgmprdfbdfgfuu (20 sources)Idiopathic osteoarthritis; Translations: [Primary osteoarthritis, unspecified site]Onset: 040550-90-5361OsalbvpIymqq circulatory disease (1 source)H/O: rheumatic fever; Translations: [Personal history of other infectious and parasitic diseases]EpisodicOther circulatory disease (10 sources)Orthostatic hypotension; Translations: [Orthostatic hypotension] Onset: 893194-53-1945HkppkngoVfmsz circulatory disease (1 source)Orthostatic hypotension; Translations: [Orthostatic hypotension]Onset: 79-87-5429LlabkdcfOejpv congenital anomalies (20 sources)Congenital spondylolisthesis; Translations: [Spondylolisthesis] Onset: 085619-75-2370FjjjqncYwvmj connective tissue disease (2 sources)Pain in unspecified lower leg; Translations: [Pain in unspecified lower leg]Onset: 82-89-2903GkoumpnaVjmhr connective tissue disease (1 source)Pain in left lower leg; Translations: [Pain in left lower leg]Onset: 34-73-2564DcjlpcqrKmmxn diseases of bladder and urethra (20 sources)Urethral false passage; Translations: [Urethral false passage]Onset: 31-07-6657WsdexbgdBnirt diseases of kidney and ureters (1 source)Urinary tract obstruction; Translations: [Other obstructive and reflux uropathy]Onset: 80-57-7082LxbgumylDuybh ear and sense organ disorders (20 sources)Hearing loss of right ear; Translations: [Unspecified hearing loss, right ear]Onset: 367435-97-8242RivtdrxCdoae ear and sense organ disorders (1 source)Sensorineural hearing loss, bilateral; Translations: [Sensorineural hearing loss, bilateral]52-48-4458SabicrcKcokw endocrine disorders (20 sources)Male hypogonadism; Translations: [Testicular hypofunction]Onset: 813230-18-4577QldqszjEoipr liver diseases (20 sources)Steatosis of liver; Translations: [Fatty (change of) liver, not elsewhere classified]Onset: 055195-23-8012BohkmkhBgklp male genital disorders (20 sources)Male erectile dysfunction, unspecified; Translations: [Erectile dysfunction]Onset: 80-47-5639OvqazanQuglh male genital disorders (1 source)Erectile dysfunction following radiation therapy; Translations: [Erectile dysfunction due to and following radiation therapy]Onset: 09-05-2024 ChronicOther nutritional; endocrine; and metabolic disorders (4 sources)Body mass index 40+ - severely obese; Translations: [Morbid obesity] Onset: 200170-04-8418PhfzhlfCincm nutritional; endocrine; and metabolic disorders (2 sources)Morbid obesity; Translations: [Morbid (severe) obesity due to excess calories]Onset: 067075-89-7674JdwyezvImjko nutritional; endocrine; and metabolic disorders (2 sources)Morbid (severe) obesity due to excess calories; Translations: [Morbid (severe) obesity due to excess calories (Multi)]Onset: 79-42-6935UqwedbzBlmdm nutritional; endocrine; and metabolic disorders (6 sources)Severe obesity; Translations: [Class 3 severe obesity due to excess calories with serious comorbidity and body mass index (BMI) of 40.0 to 44.9 in adult]Onset: 906054-19-7727FoofygdGicvy screening for suspected conditions (not mental disorders or infectious disease) (20 sources)Raised prostate specific antigen; Translations: [Elevated prostate specific antigen [PSA]]Onset: 76-62-0066NtjnfrgkDvven upper respiratory disease (20 sources)Allergic rhinitis; Translations: [Allergic rhinitis, unspecified] Onset: 512290-45-7900QsfaejnXhuwb upper respiratory disease (2 sources)Allergic rhinitis due to pollen; Translations: [Allergic rhinitis due to pollen]88-92-5193LyuramrXbjjkfdp codes; unclassified (7 sources)Obstructive sleep apnea syndrome; Translations: [Obstructive sleep apnea (adult)(pediatric)]Onset: 891896-23-7931WnecjjfRvjphxsi codes; unclassified (20 sources)Sleep apnea; Translations: [Sleep apnea, unspecified]Onset: 723100-48-4506AzigdjcEvjwruhe codes; unclassified (4 sources)Obstructive sleep apnea (adult) (pediatric); Translations: [Obstructive sleep apnea (adult) (pediatric)]Onset: 53-99-5154TtgceglWayrskve codes; unclassified (3 sources)Never smoked tobacco; Translations: [Other specified health status] Onset: 954873-05-3845UhyomtunZeusxchb codes; unclassified (2 sources)Other specified health status; Translations: [Other specified health status]Onset: 04-40-5823TvxwfnquKcyexmyjx and history of mental health and substance abuse codes (1 source)Ex-smoker; Translations: [Personal history of tobacco use]Episodic Comment on above:20+ years ago;Spondylosis; intervertebral disc disorders; other back problems (20 sources)Inflammation of sacroiliac joint; Translations: [Sacroiliitis, not elsewhere classified]Onset: 825195-66-4816XckzzfwZsimqeitdlxd (2 sources)Localized edema; Translations: [Localized edema]Onset: 01-11-2018 EpisodicUnclassified (13 sources)Finding of sensation of pgublwe59-96-5811 Past or Other Problems Problem ClassificationProblemDateDocumented DateEpisodic/ChronicAbdominal pain (20 sources)Left lower quadrant pain; Translations: [Left lower quadrant pain] Onset: 11-10-2022 Resolved: 766477-82-5293NxmezwdvWneregtx reactions (20 sources)Eczema; Translations: [Dermatitis, unspecified]Onset: 12-02-2022 62-97-6720QnifpdbrRclhkzp tract disease (20 sources)Biliary calculus; Translations: [Calculus of gallbladder with chronic cholecystitis without obstruction]Onset: 12-18-2022 Resolved: 690279-16-1722IcmnfuhrJwrtlha on above:Problem List clean-up per request of Phys. EHR CmteDiabetes mellitus without complication (20 sources)Impaired fasting glycemia; Translations: [Impaired fasting glucose] Onset: 11-08-2022 Resolved: 778523-78-7321JulxikecVpofguckjxniqygk hemorrhage (20 sources)Blood-tinged feces; Translations: [Melena]Onset: 11-10-2022 Resolved: 934314-14-2232BwnwmocvBngwafwuoktam symptoms and ill-defined conditions (20 sources)Sensation as if bladder still full; Translations: [Feeling of incomplete bladder emptying]Onset: 32-37-7940EcclnpaiYmgypzzfmkj of prostate (20 sources)Benign prostatic hypertrophy with outflow obstruction; Translations: [Benign prostatic hyperplasia with lower urinary tract symptoms]Onset: 06-25-2022 Resolved: 22-79-1331IaxvyqgFabk disorders (2 sources)Mood disordersOnset: Other aftercare (2 sources)Drug therapy finding; 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]Onset: 11-07-2024 Resolved: 951504-61-6086RvmpmhzoTwgcs ear and sense organ disorders (1 source)Bilateral tinnitus; Translations: [Tinnitus, bilateral]12-02-2023 EpisodicOther nutritional; endocrine; and metabolic disorders (20 sources)Body mass index 30+ - obesity; Translations: [Obesity, unspecified] Onset: 11-08-2022 Resolved: 824243-05-9670JurdgznCpgbf nutritional; endocrine; and metabolic disorders (20 sources)Obesity caused by energy imbalance; Translations: [Morbid (severe) obesity due to excess calories]Onset: 11-08-2022 Resolved: 121501-45-9118ZsasflkPahcjkvtyrvf (2 sources)Onset: Results Test NameValueInterpretationReference RangeFacilityCNOVon 05-47-3646NCHDVksooo Visit (RADTSA) EDWARD DARBY ([id number]) 1950 M Date Time Provider Department 01/12/25 11:00 AM Rey WELLS During your visit today, we recorded the following information about you: Temperature Pulse Respiration Blood pressure 97.3 degrees 54/minute 18/minute 117/80 Weight 129.4 kg Rey Wells MD 01/17/2025 3:58 PM Signed Radiation Oncology - Follow Up Note PATIENT NAME: Edward Darby PATIENT DIAGNOSIS: Prostate adenocarcinoma, initial PSA 9.39, biopsy Rox score 4 + 4 = 8 (grade group 4), clinical stage T1b, N0, M0, stage IIC [T1-T2, N0, M0, PSA <20, GG 4] (AJCC 8th ed.), s/p biopsy. NCCN Risk Group: High Risk Group RADIATION SUMMARY: DATES OF TREATMENT: 05-23-2024 to 06-29-2024 AREA TREATED: Prostate Pelvis DELIVERED DOSE: Area: Prostate Pelvis with daily CBCT Imaging 7000cGy in 28 fractions,3 VMAT Rapid Arc Perez, X10 TOTAL: 7000 cGy in 28 fractions ELAPSED TIME: 37 days. INTERVAL HISTORY: Doing well. No new problems. PSA HISTORY: PSA (ng/mL) Date Value 07/07/2024 0.02 PSA. (no units) Date Value 08/25/2024 <0.1 ALLERGIES Allergen Reactions Bactrim [Sulfametho* Hives, Shortness of Breath bicalutamide (CASODEX) 50 mg tablet Take 1 tablet by mouth once daily. alfuzosin SR (UROXATRAL) 10 mg 24 hr tablet Take 10 mg by mouth. allopurinol (ZYLOPRIM) 100 mg tablet Take 100 mg by mouth two times a day. atorvastatin (LIPITOR) 10 mg tablet daily at bedtime. calcium polycarbophil (FIBERCON) 625 mg tablet Take 1 tablet by mouth every morning. lisinopril-hydroCHLOROthiazide (ZESTORETIC) 20-25 mg per tablet Take 1 tablet by mouth every morning. metoprolol succinate ER (TOPROL XL) 50 mg 24 hr tablet Take 50 mg by mouth once daily. pravastatin (PRAVACHOL) 40 mg tablet Take 40 mg by mouth once daily. semaglutide (RYBELSUS) 7 mg tablet Take 7 mg by mouth. vits A,C,E/lutein/minerals (OCUVITE WITH LUTEIN ORAL) Take by mouth. REVIEW OF SYSTEMS: D/N = 4-6/1-2 Hematuria: none Dysuria: none Incontinence: none Urgency: mild Medications to aid urination: y AUA: 5 Bowel movement frequency: 1/day Bowel movement quality: normal Blood per rectum: none ADT: Currently off PHYSICAL EXAM: Resp 18 Wt 129.4 kg (285 lb 4.4 oz) BMI 42.75 kg/m? KPS: 100 General Appearance: Alert and oriented. No acute distress. ASSESSMENT/PLAN: Prostate adenocarcinoma, initial PSA 9.39, biopsy Rox score 4 + 4 = 8 (grade group 4), clinical stage T1b, N0, M0, stage IIC [T1-T2, N0, M0, PSA <20, GG 4] (AJCC 8th ed.), s/p biopsy. NCCN Risk Group: High Risk Group Doing well. PSA undetectable. Continues follow-up including PSA surveillance with Dr. Downey. No significant postradiation issues. Recommend postradiation follow-up in 6 months. Signed by: Rey Wells MD cc: Jose Angel Villavicencio MD [address] [place] [address] Ana Rosa Murrieta, ALVA 01/17/2025 3:58 PM Signed AUA 5 Ana Rosa Barajas RN Referring Provider: Rey WELLS [[id number]] Allergies As of Date: 01/12/2025 Noted Allergy Reaction BACTRIM (SULFAMETHOXAZOLE-TRIMETH*03/08/2024 4 - Hives 12 - Shortness of Breath Date Reviewed: 01/12/2025 Reviewed by: Ana Rosa Barajas, ALVA - Fully Assessed Reason for Visit: Prostate Cancer [590] Primary Visit Diagnosis:Malignant neoplasm of prostate (HCC) [C61] Order(s):PSA (OUTSIDE) [[id number]] Order #: [id number] Prescriptions as of 01/17/2025 - alfuzosin SR (UROXATRAL) 10 mg 24 hr tablet Take 10 mg by mouth. - allopurinol (ZYLOPRIM) 100 mg tablet Take 100 mg by mouth two times a day. - calcium polycarbophil (FIBERCON) 625 mg tablet Take 1 tablet by mouth every morning. - lisinopril-hydroCHLOROthiazide (ZESTORETIC) 10-12.5 mg per tablet Take 1 tablet by mouth every morning. - metoprolol succinate ER (TOPROL XL) 50 mg 24 hr tablet Take 50 mg by mouth once daily. - pravastatin (PRAVACHOL) 40 mg tablet Take 40 mg by mouth once daily. - semaglutide (RYBELSUS) 7 mg tablet Take 7 mg by mouth. - vits A,C,E/lutein/minerals (OCUVITE WITH LUTEIN ORAL) Take by mouth. Problem List As Of Date: 01/12/2025 (None) Medications Discontinued During This Encounter Prescriptions - bicalutamide (CASODEX) 50 mg tablet (Discontinued) Take 1 tablet by mouth once daily. - atorvastatin (LIPITOR) 10 mg tablet (Discontinued) daily at bedtime. Level of Service: OFFICE/OUTPATIENT ESTABLISHED LOW [facility] 20 MIN [94074] Additional E/M codes: VISIT CPLX INHERENT EANDM ASSOC WITH MED * Disposition: Return in about 6 months (around 07/13/2025). Follow-up and Disposition History for Encounter Date Provider Department Center 01/12/2025 [id number] WELLS Encounter Status:Closed by Rey WELLS on 01/17/25[facility] [id number] (POPEYE) EDWARD DARBY ([id number]) 1950 M Date Time Provider Department 01/11/25 Rey WELLS During your visit today, we recorded the following information about you: Ana Rosa Barajas RN 01/11/2025 9:02 AM Signed Pt was last seen June 2024. He then had PSA per Dr Downey in July. 08/25/24 PSA <0.1 Do you want PSA repeated for tomorrow's visit? Please advise. Ana Rosa Barajas RN Allergies As of Date: 01/11/2025 Noted Allergy Reaction BACTRIM (SULFAMETHOXAZOLE-TRIMETH*03/08/2024 4 - Hives 12 - Shortness of Breath Date Reviewed: 07/14/2024 Reviewed by: Ankur Winston RN - Fully Assessed Reason for Visit: Lab Orders [0908] Patient Question [1297] Cmt: PSA needed? Prescriptions as of 01/12/2025 - bicalutamide (CASODEX) 50 mg tablet Take 1 tablet by mouth once daily. - alfuzosin SR (UROXATRAL) 10 mg 24 hr tablet Take 10 mg by mouth. - allopurinol (ZYLOPRIM) 100 mg tablet Take 100 mg by mouth two times a day. - atorvastatin (LIPITOR) 10 mg tablet daily at bedtime. - calcium polycarbophil (FIBERCON) 625 mg tablet Take 1 tablet by mouth every morning. - lisinopril-hydroCHLOROthiazide (ZESTORETIC) 20-25 mg per tablet Take 1 tablet by mouth every morning. - metoprolol succinate ER (TOPROL XL) 50 mg 24 hr tablet Take 50 mg by mouth once daily. - pravastatin (PRAVACHOL) 40 mg tablet Take 40 mg by mouth once daily. - semaglutide (RYBELSUS) 7 mg tablet Take 7 mg by mouth. - vits A,C,E/lutein/minerals (OCUVITE WITH LUTEIN ORAL) Take by mouth. Problem List As Of Date: 01/11/2025 (None) Encounter Status:Closed by ANA ROSA BARAJAS on 01/12/25NoSum[facility] CenterTRANSTHORACIC ECHO (TTE) COMPLETEon 08-26-4517ZYKTJQCPUAMSA ECHO (TTE) COMPLETE[address], [address] [place] [address] TRANSTHORACIC ECHOCARDIOGRAM REPORT Patient Name: EDWARD Huitron Physician: [id number] Ruddy Cabello MD Study Date: 12/01/2024 Ordering Provider: [id number] RUDDY CABELLO MRN/PID: [id number] Fellow: Nurse: Ana Cristina Villalpando RN Date of /Age: 6 1950 Rn Rehab: Amina Trevino RDCS years Gender Assigned at Additional Staff: : Height: 175.26 cm Admit Date: Weight: 128.37 kg Admission Status: Outpatient BSA / BMI: 2.39 m2 / 41.79 Department Location: [facility] Heart kg/m2 [place] Blood Pressure: 118 /70 mmHg Study Type: TRANSTHORACIC ECHO (TTE) COMPLETE Diagnosis/ICD: Essential (primary) hypertension-I10; Abnormal result of other cardiovascular function study-R94.39; Abnormal electrocardiogram [ECG] [EKG]-R94.31; Obstructive sleep apnea (adult) (pediatric)-G47.33 Indication: Prostate Cancer w/Radiation, Morbid Obesity CPT Codes: Echo Complete w Full Doppler-46666 Study Detail: The following Echo studies were performed: 2D, M-Mode, Doppler and color flow. Optison used as a contrast agent for endocardial border definition. Total contrast used for this procedure was 0.5 mL via IV push. PHYSICIAN INTERPRETATION: Left Ventricle: The left ventricular systolic function is normal with a visually estimated ejectionfraction of 60-65%. There are no regional wall motion abnormalities. The left ventricular cavity size is normal. There is mild increased septal and normal posterior left ventricular wall thickness. Spectral Doppler shows a Grade I (impaired relaxation pattern) of left ventricular diastolic filling.Mild LVH. Left Atrium: The left atrial size is mildly dilated. Mildly dilated left atrium. Right Ventricle: The right ventricle is normal in size. There is normal right ventricular global systolic function. Right Atrium: The right atrial size is mildly dilated. Mildly right atrium. Aortic Valve: The aortic valve is trileaflet. The aortic valve area by VTI is 1.90 cm?? with a peakvelocity of 2.09 m/s. The peak and mean gradients are 17 mmHg and 11 mmHg, respectively, with a dimensionless index of 0.46. There is no evidence of aortic valve regurgitation. Mitral Valve: The mitral valve is normal in structure. The doppler estimated peak and mean diastolic gradients are 7 mmHg and 3 mmHg, respectively. There is trace mitral valve regurgitation. The E Vmax is 0.97 m/s. Tricuspid Valve: The tricuspid valve is structurally normal. There is trace tricuspid regurgitation. The Doppler estimated right ventricular systolic pressure (RVSP) is within normal limits at 23 mmHg. Pulmonic Valve: The pulmonic valve is structurally normal. There is no indication of pulmonic valveregurgitation. Pericardium: No pericardial effusion noted. Aorta: The aortic root is normal. CONCLUSIONS: 1. The left ventricular systolic function is normal with a visually estimated ejection fraction of 60-65%. 2. Spectral Doppler shows a Grade I (impaired relaxation pattern) of left ventricular diastolic filling. 3. Mild LVH. 4. There is normal right ventricular global systolic function. 5. Mildly dilated left atrium. 6. Mildly right atrium. 7. The Doppler estimated RVSP is within normal limits at 23 mmHg. 8. No significant changes noted compared to previous study. QUANTITATIVE DATA SUMMARY: 2D MEASUREMENTS: Normal Ranges: Ao Root d: 4.00 cm (2.0-3.7cm) LAs: 4.40 cm (2.7-4.0cm) RVIDd: 4.28 cm (0.9-3.6cm) IVSd: 1.19 cm (0.6-1.1cm) LVPWd: 1.02 cm (0.6-1.1cm) LVIDd: 5.41 cm (3.9-5.9cm) LVIDs: 4.02 cm LV Mass Index: 99.0 g/m2 LVEDV Index: 62.50 ml/m2 LV % FS 25.7 % AORTA MEASUREMENTS: Normal Ranges: Asc Ao, d: 3.60 cm (2.1-3.4cm) LV SYSTOLIC FUNCTION: Normal Ranges: EF-A4C View: 70 % (>=55%) EF-A2C View: 53 % EF-Biplane: 60 % EF-Visual: 63 % LV EF Reported: 63 % LV DIASTOLIC FUNCTION: Normal Ranges: MV Peak E: 0.97 m/s (0.7-1.2 m/s) MV Peak A: 1.19 m/s (0.42-0.7 m/s) E/A Ratio: 0.81 (1.0-2.2) MV e' 0.063 m/s (>8.0) MV lateral e' 0.06 m/s MV medial e' 0.07 m/s E/e' Ratio: 15.37 (<8.0) MITRAL VALVE: Normal Ranges: MV Vmax: 1.33 m/s (<=1.3m/s) MV peak P.1 mmHg (<5mmHg) MV mean P.0 mmHg (<48mmHg) MITRAL INSUFFICIENCY: Normal Ranges: MR Vmax: 379.00 cm/s AORTIC VALVE: Normal Ranges: AoV Vmax: 2.09 m/s (<=1.7m/s) AoV Peak P.5 mmHg (<20mmHg) AoV Mean P.0 mmHg (1.7-11.5mmHg) LVOT Max Lloyd: 1.08 m/s (<=1.1m/s) AoV VTI: 47.70 cm (18-25cm) LVOT VTI: 21.80 cm LVOT Diameter: 2.30 cm (1.8-2.4cm) AoV Area, VTI: 1.90 cm2 (2.5-5.5cm2) AoV Area,Vmax: 2.15 cm2 (2.5-4.5cm2) AoV Dimensionless Index: 0.46 TRICUSPID VALVE/RVSP: Normal Ranges: Peak TR Velocity: 1.93 m/s Est. RA Pressure: 8 mmHg RV Syst Pressure: 23 mmHg (< 30mmHg) IVC Diam: 2.40 cm PULMONIC VALVE: Normal Ranges: RVOT Vmax: 0.96 m (more content not included)...[facility] completeon 12-[facility]-[address], [address] [place] [address] TRANSTHORACIC ECHOCARDIOGRAM REPORT Patient Name: EDWARD Huitron Physician: Dk Cabello MD Study Date: 12/01/2024 Ordering Provider: Dk CABELLO MRN/PID: [id number] Fellow: Nurse: Ana Cristina Villalpando RN Date of /Age: 8 1950 Rn Rehab: Amina Trevino RDCS years Gender Assigned at M Additional Staff: : Height: 175.26 cm Admit Date: Weight: 128.37 kg Admission Status: Outpatient BSA / BMI: 2.39 m2 / 41.79 Department Location: [facility] Heart kg/m2 [place] Blood Pressure: 118 /70 mmHg Study Type: TRANSTHORACIC ECHO (TTE) COMPLETE Diagnosis/ICD: Essential (primary) hypertension-I10; Abnormal result of other cardiovascular function study-R94.39; Abnormal electrocardiogram [ECG] [EKG]-R94.31; Obstructive sleep apnea (adult) (pediatric)-G47.33 Indication: Prostate Cancer w/Radiation, Morbid Obesity CPT Codes: Echo Complete w Full Doppler-72878 Study Detail: The following Echo studies were performed: 2D, M-Mode, Doppler and color flow. Optison used as a contrast agent for endocardial border definition. Total contrast used for this procedure was 0.5 mL via IV push. PHYSICIAN INTERPRETATION: Left Ventricle: The left ventricular systolic function is normal with a visually estimated ejectionfraction of 60-65%. There are no regional wall motion abnormalities. The left ventricular cavity size is normal. There is mild increased septal and normal posterior left ventricular wall thickness. Spectral Doppler shows a Grade I (impaired relaxation pattern) of left ventricular diastolic filling.Mild LVH. Left Atrium: The left atrial size is mildly dilated. Mildly dilated left atrium. Right Ventricle: The right ventricle is normal in size. There is normal right ventricular global systolic function. Right Atrium: The right atrial size is mildly dilated. Mildly right atrium. Aortic Valve: The aortic valve is trileaflet. The aortic valve area by VTI is 1.90 cm?? with a peakvelocity of 2.09 m/s. The peak and mean gradients are 17 mmHg and 11 mmHg, respectively, with a dimensionless index of 0.46. There is no evidence of aortic valve regurgitation. Mitral Valve: The mitral valve is normal in structure. The doppler estimated peak and mean diastolic gradients are 7 mmHg and 3 mmHg, respectively. There is trace mitral valve regurgitation. The E Vmax is 0.97 m/s. Tricuspid Valve: The tricuspid valve is structurally normal. There is trace tricuspid regurgitation. The Doppler estimated right ventricular systolic pressure (RVSP) is within normal limits at 23 mmHg. Pulmonic Valve: The pulmonic valve is structurally normal. There is no indication of pulmonic valveregurgitation. Pericardium: No pericardial effusion noted. Aorta: The aortic root is normal. CONCLUSIONS: 1. The left ventricular systolic function is normal with a visually estimated ejection fraction of 60-65%. 2. Spectral Doppler shows a Grade I (impaired relaxation pattern) of left ventricular diastolic filling. 3. Mild LVH. 4. There is normal right ventricular global systolic function. 5. Mildly dilated left atrium. 6. Mildly right atrium. 7. The Doppler estimated RVSP is within normal limits at 23 mmHg. 8. No significant changes noted compared to previous study. QUANTITATIVE DATA SUMMARY: 2D MEASUREMENTS: Normal Ranges: Ao Root d: 4.00 cm (2.0-3.7cm) LAs: 4.40 cm (2.7-4.0cm) RVIDd: 4.28 cm (0.9-3.6cm) IVSd: 1.19 cm (0.6-1.1cm) LVPWd: 1.02 cm (0.6-1.1cm) LVIDd: 5.41 cm (3.9-5.9cm) LVIDs: 4.02 cm LV Mass Index: 99.0 g/m2 LVEDV Index: 62.50 ml/m2 LV % FS 25.7 % AORTA MEASUREMENTS: Normal Ranges: Asc Ao, d: 3.60 cm (2.1-3.4cm) LV SYSTOLIC FUNCTION: Normal Ranges: EF-A4C View: 70 % (>=55%) EF-A2C View: 53 % EF-Biplane: 60 % EF-Visual: 63 % LV EF Reported: 63 % LV DIASTOLIC FUNCTION: Normal Ranges: MV Peak E: 0.97 m/s (0.7-1.2 m/s) MV Peak A: 1.19 m/s (0.42-0.7 m/s) E/A Ratio: 0.81 (1.0-2.2) MV e' 0.063 m/s (>8.0) MV lateral e' 0.06 m/s MV medial e' 0.07 m/s E/e' Ratio: 15. (more content not included)...Radiology, Radiologist, - 12/01/[address], [address], [place] [address] TRANSTHORACIC ECHOCARDIOGRAM REPORT Patient Name: EDWARD DARBY Tomy Physician: [id number] Cabello MD Study Date: 12/01/2024 Ordering Provider: [id number] RUDDY CABELLO MRN/PID: [id number] Fellow: Nurse: Ana Cristina Villalpando RN Date of /Age: 6 1950 Rn Rehab: Amina Trevino RDCS years Gender Assigned at M Additional Staff: : Height: 175.26 cm Admit Date: Weight: 128.37 kg Admission Status: Outpatient BSA / BMI: 2.39 m2 / 41.79 Department Location: [facility] kg/m2 [place] Blood Pressure: 118 /70 mmHg Study Type: TRANSTHORACIC ECHO (TTE) COMPLETE Diagnosis/ICD: Essential (primary) hypertension-I10; Abnormal result of other cardiovascular function study-R94.39; Abnormal electrocardiogram [ECG] [EKG]-R94.31; Obstructive sleep apnea (adult) (pediatric)-G47.33 Indication: Prostate Cancer w/Radiation, Morbid Obesity CPT Codes: Echo Complete w Full Doppler-25527 Study Detail: The following Echo studies were performed: 2D, M-Mode, Doppler and color flow. Optison used as a contrast agent for endocardial border definition. Total contrast used for this procedure was 0.5 mL via IV push. PHYSICIAN INTERPRETATION: Left Ventricle: The left ventricular systolic function is normal with a visually estimated ejectionfraction of 60-65%. There are no regional wall motion abnormalities. The left ventricular cavity size is normal. There is mild increased septal and normal posterior left ventricular wall thickness. Spectral Doppler shows a Grade I (impaired relaxation pattern) of left ventricular diastolic filling.Mild LVH. Left Atrium: The left atrial size is mildly dilated. Mildly dilated left atrium. Right Ventricle: The right ventricle is normal in size. There is normal right ventricular global systolic function. Right Atrium: The right atrial size is mildly dilated. Mildly right atrium. Aortic Valve: The aortic valve is trileaflet. The aortic valve area by VTI is 1.90 cm?? with a peakvelocity of 2.09 m/s. The peak and mean gradients are 17 mmHg and 11 mmHg, respectively, with a dimensionless index of 0.46. There is no evidence of aortic valve regurgitation. Mitral Valve: The mitral valve is normal in structure. The doppler estimated peak and mean diastolic gradients are 7 mmHg and 3 mmHg, respectively. There is trace mitral valve regurgitation. The E Vmax is 0.97 m/s. Tricuspid Valve: The tricuspid valve is structurally normal. There is trace tricuspid regurgitation. The Doppler estimated right ventricular systolic pressure (RVSP) is within normal limits at 23 mmHg. Pulmonic Valve: The pulmonic valve is structurally normal. There is no indication of pulmonic valveregurgitation. Pericardium: No pericardial effusion noted. Aorta: The aortic root is normal. CONCLUSIONS: 1. The left ventricular systolic function is normal with a visually estimated ejection fraction of 60-65%. 2. Spectral Doppler shows a Grade I (impaired relaxation pattern) of left ventricular diastolic filling. 3. Mild LVH. 4. There is normal right ventricular global systolic function. 5. Mildly dilated left atrium. 6. Mildly right atrium. 7. The Doppler estimated RVSP is within normal limits at 23 mmHg. 8. No significant changes noted compared to previous study. QUANTITATIVE DATA SUMMARY: 2D MEASUREMENTS: Normal Ranges: Ao Root d: 4.00 cm (2.0-3.7cm) LAs: 4.40 cm (2.7-4.0cm) RVIDd: 4.28 cm (0.9-3.6cm) IVSd: 1.19 cm (0.6-1.1cm) LVPWd: 1.02 cm (0.6-1.1cm) LVIDd: 5.41 cm (3.9-5.9cm) LVIDs: 4.02 cm LV Mass Index: 99.0 g/m2 LVEDV Index: 62.50 ml/m2 LV % FS 25.7 % AORTA MEASUREMENTS: Normal Ranges: Asc Ao, d: 3.60 cm (2.1-3.4cm) LV SYSTOLIC FUNCTION: Normal Ranges: EF-A4C View: 70 % (>=55%) EF-A2C View: 53 % EF-Biplane: 60 % EF-Visual: 63 % LV EF Reported: 63 % LV DIASTOLIC FUNCTION: Normal Ranges: MV Peak E: 0.97 m/s (0.7-1.2 m/s) MV Peak A: 1.19 m/s (0.42-0.7 m/s) E/A Ratio: 0.81 (1.0-2.2) MV e' 0.063 m/s (>8.0) MV lateral e' 0.06 m/s MV medial e' 0.07 m/s E/e' Ratio: 15.37 (<8.0) MITRAL VALVE: Normal Ranges: MV Vmax: 1.33 m/s (<=1.3m/s) MV peak P.1 mmHg (<5mmHg) MV mean P.0 mmHg (<48mmHg) MITRAL INSUFFICIENCY: Normal Ranges: MR Vmax: 379.00 cm/s AORTIC VALVE: Normal Ranges: AoV Vmax: 2.09 m/s (<=1.7m/s) AoV Peak P.5 mmHg (<20mmHg) AoV Mean P.0 mmHg (1.7-11.5mmHg) LVOT Max Lloyd: 1.08 m/s (<=1.1m/s) AoV VTI: 47.70 cm (18-25cm) LVOT VTI: 21.80 cm LVOT Diameter: 2.30 cm (1.8-2.4cm) AoV Area, VTI: 1.90 cm2 (2.5-5.5cm2) AoV Area,Vmax: 2.15 cm2 (2.5-4.5cm2) AoV Dimensionless Index: 0.46 TRICUSPID VALVE/RVSP: Normal Ranges: Peak TR Velocity: 1.93 m/s Est. RA Pressure (more content not included)...[facility] HealthcareRadiology Study observation (narrative)[facility] HospitalTransthoracic echo (TTE) completeOrdered By: Radiologist Radiology on [id number] [employer] Work Phone: US Heart Transthoracicon [phone] Valve Area by Continuity of Peak Velocity2.15 vo6QydwsvyoiuOhioHealth Nelsonville Health Center Work Phone: aortic Valve Area by Continuity of VTI1.90 cm2 [facility] Work Phone: aV mn zjdp89mmZoKbrbcvjcaaUniversity Hospitals St. [facility] Work Phone: aV pk alqd74twFvTgfoizwppgUniversity Hospitals St. [facility] Work Phone: [phone] pk vel2.09 m/[facility] Work Phone: [phone] A4C EF69.9[facility] Work Phone: [phone] Biplane EF60 %[facility] Work Phone: [phone] EF63 %[facility] Work Phone: [phone] cmOhioHealth Nelsonville Health Center Work Phone: [phone] diam2.[address] [facility] Work Phone: [phone] avg E/e' ratio16.30[facility] Work Phone: [phone] E/A ratio0.81[facility] Work Phone: [phone]hioHealth [facility]ville [facility] Center Work Phone: CONCLUSIONS: 1. The left ventricular systolic function is normal with a visually estimated ejection fraction of 60-65%. 2. Spectral Doppler shows a Grade I (impaired relaxation pattern) of left ventricular diastolic filling. 3. Mild LVH. 4. There is normal right ventricular global systolic function. 5. Mildly dilated left atrium. 6. Mildly right atrium. 7. The Doppler estimated RVSP is within normal limits at 23 mmHg. 8. No significant changes noted compared to previous study.[address], [address] [place] [address] TRANSTHORACIC ECHOCARDIOGRAM REPORT Patient Name: EDWARD DARBY Tomy Physician: [id number] Cabello MD Study Date: 12/01/2024 Ordering Provider: [id number] CABELLO MRN/PID: [id number] Fellow: Nurse: Ana Cristina Villalpando RN Date of /Age: 6 1950 Rn Rehab: Amina Trevino RDCS years Gender Assigned at Additional Staff: : Height: 175.26 cm Admit Date: Weight: 128.37 kg Admission Status: Outpatient BSA / BMI: 2.39 m2 / 41.79 Department Location: [facility] Heart kg/m2 [place] Blood Pressure: 118 /70 mmHg Study Type: TRANSTHORACIC ECHO (TTE) COMPLETE Diagnosis/ICD: Essential (primary) hypertension-I10; Abnormal result of other cardiovascular function study-R94.39; Abnormal electrocardiogram [ECG] [EKG]-R94.31; Obstructive sleep apnea (adult) (pediatric)-G47.33 Indication: Prostate Cancer w/Radiation, Morbid Obesity CPT Codes: Echo Complete w Full Doppler-27809 Study Detail: The following Echo studies were performed: 2D, M-Mode, Doppler and color flow. Optison used as a contrast agent for endocardial border definition. Total contrast used for this procedure was 0.5 mL via IV push. PHYSICIAN INTERPRETATION: Left Ventricle: The left ventricular systolic function is normal with a visually estimated ejectionfraction of 60-65%. There are no regional wall motion abnormalities. The left ventricular cavity size is normal. There is mild increased septal and normal posterior left ventricular wall thickness. Spectral Doppler shows a Grade I (impaired relaxation pattern) of left ventricular diastolic filling.Mild LVH. Left Atrium: The left atrial size is mildly dilated. Mildly dilated left atrium. Right Ventricle: The right ventricle is normal in size. There is normal right ventricular global systolic function. Right Atrium: The right atrial size is mildly dilated. Mildly right atrium. Aortic Valve: The aortic valve is trileaflet. The aortic valve area by VTI is 1.90 cm with a peak velocity of 2.09 m/s. The peak and mean gradients are 17 mmHg and 11 mmHg, respectively, with a dimensionless index of 0.46. There is no evidence of aortic valve regurgitation. Mitral Valve: The mitral valve is normal in structure. The doppler estimated peak and mean diastolic gradients are 7 mmHg and 3 mmHg, respectively. There is trace mitral valve regurgitation. The E Vmax is 0.97 m/s. Tricuspid Valve: The tricuspid valve is structurally normal. There is trace tricuspid regurgitation. The Doppler estimated right ventricular systolic pressure (RVSP) is within normal limits at 23 mmHg. Pulmonic Valve: The pulmonic valve is structurally normal. There is no indication of pulmonic valveregurgitation. Pericardium: No pericardial effusion noted. Aorta: The aortic root is normal. CONCLUSIONS: 1. The left ventricular systolic function is normal with a visually estimated ejection fraction of 60-65%. 2. Spectral Doppler shows a Grade I (impaired relaxation pattern) of left ventricular diastolic filling. 3. Mild LVH. 4. There is normal right ventricular global systolic function. 5. Mildly dilated left atrium. 6. Mildly right atrium. 7. The Doppler estimated RVSP is within normal limits at 23 mmHg. 8. No significant changes noted compared to previous study. QUANTITATIVE DATA SUMMARY: 2D MEASUREMENTS: Normal Ranges: Ao Root d: 4.00 cm (2.0-3.7cm) LAs: 4.40 cm (2.7-4.0cm) RVIDd: 4.28 cm (0.9-3.6cm) IVSd: 1.19 cm (0.6-1.1cm) LVPWd: 1.02 cm (0.6-1.1cm) LVIDd: 5.41 cm (3.9-5.9cm) LVIDs: 4.02 cm LV Mass Index: 99.0 g/m2 LVEDV Index: 62.50 ml/m2 LV % FS 25.7 % AORTA MEASUREMENTS: Normal Ranges: Asc Ao, d: 3.60 cm (2.1-3.4cm) LV SYSTOLIC FUNCTION: Normal Ranges: EF-A4C View: 70 % (>=55%) EF-A2C View: 53 % EF-Biplane: 60 % EF-Visual: 63 % LV EF Reported: 63 % LV DIASTOLIC FUNCTION: Normal Ranges: MV Peak E: 0.97 m/s (0.7-1.2 m/s) MV Peak A: 1.19 m/s (0.42-0.7 m/s) E/A Ratio: 0.81 (1.0-2.2) MV e' 0.063 m/s (>8.0) MV lateral e' 0.06 m/s MV medial e' 0.07 m/s E/e' Ratio: 15.3 (more content not included)...Ruddy Hogan MD - 12/01/[address], [address], [place] [address] TRANSTHORACIC ECHOCARDIOGRAM REPORT Patient Name: EDWARD Huitron Physician: [id number] Ruddy Cabello MD Study Date: 12/01/2024 Ordering Provider: [id number] RUDDY CABELLO MRN/PID: [id number] Fellow: Nurse: Ana Cristina Villalpando RN Date of /Age: 6 1950 Rn Rehab: Amina Trevino RDCS years Gender Assigned at Additional Staff: : Height: 175.26 cm Admit Date: Weight: 128.37 kg Admission Status: Outpatient BSA / BMI: 2.39 m2 / 41.79 Department Location: [facility] Heart kg/m2 [place] Blood Pressure: 118 /70 mmHg Study Type: TRANSTHORACIC ECHO (TTE) COMPLETE Diagnosis/ICD: Essential (primary) hypertension-I10; Abnormal result of other cardiovascular function study-R94.39; Abnormal electrocardiogram [ECG] [EKG]-R94.31; Obstructive sleep apnea (adult) (pediatric)-G47.33 Indication: Prostate Cancer w/Radiation, Morbid Obesity CPT Codes: Echo Complete w Full Doppler-47952 Study Detail: The following Echo studies were performed: 2D, M-Mode, Doppler and color flow. Optison used as a contrast agent for endocardial border definition. Total contrast used for this procedure was 0.5 mL via IV push. PHYSICIAN INTERPRETATION: Left Ventricle: The left ventricular systolic function is normal with a visually estimated ejectionfraction of 60-65%. There are no regional wall motion abnormalities. The left ventricular cavity size is normal. There is mild increased septal and normal posterior left ventricular wall thickness. Spectral Doppler shows a Grade I (impaired relaxation pattern) of left ventricular diastolic filling.Mild LVH. Left Atrium: The left atrial size is mildly dilated. Mildly dilated left atrium. Right Ventricle: The right ventricle is normal in size. There is normal right ventricular global systolic function. Right Atrium: The right atrial size is mildly dilated. Mildly right atrium. Aortic Valve: The aortic valve is trileaflet. The aortic valve area by VTI is 1.90 cm with a peak velocity of 2.09 m/s. The peak and mean gradients are 17 mmHg and 11 mmHg, respectively, with a dimensionless index of 0.46. There is no evidence of aortic valve regurgitation. Mitral Valve: The mitral valve is normal in structure. The doppler estimated peak and mean diastolic gradients are 7 mmHg and 3 mmHg, respectively. There is trace mitral valve regurgitation. The E Vmax is 0.97 m/s. Tricuspid Valve: The tricuspid valve is structurally normal. There is trace tricuspid regurgitation. The Doppler estimated right ventricular systolic pressure (RVSP) is within normal limits at 23 mmHg. Pulmonic Valve: The pulmonic valve is structurally normal. There is no indication of pulmonic valveregurgitation. Pericardium: No pericardial effusion noted. Aorta: The aortic root is normal. CONCLUSIONS: 1. The left ventricular systolic function is normal with a visually estimated ejection fraction of 60-65%. 2. Spectral Doppler shows a Grade I (impaired relaxation pattern) of left ventricular diastolic filling. 3. Mild LVH. 4. There is normal right ventricular global systolic function. 5. Mildly dilated left atrium. 6. Mildly right atrium. 7. The Doppler estimated RVSP is within normal limits at 23 mmHg. 8. No significant changes noted compared to previous study. QUANTITATIVE DATA SUMMARY: 2D MEASUREMENTS: Normal Ranges: Ao Root d: 4.00 cm (2.0-3.7cm) LAs: 4.40 cm (2.7-4.0cm) RVIDd: 4.28 cm (0.9-3.6cm) IVSd: 1.19 cm (0.6-1.1cm) LVPWd: 1.02 cm (0.6-1.1cm) LVIDd: 5.41 cm (3.9-5.9cm) LVIDs: 4.02 cm LV Mass Index: 99.0 g/m2 LVEDV Index: 62.50 ml/m2 LV % FS 25.7 % AORTA MEASUREMENTS: Normal Ranges: Asc Ao, d: 3.60 cm (2.1-3.4cm) LV SYSTOLIC FUNCTION: Normal Ranges: EF-A4C View: 70 % (>=55%) EF-A2C View: 53 % EF-Biplane: 60 % EF-Visual: 63 % LV EF Reported: 63 % LV DIASTOLIC FUNCTION: Normal Ranges: MV Peak E: 0.97 m/s (0.7-1.2 m/s) MV Peak A: 1.19 m/s (0.42-0.7 m/s) E/A Ratio: 0.81 (1.0-2.2) MV e' 0.063 m/s (>8.0) MV lateral e' 0.06 m/s MV medial e' 0.07 m/s E/e' Ratio: 15.37 (<8.0) MITRAL VALVE: Normal Ranges: MV Vmax: 1.33 m/s (<=1.3m/s) MV peak P.1 mmHg (<5mmHg) MV mean P.0 mmHg (<48mmHg) MITRAL INSUFFICIENCY: Normal Ranges: MR Vmax: 379.00 cm/s AORTIC VALVE: Normal Ranges: AoV Vmax: 2.09 m/s (<=1.7m/s) AoV Peak P.5 mmHg (<20mmHg) AoV Mean P.0 mmHg (1.7-11.5mmHg) LVOT Max Lloyd: 1.08 m/s (<=1.1m/s) AoV VTI: 47.70 cm (18-25cm) LVOT VTI: 21.80 cm LVOT Diameter: 2.30 cm (1.8-2.4cm) AoV Area, VTI: 1.90 cm2 (2.5-5.5cm2) AoV Area,Vmax: 2.15 cm2 (2.5-4.5cm2) AoV Dimensionless Index: 0.46 TRICUSPID VALVE/RVSP: Normal Ranges: Peak TR Velocity: 1.93 m/s Est. RA Pressure: 8 (more content not included)...[facility] Work Phone: [facility] Work Phone: ECG 12 Leadon [id number] sinus rhythm with right bundle branch blockCPACSOhioHealth Nelsonville Health Center Work Phone: aLBUMIN, RANDOM URINE W/CREATININEon 11-02-2024 ALBUMIN, URINE3.6 mg/dLNormalSee Note:Quest DiagnosticsComment on above:Result Comment: Reference Range: Reference Range Not establishedPerformed By: #### [id number] #### [facility] [address], [address] [place] [id number] Acid Leveler: Sudarshan Chase MDALBUMIN/CREATININE RATIO, RANDOM URINE32 mg/g creatHigh<30Quest DiagnosticsComment on above:Result Comment: The ADA defines abnormalities in albumin excretion as follows: Albuminuria Category Result (mg/g creatinine) Normal to Mildly increased <30 Moderately increased 30-299 Severely increased > OR = 300 The ADA recommends that at least two of three specimens collected within a 3-6 month period be abnormal before considering a patient to be within a diagnostic category.Performed By: #### 6517 #### [facility] [address], [address] [place] [address] Acid Leveler: Sudarshan SIEGELreatinine (U) [Mass/Vol]111 mg/qNNhruan40-476 [facility] DiagnosticsComment on above:Performed By: #### 6517 #### [facility] [place] [address] Acid Leveler: Sudarshan Chase MDMT. [facility] METABOLIC PANELon 11-02-2024 BUN/CREATININE RATIOSEE NOTE:Normal6-22Quest DiagnosticsComment on above:Result Comment: Not Reported: BUN and Creatinine are within reference range.Performed By: #### 17939, 96865 #### [facility] [place] [address] Acid Leveler: Suadrshan Chase MDCalcium [Mass/Vol]9.5 mg/dLNormal8.6-10.3Quest DiagnosticsComment on above:Performed By: #### 92787, 76680 #### [facility] [place] [address] Acid Leveler: Sudarshan Chase MDChloride [Moles/Vol]98 mmol/GQbiqer03-464Pjeyz DiagnosticsComment on above:Performed By: #### 05418, 43352 #### [facility] [place] [address] Acid Leveler: Sudarshan Chase MDCO2 [Moles/Vol]35 mmol/ALjjb00-17Atpjt DiagnosticsComment on above:Performed By: #### 24941, 49862 #### [facility] [place] [address] [place] [address] Acid Leveler: Sudarshan Chase MDCreatinine [Mass/Vol]0.96 mg/dLNormal0.70-1.28 Quest DiagnosticsComment on above:Performed By: #### 21156, 22014 #### [facility] [address], [address] [place] [address] Acid Leveler: Sudarshan Chase MDGFR/1.73 sq M.predicted among non-blacks MDRD (S/P/Bld) [Vol rate/Area]84 mL/min/{1.73_m2}Normal> OR = 60[facility] Comment on above:Performed By: #### 31851, 44385 #### [facility] [address], [address] [place] [address] Acid Leveler: Sudarshan Chase MDGlucose [Mass/Vol]92 mg/lQUdteeh32-31Nvmbm DiagnosticsComment on above:Result Comment: Fasting reference intervalPerformed By: #### 02414, 33113 #### [facility] of [address], [address] [place] [address] Acid Leveler: Sudarshan Chase MDPotassium [Moles/Vol]3.8 mmol/LNormal3.5-5.3 Quest DiagnosticsComment on above:Performed By: #### 36815, 30891 #### [facility] [place] [address] Acid Leveler: Sudarshan Chase MDSodium [Moles/Vol]140 mmol/DSrjwze181-803Wjcqx DiagnosticsComment on above:Performed By: #### 14352, 05712 #### [facility] of [address], [address] [place] [address] Acid Leveler: Sudarshan Chase MDUrea nitrogen [Mass/Vol]19 mg/dLNormal7-25 Quest DiagnosticsComment on above:Performed By: #### 08767, 66481 #### [facility] [address], [address] [place], [place] [address] Acid Leveler: Sudarshan Chase MDTS W/REFLEX TO FT4on 45-88-8000BTN W/REFLEX TO FT41.88 mIU/LNormal0.40-4.50Quest DiagnosticsComment on above:Performed By: #### 89132, 51232 #### [facility] [address], [address] [place] [address] Acid Leveler: Sudarshan Chase MDLaboratory - Hematology and Cell countson 03-42-7258VrN9o (Bld) [Mass fraction]6.3 %[facility] HealthcareNo Panel Informationon 35-02-3227Zrnqqzccpdwkxg and review of laboratory resultsAbnoNewberry County Memorial Hospital HealthcareAmbulatory Visit Summaryon 40-52-4989Ctemtwcipq Visit Summary Ambulatory Visit Summary EDWARD DARBY :1950 Visit Date:09/05/2024 Ambulatory Visit Instructions Your Diagnosis Prostate cancer BPH with obstruction/lower urinary tract symptoms Erectile dysfunction following radiation therapy Your Care Team Attending Physician - NASREEN CARMONA, Sloan Westfall Primary Care Physician - MAYE CARMONA, JOSE ANGEL Santillan This Is Your Medications List alfuzosin (alfuzosin 10 mg ER Tab) tadalafil (Cialis 20 mg Tab) Contact prescribing physician if questions or concerns allopurinol (allopurinol 100 mg Tab) bicalutamide (bicalutamide 50 mg Tab) hydrochlorothiazide-lisinopril (hydrochlorothiazide-lisinopril 25 mg-20 mg Tab) hydrochlorothiazide-lisinopril (hydrochlorothiazide-lisinopril 25 mg-20 mg Tab) indomethacin (indomethacin 50 mg oral capsule) metoprolol (metoprolol 50 mg ER Tab) multivitamin with minerals (Ocuvite) polycarbophil (Fiber Lax) pravastatin (pravastatin 40 mg Tab) semaglutide (Rybelsus 7 mg oral tablet) Procedures Performed Gallbladder (01/27/2023), Transrectal needle biopsy of prostate (07/09/2022), Cataract extraction and insertion of intraocular lens, Colonoscopy, Procedure on back, Tonsillectomy. Discharge Vitals Temperature (Temporal Artery) 37 ???C Heart Rate (Peripheral) 68 Respiratory Rate 17 Blood Pressure 134/79 Height 177 cm Height 70 in Weight 131.1 kg Weight 289.026 lb BMI 41.85 What to do next Scheduled Follow-Up Appointments Thursday 11:15 AM EST With: Sloan DOWNEY MD Where: [facility] [address] [facility] [place] [address]- You Need to Schedule the Following Appointments Follow Up with Sloan DOWNEY MD, URL When: Where: [facility] [address], [place] [address]- You Need to Complete the Following PSA Total, Blood, Routine collect, 09/05/24, Order for future visit, Lab Collect, Prostate cancer BPH with obstruction/lower urinary tract symptoms, Required & Missing, Print Label By Order Location Medications What How Much When Instructions New tadalafil (Cialis 20 mg Tab) 1 Tablets By Mouth As Directed Refills: 3 Take one to two hours prior to sexual activity. Do NOT exceed 20 mg (1 tab) in 24 hours. Pickup at [facility] 162 Unchanged alfuzosin (alfuzosin 10 mg ER Tab) 1 Tablets By Mouth Every day Duration: 30 Days Unchanged allopurinol (allopurinol 100 mg Tab) By Mouth Contact prescribing physician if questions or concerns Unchanged bicalutamide (bicalutamide 50 mg Tab) 1 Tablets Contact prescribing physician if questions or concerns Unchanged hydrochlorothiazide-lisinopril (hydrochlorothiazide-lisinopril 25 mg- 20 mg Tab) By Mouth Every day Contact prescribing physician if questions or concerns Unchanged hydrochlorothiazide-lisinopril (hydrochlorothiazide-lisinopril 25 mg- 20 mg Tab) 1 TabletsContact prescribing physician if questions or concerns Unchanged indomethacin (indomethacin 50 mg oral capsule) 1 Capsules By Mouth 3 times a day Contact [...] Unchanged semaglutide (Rybelsus 7 mg oral tablet) 7 Milligram By Mouth Every day Contact prescribing physician if questions or concerns Pharmacy Information [facility]: [address] [place], [place] [id number] [phone] Allergies Bactrim (Rash, Tachycardia) Problems Ongoing - Any problem that you are currently receiving treatment for. BPH with obstruction/lower urinary tract symptoms Erectile dysfunction following radiation therapy Feeling of incomplete bladder emptying Gout Head ache Hyperlipidemia Hypertension Morbid obesity with BMI of 40.0-44.9, adult Prostate cancer Urethral false passage Historical - Any problem that you are no longer receiving treatment for. Incomplete bladder emptying Prostatitis Patient Survey You may receive a survey via text or e-mail asking about your office visit. Please share your experience with us by completing your survey. We appreciate your feedback and thank you for choosing us for your care. Education Materials Hormone Suppression Therapy for Prostate Cancer Hormone suppression therapy is a treatment for prostate cancer that can help slow the growth of cancer cells in the prostate gland. It is also called androgen deprivation therapy (ADT) or androgen suppression therapy. Hormone suppression therapy tar (more content not included)...[facility] CenterU[facility] Office/Clinic Noteon 27-06-1546[place] Office/Clinic NoteUrology Office/Clinic Note Chief Complaint 6 months with PSA and Eligard HPI Staff 6 month f/u with PSA and Eligard injection Dx: prostate cancer, BPH with obstruction/LUTS and urethral false passage Alfuzosin 10mg ER qd Bicalutamide d/c 07/14/[address] Wells PSA: 08/25/24 - <0.1 IPSS score today is 7. Nocturia x3. Frequency about half of the time. Pt states he does have some leakage right after urination and also if he has to hold his urine too long. Denies any visible blood or pain of any kind History of Present Illness Tests reviewed: UA, rad onc, PSA I have reviewed the previous health record information and history for this patient from Dr. Downey. I have reviewed and verified the staff [...] See HPI. Physical Exam Vitals & Measurements T: 37 ???C(Temporal Artery) HR: 68(Peripheral) RR: 17 BP: 134/79 HT: 70 in HT: 177 cm WT: 289.026 lb WT: 131.1 kg BMI: 41.85 General Appearance: alert, no distress, well nourished, well developed male. Assessment/Plan Pt accompanied by an elderly female today. 1. Prostate cancer (C61: Malignant neoplasm of prostate) PSA: 09/04/20 - 2.97 05/09/22 - 5.18 completed abx course 06/11/22 - 7.10 & 11% 07/23/22 - started Dutasteride 08/14/23 - completed 3 wk abx course for prostatitis 01/21/23 - 4.60 (9.20) 02/04/23 - stopped Dutasteride 01/11/24 - 9.39 08/25/24 - <0.1 No fam hx of pros ca in father. Unsure if brother had pros ca, passed from dementia. TRUS/bx 07/09/22 - Neg. Prostate volume 55.8 cc. S/p TURP 02/04/24 - G8 (4+4), GG4 x46/100 prostate chips. 35% involvement. Suspicious for lymph invasion. Perineural invasion present. PET scan 03/01/24 - Neg for mets. Per Dr. Wells's note (since I do not have the original report),one prominent L pelvic lymph node but no abnormal uptake (likely reactive after recent procedure can follow with subsequent CT). First Saundra 03/14/24. S/p EBRT 05/23/24 - 06/29/24. No longer taking Bicalutamide 50 mg qd, Dr. Wells stopped this after radiation. Reports sx of fatigue, used to be able to play 18 holes of golf wo issue, now struggles to play 9 holes. This can be from ADT. Since his PSA is undetectable and he reports SEs, can stop Eligard. Will not give dose today and cont PSA monitoring. He reports 10-15 lb weight gain. This is again secondary to ADT. He attempts to exercise but becomes fatigued. Follow up 6 mos with PSA and T level (AM) or sooner if needed. Pt understands and agrees with plan.Will call for refills. -Cont exercise as effects from ADT wear off 2. 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 [1] S/p TURP 02/04/24 - 7.2g removed. UA neg. Taking Alfuzosin 10 mg ER qd. Feels good with his voiding. Strong stream. Since he is s/p radiation, will cont alfuzosin for now. If he cont to do well 6-12 mos after radiation, can consider d/c alfuzosin. 3. Erectile dysfunction following radiation therapy (N52.35: Erectile dysfunction following radiation therapy) SEVEN 3. Explained ADT can cause his libido to be diminished. Reports he still has sex drive but difficulty achieving/maintaining erection. Pt would like to try oral med. -Start Cialis 20 mg prn. SEs, proper use, contraindications, priapism discussed. Sent to . Follow-up With When Contact Information NASREEN CARMONA, Sloan Westfall, URL [facility] [address], [place] [address]- Additional Instructions: 6 mos with PSA and T level (AM) Patient Education Hormone Suppression Therapy for Prostate Cancer ISilvia, personally scribed for Dr. Downey on 09/05/2024 15:28:25. . Documentation recorded by the scribe, Silvia Choi, accurately reflects the services(s) I performed and decisions made by me. Authenticated by Dr. Downey on 09/05/2024 15:29:53. Problem List/Past Medical History Ongoing BPH with obstruction/lower urinary tract symptoms Erectile dysfunction following radiation therapy Feeling of incomplete bladder emptying Gout Head ache Hyperlipidemia Hypertension Morbid obesity with BMI of 40.0-44.9, adult Prostate cancer Urethral false passage Historical Incomplete bladder emptying Prostatitis Procedure/Surgical History Gallbladder (more content not included)...[facility] Comment on above:Result Comment: Electronically Signed By: Sloan DOWNEY MD\.br\Date and Time Signed: 09/05/24 15:29 EDT\.br\Electronically Co-Signed By: Silvia Choi\.br\Date and Time Co-Signed: 09/05/24 15:28 EDTAmbulatory Visit Summaryon [id number] Visit SummaryAmbulatory Visit Summary EDWARD DARBY :1950 Visit Date:08/25/2024 Ambulatory Visit Instructions Your Care Team Attending Physician - Sloan DOWNEY MD Primary Care Physician - JOSE ANGEL VILLAVICENCIO MD This Is Your Medications List alfuzosin (alfuzosin 10 mg ER Tab) allopurinol (allopurinol 100 mg Tab) bicalutamide (bicalutamide 50 mg Tab) hydrochlorothiazide-lisinopril (hydrochlorothiazide-lisinopril 25 mg-20 mg Tab) hydrochlorothiazide-lisinopril (hydrochlorothiazide-lisinopril 25 mg-20 mg Tab) indomethacin (indomethacin 50 mg oral capsule) metoprolol (metoprolol 50 mg ER Tab) multivitamin with minerals (Ocuvite) polycarbophil (Fiber Lax) pravastatin (pravastatin 40 mg Tab) semaglutide (Rybelsus 7 mg oral tablet) Procedures Performed Gallbladder (01/27/2023), Transrectal needle biopsy of prostate (07/09/2022), Cataract extraction and insertion of intraocular lens, Colonoscopy, Procedure on back, Tonsillectomy. What to do next Scheduled Follow-Up Appointments Thursday 1:45 PM EDT With: Sloan DOWNEY MD Where: [facility] [address] Medications What How Much When Instructions Unchanged alfuzosin (alfuzosin 10 mg ER Tab) 1 Tablets By Mouth Every day Duration: 30 Days Unchanged allopurinol (allopurinol 100 mg Tab) By Mouth Unchanged bicalutamide (bicalutamide 50 mg Tab) 1 Tablets Unchanged hydrochlorothiazide-lisinopril (hydrochlorothiazide-lisinopril 25 mg- 20 mg Tab) By Mouth Every day Unchanged hydrochlorothiazide-lisinopril (hydrochlorothiazide-lisinopril 25 mg- 20 mg Tab) 1 Tablets Unchanged indomethacin (indomethacin 50 mg oral capsule) 1 Capsules By Mouth 3 times a day Unchanged metoprolol (metoprolol 50 mg ER Tab) By Mouth Every day Unchanged multivitamin with minerals (Ocuvite) By Mouth Every day Unchanged polycarbophil (Fiber Lax) By Mouth 4 times a day Unchanged pravastatin (pravastatin 40 mg Tab) By Mouth Every day Unchanged semaglutide (Rybelsus 7 mg oral tablet) 1 Tablets By Mouth Every day Allergies Bactrim (Rash, Tachycardia) Problems Ongoing - Any problem that you are currently receiving treatment for. BPH with obstruction/lower urinary tract symptoms Elevated PSA Erectile dysfunction Feeling of incomplete bladder emptying Gout Head ache Hyperlipidemia Hypertension Prostate cancer Urethral false passage Historical - Any problem that you are no longer receiving treatment for. Incomplete bladder emptying Prostatitis Patient Survey You may receive a survey via text or e-mail asking about your office visit. Please share your experience with us by completing your survey. We appreciate your feedback and thank you for choosing us for your care. NormalFisher [facility] Medical CenterCHEMISTRYOrdered By: SYSTEM SYSTEM on [id number] specific Ag [Mass/Vol]ng/mLLow0.1 - 3.5 ng/mL Remisol ChemComment on above:Interpretive Data: The concentration of PSA determined by different manufacturers can vary due to differences in assay methods and reagent specificity. Values obtained from different assay methods cannot be used interchangeably. The methodology used for this result was chemiluminescence using [employer]'s Access [employer] PSA reagent.PSA Total on [id number] Total<0.1Low0.1-3.5Fisher [facility] Medical CenterComment on above: Result Comment: The concentration of PSA determined by different manufacturers can vary due to differences in assay methods and reagent specificity. Values obtained from different assay methods cannot be used interchangeably. The methodology used for this result was chemiluminescence using [employer]'s Access Hy[employer] PSA reagent.Performed By: #### [id number] #### [facility] [address] [place] [id number] [id number] Visit (RADTSA) EDWARD DARBY ([id number]) 1950 M Date Time Provider Department 07/14/24 11:00 AM Rey WELLS During your visit today, we recorded the following information about you: Temperature Pulse Respiration Blood pressure 97.2 degrees 66/minute 20/minute 107/54 Weight 128 kg Rey Wells MD 07/14/2024 10:52 AM Signed Radiation Oncology - Follow Up Note PATIENT NAME: Edward Darby PATIENT DIAGNOSIS: Prostate adenocarcinoma, initial PSA 9.39, biopsy Rox score 4 + 4 = 8 (grade group 4), clinical stage T1b, N0, M0, stage IIC [T1-T2, N0, M0, PSA <20, GG 4] (AJCC 8th ed.), s/p biopsy. NCCN Risk Group: High Risk Group RADIATION SUMMARY: DATES OF TREATMENT: 05-23-2024 to 06-29-2024 AREA TREATED: Prostate Pelvis DELIVERED DOSE: Area: Prostate Pelvis with daily CBCT Imaging 7000cGy in 28 fractions,3 VMAT Rapid Arc Perez, X10 TOTAL: 7000 cGy in 28 fractions ELAPSED TIME: 37 days. INTERVAL HISTORY: The patient presents for routine follow-up after recent completion of radiation. His fatigue. Denies other issues or problems. PSA HISTORY: PSA (ng/mL) Date Value 07/07/2024 0.02 ALLERGIES Allergen Reactions Bactrim [Sulfametho* Hives, Shortness of Breath bicalutamide (CASODEX) 50 mg tablet Take 1 tablet by mouth once daily. alfuzosin SR (UROXATRAL) 10 mg 24 hr tablet Take 10 mg by mouth. allopurinol (ZYLOPRIM) 100 mg tablet Take 100 mg by mouth two times a day. atorvastatin (LIPITOR) 10 mg tablet daily at bedtime. calcium polycarbophil (FIBERCON) 625 mg tablet Take 1 tablet by mouth every morning. lisinopril-hydroCHLOROthiazide (ZESTORETIC) 20-25 mg per tablet Take 1 tablet by mouth every morning. metoprolol succinate ER (TOPROL XL) 50 mg 24 hr tablet Take 50 mg by mouth once daily. pravastatin (PRAVACHOL) 40 mg tablet Take 40 mg by mouth once daily. semaglutide (RYBELSUS) 7 mg tablet Take 7 mg by mouth. vits A,C,E/lutein/minerals (OCUVITE WITH LUTEIN ORAL) Take by mouth. REVIEW OF SYSTEMS: D/N = 4-6/1-2 Hematuria: none Dysuria: none Incontinence: none Urgency: mild Medications to aid urination: y AUA: 13 Bowel movement frequency: 1/day Bowel movement quality: normal Blood per rectum: none PHYSICAL EXAM: BP 107/54 Pulse 66 Temp 36.2 ?C (97.2 ?F) Resp 20 Wt 128 kg (282 lb 3 oz) SpO2 97% BMI 42.28 kg/m? KPS: 100 General Appearance: Alert and oriented. No acute distress. ASSESSMENT/PLAN: Prostate adenocarcinoma, initial PSA 9.39, biopsy Rox score 4 + 4 = 8 (grade group 4), clinical stage T1b, N0, M0, stage IIC [T1-T2, N0, M0, PSA <20, GG 4] (AJCC 8th ed.), s/p biopsy. NCCN Risk Group: High Risk Group Doing well. Initial PSA response. Continues ADT with Dr. Downey and PSA surveillance. No significant postradiation issues. Recommend postradiation follow-up in 6 months. Signed by: Rey Wells MD cc: Jose Angel Villavicencio MD [address] [place] [address] Rey Muhammad MD 07/14/2024 10:52 AM Signed AUA= 13 Referring Provider: Rey WELLS [[id number]] Allergies As of Date: 07/14/2024 Noted Allergy Reaction BACTRIM (SULFAMETHOXAZOLE-TRIMETH*03/08/2024 4 - Hives 12 - Shortness of Breath Date Reviewed: 07/14/2024 Reviewed by: Ankur Winston, RN - Fully Assessed Reason for Visit: Prostate Cancer [590] Primary Visit Diagnosis:Malignant neoplasm of prostate (HCC) [C61] Order(s):PROSTATE-SPECIFIC ANTIGEN DIAGNOSTIC [SQPSA] Order #: [id number] FUTURE Prescriptions as of 07/14/2024 - bicalutamide (CASODEX) 50 mg tablet Take 1 tablet by mouth once daily. - alfuzosin SR (UROXATRAL) 10 mg 24 hr tablet Take 10 mg by mouth. - allopurinol (ZYLOPRIM) 100 mg tablet Take 100 mg by mouth two times a day. - atorvastatin (LIPITOR) 10 mg tablet daily at bedtime. - calcium polycarbophil (FIBERCON) 625 mg tablet Take 1 tablet by mouth every morning. - lisinopril-hydroCHLOROthiazide (ZESTORETIC) 20-25 mg per tablet Take 1 tablet by mouth every morning. - metoprolol succinate ER (TOPROL XL) 50 mg 24 hr tablet Take 50 mg by mouth once daily. - pravastatin (PRAVACHOL) 40 mg tablet Take 40 mg by mouth once daily. - semaglutide (RYBELSUS) 7 mg tablet Take 7 mg by mouth. - vits A,C,E/lutein/minerals (OCUVITE WITH LUTEIN ORAL) Take by mouth. Problem List As Of Date: 07/14/2024 (None) Medications Discontinued During This Encounter Prescriptions - famciclovir (FAMVIR) 500 mg tablet (Discontinued) Take 1 tablet by mouth three times a day. Disposition: Return in about 6 months (around 01/13/2025). Follow-up and Disposition History for Encounter Date Provider Department Center 07/14/2024 [id number] WELLS [facility] [place] Encounter Status:Closed by Rey WELLS on 4 (more content not included)...NormalC[facility] PSA SERPL-MCNCon [id number] PSA SERPL-MCNC0.02 ng/mLNINF - 2.60 ng/mLNOMS HealthcareComment on above:Total PSA test methodology used is the Electrochemiluminescence Immunoassay by [employer]. Total PSA values by differing methodologies cannot be interchanged. Specimen Type: BLOOD SPECIMEN [facility]ing Facility: [facility] Address: [address] [place] [address] Original Ordering Provider: Rey ROBERTOSSM [facility]-mCncon [id number] specific Ag [Mass/Vol]0.02 ng/mLNormal<2.60 [facility] on above:Order Comment: Specimen Type: BLOOD SPECIMENOrdering Facility: [facility] Address:[address] [place], [place] [address]Result Comment: Total PSA test methodology used is the Electrochemiluminescence Immunoassay by [employer]. Total PSA values by differing methodologies cannot be interchanged.Performed By: #### [id number] ####[facility] LABCLIA [id number] [address]ETCNOVon [id number] Visit (RADTSA) EDWARD DARBY ([id number]) 1950 M Date Time Provider Department 06/27/24 8:45 AM Rey WELLS During your visit today, we recorded the following information about you: Temperature Pulse Respiration Blood pressure 96.9 degrees 76/minute 18/minute 135/80 Weight 127.6 kg Rey Wells MD 06/27/2024 9:11 AM Signed Radiation Oncology - On Treatment Review (OTR) Note PATIENT NAME: Edward Darby PATIENT DIAGNOSIS: Prostate adenocarcinoma, initial PSA 9.39, biopsy Rox score 4 + 4 = 8 (grade group 4), clinical stage T1b, N0, M0, stage IIC [T1-T2, N0, M0, PSA <20, GG 4] (AJCC 8th ed.), s/p biopsy. NCCN Risk Group: High Risk Group COURSE: definitive AREA TREATED: Pelvis/prostate CURRENT DOSE: 6500 cGy in 26 fx PLANNED DOSE: 7000 cGy in 28 fx SUBJECTIVE: Doing fairly well. Rash buttocks area improved. Small rash left posterior shoulder area. EXAM: 06/27/24 0843 BP: 135/80 Pulse: 76 Resp: 18 Temp: 36.1 ?C (96.9 ?F) SpO2: 97% Weight: 127.6 kg (281 lb 4.9 oz) KPS: 100 General Appearance: Alert and oriented. No acute distress. Radiation dermatitis: No Area of previous eruption mostly flat dry no vesicular lesions. 3 small dry lesions left posterior shoulder does not appear follicular vesicular area where he has scratched his back with back structure likely related this. IMAGING/LAB RESULTS: Hemoglobin (g/dL) Date Value 06/02/2024 13.9 Hematocrit (%) Date Value 06/02/2024 40.3 WBC (k/uL) Date Value 06/02/2024 4.59 Platelet Count (k/uL) Date Value 06/02/2024 172 Treatment chart checked: Yes Patient treatment site reviewed and verified:Yes Port films reviewed and current:Yes Medications started: None ASSESSMENT/PLAN: Patient doing well. Concerned that he may have shingles, Famvir prescribed. Otherwise continue radiation. Chart and imaging reviewed. Rey Wells MD Allergies As of Date: 06/27/2024 Noted Allergy Reaction BACTRIM (SULFAMETHOXAZOLE-TRIMETH*03/08/2024 4 - Hives 12 - Shortness of Breath Date Reviewed: 06/27/2024 Reviewed by: Ankur Winston RN - Fully Assessed Reason for Visit: Radiotherapy On-treatment Visit [1722] Primary Visit Diagnosis:Malignant neoplasm of prostate (HCC) [C61] Order(s):PROSTATE-SPECIFIC ANTIGEN DIAGNOSTIC [SQPSA] Order #: [id number] FUTURE Prescriptions as of 06/27/2024 - famciclovir (FAMVIR) 500 mg tablet Take 1 tablet by mouth three times a day. - alfuzosin SR (UROXATRAL) 10 mg 24 hr tablet Take 10 mg by mouth. - allopurinol (ZYLOPRIM) 100 mg tablet Take 100 mg by mouth two times a day. - atorvastatin (LIPITOR) 10 mg tablet daily at bedtime. - calcium polycarbophil (FIBERCON) 625 mg tablet Take 1 tablet by mouth every morning. - lisinopril-hydroCHLOROthiazide (ZESTORETIC) 20-25 mg per tablet Take 1 tablet by mouth every morning. - metoprolol succinate ER (TOPROL XL) 50 mg 24 hr tablet Take 50 mg by mouth once daily. - pravastatin (PRAVACHOL) 40 mg tablet Take 40 mg by mouth once daily. - semaglutide (RYBELSUS) 7 mg tablet Take 7 mg by mouth. - vits A,C,E/lutein/minerals (OCUVITE WITH LUTEIN ORAL) Take by mouth. - bicalutamide (CASODEX) 50 mg tablet Take 1 tablet by mouth once daily. Problem List As Of Date: 06/27/2024 (None) Encounter Status:Closed by Rey WELLS on 06/27/24[facility] [id number] Visit (POPEYE) EDWARD DARBY ([id number]) 1950 M Date Time Provider Department 06/20/24 11:15 AM Rey WELLS During your visit today, we recorded the following information about you: Temperature Pulse Respiration Blood pressure 96.9 degrees 77/minute 18/minute 134/83 Weight 127.3 kg Rey Wells MD 06/20/2024 11:51 AM Signed Radiation Oncology - On Treatment Review (OTR) Note PATIENT NAME: Edward Darby PATIENT DIAGNOSIS: Prostate adenocarcinoma, initial PSA 9.39, biopsy Rox score 4 + 4 = 8 (grade group 4), clinical stage T1b, N0, M0, stage IIC [T1-T2, N0, M0, PSA <20, GG 4] (AJCC 8th ed.), s/p biopsy. NCCN Risk Group: High Risk Group COURSE: definitive AREA TREATED: Pelvis/prostate CURRENT DOSE: 5250 cGy in 22 fx PLANNED DOSE: 7000 cGy in 28 fx SUBJECTIVE: Doing fairly well. No new rash upper buttocks region. Nonpainful. Increased nocturia without dysuria or hematuria. EXAM: 06/20/24 1111 BP: 134/83 Pulse: 77 Resp: 18 Temp: 36.1 ?C (96.9 ?F) SpO2: 96% Weight: 127.3 kg (280 lb 10.3 oz) KPS: 100 General Appearance: Alert and oriented. No acute distress. Radiation dermatitis: No Patchy area of somewhat confluent follicular eruption mid upper buttocks and 1 patch. IMAGING/LAB RESULTS: Hemoglobin (g/dL) Date Value 06/02/2024 13.9 Hematocrit (%) Date Value 06/02/2024 40.3 WBC (k/uL) Date Value 06/02/2024 4.59 Platelet Count (k/uL) Date Value 06/02/2024 172 Treatment chart checked: Yes Patient treatment site reviewed and verified:Yes Port films reviewed and current:Yes Medications started: None ASSESSMENT/PLAN: Patient doing well. Concerned that he may have shingles, Famvir prescribed. Otherwise continue radiation. Chart and imaging reviewed. Rey Wells MD Allergies As of Date: 06/20/2024 Noted Allergy Reaction BACTRIM (SULFAMETHOXAZOLE-TRIMETH*03/08/2024 4 - Hives 12 - Shortness of Breath Date Reviewed: 06/20/2024 Reviewed by: Ankur Winston RN - Fully Assessed Reason for Visit: Radiotherapy On-treatment Visit [1722] Primary Visit Diagnosis:Malignant neoplasm of prostate (HCC) [C61] Order(s):famciclovir (FAMVIR) 500 mg tabletTake 1 tablet by mouth three times a day.Disp: 15 tabletRfl: 5 Prescriptions as of 06/20/2024 - famciclovir (FAMVIR) 500 mg tablet Take 1 tablet by mouth three times a day. - alfuzosin SR (UROXATRAL) 10 mg 24 hr tablet Take 10 mg by mouth. - allopurinol (ZYLOPRIM) 100 mg tablet Take 100 mg by mouth two times a day. - atorvastatin (LIPITOR) 10 mg tablet daily at bedtime. - calcium polycarbophil (FIBERCON) 625 mg tablet Take 1 tablet by mouth every morning. - lisinopril-hydroCHLOROthiazide (ZESTORETIC) 20-25 mg per tablet Take 1 tablet by mouth every morning. - metoprolol succinate ER (TOPROL XL) 50 mg 24 hr tablet Take 50 mg by mouth once daily. - pravastatin (PRAVACHOL) 40 mg tablet Take 40 mg by mouth once daily. - semaglutide (RYBELSUS) 7 mg tablet Take 7 mg by mouth. - vits A,C,E/lutein/minerals (OCUVITE WITH LUTEIN ORAL) Take by mouth. - bicalutamide (CASODEX) 50 mg tablet Take 1 tablet by mouth once daily. Problem List As Of Date: 06/20/2024 (None) Prescriptions ordered this encounter Disp Refills Start End FAMCICLOVIR 500 MG TABLET 15 t* 5 06/20/2024 Route: ORAL Sig: Take 1 tablet by mouth three times a day. Encounter Status:Closed by Rey WELLS on 06/20/24[facility] [id number] Visit (RADTSA) EDWARD DARBY ([id number]) 1950 M Date Time Provider Department 06/13/24 11:15 AM Rey WELLS [facility] During your visit today, we recorded the following information about you: Temperature Pulse Respiration Blood pressure 96.9 degrees 72/minute 20/minute 127/78 Weight 129.3 kg Rey Wells MD 06/13/2024 11:49 AM Signed Radiation Oncology - On Treatment Review (OTR) Note PATIENT NAME: Edward Darby PATIENT DIAGNOSIS: Prostate adenocarcinoma, initial PSA 9.39, biopsy Rox score 4 + 4 = 8 (grade group 4), clinical stage T1b, N0, M0, stage IIC [T1-T2, N0, M0, PSA <20, GG 4] (AJCC 8th ed.), s/p biopsy. NCCN Risk Group: High Risk Group COURSE: definitive AREA TREATED: Pelvis/prostate CURRENT DOSE: 4000 cGy in 16 fx PLANNED DOSE: 7000 cGy in 28 fx SUBJECTIVE: Doing well. Mild dysuria. Mild diarrhea. EXAM: 06/13/24 1134 BP: 127/78 Pulse: 72 Resp: 20 Temp: 36.1 ?C (96.9 ?F) SpO2: 97% Weight: 129.3 kg (285 lb 0.9 oz) KPS: 100 General Appearance: Alert and oriented. No acute distress. Radiation dermatitis: No IMAGING/LAB RESULTS: Hemoglobin (g/dL) Date Value 06/02/2024 13.9 Hematocrit (%) Date Value 06/02/2024 40.3 WBC (k/uL) Date Value 06/02/2024 4.59 Platelet Count (k/uL) Date Value 06/02/2024 172 Treatment chart checked: Yes Patient treatment site reviewed and verified:Yes Port films reviewed and current:Yes Medications started: None ASSESSMENT/PLAN: Patient doing well. Chart and imaging reviewed. Continue radiation as outlined. Rey Wells MD Referring Provider: Rey WELLS [[id number]] Allergies As of Date: 06/13/2024 Noted Allergy Reaction BACTRIM (SULFAMETHOXAZOLE-TRIMETH*03/08/2024 4 - Hives 12 - Shortness of Breath Date Reviewed: 06/13/2024 Reviewed by: Ankur Winston RN - Fully Assessed Reason for Visit: Radiotherapy On-treatment Visit [172] Primary Visit Diagnosis:Malignant neoplasm of prostate (HCC) [C61] Prescriptions as of 06/13/2024 - alfuzosin SR (UROXATRAL) 10 mg 24 hr tablet Take 10 mg by mouth. - allopurinol (ZYLOPRIM) 100 mg tablet Take 100 mg by mouth two times a day. - atorvastatin (LIPITOR) 10 mg tablet daily at bedtime. - calcium polycarbophil (FIBERCON) 625 mg tablet Take 1 tablet by mouth every morning. - lisinopril-hydroCHLOROthiazide (ZESTORETIC) 20-25 mg per tablet Take 1 tablet by mouth every morning. - metoprolol succinate ER (TOPROL XL) 50 mg 24 hr tablet Take 50 mg by mouth once daily. - pravastatin (PRAVACHOL) 40 mg tablet Take 40 mg by mouth once daily. - semaglutide (RYBELSUS) 7 mg tablet Take 7 mg by mouth. - vits A,C,E/lutein/minerals (OCUVITE WITH LUTEIN ORAL) Take by mouth. - bicalutamide (CASODEX) 50 mg tablet Take 1 tablet by mouth once daily. Problem List As Of Date: 06/13/2024 (None) Encounter Status:Closed by Rey WELLS on 06/13/24[facility] [id number] Visit (RADTSA) EDWARD DARBY ([id number]) 1950 M Date Time Provider Department 06/08/24 11:15 AM Rey WELLS During your visit today, we recorded the following information about you: Temperature Pulse Respiration Blood pressure 96.9 degrees 76/minute 18/minute 113/62 Weight 128.6 kg Rey Wells MD 06/13/2024 11:37 AM Signed Radiation Oncology - On Treatment Review (OTR) Note PATIENT NAME: Edward Darby PATIENT DIAGNOSIS: Prostate adenocarcinoma, initial PSA 9.39, biopsy Rox score 4 + 4 = 8 (grade group 4), clinical stage T1b, N0, M0, stage IIC [T1-T2, N0, M0, PSA <20, GG 4] (AJCC 8th ed.), s/p biopsy. NCCN Risk Group: High Risk Group COURSE: definitive AREA TREATED: Pelvis/prostate CURRENT DOSE: 3250 cGy in 13 fx PLANNED DOSE: 7000 cGy in 28 fx SUBJECTIVE: Doing well. EXAM: 06/08/24 1104 BP: 113/62 Pulse: 76 Resp: 18 Temp: 36.1 ?C (96.9 ?F) SpO2: 96% Weight: 128.6 kg (283 lb 8.2 oz) KPS: 100 General Appearance: Alert and oriented. No acute distress. Radiation dermatitis: No IMAGING/LAB RESULTS: None Treatment chart checked: Yes Patient treatment site reviewed and verified:Yes Port films reviewed and current:Yes Medications started: None ASSESSMENT/PLAN: Patient doing well. Chart and imaging reviewed. Continue radiation as outlined. Rey Wells MD Allergies As of Date: 06/08/2024 Noted Allergy Reaction BACTRIM (SULFAMETHOXAZOLE-TRIMETH*03/08/2024 4 - Hives 12 - Shortness of Breath Date Reviewed: 06/08/2024 Reviewed by: Ankur Winston RN - Fully Assessed Reason for Visit: Radiotherapy On-treatment Visit [1722] Primary Visit Diagnosis:Malignant neoplasm of prostate (HCC) [C61] Prescriptions as of 06/13/2024 - alfuzosin SR (UROXATRAL) 10 mg 24 hr tablet Take 10 mg by mouth. - allopurinol (ZYLOPRIM) 100 mg tablet Take 100 mg by mouth two times a day. - atorvastatin (LIPITOR) 10 mg tablet daily at bedtime. - calcium polycarbophil (FIBERCON) 625 mg tablet Take 1 tablet by mouth every morning. - lisinopril-hydroCHLOROthiazide (ZESTORETIC) 20-25 mg per tablet Take 1 tablet by mouth every morning. - metoprolol succinate ER (TOPROL XL) 50 mg 24 hr tablet Take 50 mg by mouth once daily. - pravastatin (PRAVACHOL) 40 mg tablet Take 40 mg by mouth once daily. - semaglutide (RYBELSUS) 7 mg tablet Take 7 mg by mouth. - vits A,C,E/lutein/minerals (OCUVITE WITH LUTEIN ORAL) Take by mouth. - bicalutamide (CASODEX) 50 mg tablet Take 1 tablet by mouth once daily. Problem List As Of Date: 06/08/2024 (None) Encounter Status:Closed by Rey WELLS on 06/13/24[facility]CTr[facility] Auto Differential panel (Bld)on [id number] (Bld) [#/Vol] NINRiverview Health InstituteDifferential cell count method Nom (Bld)[facility] Eosinophils (Bld) [#/Vol]0.11 10*3/uLNINFCleParkview HealthImmacleveland clinic marymount hospital granulocytes (Bld) [#/Vol]NINRiverview Health InstituteImmature granulocytes/100 WBC (Bld)0.4 % Win ClinicLymphocytes (Bld) [#/Vol]0.68 10*3/uLLowWhite Hospital Monocytes (Bld) [#/Vol]0.48 10*3/uLNINFWhite HospitalNeutrophils (Bld) [#/Vol] 3.28 10*3/[facility] HospitalNucleated RBC (Bld) [#/Vol]NINFCUniversity Hospitals TriPoint Medical Center Nucleated RBC/100 WBC (Bld) [Ratio]0 %/100 WBCWhite HospitalPlatelet mean volume (Bld) [Entitic vol]9 fL9.0 - 12.7 fLCUniversity Hospitals TriPoint Medical CenterPlatelets (Bld) [#/Vol]172 10*3/[facility] HospitalWBC (Bld) [#/Vol]4.59 10*3/[facility] Basophils (Bld) [#/Vol]10*3/uLNormal<0.11CCleveland Clinic [facility]cy Hospital on above:Order Comment: Specimen Type: BLOOD SPECIMENOrdering Facility: [facility] Address:[address] [place], [place] [address]Performed By: #### [id number] ####[facility] LABIA [id number] [place], [place] [address]Xrofmmwvz/100 WBC (Bld)0.4 %NormalFirelands Regional Medical Center on above:Order Comment: Specimen Type: BLOOD SPECIMENOrdering Facility: [facility] Address:[address] [place], [place] [address]Performed By: #### [id number] ####[facility] LABCLIA [id number] [place], [place] [address]Kmmnogzxndtx cell count method Nom (Bld)AutoNormalCCleveland Clinic Mercy Hospital on above:Order Comment: Specimen Type: BLOOD SPECIMENOrdering Facility: [facility] Address:[address] [place], [place] [address]Performed By: #### [id number] ####[facility] LABIA [id number] [place], [place] [address]Jkuwxuktgqt (Bld) [#/Vol]0.11 10*3/uLNormal<0.46Fire[facility] Medical Center on above:Order Comment: Specimen Type: BLOOD SPECIMENOrdering Facility: [facility] Address:[address] [place], [place] [address]Performed By: #### 04313-1 ####[facility] LABIA [id number] [place], [place] [address]Thpuacctvqu/100 WBC (Bld)2.4 %NormalFirelands Regional Medical Center on above:Order Comment: Specimen Type: BLOOD SPECIMENOrdering Facility: [facility] Address:[address] [place], [place] [address]Performed By: #### 71833-7 ####[facility] LABCLIA [id number] [place], [place] [address]Roffnpmvekr distribution width (RBC) [Ratio]12.8 %Normal 11.5-15.0[facility] on above:Order Comment: Specimen Type: BLOOD SPECIMENOrdering Facility: [facility] Address:[address] [place], [place] [address]Performed By: #### 88721-5 ####[facility] LABIA [id number] [place] [address] Hematocrit (Bld) [Volume fraction]40.3 %Qnjpgr71.0-51.0[facility] on above:Order Comment: Specimen Type: BLOOD SPECIMENOrdering Facility: [facility] Address:[address] [place], [place] [address]Performed By: #### 27041-1 ####[facility] LABIA [id number] [place], [place] [address]Xmmfdvtsti (Bld) [Mass/Vol]13.9 g/lUKdxkkk78.0-17.0[facility] on above:Order Comment: Specimen Type: BLOOD SPECIMENOrdering Facility: [facility] Address:[address] [place], [place] [address]Performed By: #### 08752-9 ####[facility] LABCLIA [id number] [place], [place] [address]Lzpqswiw granulocytes (Bld) [#/Vol]10*3/uLNormal<0.10 [facility] on above:Order Comment: Specimen Type: BLOOD SPECIMENOrdering Facility: [facility] Address:[address] [place], [place] [address]Performed By: #### 13339-6 ####[facility] LABCLIA [id number] [place], [place] [address]Vmkajtes granulocytes/100 WBC (Bld)0.4 %NormalFirelands Regional Medical Center on above: Order Comment: Specimen Type: BLOOD SPECIMENOrdering Facility: [facility] Address:[address] [place], [place] [address]Performed By: #### 16675- 8 ####[facility] LABCLIA [id number] [place], [place] [address]Jwlftjobmri (Bld) [#/Vol]0.68 10*3/uLLow1.00-4.00 [facility] on above:Order Comment: Specimen Type: BLOOD SPECIMENOrdering Facility: [facility] Address:[address] [place], [place] [address]Performed By: #### 34523-1 ####[facility] LABIA [id number] [place], [place] [address]Mwztccvqnty/100 WBC (Bld)14.8 %NormalFirelands Regional Medical Center on above:Order Comment: Specimen Type: BLOOD SPECIMENOrdering Facility: [facility] Address:[address] [place], [place] [address]Performed By: #### 79808-2 ####[facility] LABCLIA [id number] [place], [place] [address]ZRB (RBC) [Entitic mass]30.7 ieMjbfkc91.0-34.0[facility] on above:Order Comment: Specimen Type: BLOOD SPECIMENOrdering Facility: [facility] Address:[address] [place], [place] [address]Performed By: #### 19798-4 ####[facility] LABCLIA [id number] [place], [place] [address]XFQM (RBC) [Mass/Vol]34.5 g/uPPttwdj08.5-36.0[facility] on above: Order Comment: Specimen Type: BLOOD SPECIMENOrdering Facility: [facility] Address:[address] [place], [place] [address]Performed By: #### 40976- 8 ####[facility] LABCLIA [id number] [place], [place] [address]LVX (RBC) [Entitic vol]89.0 nYMxbofy06.0-100.0[facility] on above:Order Comment: Specimen Type: BLOOD SPECIMENOrdering Facility: [facility] Address:[address] [place], [place] [address]Performed By: #### 91863-8 ####[facility] LABCLIA [id number] [place], [place] [address]Muqdczifp (Bld) [#/Vol]0.48 10*3/uLNormal<0.87[facility] on above:Order Comment: Specimen Type: BLOOD SPECIMENOrdering Facility: [facility] Address:[address] [place], [place] [address]Performed By: #### 03578- 8 ####[facility] LABCLIA [id number] [place], [place] [address]Axjlpvnhi/100 WBC (Bld)10.5 %NormalFirelands Regional Medical Center on above:Order Comment: Specimen Type: BLOOD SPECIMENOrdering Facility: [facility] Address:[address] [place], [place] [address]Performed By: #### 05855-5 ####[facility] LABCLIA [id number] [place], [place] [address]Vrpnugbokat (Bld) [#/Vol]3.28 10*3/uLNormal1.45-7.50[facility] on above:Order Comment: Specimen Type: BLOOD SPECIMENOrdering Facility: [facility] Address:[address] [place], [place] [address]Performed By: #### 02738-5 ####[facility] LABCLIA [id number] [place], [place] [address]Aiomppbcxpb/100 WBC (Bld)71.5 %NormalFirelands Regional Medical Center on above:Order Comment: Specimen Type: BLOOD SPECIMENOrdering Facility: [facility] Address:[address] [place], [place] [address]Performed By: #### 64422-1 ####[facility] LABCLIA [id number] [place], [place] [address]Nhigjubvl RBC (Bld) [#/Vol] 10*3/uLNormal<0.01[facility] on above:Order Comment: Specimen Type: BLOOD SPECIMENOrdering Facility: [facility] Address:[address] [place], [place] [address]Performed By: #### 25755-7 ####[facility] LABCLIA [id number] [place], [place] [address]Jlxbovhtw RBC/100 WBC (Bld) [Ratio]0.0 /100 WBCNormal [facility] on above:Order Comment: Specimen Type: BLOOD SPECIMENOrdering Facility: [facility] Address:[address] [place], [place] [address]Performed By: #### 79839-5 ####[facility] LABCLIA [id number] [place], [place] [address]Rcsvudtn mean volume (Bld) [Entitic vol]9.0 fLNormal9.0-12.7CCleveland Clinic [facility] on above:Order Comment: Specimen Type: BLOOD SPECIMENOrdering Facility: [facility] Address:[address] [place] [address] Performed By: #### 54252-7 ####[facility] LABCLIA [id number] [place], [place] [address]Mjbaxpmyo (Bld) [#/Vol]172 10*3/yWTthyfs388-790ZruxyweotFirelands Regional Medical Center on above:Order Comment: Specimen Type: BLOOD SPECIMENOrdering Facility: [facility] Address:[address] [place], [place] [address]Performed By: #### 12017-9 ####[facility] LABCLIA [id number] [place], [place] [address]ASF (Bld) [#/Vol]4.53 10*6/uLNormal4.20-6.00[facility] on above:Order Comment: Specimen Type: BLOOD SPECIMENOrdering Facility: [facility] Address:[address] [place], [place] [address]Performed By: #### 88165-1 ####[facility] LABIA [id number] [place], [place] [address]ZAM (Bld) [#/Vol]4.59 10*3/uLNormal3.70-11.00[facility] on above: Order Comment: Specimen Type: BLOOD SPECIMENOrdering Facility: [facility] Address:[address] [place], [place] [address]Performed By: #### 35677- 8 ####[facility] LABCLIA [id number] [place], [place] [address]JRX CBC W AUTO DIFF BLDon [id number] BASOPHILS # BLD AUTO<0.03NINFNOMS HealthcareCCF DIFFERENTIAL METHOD BLDAutoNOMS HealthcareCCF EOSINOPHIL # BLD AUTO0.11NINFNOMS HealthcareCCF LYMPHOCYTES # BLD AUTO0.68Low NOMS [facility] HospitalF MONOCYTES # BLD AUTO0.48NINFUniversity Health Lakewood [facility] NEUTROPHILS # BLD AUTO3.28NOKansas City VA Medical CenterF NRBC # BLD AUTO<0.01NINFWashington County Memorial HospitalF NRBC/100 WBC BLD-RTO0/100 WBCUniversity Health Lakewood Medical Center PLATELET # BLD IMRP022QZOQSaint John's Breech [facility] PMV BLD AUTO9 fL9.0 - 12.7 fLUniversity Health Lakewood Medical Center WBC # BLD AUTO4.59 NOMRanken Jordan Pediatric Specialty Hospital GRANULOCYTES # BLD AUTO<0.03NINFFreeman [facility] GRANULOCYTES/LEUK NFR BLD AUTO0.4 %NOMSaint Joseph Health CenterSpecimen Type: BLOOD SPECIMEN [facility] Address: [facility] [place] [address] Original Ordering Provider: Rey Felix [id number] Office Visit (RADTSA) EDWARD DARBY ([id number]) 1950 M Date Time Provider Department 06/02/24 11:15 AM LAB/PORT RADT LAURY NYE During your visit today, we recorded the following information about you: Ana Rosa Barajas RN 06/02/2024 11:12 AM Signed Edward Darby presents in office today for: CECE Schaeffer . Ordering Provider: Jorge Alberto Wells M.D. Test (s) ordered: CBC Method for obtaining blood: Phlebotomy was performed, accessing right antecubital vein. Needle removed intact. Dressing secured. Patient denies discomfort, dizziness, light-headedness or weakness and left the department without assist. Ana Rosa Barajas, ALVA Referring Provider: Rey WELLS [[id number]] Allergies As of Date: 06/02/2024 Noted Allergy Reaction BACTRIM (SULFAMETHOXAZOLE-TRIMETH*03/08/2024 4 - Hives 12 - Shortness of Breath Date Reviewed: 05/30/2024 Reviewed by: Ana Rosa Barajas, RN - Fully Assessed Reason for Visit: Phlebotomy [1172] Visit Diagnosis:Malignant neoplasm of prostate (HCC) [C61] Order(s):COMPLETE BLOOD COUNT AND DIFFERENTIAL [SQCBCDIF] Order #: [id number]. #:[id number] Prescriptions as of 06/02/2024 - alfuzosin SR (UROXATRAL) 10 mg 24 hr tablet Take 10 mg by mouth. - allopurinol (ZYLOPRIM) 100 mg tablet Take 100 mg by mouth two times a day. - atorvastatin (LIPITOR) 10 mg tablet daily at bedtime. - calcium polycarbophil (FIBERCON) 625 mg tablet Take 1 tablet by mouth every morning. - lisinopril-hydroCHLOROthiazide (ZESTORETIC) 20-25 mg per tablet Take 1 tablet by mouth every morning. - metoprolol succinate ER (TOPROL XL) 50 mg 24 hr tablet Take 50 mg by mouth once daily. - pravastatin (PRAVACHOL) 40 mg tablet Take 40 mg by mouth once daily. - semaglutide (RYBELSUS) 7 mg tablet Take 7 mg by mouth. - vits A,C,E/lutein/minerals (OCUVITE WITH LUTEIN ORAL) Take by mouth. - bicalutamide (CASODEX) 50 mg tablet Take 1 tablet by mouth once daily. Problem List As Of Date: 06/02/2024 (None) Encounter Status:Closed by ANA ROSA BARAJAS on 06/02/24[facility] countson [id number]/100 WBC (Bld)0.4 %[facility] HospitalEosinophils/100 WBC (Bld)2.4 %[facility] Erythrocyte distribution width (RBC) [Ratio]12.8 %11.5 - 15.0 %[facility] Hematocrit (Bld) [Volume fraction]40.3 %39.0 - 51.0 %[facility] HospitalHemoglobin (Bld) [Mass/Vol]13.9 g/dL13.0 - 17.0 g/dLGeneral Leonard Wood Army Community HospitalLymphocytes/100 WBC (Bld)14.8 %[facility] HospitalMCH (RBC) [Entitic mass]30.7 pg26.0 - 34.0 pgSt. Louis Behavioral Medicine InstituteHC (RBC) [Mass/Vol]34.5 g/dL30.5 - 36.0 g/dLSt. Louis Behavioral Medicine InstituteV (RBC) [Entitic vol]89 fL80.0 - 100.0 fLGeneral Leonard Wood Army Community HospitalMonocytes/100 WBC (Bld)10.5 % [facility] HospitalNeutrophils/100 WBC (Bld)71.5 %[facility] HealthcareRBC (Bld) [#/Vol] 4.53 10*6/uL4.20 - 6.00 m/uLGeneral Leonard Wood Army Community HospitalNo Panel Informationon 06-02-2024 Interpretation and review of laboratory resultsAbnormalChristian Hospital HealthcareCNOVon [id number] Visit (RADTSA) EDWARD DARBY ([id number]) 1950 M Date Time Provider Department 05/30/24 11:15 AM Rey WELLS During your visit today, we recorded the following information about you: Temperature Pulse Respiration Blood pressure 96.7 degrees 80/minute 18/minute 156/83 Weight 125.4 kg Rey Wells MD 05/30/2024 1:07 PM Signed Radiation Oncology - On Treatment Review (OTR) Note PATIENT NAME: Edward Darby PATIENT DIAGNOSIS: Prostate adenocarcinoma, initial PSA 9.39, biopsy Rox score 4 + 4 = 8 (grade group 4), clinical stage T1b, N0, M0, stage IIC [T1-T2, N0, M0, PSA <20, GG 4] (AJCC 8th ed.), s/p biopsy. NCCN Risk Group: High Risk Group COURSE: definitive AREA TREATED: Pelvis/prostate CURRENT DOSE: 1500 cGy in 6 fx PLANNED DOSE: 7000 cGy in 28 fx SUBJECTIVE: Doing well. Mild diarrhea. No other issues. EXAM: 05/30/24 1116 BP: 156/83 Pulse: 80 Resp: 18 Temp: (!) 35.9 ?C (96.7 ?F) SpO2: 97% Weight: 125.4 kg (276 lb 7.3 oz) KPS: 100 General Appearance: Alert and oriented. No acute distress. Radiation dermatitis: No IMAGING/LAB RESULTS: None Treatment chart checked: Yes Patient treatment site reviewed and verified:Yes Port films reviewed and current:Yes Medications started: None ASSESSMENT/PLAN: Patient doing well. Mild diarrhea discussed diet modification and Imodium use. Chart and imaging reviewed. Continue radiation as outlined. Rey Wells MD Allergies As of Date: 05/30/2024 Noted Allergy Reaction BACTRIM (SULFAMETHOXAZOLE-TRIMETH*03/08/2024 4 - Hives 12 - Shortness of Breath Date Reviewed: 05/30/2024 Reviewed by: Ana Rosa Barajas RN - Fully Assessed Primary Visit Diagnosis:Malignant neoplasm of prostate (HCC) [C61] Prescriptions as of 05/30/2024 - alfuzosin SR (UROXATRAL) 10 mg 24 hr tablet Take 10 mg by mouth. - allopurinol (ZYLOPRIM) 100 mg tablet Take 100 mg by mouth two times a day. - atorvastatin (LIPITOR) 10 mg tablet daily at bedtime. - calcium polycarbophil (FIBERCON) 625 mg tablet Take 1 tablet by mouth every morning. - lisinopril-hydroCHLOROthiazide (ZESTORETIC) 20-25 mg per tablet Take 1 tablet by mouth every morning. - metoprolol succinate ER (TOPROL XL) 50 mg 24 hr tablet Take 50 mg by mouth once daily. - pravastatin (PRAVACHOL) 40 mg tablet Take 40 mg by mouth once daily. - semaglutide (RYBELSUS) 7 mg tablet Take 7 mg by mouth. - vits A,C,E/lutein/minerals (OCUVITE WITH LUTEIN ORAL) Take by mouth. - bicalutamide (CASODEX) 50 mg tablet Take 1 tablet by mouth once daily. Problem List As Of Date: 05/30/2024 (None) Encounter Status:Closed by Rey WELLS on 05/30/24NoC[facility] [id number] Visit (RADTSA) EDWARD DARBY ([id number]) 1950 M Date Time Provider Department 05/23/24 12:30 PM Rey WELLS RADTREVORA During your visit today, we recorded the following information about you: Temperature Pulse Respiration Blood pressure 97.3 degrees 75/minute 20/minute 170/89 Weight 125.2 kg Rey Wells MD 05/23/2024 1:21 PM Signed Radiation Oncology - On Treatment Review (OTR) Note PATIENT NAME: Edward Darby PATIENT DIAGNOSIS: Prostate adenocarcinoma, initial PSA 9.39, biopsy Fulton score 4 + 4 = 8 (grade group 4), clinical stage T1b, N0, M0, stage IIC [T1-T2, N0, M0, PSA <20, GG 4] (AJCC 8th ed.), s/p biopsy. NCCN Risk Group: High Risk Group COURSE: definitive AREA TREATED: Pelvis/prostate CURRENT DOSE: 250 cGy in 1fx PLANNED DOSE: 7000 cGy in 28 fx SUBJECTIVE: Doing better after recent upper respiratory infection. EXAM: There were no vitals filed for this visit. KPS: 100 General Appearance: Alert and oriented. No acute distress. Radiation dermatitis: No IMAGING/LAB RESULTS: None Treatment chart checked: Yes Patient treatment site reviewed and verified:Yes Port films reviewed and current:Yes Medications started: None ASSESSMENT/PLAN: Patient starting radiation today. Plan of care and expectations again reviewed. Plan, MU calculations and qa report reviewed. Initial imaging including cone beam ct and verification reviewed and approved. First treatment given. Continue radiation as prescribed. Rey Wells MD Referring Provider: Rey WELLS [[id number]] Allergies As of Date: 05/23/2024 Noted Allergy Reaction BACTRIM (SULFAMETHOXAZOLE-TRIMETH*03/08/2024 4 - Hives 12 - Shortness of Breath Date Reviewed: 05/23/2024 Reviewed by: Ankur Winston RN - Fully Assessed Reason for Visit: Radiotherapy On-treatment Visit [1722] Primary Visit Diagnosis:Malignant neoplasm of prostate (HCC) [C61] Prescriptions as of 05/23/2024 - alfuzosin SR (UROXATRAL) 10 mg 24 hr tablet Take 10 mg by mouth. - allopurinol (ZYLOPRIM) 100 mg tablet Take 100 mg by mouth two times a day. - atorvastatin (LIPITOR) 10 mg tablet daily at bedtime. - calcium polycarbophil (FIBERCON) 625 mg tablet Take 1 tablet by mouth every morning. - lisinopril-hydroCHLOROthiazide (ZESTORETIC) 20-25 mg per tablet Take 1 tablet by mouth every morning. - metoprolol succinate ER (TOPROL XL) 50 mg 24 hr tablet Take 50 mg by mouth once daily. - pravastatin (PRAVACHOL) 40 mg tablet Take 40 mg by mouth once daily. - semaglutide (RYBELSUS) 7 mg tablet Take 7 mg by mouth. - vits A,C,E/lutein/minerals (OCUVITE WITH LUTEIN ORAL) Take by mouth. - bicalutamide (CASODEX) 50 mg tablet Take 1 tablet by mouth once daily. Problem List As Of Date: 05/23/2024 (None) Encounter Status:Closed by Rey WELLS on 05/23/24[facility] [id number] Visit (POPEYE) EDWARD DARBY ([id number]) 1950 M Date Time Provider Department 05/16/24 11:45 AM Rey WELLS During your visit today, we recorded the following information about you: Temperature Pulse Respiration Blood pressure 97 degrees 87/minute 18/minute 148/84 Weight 126.2 kg Rey Wells MD 05/16/2024 12:31 PM Signed Radiation Oncology - On Treatment Review (OTR) Note PATIENT NAME: Edward Darby PATIENT DIAGNOSIS: Prostate adenocarcinoma, initial PSA 9.39, biopsy Fulton score 4 + 4 = 8 (grade group 4), clinical stage T1b, N0, M0, stage IIC [T1-T2, N0, M0, PSA <20, GG 4] (AJCC 8th ed.), s/p biopsy. NCCN Risk Group: High Risk Group COURSE: definitive AREA TREATED: Pelvis/prostate CURRENT DOSE: 0 cGy in 0 fx PLANNED DOSE: 7000 cGy in 28 fx SUBJECTIVE: Has upper respiratory infection no fever no shortness of breath postop follow-up. EXAM: 05/16/24 1144 BP: 148/84 Pulse: 87 Resp: 18 Temp: 36.1 ?C (97 ?F) SpO2: 97% Weight: 126.2 kg (278 lb 3.5 oz) KPS: 100 General Appearance: Alert and oriented. No acute distress. Radiation dermatitis: No IMAGING/LAB RESULTS: None Treatment chart checked: Yes Patient treatment site reviewed and verified:Yes Port films reviewed and current:Yes Medications started: None ASSESSMENT/PLAN: Unable to tolerate first fraction due to cough when laying flat. Recommend deferring till later this week or next Thursday when he is feeling better. Rey Wells MD Referring Provider: Rey WELLS [[id number]] Allergies As of Date: 05/16/2024 Noted Allergy Reaction BACTRIM (SULFAMETHOXAZOLE-TRIMETH*03/08/2024 4 - Hives 12 - Shortness of Breath Date Reviewed: 05/16/2024 Reviewed by: Ankur Winston RN - Fully Assessed Reason for Visit: Radiotherapy On-treatment Visit [1722] Primary Visit Diagnosis:Malignant neoplasm of prostate (HCC) [C61] Prescriptions as of 05/16/2024 - alfuzosin SR (UROXATRAL) 10 mg 24 hr tablet Take 10 mg by mouth. - allopurinol (ZYLOPRIM) 100 mg tablet Take 100 mg by mouth two times a day. - atorvastatin (LIPITOR) 10 mg tablet daily at bedtime. - calcium polycarbophil (FIBERCON) 625 mg tablet Take 1 tablet by mouth every morning. - lisinopril-hydroCHLOROthiazide (ZESTORETIC) 20-25 mg per tablet Take 1 tablet by mouth every morning. - metoprolol succinate ER (TOPROL XL) 50 mg 24 hr tablet Take 50 mg by mouth once daily. - pravastatin (PRAVACHOL) 40 mg tablet Take 40 mg by mouth once daily. - semaglutide (RYBELSUS) 7 mg tablet Take 7 mg by mouth. - vits A,C,E/lutein/minerals (OCUVITE WITH LUTEIN ORAL) Take by mouth. - bicalutamide (CASODEX) 50 mg tablet Take 1 tablet by mouth once daily. Problem List As Of Date: 05/16/2024 (None) Encounter Status:Closed by Rey WELLS on 05/16/24[facility] [id number] (RADTSA) EDWARD DARBY ([id number]) 1950 M Date Time Provider Department 05/16/24 Rey WELLS RADTREVORA During your visit today, we recorded the following information about you: Ankur Winston RN 05/16/2024 3:08 PM Signed CBC order pending your approval. Ankur Winston RN Allergies As of Date: 05/16/2024 Noted Allergy Reaction BACTRIM (SULFAMETHOXAZOLE-TRIMETH*03/08/2024 4 - Hives 12 - Shortness of Breath Date Reviewed: 05/16/2024 Reviewed by: Ankur Winston RN - Fully Assessed Reason for Visit: Orders [681] Primary Visit Diagnosis:Malignant neoplasm of prostate (HCC) [C61] Order(s):COMPLETE BLOOD COUNT AND DIFFERENTIAL [SQCBCDIF] Order #: [id number] FUTURE Prescriptions as of 05/17/2024 - alfuzosin SR (UROXATRAL) 10 mg 24 hr tablet Take 10 mg by mouth. - allopurinol (ZYLOPRIM) 100 mg tablet Take 100 mg by mouth two times a day. - atorvastatin (LIPITOR) 10 mg tablet daily at bedtime. - calcium polycarbophil (FIBERCON) 625 mg tablet Take 1 tablet by mouth every morning. - lisinopril-hydroCHLOROthiazide (ZESTORETIC) 20-25 mg per tablet Take 1 tablet by mouth every morning. - metoprolol succinate ER (TOPROL XL) 50 mg 24 hr tablet Take 50 mg by mouth once daily. - pravastatin (PRAVACHOL) 40 mg tablet Take 40 mg by mouth once daily. - semaglutide (RYBELSUS) 7 mg tablet Take 7 mg by mouth. - vits A,C,E/lutein/minerals (OCUVITE WITH LUTEIN ORAL) Take by mouth. - bicalutamide (CASODEX) 50 mg tablet Take 1 tablet by mouth once daily. Problem List As Of Date: 05/16/2024 (None) Encounter Status:Closed by ANKUR WINSTON on 05/17/24[facility] [id number] Visit (POPEYE) EDWARD DARBY ([id number]) 1950 M Date Time Provider Department 04/28/24 11:45 AM Rey WELLS During your visit today, we recorded the following information about you: Rey Wells MD 04/29/2024 7:45 AM Signed sim Referring Provider: Rey WELLS [[id number]] Allergies As of Date: 04/28/2024 Noted Allergy Reaction BACTRIM (SULFAMETHOXAZOLE-TRIMETH*03/08/2024 4 - Hives 12 - Shortness of Breath Date Reviewed: 03/08/2024 Reviewed by: Ankur Winston, RN - Fully Assessed Primary Visit Diagnosis:Malignant neoplasm of prostate (HCC) [C61] Prescriptions as of 04/29/2024 - alfuzosin SR (UROXATRAL) 10 mg 24 hr tablet Take 10 mg by mouth. - allopurinol (ZYLOPRIM) 100 mg tablet Take 100 mg by mouth two times a day. - atorvastatin (LIPITOR) 10 mg tablet daily at bedtime. - calcium polycarbophil (FIBERCON) 625 mg tablet Take 1 tablet by mouth every morning. - lisinopril-hydroCHLOROthiazide (ZESTORETIC) 20-25 mg per tablet Take 1 tablet by mouth every morning. - metoprolol succinate ER (TOPROL XL) 50 mg 24 hr tablet Take 50 mg by mouth once daily. - pravastatin (PRAVACHOL) 40 mg tablet Take 40 mg by mouth once daily. - semaglutide (RYBELSUS) 7 mg tablet Take 7 mg by mouth. - vits A,C,E/lutein/minerals (OCUVITE WITH LUTEIN ORAL) Take by mouth. - bicalutamide (CASODEX) 50 mg tablet Take 1 tablet by mouth once daily. Problem List As Of Date: 04/28/2024 (None) Encounter Status:Closed by Rey WELLS on 04/29/24[facility] Visit (RADTSA) EDWARD DARBY ([id number]) 1950 M Date Time Provider Department 04/28/24 11:15 AM Rey WELLS RADTSA During your visit today, we recorded the following information about you: Referring Provider: Rey WELLS [[id number]] Allergies As of Date: 04/28/2024 Noted Allergy Reaction BACTRIM (SULFAMETHOXAZOLE-TRIMETH*03/08/2024 4 - Hives 12 - Shortness of Breath Date Reviewed: 03/08/2024 Reviewed by: Ankur Winston RN - Fully Assessed Reason for Visit: Simulation Request Form [1382] Primary Visit Diagnosis:Malignant neoplasm of prostate (HCC) [C61] Order(s):RADIATION TREATMENT PER RADIATION ONCOLOGIST PLAN [[id number]] Order #: [id number]: 1 CT SIM PLANNING RADIATION ONCOLOGY [8462555] Order #: [id number] PT ED CANCER [[id number]] Order #: [id number]: 1 Prescriptions as of 04/29/2024 - alfuzosin SR (UROXATRAL) 10 mg 24 hr tablet Take 10 mg by mouth. - allopurinol (ZYLOPRIM) 100 mg tablet Take 100 mg by mouth two times a day. - atorvastatin (LIPITOR) 10 mg tablet daily at bedtime. - calcium polycarbophil (FIBERCON) 625 mg tablet Take 1 tablet by mouth every morning. - lisinopril-hydroCHLOROthiazide (ZESTORETIC) 20-25 mg per tablet Take 1 tablet by mouth every morning. - metoprolol succinate ER (TOPROL XL) 50 mg 24 hr tablet Take 50 mg by mouth once daily. - pravastatin (PRAVACHOL) 40 mg tablet Take 40 mg by mouth once daily. - semaglutide (RYBELSUS) 7 mg tablet Take 7 mg by mouth. - vits A,C,E/lutein/minerals (OCUVITE WITH LUTEIN ORAL) Take by mouth. - bicalutamide (CASODEX) 50 mg tablet Take 1 tablet by mouth once daily. Problem List As Of Date: 04/28/2024 (None) Encounter Status:Closed by Rey WELLS on 04/29/24[facility] prostate wo/w conon [id number] prostate wo/w [facility] [place] [address] MRI Report Signed Patient: Edward Darby MR#: [id number] 87 : 1950 Acct:[id number] Age/Sex: 73 / M ADM Date: 03/14/24 Loc: MR Room: [facility] Attending Dr: Sloan Downey MD Copies to: Sloan Downey MD Ordering Provider: Sloan Downey MD Date of Service: 03/14/24 MR/MR prostate wo/w con: C61 EXAMINATION: MR prostate wo/w con HISTORY: History of TURP diagnosed with prostate cancer. Elevated PSA. COMPARISON: NONE TECHNIQUE: Multiparametric imaging of the prostate gland was performed with IV contrast. FINDINGS: Prostate Dimensions: 5.1 x 4.6 x 5.1 cm. Prostate Volume: 63 mL Peripheral Zone: Heterogenous inT2 signal suggestive of prior prostatitis. Diffuse T2 hypointensity is seen involving the left aspect of the peripheral zone at the level of mid gland which appears to be extension from a presumed centered at the transitional zone. There is associated restricted diffusion and low ADC value. Please see series 4 image 18, series 850 image 18 and series 800 image 18. Central/Transitional Zone: Changes. BPH changes. Ill-defined area of T2 hypointensity with associated restricted diffusion and low ADC value measuring 3.0 x 2.3 cm predominately involving the left transitional zone at the level of the mid gland with extension into the right transitional zone. There appears to be extension into the anterior fibromuscular stroma with bulging of the capsule suggestive of extracapsular extension. Please see series 4 image 18, series 850 image 18 and series 800 image 18. Seminal Vesicles: Decompressed. Likely left-sided seminal vesicle involvement based on the postcontrast imaging. Neurovascular bundles: Likely left neurovascular bundle involvement Lymphadenopathy: Prominent bilateral external iliac lymph nodes, largest measuring 8 mm in short axis Bladder: No focal lesion. Bowel: Diverticulosis. Peritoneal Cavity: No free fluid. Bones: No suspicious bony lesion. MR/MR prostate wo/w con IMPRESSION: Ill-defined area of T2 hypointensity with associated restricted diffusion and low ADC value predominantly involving the left transitional zone at the level of the mid gland with extension into the right transitional zone, anterior fibromuscular stroma and left peripheral zone. There appears to be anterior extracapsular extension and likely left-sided neurovascular bundle and seminal vesicle involvement. There also appears to be prominent bilateral external iliac lymph nodes suspicious for developing local metastatic disease. PI-RADS 5. 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 Your Care Team Attending Physician - Sloan DOWNEY MD Primary Care Physician - JOSE ANGEL VILLAVICENCIO MD This Is Your Medications List alfuzosin (alfuzosin 10 mg ER Tab) Contact prescribing physician if questions or concerns allopurinol (allopurinol 100 mg Tab) bicalutamide (bicalutamide 50 mg Tab) hydrochlorothiazide-lisinopril (hydrochlorothiazide-lisinopril 25 mg-20 mg Tab) hydrochlorothiazide-lisinopril (hydrochlorothiazide-lisinopril 25 mg-20 mg Tab) indomethacin (indomethacin 50 mg oral capsule) metoprolol (metoprolol 50 mg ER Tab) multivitamin with minerals (Ocuvite) polycarbophil (Fiber Lax) pravastatin (pravastatin 40 mg Tab) semaglutide (Rybelsus 7 mg oral tablet) Procedures Performed Gallbladder (01/27/2023), Transrectal needle biopsy of prostate (07/09/2022), Cataract extraction and insertion of intraocular lens, Colonoscopy, Procedure on back, Tonsillectomy. Discharge Vitals Temperature (Temporal Artery) 36.9 ???C Heart Rate (Peripheral) 75 Respiratory Rate 16 Blood Pressure 138/72 Height 177 cm Height 70 in Weight 125.9 kg Weight 277.562 lb BMI 40.19 What to do next Scheduled Follow-Up Appointments Thursday 1:45 PM EDT With: Sloan DOWNEY MD Where: [facility] [address] [place] [address]- You Need to Schedule the Following Appointments Follow Up with Sloan DOWNEY MD, URL When: Where: [facility] [address], [place] [address]- Medications What How Much When Instructions Unchanged alfuzosin (alfuzosin 10 mg ER Tab) 1 Tablets By Mouth Every day Duration: 30 Days Unchanged allopurinol (allopurinol 100 mg Tab) By Mouth Contact prescribing physician if questions or concerns Unchanged bicalutamide (bicalutamide 50 mg Tab) 1 Tablets Contact prescribing physician if questions or concerns Unchanged hydrochlorothiazide-lisinopril (hydrochlorothiazide-lisinopril 25 mg- 20 mg Tab) By Mouth Every day Contact prescribing physician if questions or concerns Unchanged hydrochlorothiazide-lisinopril (hydrochlorothiazide-lisinopril 25 mg- 20 mg Tab) 1 TabletsContact prescribing physician if questions or concerns Unchanged indomethacin (indomethacin 50 mg oral capsule) 1 Capsules By Mouth 3 times a day Contact [...] Contact prescribing physician if questions or concerns Medications and Immunizations Administered Given Eligard 45 mg/6 months subcutaneous injection, extended release, 45 mg, SubCutaneous. For: Prostatecancer Allergies Bactrim (Rash, Tachycardia) Problems Ongoing - Any problem that you are currently receiving treatment for. BPH with obstruction/lower urinary tract symptoms Elevated PSA Erectile dysfunction Feeling of incomplete bladder emptying Gout Head ache Hyperlipidemia Hypertension Prostate cancer Urethral false passage Historical - Any problem that you are no longer receiving treatment for. Incomplete bladder emptying Prostatitis Patient Survey You may receive a survey via text or e-mail asking about your office visit. Please share your experience with us by completing your survey. We appreciate your feedback and thank you for choosing us for your care. Education Materials Hormone Suppression Therapy for Prostate Cancer Hormone suppression therapy is a treatment for prostate cancer that can help slow the growth of cancer cells in the prostate gland. It is also called androgen deprivation therapy (ADT) or androgen suppression therapy. Hormone suppression therapy targets male sex hormones (androgens) in the body that help cancer cells grow. Hormone suppression therapy alone will not cure prostate cancer, but it can slow the growth of cancer cells and may shrink tumors over time. Your health care provider can help you find the best treatment that fits your lifestyle. Hormone suppression therapy may be used in the following cases: ??? When prostate cancer has spread too far to other places in the body and cannot be cured by surgery or radiation. ??? W (more content not included)...NormalFisher Isauro [facility] HospitalISTAT XRay CRE on [id number] [Mass/Vol]0.9 mg/dLNormal0.6-1.3The [facility] Physician GroupComment on above:Result Comment: ER/ESD physician is notified/shown all ISTAT results. Critical values may be confirmed by laboratory testing if deemed necessary by ER attending doctor.Performed By: #### ISCRE #### [facility] [address] [place] [address] USAISTAT GFR>60.0NormalThe [facility] Physician GroupComment on above:Result Comment: PERFORMED BY: [place] [address] PATHOLOGIST [employer] WORKER CHRISSY BOWERS M.D.Performed By: #### ISCRE #### [facility] [address] [place] [address] USAUrology Office/Clinic Noteon [id number] Office/Clinic NoteUrology Office/Clinic Note Chief Complaint prostate cancer HPI Staff Pt is here for first Eligard injection. Pt states that he has been having some burning when he urinates. Dx: Prostate cancer, BPH with obstruction (TURP 02/04/24), incomplete emptying, prostatitis, urethral false passage and ED Dysuria: burning at times Incomplete bladder emptying: feels he empties well most of the time Hematuria: pt states that he thinks he saw some blood a few days ago Frequency: every hour Urgency: sometimes Nocturia: 3-5x Stream: no straining or intermittency Leaking: denies Post void dripping: yes Wearing pads/ Depends: wears a pad if he leaves the house Urge incontinence: denies Stress incontinence: denies Incontinence without Sensory Awareness: denies Abdominal pain: denies Flank pain: denies Sexual complaints: ED History of Present Illness Tests reviewed: UA, PSA I have reviewed the previous health record information and history for this patient from Dr. Toya Wells. I have reviewed and verified the staff [...] See HPI. Physical Exam Vitals & Measurements T: 36.9 ???C(Temporal Artery) HR: 75(Peripheral) RR: 16 BP: 138/72 HT: 70 in HT: 177 cm WT: 125.9 kg WT: 277.562 lb BMI: 40.19 General Appearance: alert, no distress, well nourished, well developed male. Assessment/Plan Pt here with his today. 1. Prostate cancer (C61: Malignant neoplasm of prostate) PSA: 09/04/20 - 2.97 05/09/22 - 5.18 completed abx course 06/11/22 - 7.10 & 11% 07/23/22 - started Dutasteride 08/14/23 - completed 3 wk abx course for prostatitis 01/21/23 - 4.60 (9.20) 02/04/23 - stopped Dutasteride 01/11/24 - 9.39 No fam hx of pros ca in father. Unsure if brother had pros ca, passed from dementia. TRUS/bx 07/09/22 - Neg. Prostate volume 55.8 cc. S/p TURP 02/04/24 - G8 (4+4), GG4 x46/100 prostate chips. 35% involvement. Suspicious for lymph invasion. Perineural invasion present. PET scan 03/01/24 - Neg for mets. Per Dr. Wells's note (since I do not have the original report),one prominent L pelvic lymph node but no abnormal uptake (likely reactive after recent procedure can follow with subsequent CT). Prior rad onc consult with Dr. Wells 03/11/24 - Started Bicalutamide. Recommended combined radiation and ADT. Taking Bicalutamide [address] Wells. Getting MRI done tonight. Per , Dr. Wells does not want to start radiation till end of Apr to allow prostate to heal after TURP. Eligard 45 mgIM injection given today with no complications. Left glute. Pt denies side effects at this time. Follow up 6 mos for Eliabelardod with PSA or sooner if needed. Pt understands and agrees with plan. 2. 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 [1] S/p TURP 02/04/24 - 7.2g removed. 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 UA shows small leuks. Taking Alfuzosin 10 mg ER qd. 3. 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 Follow-up With When Contact Information NASREEN CARMONA, Sloan Westfall, URL [facility] [address], [place] [address]- Additional Instructions: 6 mos for Eligard with PSA Patient Education Hormone Suppression Therapy for Prostate Cancer ISilvia, personally scribed for Dr. Downey on 03/14/2024 10:23:33. . Documentation recorded by the scribe, Silvia Choi, accurately reflects the services(s) I performed and decisions made by me. Authenticated by Dr. Downey on 03/14/2024 10:24:58. Problem List/Past Medical History Ongoing BPH with obstruction/lower urinary tract symptoms Elevated PSA Erectile dysfunction Feeling of incomplete bladder emptying Gout Head ache Hyperlipidemia Hypertension Prostate cancer Urethral false passage Historical Incomplete bladder emptying Prostatitis Procedure/Surgical History Gallbladder (01/27/2023), Transrectal needle biopsy of prostate (07/09/2022), Cataract extraction and insertion of intraocular lens, Colonoscopy, Procedure on back, Tonsillectomy. (more content not included)...[facility] Orthopedic CenterComment on above: Result Comment: Electronically Signed By: Sloan DOWNEY MD\.br\Date and Time Signed: 03/14/24 10:25 EST\.br\Electronically Co-Signed By: Silvia Choi\.br\Date and Time Co-Signed: 03/14/24 10:24 ESTJANELOVlisandra [id number] Visit ([place]) EDWARD DARBY ([id number]) 1950 M Date Time Provider Department 03/08/24 10:45 AM Rey WELLS During your visit today, we recorded the following information about you: Rey Wells MD 03/11/2024 1:30 PM Signed See nursing note Referring Provider: Rey WELLS [[id number]] Allergies As of Date: 03/08/2024 Noted Allergy Reaction BACTRIM (SULFAMETHOXAZOLE-TRIMETH*03/08/2024 4 - Hives 12 - Shortness of Breath Date Reviewed: 03/08/2024 Reviewed by: Ankur Winston, RN - Fully Assessed Primary Visit Diagnosis:Malignant neoplasm of prostate (HCC) [C61] Prescriptions as of 03/11/2024 - alfuzosin SR (UROXATRAL) 10 mg 24 hr tablet Take 10 mg by mouth. - allopurinol (ZYLOPRIM) 100 mg tablet Take 100 mg by mouth two times a day. - atorvastatin (LIPITOR) 10 mg tablet daily at bedtime. - calcium polycarbophil (FIBERCON) 625 mg tablet Take 1 tablet by mouth every morning. - lisinopril-hydroCHLOROthiazide (ZESTORETIC) 20-25 mg per tablet Take 1 tablet by mouth every morning. - metoprolol succinate ER (TOPROL XL) 50 mg 24 hr tablet Take 50 mg by mouth once daily. - pravastatin (PRAVACHOL) 40 mg tablet Take 40 mg by mouth once daily. - semaglutide (RYBELSUS) 7 mg tablet Take 7 mg by mouth. - vits A,C,E/lutein/minerals (OCUVITE WITH LUTEIN ORAL) Take by mouth. - bicalutamide (CASODEX) 50 mg tablet Take 1 tablet by mouth once daily. Problem List As Of Date: 03/08/2024 (None) Encounter Status:Closed by Rey WELLS on 03/11/24[facility] (RADTSA[facility] EDWARD DARBY ([id number]) 1950 M Date Time Provider Department 03/08/24 10:00 AM Rey WELLS RADTSA During your visit today, we recorded the following information about you: Temperature Pulse Respiration Blood pressure 98.3 degrees 73/minute 18/minute 133/83 Weight Height 124 kg 1.74 m Ankur Winston RN 03/11/2024 1:29 PM Signed Pacemaker/Defibrillator?N Previous Cancer(s)?N Previous Radiation?N Lupus/Scleroderma?N On body monitoring device?N Ankur Winston RN 03/11/2024 1:29 PM Signed AUA= 11 Rey Wells MD 03/11/2024 1:29 PM Signed Radiation Oncology - Prostate Cancer New Patient/Consult Note PATIENT NAME: Edward Darby PATIENT REQUESTING PROVIDER: Dr. Downey DIAGNOSIS: 73 year old male with prostate adenocarcinoma, initial PSA 9.39, biopsy Fulton score 4 + 4 = 8 (grade group 4), clinical stage T1b, N0, M0, stage IIC [T1-T2, N0, M0, PSA <20, GG 4] (AJCC 8th ed.), s/p biopsy. NCCN Risk Group: High Risk Group HPI: 73 year old male with prostate adenocarcinoma who presents for an opinion regarding the role of radiation therapy in the management of the patient's disease. Final recommendations will be communicated back to the requesting physician by way of the shared medical record, or letter to requesting physician via US mail. The patient was diagnosed with prostate cancer and comes in today to discuss treatment options. Patient initially presented with elevated PSA. PSA on 06/11/2022 7.1. He underwent transrectal ultrasound-guided biopsy 07/20 without any pathologic findings. He was started on dutasteride in June 2022. PSA has continued to climb, 4.6 on 01/21/2023 and 9.39 on 01/11/2024. Patient's obstructive symptoms also worsened refractory to medical treatment. He underwent TURP on 02/04/2024. Pathology revealing adenocarcinoma, Fulton 8 (4+4) involving 35% of the chips submitted. Areas suspicious for lymph-vascular invasion, and perineural invasion was seen. Staging Studies: MR Results: Pending PET Scan Results: 03/01/2024, no evidence of metastasis evidence of uptake in the prostate only Previous Treatment for Prostate Cancer: None Genomic Testing: None The patient reports the following pertinent history: Urinary frequency (D/N): 4-6/1 Dysuria: No Incontinence: 1- No pads Hematuria: No - AUA Questionnaire (symptoms within the past 1 month) - Total AUA Score: 11 Bowel Movement Frequency: 1/day Bowel Movement Quality: Normal Blood per Rectum: No Last Colonoscopy: last year, nml Androgen Deprivation: none Prior Radiation Therapy, Collagen Vascular Disease, or Inflammatory Bowel Disease: No Any implanted or external electric devices? No Currently on Anticoagulation: No History of Hip Replacement: No History of Prior TURP: Yes ALLERGIES Allergen Reactions Bactrim [Sulfametho* Hives, Shortness of Breath alfuzosin SR (UROXATRAL) 10 mg 24 hr tablet Take 10 mg by mouth. allopurinol (ZYLOPRIM) 100 mg tablet Take 100 mg by mouth two times a day. atorvastatin (LIPITOR) 10 mg tablet daily at bedtime. calcium polycarbophil (FIBERCON) 625 mg tablet Take 1 tablet by mouth every morning. lisinopril-hydroCHLOROthiazide (ZESTORETIC) 20-25 mg per tablet Take 1 tablet by mouth every morning. metoprolol succinate ER (TOPROL XL) 50 mg 24 hr tablet Take 50 mg by mouth once daily. pravastatin (PRAVACHOL) 40 mg tablet Take 40 mg by mouth once daily. semaglutide (RYBELSUS) 7 mg tablet Take 7 mg by mouth. vits A,C,E/lutein/minerals (OCUVITE WITH LUTEIN ORAL) Take by mouth. bicalutamide (CASODEX) 50 mg tablet Take 1 tablet by mouth once daily. PAST MEDICAL HISTORY Diagnosis Date Diabetes mellitus (HCC) Gout HTN (hypertension) Hypercholesteremia PAST SURGICAL HISTORY Procedure Laterality Date CHOLECYSTECTOMY HX PAST SURGICAL HISTORY OF spinal fusion L4-L5 PAST SURGICAL HISTORY OF left shoulder decompression REVISE MEDIAN N/CARPAL TUNNEL SURG Right TONSILLECTOMY AND ADENOIDECTOMY FAMILY HISTORY Problem Relation Age of Onset Lung Cancer Sister Prostate Cancer Brother cause of -Dementia Social History Tobacco Use Smoking status: Former Average packs/day: 0.5 packs/day for 37.0 years (18.5 ttl pk-yrs) Types: Cigarettes Start date: 1962 Smokeless tobacco: Former Types: Snuff Substance Use Topics Alcohol use: Yes Comment: luh REVIEW OF SYSTEMS: GENERAL: feeling well without fatigue, no recent change in weight NECK: denies swelling or pain in neck RESPIRATORY: no cough, no wheezing or shortness of breath CARDIOVASCULAR: no chest pain, no palpitations MUSCULOSKELETAL: denies any painful or swollen joints, no muscle aches SKIN: no rash NEURO: no numbness or paresthesias and no weakness of the extremities As noted in HPI PHYSICAL EXAM: VS: BP 133/83 (more content not included)...NormalUniversity Hospitals Geaug[facility] Medical Center on [id number] (RADTSA) EDWARD DARBY ([id number]) 1950 M Date Time Provider Department 03/08/24 Rey WELLS During your visit today, we recorded the following information about you: Ankur Winston RN 03/08/2024 10:53 AM Signed PSS/RT See Nasreen gutierres Return for sim last week Mar with psa, full bladder Presim consent needed Nurse ed today Thanks ALVA Qiu Jodi 03/08/2024 11:03 AM Signed Patient to see Dr. Downey in [place] office on March 14 at 9:30am. New office at [address] [facility], [address] Isabella Castro RT(R) 03/10/2024 7:52 AM Signed Sim scheduled at 1145 on 04/28/24 PSS - please add to ct schedule (SIM PROSTATE STEPHEN) at 1145 x45 min. Presim consent with STEPHEN arrival 1115. Thanks! RT Berta(R) Whit Granados 03/10/2024 11:37 AM Signed Notified patient of date and time. Allergies As of Date: 03/08/2024 Noted Allergy Reaction BACTRIM (SULFAMETHOXAZOLE-TRIMETH*03/08/2024 4 - Hives 12 - Shortness of Breath Date Reviewed: 03/08/2024 Reviewed by: Ankur Winston, RN - Fully Assessed Reason for Visit: Appointment [[id number]] Prescriptions as of 03/11/2024 - alfuzosin SR (UROXATRAL) 10 mg 24 hr tablet Take 10 mg by mouth. - allopurinol (ZYLOPRIM) 100 mg tablet Take 100 mg by mouth two times a day. - atorvastatin (LIPITOR) 10 mg tablet daily at bedtime. - calcium polycarbophil (FIBERCON) 625 mg tablet Take 1 tablet by mouth every morning. - lisinopril-hydroCHLOROthiazide (ZESTORETIC) 20-25 mg per tablet Take 1 tablet by mouth every morning. - metoprolol succinate ER (TOPROL XL) 50 mg 24 hr tablet Take 50 mg by mouth once daily. - pravastatin (PRAVACHOL) 40 mg tablet Take 40 mg by mouth once daily. - semaglutide (RYBELSUS) 7 mg tablet Take 7 mg by mouth. - vits A,C,E/lutein/minerals (OCUVITE WITH LUTEIN ORAL) Take by mouth. - bicalutamide (CASODEX) 50 mg tablet Take 1 tablet by mouth once daily. Problem List As Of Date: 03/08/2024 (None) Encounter Status:Closed by ANKUR WINSTON on 03/11/24[facility] psma initial tx sb-[facility] [id number] psma initial tx sb-[facility] [place] [address] [place] [address] Nuclear Medicine Report Signed Patient: Edward Draby MR#: [id number] : 1950 Acct:[id number] Age/Sex: 73 / M ADM Date: 02/24/24 Loc: Room: Type: [facility] Attending Dr: Sloan Downey MD Copies to: Mason Norton II, MD Patrick R Waters, MD Ordering Provider: Sloan Downey MD Date of Service: 02/24/24 PET/PET psma initial tx sb-mt: Prostate cancer PET psma initial tx sb-mt 02/24/2024 10:00 AM SIGNS AND SYMPTOMS: Prostate cancer PROTOCOL: Scintigraphic images were obtained from skull base to mid thigh after intravenous radiotracer administration. Noncontrast CT was obtained from skull base to mid thigh. COMPARISON: None. RADIOPHARMACEUTICAL: 8.6 mCi of intravenous fluorine 18 PSMA FINDINGS: There is increased radiotracer accumulation anteriorly and to the right of midline within the prostate consistent with a history of prostate carcinoma. Physiologic radiotracer accumulation is noted in the salivary glands, liver, spleen, kidneys and bladder, and bowel. No evidence of head after lymphadenopathy to suggest local or distant metastatic disease. No evidence of bony metastatic disease. PET/PET psma initial tx sb-mt IMPRESSION: There is increased radiotracer accumulation anteriorly and to the right of midline within the prostate consistent with a history of prostate carcinoma. No evidence of head after lymphadenopathy to suggest local or distant metastatic disease. No evidence of bony metastatic disease. Impression dictated by: Mason Norton M.D.02/24/2024 2:42 PM Dictation Location: [place] [address] Transcribed By: [facility] 02/24/24 1442 Dictated By: Mason Norton II, MD 02/24/24 1430 Signed By: 02/24/24 1442[facility] Physician GroupAmbulatory Visit Summaryon [id number] Visit SummaryAmbulatory Visit Summary EDWARD DARBY :1950 Visit Date:02/15/2024 Ambulatory Visit Instructions Your Diagnosis Prostate cancer BPH with obstruction/lower urinary tract symptoms Incomplete bladder emptying Prostatitis Urethral false passage Erectile dysfunction Your Care Team Attending Physician - NASREEN CARMONA, Sloan Westfall Primary Care Physician - JOSE ANGEL VILLAVICENCIO MD This Is Your Medications List alfuzosin (alfuzosin 10 mg ER Tab) Contact prescribing physician if questions or concerns allopurinol (allopurinol 100 mg Tab) hydrochlorothiazide-lisinopril (hydrochlorothiazide-lisinopril 25 mg-20 mg Tab) metoprolol (metoprolol 50 mg ER Tab) multivitamin with minerals (Ocuvite) polycarbophil (Fiber Lax) pravastatin (pravastatin 40 mg Tab) semaglutide (Rybelsus 7 mg oral tablet) solifenacin (solifenacin 10 mg Tab) Procedures Performed Gallbladder (01/27/2023), Transrectal needle biopsy of prostate (07/09/2022), Cataract extraction and insertion of intraocular lens, Colonoscopy, Procedure on back, Tonsillectomy. Discharge Vitals Temperature (Oral) 37 ???C Heart Rate (Peripheral) 78 Respiratory Rate 18 Blood Pressure 125/72 Height 177 cm Height 70 in Weight 124 kg Weight 273.373 lb BMI 39.58 What to do next You Need to Schedule the Following Appointments Follow Up with NASREEN CARMONA, Sloan Westfall, [place] When: Where: [facility] [address] [facility] [place] [phone] Medications What How Much When Instructions Unchanged alfuzosin (alfuzosin 10 mg ER Tab) 1 Tablets By Mouth Every day Duration: 30 Days Unchanged allopurinol (allopurinol 100 mg Tab) By Mouth Contact prescribing physician if questions or concerns Unchanged hydrochlorothiazide-lisinopril (hydrochlorothiazide-lisinopril 25 mg- 20 mg Tab) By Mouth Every day Contact [...] prescribing physician if questions or concerns Unchanged solifenacin (solifenacin 10 mg Tab) 7 EA, 0 Refill(s), TAKE 1 TABLET BY MOUTH ONCE DAILY Contact prescribing physician if questions or concerns Allergies Bactrim (Rash, Tachycardia) Problems Ongoing - Any problem that you are currently receiving treatment for. BPH with obstruction/lower urinary tract symptoms Elevated PSA Erectile dysfunction Feeling of incomplete bladder emptying Gout Head ache Hyperlipidemia Hypertension Incomplete bladder emptying Prostate cancer Prostatitis Urethral false passage Patient Survey You may receive a survey via text or e-mail asking about your office visit. Please share your experience with us by completing your survey. We appreciate your feedback and thank you for choosing us for your care. Education Materials Prostate Cancer The prostate is a small gland that produces fluid that makes up semen (seminal fluid). It is located below the bladder in men, in front of the rectum. Prostate cancer is the abnormal growth of cells in the prostate gland. What are the causes? The exact cause of this condition is not known. What increases the risk? You are more likely to develop this condition if: ??? You are 65 years of age or older. ??? You have a family history of prostate cancer. ??? You have a family history of breast and ovarian cancer. ??? You have genes that are passed from parent to child (inherited), such as BRCA1 and BRCA2. ??? You have Velazco syndrome. men and men of descent are diagnosed with prostate cancer at higher rates than other men. The reasons for this are not well understood and are likely due to a combination of genetic and environmental factors. What are the signs or symptoms? Symptoms of this condition include: ??? Problems with urination. This may include: ? A weak or interrupted flow of urine. ? Trouble starting or stopping urination. ? Trouble emptying the bladder all the way. ? The need to urinate more often, especially at night. ??? Blood in urine or semen. ??? Persistent pain or discomfort in the lower back, lower abdomen, or hips. ??? Trouble getting an erection. ??? Weakness or numbness in the legs or feet. How is this diagnosed? This condition can be diagnosed with: ??? A digital rectal exam. For this exam, a health care provider inserts a gloved finger (more content not included)...[facility] CenterUrology Office/Clinic Noteon 33-84-5331Splmjrx Office/Clinic NoteUrology Office/Clinic Note Chief Complaint review pathology HPI Staff Post op TURP done 02/04/24. Here today to review pathology Dx: elevated PSA, BPH with obstruction/LUTS, incomplete emptying, urethral false passage and ED Pt was to restart Alfuzosin 10mg ER per last OV note - currently taking as directed Dysuria: has burning and pain all the time Incomplete bladder emptying: not always Hematuria: yes - got better a couple days after procedure, then began to see blood again. Pt thinksit happens when he strains to have BM Frequency: about every 1/2hr to an hour Urgency: yes Nocturia: yes, 4-5x per night Stream: unable to tell for sure, sits down while urinating Leaking: yes a little bit Post void dripping: yes Wearing pads/ Depends: wears pads occasionally, not all the time Urge incontinence: denies Stress incontinence: denies Incontinence without Sensory Awareness: denies Abdominal pain: denies Flank pain: denies History of Present Illness Tests reviewed: reviewed UA, operative note, path report I have reviewed the previous health record information and history for this patient from Dr. Downey. I have reviewed and verified the staff [...] See HPI. Physical Exam Vitals & Measurements T: 37 ???C(Oral) HR: 78(Peripheral) RR: 18 BP: 125/72 HT: 70 in HT: 177 cm WT: 124 kg WT: 273.373 lb BMI: 39.58 General Appearance: alert, no distress, well nourished, well developed male. Assessment/Plan 1. Prostate cancer (C61: Malignant neoplasm of prostate) PROSTATE CANCER PSA: 09/04/20 - 2.97 05/09/22 - 5.18 completed abx course 06/11/22 - 7.10 & 11% 07/23/22 - started Dutasteride 08/14/23 - completed 3 wk abx course for prostatitis 01/21/23 - 4.60 (9.20) 02/04/23 - stopped Dutasteride 01/11/24 - 9.39 No fam hx of pros ca in father. Unsure if brother had pros ca, passed from dementia. TRUS/bx 07/09/22 - Neg. Prostate volume 55.8 cc. S/p TURP 02/04/24. Path shows Rox 8 (4+4), GG4 x46/100 prostate chips. 35% involvement. Suspicious for lymph invasion. Perineural invasion present. The pathology report, which shows the presence of prostate cancer, was disclosed to the patient in detail today. Explained that he has high grade cancer and will definitely require treatment. PSA <10 is favorable however. I discussed with the patient all the treatment options, including brachytherapy, EBRT, SBRT, ADT, combination of therapy options, and RALP. I went over the pros and cons of each therapy today, and the [employer] prostate cancer book was provided. Discussed staging studies to evaluate confinement of cancer to prostate. If mets is shown, not a candidate for RALP. Also discussedreferral to radiation oncology. Mentioned prostate MRI as well but will need to wait until infection resolves. Pt understands. -Schedule PSMA PET scan then prostate MRI after treatment of infection. Will call pt with results. -Referral to rad onc 2. 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 Trabeculated (Severe (3), Open diverticuli diffusely. Urodynamics 03/31/23 - Avg flow rate 2.5 ml/sec, max flow 5.7 ml/sec. Max detrusor pressure 57.1 cmH2O. PVR 16 cc. Urodynamically, he is obstructed. Stopped Dutasteride previously due to SE of ED. Restarted Alfuzosin ER 10mg qd at prior OV due to worsening LUTS. S/p TURP 02/04/24 - 7.2g removed. 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 Catheter removed IO 11/12/24. UA today shows large blood and small leuks. Reports increased urgency and frequency over the past week. Finished doxycycline course after TURP last . Discussed he is likely still healing. However recommend pt to do another round of abx. -Take Cipro 500mg bid x10 days. Rx sent to [facility]. 3. Incomplete bladder emptying (R33.9: Retention of urine, unspecified) PVR (cc): 06/25/22 - 92 02/04/23 - 166 01/13/24 - 46 02/15/24 - 70 (PO TURP) Emptying well. 4. Prostatitis (N41.9: Inflammatory disease of prostate, unspecified) See #2. 5. 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 [1] 6. Erectile dysfunction (N52. (more content not included)...[facility]opedic CenterComment on above:Result Comment: Electronically Signed By: NASREEN CARMONA, Sloan Westfall\.br\Date and Time Signed: 02/15/24 10:32 EST\.br\Electronically Co-Signed By: Jeaneth Wade\.br\Date and Time Co-Signed: 02/15/24 10:31 EST Pathology study report documentOrdered By: Fox Floyd on 06-83-3342Sblxcasur study [facility] Other lon 02-04-2024L Specimen: [id number] Received: 02/05/24 Status: ADIA Mckeon Num: [id number] Spec Type: Surgical Subm Dr: Sloan Downey MD Tissues: A Prostate - Tur (PROSTATE TISSUE) Procedures: HE/10, Gross/Micro L4, PIN Cocktail Age/ Patient Sex Location Account Attending Physician Edward Darby 73/M LABELL [id number] Sloan Downey MD SPEC NUM: [id number] RECD: 02/05/24 STATUS: ADIA MCKEON NUM: [id number] ASHIA: 02/04/[address] [facility] [address]: Sloan Downey MD ENTERED: 02/05/[address] [facility] [address]: Sasha Roth SPEC TYPE: Surgical DEPT: YUE SPAIN ENTERED BY: [id number] RECV BY: [id number] ORDERED: HE/10, Gross/Micro L4, PIN Cocktail ORDERED: HE/10, Gross/Micro L4, PIN Cocktail Supplemental Report Addendum 1 Entered: 02/11/24 PIN immunohistochemical stain was performed on the tissue block A1 with appropriate staining control, and supports the diagnosis of acinar adenocarcinoma. Addendum Signed (signature on file) Fox Floyd MD 02/11/24 0841 Pathological Diagnosis Prostate tissue, transurethral resection: - Acinar adenocarcinoma. - Fulton Score: 4+4=8, corresponding to grade group 4. - Adenocarcinoma is present in 46 of 100 prostate chips. - Adenocarcinoma involved about 35% of the specimen. - Suspicious for lymphovascular invasion. - Perineural invasion present. - Glandular and stromal hyperplasia. - See Comment. Comment: PIN immunohistochemical stain performed on the tissue block A1 is pending and will follow Specimen: [id number] Received: 02/05/24 Status: ADIA Feroz Num: [id number] Spec Type: Surgical Subm Dr: Sloan Downey MD Tissues: A Prostate - Tur (PROSTATE TISSUE) Procedures: /10, Gross/Micro L4, PIN Cocktail Patient: Edward Darby [id number] (Continued) Specimen: [id number] Received: 02/05/24 (Continued) Pathological Diagnosis (Continued) Signed (signature on file) Fox Floyd MD 02/09/24 1359 Specimen: [id number] Received: 02/05/24 Status: ADIA Mckeon Num: [id number] Spec Type: Surgical Subm Dr: Sloan Downey MD Tissues: A Prostate - Tur (PROSTATE TISSUE) Procedures: , Gross/Micro L4, PIN Cocktail Patient: Edward Darby [id number] (Continued) Specimen: [id number] Received: 02/05/24 (Continued) Pathological Diagnosis (Continued) as supplemental report. Clinical Information Enlarged prostate with lower urinary tract symptoms Gross Description A. Received in formalin labeled prostate tissue are 7.2 gram of ayon-pink, rubbery prostate tissue chips, 5.5 x 3.5 x 1.3 cm in aggregate. The specimen is entirely submitted in cassette A1?A10. (10, ns, [id number] A) Microscopic Description Microscopic examination is performed. CPT Codes 88631, 20407 Specimen: [id number] Received: 02/05/24 Status: ADIA Feroz Num: [id number] Spec Type: Surgical Subm Dr: Sloan Downey MD Tissues: A Prostate - Tur (PROSTATE TISSUE) Procedures: 10, Gross/Micro L4, PIN Cocktail Patient: Edward Darby [id number] (Continued) Signed (signature on file) Fox Floyd MD 02/09/24 1359Normal [facility] Physician GroupCCOHIO STATE UNIVERSITY WEXNER MEDICAL CENTERCarlos Eduardo 18-69-4641yNSD Coag (Bld) [Time]29.5 s NOMS HealthcareECG 12-LEADon 03-30-4828[place] [address] Electrocardiograph Report Signed Patient: EDWARD DARBY MR#: [id number] : 1950 Acct:[id number] Age/Sex: 73 / M ADM Date: 01/20/24 Loc: [facility] Attending Dr: Sloan Downey M.D. Ordering Physician: Sloan Downey M.D. 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 Signed By: 01/20/24 1802 DD/ 1050 TD/TT: Accounts Payable Analyst:TBHRadiology, Radiologist, - 01/20/2024 [place] [address] Electrocardiograph Report Signed Patient: EDWARD DARBY MR#: [id number] : 1950 Acct:[id number] Age/Sex: 73 / M ADM Date: 01/20/24 Loc: PST Attending Dr: Sloan Downey M.D. Ordering Physician: Sloan Downey M.D. Date of Service: 01/20/24 Procedure(s): ECG 12 lead Accession Number(s): [id number] cc: 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 Signed By: 01/20/24 1802 DD/ 1050 TD/TT: Accounts Payable Analyst: NOMAgustina HealthcareRadiology Study observation (narrative)[facility] HealthcareECG 12-LEAD Ordered By: Radiologist Radiology on 87-31-7365BXULGeneral [facility] Work Phone: No Panel Informationon 18-67-4298JLTKJPOETOQUD HealthcareSRMCOH PROTHROMBIN TIME INR W/O COUMon 58-65-2662PX Coag (PPP) [Time] 11.1 sNCox Monett INR1.05[facility] HospitalComment on above:DESIRED INR: 2.0-3.0 CONDITIONS NOT LISTED BELOW 2.5-3.5 FOR PROSTHETIC HEART VALVE REPLACEMENT 2.5-3.5 RECURRENT THROMBOSIS Ambulatory Visit Summaryon 38-83-0829Jabvmpobfn Visit SummaryAmbulatory Visit Summary EDWARD DARBY :1950 Visit Date:01/13/2024 Ambulatory Visit Instructions Your Diagnosis Elevated PSA BPH with obstruction/lower urinary tract symptoms Incomplete bladder emptying Urethral false passage Erectile dysfunction Your Care Team Attending Physician - NASREEN CARMONA, Sloan Westfall Primary Care Physician - MAYE CARMONAJOSE ANGEL This Is Your Medications List alfuzosin (alfuzosin 10 mg ER Tab) Contact prescribing physician if questions or concerns allopurinol (allopurinol 100 mg Tab) hydrochlorothiazide-lisinopril (hydrochlorothiazide-lisinopril 25 mg-20 mg Tab) metoprolol (metoprolol 50 [...] AM EST With: Where: [facility] [address] [address]- Thursday 9:15 AM EST With: Sloan DOWNEY MD Where: [facility] [address] [address]- You Need to Schedule the Following Appointments Follow Up with Sloan DOWNEY MD, URL When: Where: [facility] [address] [place] [address], [place] [address]- Medications What How Much When Instructions New alfuzosin (alfuzosin 10 mg ER Tab) 1 Tablets By Mouth Every day Duration: 30 Days Refills: 11 Pickup at [facility] Unchanged allopurinol (allopurinol 100 mg Tab) By Mouth Contact prescribing physician if questions or concerns Unchanged hydrochlorothiazide-lisinopril (hydrochlorothiazide-lisinopril 25 mg- 20 mg Tab) By Mouth Every day Contact [...] physician if questions or concerns Pharmacy Information [facility]: [address] [place], [place] [id number] [phone] Allergies Bactrim (Rash, Tachycardia) Problems Ongoing - [...] and is not considered a disease. ED mayinclude: ? Inability to get an erection. ? [...] ? Sadness or depression. (more content not included)...[facility] CenterUrology Office/Clinic Noteon 52-41-7352Fdlpotx Office/Clinic NoteUrology Office/Clinic Note Chief Complaint Office visit HPI [...] and history for this patient from Dr. Downey. I have reviewed and verified the staff [...] completed 3 wk abx course for prostatitis 10/25/23 - 4.60 (9.20) 02/04/23 - stopped Dutasteride [...] flow 5.7 ml/sec. Max detrusor pressure 57.1 cmH2O. PVR 16 cc. Urodynamically, he is obstructed. [1] UA neg. IPSS 10 (13). No longer taking Alfuzosin 10 mg ER qd either, states it gave him UUI. Stopped Dutasteride at prior OV due to SE of ED. Urination stable. Nocturia 1-3x/night. Reviewed cysto anduros findings with pt. Educated pt on risks [...] include bleeding, infection, need for blood transfusion, continuedurinary difficulties, urinary leakage which could be permanent, need for catheter, retrograde ejaculation, scar tissue formation in the urinary channel or area of prostate shaving, erection problems,blood clot formation in the lower extremities which [...] oral therapy. Follow-up With When Contact Information Sloan DOWNEY MD, URL [facility] [address], [place] [address]- Additional Instructions: schedule TURP Patient Education Erectile Dysfunction Prostate Cancer Screening I, Silvia Choi, personally scribed for Dr. Downey on 01/13/2024 15:06:37. . Documentation recorde (more content not included)...[facility] CenterComment on above:Result Comment: Electronically Signed By: Sloan DOWNEY MD\.br\Date and Time Signed: 01/13/24 15:08 EDT\.br\Electronically Co- Signed By: Silvia Choi\.br\Date and Time Co-Signed: 01/13/24 15:07 EDT Laboratory - Hematology and Cell countson 20-77-3060FdA1y (Bld) [Mass fraction] 6.2 %[facility] HospitalNo Panel Informationon 55-86-2396Sbevvwtatvjwkx and review of laboratory resultsNormalFormerly Northern Hospital of Surry CountyAuditory function tests on 08-57-7959Tpltx Ear: Mild to severe mixed, predominately sensorineural hearing loss above 2K Hz. 15 dB air-bone gap at 4K Hz. Left Ear: Mild hearing loss at 1K Hz. Mild to hearing loss above 2K Hz Former[facility] Surry CountyAlkaline phosphatase [Enzymatic activity/volume] in Serum or PlasmaOrdered By: Taran James on 64-38-0008EME [Catalytic activity/Vol]88 U/G41-043KrsizhlkxLakehealth Tripoint Medical CenterAmylase [Enzymatic activity/volume] in Serum or PlasmaOrdered By: Taran James on 01-27-2023 Amylase [Catalytic activity/Vol]38 U/J01-968KsbjnunwwLakehealth Tripoint Medical Center Bilirubin.total [Mass/volume] in Serum or PlasmaOrdered By: Taran James on 64-69-0356Zqjycnpkc [Mass/Vol]0.6 mg/dL0.3-1.0[facility] CHEMISTRYOrdered By: SYSTEM SYSTEM on 41-56-9404Wcynfaeu specific Ag [Mass/Vol] 4.6 ng/mLHigh0.1 - 3.5 ng/mLWILLOW CREST HOSPITAL – MIAMI RemisolComment on above:Interpretive Data: The concentration of PSA determined by different manufacturers can vary due to di fferences in assay methods and reagent specificity. Values obtained from different assay methods cannot be used interchangeably. The methodology used for this result was chemiluminescence using [employer]'s Access [employer]ch PSA reagent.Basophils Auto (Bld) [#/Vol]Ordered By: Taran James on 01-13-2023 Basophils (Bld) [#/Vol]0.1 10*3/uL0.0-0.2FPeoples Hospital Basophils/100 WBC Auto (Bld)Ordered By: Taran James on 01-13-2023 Basophils/100 WBC (Bld)1.2 %.[facility] CenterCalcium [Mass/volume] in Serum or PlasmaOrdered By: Taran James on 01-13-2023 Calcium [Mass/Vol]9.3 mg/dL8.6-10.3FPeoples HospitalCarbon dioxide, total [Moles/volume] in Serum or PlasmaOrdered By: Taran James on 43-14-7762LQ1 [Moles/Vol]29.3 mmol/L21.0-31.0[facility] Chloride [Moles/volume] in Serum or PlasmaOrdered By: Taran James on 85-07-7664Gydmpdof [Moles/Vol]102 mmol/C65-114LjpwsivznLakehealth Tripoint Medical Center Creatinine [Mass/volume] in Serum or PlasmaOrdered By: Taran James on 82-44-5872Lyfydhcyuv [Mass/Vol]0.77 mg/dL0.70-1.30[facility] Medical CenterEosinophils Auto (Bld) [#/Vol]Ordered By: Taran James on 01-13-2023 Eosinophils (Bld) [#/Vol]0.1 10*3/uL0.0-0.45[facility] Eosinophils/100 WBC Auto (Bld)Ordered By: Taran James on 01-13-2023 Eosinophils/100 WBC (Bld)2.0 %.[facility] Medical CenterErythrocyte distribution width Auto (RBC) [Ratio]Ordered By: Taran James on 01-13-2023 Erythrocyte distribution width (RBC) [Ratio]14.2 %12.0-14.8[facility] CenterGlucose [Mass/volume] in Serum or PlasmaOrdered By: Taran James on 91-77-2997Xfixzrm [Mass/Vol]148 mg/mS59-492HvkiavuvmLakehealth Tripoint Medical CenterComment on above:ADA recommended reference rangeRandom Glucose Reference Range is dependent on time and content of last meal. Glucose of more than 200 mg/dL in a nonstressed, ambulatory subject supports the diagnosisof Diabetes Mellitus.Hematocrit Auto (Bld) [Volume fraction]Ordered By: Taran James on 50-95-9047Pteklyhtxe (Bld) [Volume fraction]45.0 %38.8-50.0 [facility] CenterHemoglobin [Mass/volume] in BloodOrdered By: Taran James on 57-94-3521Hnehzilkvm (Bld) [Mass/Vol]15.5 g/dL13.0-17.0 [facility] CenterLeukocytes [#/volume] corrected for nucleated erythrocytes in Blood by Automated counOrdered By: Taran James on 70-23-3513DBN corrected for nucl RBC Auto (Bld) [#/Vol]5.1 10*3/uL4.1-10.5 [facility] CenterLymphocytes Auto (Bld) [#/Vol]Ordered By: Taran James on 33-15-3423Wwdmbludono (Bld) [#/Vol]1.0 10*3/uL1.00-4.8 [facility] CenterLymphocytes/100 WBC Auto (Bld)Ordered By: Taran James on 51-16-0646Lbdbmvdmgzy/100 WBC (Bld)20.5 %.[facility] SystemH Auto (RBC) [Entitic mass]Ordered By: Taran James on 81-94-7184MDH (RBC) [Entitic mass]30.9 pg27.5-35.2FPeoples HospitalMCHC Auto (RBC) [Mass/Vol]Ordered By: Taran James on 52-05-4730CGLA (RBC) [Mass/Vol]34.5 g/dL32.5-35.6FPeoples HospitalMCV Auto (RBC) [Entitic vol]Ordered By: Taran James on 19-75-7940XCG (RBC) [Entitic vol]89.5 fL83.5-101[facility] CenterMonocytes Auto (Bld) [#/Vol]Ordered By: Taran James on 64-18-7403Ajujkjzid (Bld) [#/Vol]0.5 10*3/uL0.0-0.8[facility] CenterMonocytes/100 WBC Auto (Bld)Ordered By: Taran James on 34-39-1398Rvgtzsrzy/100 WBC (Bld)9.3 %. [facility] Medical CenterNeutrophils Auto (Bld) [#/Vol]Ordered By: Taran James on 85-02-6301Hpvsauspgoi (Bld) [#/Vol]3.4 10*3/uL1.8-7.7 [facility] CenterNeutrophils/100 WBC Auto (Bld)Ordered By: Taran James on 49-28-0803Ezntqomvbtq/100 WBC (Bld)67.0 %.[facility] CenterNo Panel InformationOrdered By: Taran James on 33-14-1105Vjghoztns GFR (CKD-EPI)> 60.0 mL/MinLakehealth Tripoint Medical Center Pharmacy Creatinine Clearance (ChemN/AFPeoples HospitalNucleated erythrocytes [Presence] in Blood by Automated countOrdered By: Taran James on 26-31-1033Wbtmfbjyy RBC Auto Ql (Bld)0.1 /100{WBC}0-0.5FPeoples HospitalPlatelet mean volume Auto (Bld) [Entitic vol]Ordered By: Taran James on 50-61-3121Ipxjyhgz mean volume (Bld) [Entitic vol]7.4 fL 6.6-10.1FPeoples HospitalPlatelets Auto (Bld) [#/Vol]Ordered By: Taran James on 38-88-8422Dmouhciix (Bld) [#/Vol]177 10*3/jA890-527 [facility] CenterPotassium [Moles/volume] in Serum or Plasma Ordered By: Taran James on 99-95-0165Vfymqcmww [Moles/Vol]4.0 mmol/L 3.5-5.1FPeoples HospitalRBC Auto (Bld) [#/Vol]Ordered By: Taran James on 22-36-3453EHC (Bld) [#/Vol]5.02 10*6/uL3.90-5.60[facility] Medical Centererum or plasma anion gap determinationOrdered By: Taran James on 45-76-0421Hezxl gap [Moles/Vol]9.7 mmol/L6.0-15.0[facility] Medical Centerodium [Moles/volume] in Serum or PlasmaOrdered By: Taran James on 00-54-0001Vpeoeo [Moles/Vol]137 mmol/B940-207VgqttysamLakehealth Tripoint Medical CenterUrea nitrogen [Mass/volume] in Serum or PlasmaOrdered By: Taran James on 05-75-4640Hner nitrogen [Mass/Vol]13 mg/dL7-25[facility] Medical CenterWBC Auto (Bld) [#/Vol]Ordered By: Taran James on 79-93-4081OFC (Bld) [#/Vol]5.1 10*3/uL4.1-10.5FPeoples Hospital Office Visit (Cardiology)on 72-35-9751Mqwqha-up visitDiagnoses/Problems Assessed Chest pain, atypical (786.59) (R07.89) Abnormal [...] IO EKG Electrocardiogram- 12 Lead; Status:Complete; Done: 20Vhe0579 Abnormal stress test, Chest pain, atypical, Hyperlipidemia Start: Aspirin 81 MG Oral Tablet Delayed Release; TAKE 1 TABLET DAILY Hyperlipidemia Start: Atorvastatin Calcium 10 MG Oral Tablet; take 1 tablet by mouth at bedtime Morbid obesity with BMI of 40.0-44.9, adult Healthy Weight Tips; Status:Complete - Retrospective Authorization; Done: 65Mbc0224 Some eating tips that can help you lose weight.; Status:Complete - Retrospective Authorization; Done: [id number] SocHx: Former smoker Stop: Pravastatin Sodium 40 MG Oral Tablet Tobacco Use Screening; Status:Complete; Done: 52Cog2497 Patient Instructions Please bring all medicines, vitamins, [...] HOURS DAILY. Eye Barbara (more content not included)...NormalUH TouchworksTobacco Screening.on 96-21-7660Oewgp depression screening assessmentNoFormerly [facility] [email or web address] 250 DO Work Phone: Fall risk assessmenta) No falls within the last year [facility] [email or web address] 250 DO Work Phone: Tobacco use status CPHSb) NoM-[facility] HeartThe [employer] 250 DO Work Phone: ECHOCARDIO M/2D COMPLETEon 61-69-4363LVEUTVXQKV M/2D COMPLETEPatient: DEWARD DARBY Exam Date: 07/02/2022 : 1950 Gender:M Ordering : DR JOSE ANGEL VILLAVICENCIO M.D. Admission #: [id number] Family : Order #: [id number] CLICK HERE TO VIEW EXAM ECHOCARDIOGRAM REPORT [...] by: Dagoberto Rider M.D. on 07/03/2022 at 18:57[facility] STRESS/REST MULTIon [id number] STRESS/REST MULTIPatient: WILNER EDWARD BreanaSantiago Exam Date: 05/22/2022 : 1950 Gender:M Ordering : DR JOSE ANGEL VILLAVICENCIO M.D. Admission #: [id number] Family : Order #: [id number] CLICK HERE TO VIEW EXAM RADIOLOGY REPORT [...] by: Theo Barragan MD on 06/09/2022 at 13:55[facility] Hip Complete Right*on [id number] Hip Complete Right*FINDINGS: Mild superior medial hip joint space loss. No pincer or CAM deformities. No cortical or stress fracture. Lumbosacral fusion. IMPRESSION: 1. Mild bilateral hip osteoarthritis. Report reported and signed by Deven Mcguire on 08/02/2021 1422[facility] K[facility] Complete Right*on [id number] Knee Complete Right*FINDINGS: Mild to moderate patellofemoral joint space reduction [...] 2. Anterior tibial tubercle consistent with remote Geovani Schlatter. Report reported and signed by Deven Mcguire on 08/02/[address] [place], [place] [address]XR Knee Standing AP Bilateralon [id number] Knee Standing AP BilateralFINDINGS: Standing weight-bearing view demonstrates mild joint space reduction within the left medial compartment without cortical or subchondral fracture suggested. Menisci are not calcified. IMPRESSION: Mild left medial joint space loss. Report reported and signed by Deven Mcguire on 08/02/[address] [place] [address] Vital Signs Date TimeVital SignValuePerforming AewngajqiUtfktfkc88-31-9563 15:43-0400Body zzpwui607.8 cmStacey MCCARTY Work Phone: [employer] SoftwarePemiscot Memorial Health SystemsOxhtwnheca11-48-3548 15:43-0400Body mass index (BMI) [Ratio]40.58 kg/b0VbwzbStacey MCCARTY Work Phone: [employer] SoftwarePemiscot Memorial Health SystemsEvozbnabfk90-75-5713 15:43-0400Body jjyohn304.28 kgStacey MCCARTY Work Phone: [employer] SoftwarePemiscot Memorial Health SystemsQyucmnzewm16-12-7813 15:43-0400Diastolic blood vngqhyhd11 mm[Hg]Stacey MCCARTY Work Phone: [employer] SoftwarePemiscot Memorial Health SystemsVsntizonjy82-59-8635 15:43-0400Heart rate69 /min Stacey Guan PA Work Phone: [facility] HospitalSafobbhzog36-32-5732 15:43-0400Respiratory rate16 /minStacey Guan PA Work Phone: [facility] HospitalQegiwmzywk14-94-4266 15:43-8074YtY3% (BldA) [Mass fraction]92 %Stacey Hemmer PA Work Phone: [facility] HospitalQismvppdir87-15-2926 15:43-0400Systolic blood oecuwhky679 mm[Hg]Stacey Guan PA Work Phone: [facility] HospitalBsdkzxqlry73-90-5072 12:58-0400Body okihex584.[address]09-04-2025 12:58-0400Body mass index (BMI) [Ratio]41.79 kg/m[address]09-04-2025 12:58-0400Body etnxmj863.[address]09-04-2025 12:58-0400Diastolic blood bfxvpsgo36 mm[Hg][address]09-04-2025 12:58-0400Systolic blood fsbbaiap546 mm[Hg][address]08-11-2025 10:06-0400Body wvroue310.3 cmRuddy Cabello MD Work Phone: 1(774)421-[address] [place], [place] 6287608-11-2025 10:06-0400 Body mass index (BMI) [Ratio]41.79 kg/a4VcjwrcbRuddy Cabello MD Work Phone: 1(010)899-[address] [place], [place] 6287608-11-2025 10:06-0400 Body pkjzao078.37 kgRuddy Cabello MD Work Phone: 1(524)608-[address] [place], [place] 6287608-11-2025 10:06-0400 Diastolic blood lvimmrvq39 mm[Hg]Ruddy Cabello MD Work Phone: 1(720)[address]08-11-2025 10:06-0400 Heart rate77 /minRuddy Cabello MD Work Phone: [facility]08-11-2025 10:06-0400 Systolic blood genwyhfj748 mm[Hg]Ruddy Cabello MD Work Phone: [facility]08-05-2025 14:32-0400 Body ywmwde730.8 cmKaren Hemmer PA Work Phone: [facility] HospitalQjsjxkraub72-69-8919 14:32-0400Body mass index (BMI) [Ratio]40.81 kg/n0Kjllm Hemmer PA Work Phone: [place] [address]Xtydtrfmft65-40-5574 14:32-0400Body wueveo690 kg Stacey Hemmer PA Work Phone: [place] [address]Envbialwqq92-78-4906 14:32-0400Diastolic blood tkbpsinh53 mm[Hg]Stacey Hemmer PA Work Phone: [facility] HospitalSfomnwkyso56-55-1654 14:32-0400Heart rate84 /min Stacey Hemmer PA Work Phone: [place] [address]Rlsqponixs10-05-6169 14:32-0400Respiratory rate16 /minKaren Hemmer PA Work Phone: [facility] HospitalDaracubwja92-54-9629 14:32-3972TnK4% (BldA) [Mass fraction]95 %Stacey Hemmer PA Work Phone: [facility] HospitalAmxvrswtvy70-17-7315 14:32-0400Systolic blood tcjxieqb568 mm[Hg]Stacey Hemmer PA Work Phone: [facility] HospitalKndplezhpi30-97-2678 10:39-0400Body mass index (BMI) [Ratio]42.28 kg/m2CROW Wells MD Work Phone: [facility]04-17-2025 10:39-0400Body temperature 97.2 [degF]CROW Wells MD Work Phone: [facility]04-17-2025 10:39-0400Body ncdnep229 kg CROW Wells MD Work Phone: [facility]04-17-2025 10:39-0400Diastolic blood hnofwlrg83 mm[Hg]CROW Wells MD Work Phone: [facility]04-17-2025 10:39-0400Heart rate66 /min CROW Wells MD Work Phone: [facility]04-17-2025 10:39-0400Respiratory rate 20 /RadhaCROW Wells MD Work Phone: [facility]04-17-2025 10:39-8543EjL6% (BldA) [Mass fraction]97 %CROW Wells MD Work Phone: [facility]04-17-2025 10:39-0400Systolic blood mm[Hg]CROW Wells MD Work Phone: [facility]03-31-2025 08:43-0400Body mass index (BMI) [Ratio]42.15 kg/m2CROW Wells MD Work Phone: [facility]03-31-2025 08:43-0400Body temperature 96.91 [degF]CROW Wells MD Work Phone: [facility]03-31-2025 08:43-0400Body mcpoxv091.6 kgCROW Wells MD Work Phone: [facility]03-31-2025 08:43-0400Diastolic blood pmivqdbh58 mm[Hg]CROW Wells MD Work Phone: [facility]03-31-2025 08:43-0400Heart rate76 /min CROW Wells MD Work Phone: [facility]03-31-2025 08:43-0400Respiratory rate 18 /RadhaCROW Wells MD Work Phone: [facility]03-31-2025 08:43-1955AjF0% (BldA) [Mass fraction]97 %CROW Wells MD Work Phone: [facility]03-31-2025 08:43-0400Systolic blood mm[Hg]CROW Wells MD Work Phone: [facility]03-24-2025 11:11-0400Body mass index (BMI) [Ratio]42.05 kg/m2CROW Wells MD Work Phone: [facility]03-24-2025 11:11-0400Body temperature 96.91 [degF]CROW Wells MD Work Phone: [facility]03-24-2025 11:11-0400Body udbiqb463.3 kgCROW Wells MD Work Phone: [facility]03-24-2025 11:11-0400Diastolic blood mm[Hg]CROW Wells MD Work Phone: [facility]03-24-2025 11:11-0400Heart rate77 /min CROW Wells MD Work Phone: [place] [address]-24-2025 11:11-0400Respiratory rate 18 /RadhaCROW Wells MD Work Phone: [facility]03-24-2025 11:11-0383EcZ8% (BldA) [Mass fraction]96 %CROW Wells MD Work Phone: [facility]03-24-2025 11:11-0400Systolic blood nnpfkhfe619 mm[Hg]CROW Wells MD Work Phone: [place] [address]-17-2025 11:34-0400Body mass index (BMI) [Ratio]42.71 kg/m2CROW Wells MD Work Phone: [place] [address]-17-2025 11:34-0400Body temperature 96.91 [degF]CROW Wells MD Work Phone: [place] [address]-17-2025 11:34-0400Body fluveo136.3 kgCROW Wells MD Work Phone: [place] [address]-17-2025 11:34-0400Diastolic blood uujpzezf33 mm[Hg]CROW Wells MD Work Phone: [place] [address]-17-2025 11:34-0400Heart rate72 /min CROW Wells MD Work Phone: [place] [address]-17-2025 11:34-0400Respiratory rate 20 /RadhaCROW Wells MD Work Phone: [place] [address]-17-2025 11:34-8811ZlY8% (BldA) [Mass fraction]97 %CROW Wells MD Work Phone: [place] [address]-17-2025 11:34-0400Systolic blood mm[Hg]CROW Wells MD Work Phone: [place] [address]-12-2025 11:04-0400Body mass index (BMI) [Ratio]42.48 kg/m2CROW Wells MD Work Phone: [facility]03-12-2025 11:04-0400Body temperature 96.91 [degF]CROW Wells MD Work Phone: [place] [address]-12-2025 11:04-0400Body .6 kgCROW Wells MD Work Phone: [place] [address]-12-2025 11:04-0400Diastolic blood gulmxxbt51 mm[Hg]CROW Wells MD Work Phone: [place] [address]-12-2025 11:04-0400Heart rate76 /min CROW Wells MD Work Phone: [place] [address]-12-2025 11:04-0400Respiratory rate 18 /RadhaCROW Wells MD Work Phone: [place] [address]-12-2025 11:04-6425MzD1% (BldA) [Mass fraction]96 %CROW Wells MD Work Phone: [place] [address]-12-2025 11:04-0400Systolic blood ctomzuqk033 mm[Hg]CROW Wells MD Work Phone: [facility]03-03-2025 11:16-0500Body mass index (BMI) [Ratio]41.42 kg/m2CROW Wells MD Work Phone: 1(804)868-[address] [place], [place] 2503003-03-2025 11:16-0500Body temperature 96.69 [degF]CROW Wells MD Work Phone: 1(408)759-[address] [place], [place] 2503003-03-2025 11:16-0500Body .4 kgCROW Wells MD Work Phone: 1(071)503-[address] [place], [place] 2503003-03-2025 11:16-0500Diastolic blood kkyokjku44 mm[Hg]CROW Wells MD Work Phone: 1(864)266-[address] [place], [place] 2503003-03-2025 11:16-0500Heart rate80 /min CROW Wells MD Work Phone: 1(496)[address]03-03-2025 11:16-0500Respiratory rate 18 /RadhaCROW Wells MD Work Phone: 1(462)973-[address] [place], [place] 2503003-03-2025 11:16-2663CrD2% (BldA) [Mass fraction]97 %CROW Wells MD Work Phone: [facility]03-03-2025 11:16-0500Systolic blood xeixkmtx477 mm[Hg]CROW Wells MD Work Phone: 1(808)[address]02-24-2025 12:18-0500Body mass index (BMI) [Ratio]41.36 kg/m2CROW Wells MD Work Phone: 1(575)073-[address] [place], [place] 2503002-24-2025 12:18-0500Body temperature 97.3 [degF]CROW Wells MD Work Phone: 1(600)933-[address] [place], [place] 2503002-24-2025 12:18-0500Body irzbwx346.2 kgCROW Wells MD Work Phone: 1(699)570-[address] [place], [place] 2503002-24-2025 12:18-0500Diastolic blood mm[Hg]CROW Wells MD Work Phone: [facility]02-24-2025 12:18-0500Heart rate75 /min CROW Wells MD Work Phone: [facility]02-24-2025 12:18-0500Respiratory rate 20 /RadhaCROW Wells MD Work Phone: [facility]02-24-2025 12:18-9700FhB9% (BldA) [Mass fraction]96 %CROW Wells MD Work Phone: [facility]02-24-2025 12:18-0500Systolic blood mm[Hg]CROW Wells MD Work Phone: [facility]02-19-2025 14:24-0500Body scblud410.8 cmPriyanka Saenz ALTERATIONS MANAGER Work Phone: [facility] HospitalDokvbbtavs73-63-6363 14:24-0500Body mass index (BMI) [Ratio]40.43 kg/m2Priyanka Saenz ALTERATIONS MANAGER Work Phone: [facility] HospitalJddlybcqwl54-49-7713 14:24-0500Body acvetb424.82 kgShakeelrod Stephen ALTERATIONS MANAGER Work Phone: [facility] HospitalAxgsiasusd20-54-1565 14:24-0500Diastolic blood trwlotru05 mm[Hg]Priyanka Saenz ALTERATIONS MANAGER Work Phone: [facility] HospitalCtbhreqgka85-13-6633 14:24-0500Heart rate81 /min Priyanka Saenz ALTERATIONS MANAGER Work Phone: [facility] HospitalGtowsxeofu97-25-1482 14:24-0500Respiratory rate18 /minPriyanka Saenz ALTERATIONS MANAGER Work Phone: [facility]OP[facility] SystemsHqpxamrhug65-20-2767 14:24-0321NuC2% (BldA) [Mass fraction]96 %Priyanka Saenz ALTERATIONS MANAGER Work Phone: [facility]OPem[facility] SystemsMhzenmbjfu61-49-6341 14:24-0500Systolic blood aotlbxhm155 mm[Hg]Priyanka Saenz ALTERATIONS MANAGER Work Phone: [facility] HospitalAeasjpfkqn35-55-9479 11:44-0500Body mass index (BMI) [Ratio]41.69 kg/m2CROW Wells MD Work Phone: [facility]02-17-2025 11:44-0500Body temperature 97 [degF]CROW Wells MD Work Phone: [facility]02-17-2025 11:44-0500Body kycftc415.2 kgCROW Wells MD Work Phone: [facility]02-17-2025 11:44-0500Diastolic blood vyjmtktr31 mm[Hg]CROW Wells MD Work Phone: [facility]02-17-2025 11:44-0500Heart rate87 /min CROW Wells MD Work Phone: [facility]02-17-2025 11:44-0500Respiratory rate 18 /RadhaCROW Wells MD Work Phone: [facility]02-17-2025 11:44-3784RoT0% (BldA) [Mass fraction]97 %CROW Wells MD Work Phone: [facility]02-17-2025 11:44-0500Systolic blood nybzhwic121 mm[Hg]CROW Wells MD Work Phone: [facility]12-16-2024 09:43-0500Blood Pressure LocationPafelipe DOWNEY [facility]12-16-2024 09:43-0500Body aojirpunyvl62.42 [degF]Sloan DOWNEY [facility]12-16-2024 09:43-0500Diastolic blood mm[Hg]Sloan DOWNEY [facility]12-16-2024 09:43-0500Heart rate75 /minSloan DOWNEY [facility]12-16-2024 09:43-0500Respiratory rate16 /minSloan DOWNEY [facility]12-16-2024 09:43-0500Systolic blood avvkgeoe382 mm[Hg]Sloan DOWNEY [facility]12-10-2024 10:09-0500Body dccqka024 cmNA Juwan CARMONA Work Phone: [facility]12-10-2024 10:09-0500Body mass index (BMI) [Ratio]40.96 kg/m2NA Juwan CARMONA Work Phone: [facility]12-10-2024 10:09-0500Body temperature 98.29 [degF]CROW Wells MD Work Phone: [facility]12-10-2024 10:09-0500Body scwooi355 kg CROW Wells MD Work Phone: [facility]12-10-2024 10:09-0500Diastolic blood tjtrerkq23 mm[Hg]CROW Wells MD Work Phone: [facility]12-10-2024 10:09-0500Heart rate73 /min CROW Wells MD Work Phone: [facility]12-10-2024 10:09-0500Respiratory rate 18 /RadhaCROW Wells MD Work Phone: [facility]12-10-2024 10:09-9003WsM6% (BldA) [Mass fraction]97 %CROW Wells MD Work Phone: [facility]12-10-2024 10:09-0500Systolic blood pmopkkle249 mm[Hg]CROW Wells MD Work Phone: [facility]11-18-2024 09:42-0500Blood Pressure LocationSloan DOWNEY [facility]11-18-2024 09:42-0500Body aozxvxujlns62.6 [degF]Sloan DOWNEY [facility]11-18-2024 09:42-0500Diastolic blood slcookak21 mm[Hg]Sloan DOWNEY [facility]11-18-2024 09:42-0500Heart rate78 /minPatrick DOWNEY [facility]11-18-2024 09:42-0500Respiratory rate18 /minPatrick DOWNEY [facility]11-18-2024 09:42-0500Systolic blood wfovyftl604 mm[Hg]Sloan DOWNEY [facility]10-16-2024 14:07-0400Blood Pressure LocationPatrick DOWNEY [facility] [place] [address]260-16-2024 14:07-0400Diastolic blood ufyafmpl72 mm[Hg]Sloan DOWNEY [facility] [place] [address]260-16-2024 14:07-0400Heart rate74 /minPatrick DOWNEY [facility] [place] 560260-16-2024 14:07-0400Respiratory rate16 /minPatrick DOWNEY [facility] [place] [address]260-16-2024 14:07-0400Systolic blood ryuxhwjf871 mm[Hg]Sloan DOWNEY [facility] [place] [address]260-14-2024 11:01-0400Body hwacjo554.8 Devin Villavicencio MD Work Phone: 1(788)[facility] [place], [place] [address]Bfynzmwolk10-17-5978 11:01-0400Body mass index (BMI) [Ratio]38.88 kg/p4CiqtaJose Angel Villavicencio MD Work Phone: 1(603)[facility] [place], [place] [address]Jfvflxpoeb68-19-9276 11:01-0400Body ymlejx146.92 kgJose Angel Villavicencio MD Work Phone: 1(103)[facility] [place], [place] [address]Dkpyerdzdf52-27-8005 11:01-0400Diastolic blood ibgntukz01 mm[Hg]Jose Angel Villavicencio MD Work Phone: 1(360)[facility] [place], [place] [address]Efzgvkpfnf43-50-6015 11:01-0400Heart rate69 /min Jose Angel Villavicencio MD Work Phone: 1(431)[facility] [place], [place] [address]Fnrjjbxnju94-09-6819 11:01-3031MqL4% (BldA) [Mass fraction]96 %Jose Angel Villavicencio MD Work Phone: 1(661)[facility] [place], [place] [address]Qtjewgfwpz40-62-9170 11:01-0400Systolic blood uwasaajg153 mm[Hg]Jose Angel Villavicencio MD Work Phone: 1(126)[facility] [place], [place] [address]Bugapcaosf84-41-2456 09:32-0500Blood Pressure LocationPatrick DOWNEY [facility] [place] 039671-08-2023 09:32-0500Diastolic blood xklownrp08 mm[Hg]Sloan DOWNEY [facility] [place] 039671-08-2023 09:32-0500Heart rate70 /minSloan DOWNEY [facility] [place] 039671-08-2023 09:32-0500Systolic blood nbatwtvb365 mm[Hg]Sloan DOWNEY [facility] [place] 039670-31-2023 10:50-0400Diastolic blood xbtvltge59 mm[Hg]MD Jose Angel Villavicencio Work Phone: 1(303)120-[address] [place], [place] 5321610-31-2023 10:50-0400 Heart rate74 /minMD Jose Angel Maye Work Phone: 1(626)[address]10-31-2023 10:50-0400 Respiratory rate16 /minMD Rugaysha Maye Work Phone: 1(633)[address]10-31-2023 10:50-0400 SaO2% (BldA) [Mass fraction]96 %MD Jose Angel Villavicencio Work Phone: 1(414)[address]10-31-2023 10:50-0400 Systolic blood ikojsati897 mm[Hg]MD Jose Angel Villavicencio Work Phone: 1(487)[address] [place], [place] 1299310-31-2023 09:30-0400 Body adltlssnayg92.2 [degF]MD Jose Angel Villavicencio Work Phone: 1(894)[address]10-31-2023 09:30-0400 Inhaled oxygen flow rate3 L/minMD Jose Angel Maye Work Phone: 1(207)[address]10-31-2023 08:02-0400 Body evfpwp449.8 cmMD Rugaysha Maye Work Phone: 1(848)[address]10-31-2023 08:02-0400 Body mass index (BMI) [Ratio]39.7 kg/m2MD Rugaysha [place] Work Phone: 1(420)[address]10-31-2023 08:02-0400 Body kbhvyo043.64 kgMD Rugaysha [place] Work Phone: 1(952)[address]04-13-2023 09:46-0400 Body ymerow416.8 cmRtito Santillan Maye Work Phone: 1(780) 808-7565033-5860SR-Bzvlc [facility] [address] DO Work Phone: 1(473) 457-352404-13-2023 09:46-0400Body mass index (BMI) [Ratio] 40.03 kg/y7Bggiv M Maye Work Phone: mp512-7649CP-Nqjfm [facility] 250 DO Work Phone: 1(344)654-575-194951-64249071-80-5449 09:46-0400Body surface area Derived from formula2.4 a7WdaouJose Angel Villavicenico Work Phone: mp150-1424ST-Kwzgm [facility] [address] DO Work Phone: 1(698)909-198-694421-96184652-97-6807 09:46-0400Body ehrpwu854.55 kgJose Angel Villavicencio Work Phone: mp025-5407KW-Hsipo [facility] 250 DO Work Phone: 1(428) 824-404904-13-2023 09:46-0400Diastolic blood uymqpeds24 mm[Hg] Jose Angel Villavicencio Work Phone: mp408-5164NP-Oybma [facility] 250 DO Work Phone: 1(635) 665-920104-13-2023 09:46-0400Diastolic blood mrkvtqvu44 mm[Hg] Jose Angel Villavicencio Work Phone: mp374-3856AI-Wdvuw [facility] [address] DO Work Phone: 1(100) 620-328704-13-2023 09:46-0400Heart rate81 /minJose Angel Villavicencio Work Phone: mp333-0674CP-Njeyb [facility] 250 DO Work Phone: 1(416) 546-948504-13-2023 09:46-0400Systolic blood gsjmiexc272 mm[Hg] Jose Angel Villavicencio Work Phone: mp223-9070KK-Rlfmx [facility] [address] DO Work Phone: 1(239) 789-372004-13-2023 09:46-0400Systolic blood pylvqsgw842 mm[Hg] Jose Angel Kima Work Phone: mp854-9915VT-Nbonm [facility] 250 DO Work Phone: 1(745) 777-136604-12-2023 07:40-0400Blood Pressure LocationPaacmc healthcare system DOWNEY [facility]04-12-2023 07:40-0400Diastolic blood mm[Hg]Sloan DOWNEY [facility]04-12-2023 07:40-0400Heart rate72 /minSloan DOWNEY [facility]04-12-2023 07:40-0400Respiratory rate16 /minPaleftyk NASREEN [facility]04-12-2023 07:40-0400Systolic blood wxoqhjrc704 mm[Hg]Sloan DOWNEY [facility]03-29-2023 15:07-0400Blood Pressure LocationPafelipe DOWNEY [facility]03-29-2023 15:07-0400Diastolic blood dbvwwatp93 mm[Hg]Sloan DOWNEY [facility]03-29-2023 15:07-0400Heart rate65 /minSloan DOWNEY [facility]03-29-2023 15:07-0400Systolic blood qykwqril711 mm[Hg]Sloan DOWNEY [facility] Encounters Encounter DateEncounter TypeCare ProviderFacilityStart: 93-82-0895ktkorysctkjennifer DOWNEYFacility:NAA CooperevueStart: 74-78-2400vpopmyrmxzMeopxws R WATERS Facility:EU BellevueStart: 01-17-2025 End: 02-06-7206Wcjfrnf encounter Mau MCCARTY Work Phone: [facility] CenternceComment on above:Medicare annual wellness visit, subsequent (Primary Dx); ACP (advance care planning); Cardiac arrhythmia, unspecified cardiac arrhythmia type; 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; Seasonal allergic rhinitis due to pollen; Congenital spondylolisthesis of lumbar region; Diverticulosis of colon; Benign essential hypertension; Mixed hyperlipidemia; Male hypogonadism; Nocturia; Primary osteoarthritis involving multiple joints; Primary osteoarthritis of right hip; Sacroiliitis, not elsewhere classified; Sleep apnea in adult; Eczema, unspecified type; Hepatic steatosis; Incomplete bladder emptying; Type 2 diabetes mellitus with other specified complication, without long-term current use of insulin ([facility]); Hearing loss of right ear, unspecified hearing loss type; Erectile dysfunction, unspecified erectile dysfunction type; Prostate cancer ([facility]); Urethral false passage; Right bundle branch block (RBBB) determined by electrocardiography; PVC (premature ventricular contraction); Palpitations; Orthostatic hypotension; Abnormal stress test; Abnormal electrocardiogram (ECG) (EKG); Class 3 severe obesity due to excess calories with serious comorbidity and body mass index (BMI) of40.0 to 44.9 in adult ([facility])Start: 01-17-2025 End: 63-82-6800ejtgzaigdpKMRMAMary Garcia AvailableStart: 01-17-2025 End: 32-58-5099Vhdmvm Inge MCCARTY Work Phone: NOOQ Chris Mallory MedinceStart: 01-17-2025 End: 75-16-3564Hmnhltcori MCCARTY Work Phone: NONX [facility]ory MedinceStart: 01-12-2025 End: 21-02-5089zztjimwvwuUShana MCDERMOTTacility:[facility] Start: 12-20-2024 End: 72-83-4953yzdwbunkcfAGCTF M ALDANot AvailableStart: 12-20-2024 End: 44-08-3450Wnvfuki encounter procedureJose Angel Villavicencio MD Work Phone: NOTZ [facility] HospitalnceComment on above:Encounter for vaccinationStart: 12-01-2024 End: 70-79-2648Nbbaosyjc Result EncounterGeneric External Data ProviderNOMS External Department UnsolicitedStart: 12-01-2024 End: 90-16-8106Qceopufeq Result EncounterGeneric External Data ProviderNOCO External Department UnsolicitedStart: 12-01-2024 End: 98-50-0717Qttwjfkncc hospital visit by physicianStephanie Schaeffer Echo/[facility] 3[facility] on above:Essential (primary) hypertension; Abnormal stress test; Abnormal electrocardiogram (ECG) (EKG); [place] (obstructive sleep apnea)Start: 12-01-2024 End: 17-34-4825vkbhegmhotUDJCAIQKettering Health [facility] CenterStart: 11-14-2024 End: 64-97-2773uofbawwdkvVUEJVOCEmory University Hospital AmbulatoryStart: 11-07-2024 End: 26-45-2222Qoqhor outpatient visit 40 Gabriele Cabello MD Work Phone: uh [facility] on above:Essential (primary) hypertension (Primary Dx); Orthostatic hypotension; Abnormal stress test; Abnormal electrocardiogram (ECG) (EKG); [place]ICK (obstructive sleep apnea); Morbid obesity with body mass index (BMI) of 40.0 or higher (Multi); Never smoked tobacco; Palpitation; PalpitationsStart: 11-07-2024 End: 14-62-0123iaeensziuqUGPTWXZEmory University Hospital AmbulatoryStart: 11-01-2024 End: 92-65-2075Kdppzl outpatient visit 25 minutesStacey MCCARTY Work Phone: noms [employer] [facility] SystemeComment on above:Type 2 diabetes mellitus with other specified complication, without long-term current use of insulin (HCC) (Primary Dx); Benign essential hypertension ; Eczema, unspecified type; Right bundle branch block (RBBB) determined by electrocardiography; PVC (premature ventricular contraction); Dizziness; Atrial fibrillation, unspecified type (HCC); Abnormal electrocardiogram (ECG) (EKG)Start: 11-01-2024 End: 99-10-5102etbapfzwtkHVITLMary Garcia AvailableStart: 11-01-2024 End: 65-73-9682Sfqbjr flowsheetStacey MCCARTY Work Phone: noms ChrisBoone County HospitalnceStart: 11-01-2024 End: 44-71-5624Mjkefk Inge MCCARTY Work Phone: NOM[facility] Chris Mallory MedinceStart: 09-05-2024 End: 44-96-5132wtfzslxrpfEgeckbf R WATERSFacility:EU BellevueStart: 09-05-2024 End: 89-05-5678Pssdncp encounter procedureSloan DOWNEY Executive Urology [facility] start: 08-25-2024 End: 37-28-7106Rts Drop offSloan DOWNEY [facility] Start: 08-25-2024 End: 26-23-8990buiotrhphqBgdwlqv R WATERSFacility:EU ueStart: 08-25-2024 End: 10-45-8218Fxiprfk encounter procedureSloan DOWNEY Executive [facility] start: 07-14-2024 End: 60-92-9909Ezmsfwd encounter procedureG Jorge Alberto Wells MD Work Phone: Radiation OncologyComment on above:Malignant neoplasm of prostate (HCC) (Primary Dx)Start: 07-14-2024 End: 67-13-6389jkvtnujlwtKShana GUTIERREZacility:[facility] Start: 07-07-2024 End: 50-98-1073Agiyasvvc Result EncounterGeneric External Data ProviderNOMS External Department UnsolicitedStart: 07-07-2024 End: 29-90-5112Rpryxvfvy Result EncounterGeneric External Data ProviderNOMS External Department UnsolicitedStart: 07-07-2024 End: 59-81-2305jjzontpfzxAShana GUTIERREZacility:[facility] Start: 07-01-2024 End: 81-05-2182XacqubIDavid Wells MD Work Phone: Radiation OncologyComment on above:Refill Request Start: 06-29-2024 End: 83-97-7092Nenpigb encounter procedureG Jorge Alberto Wells MD Work Phone: Radiation OncologyStart: 06-29-2024 End: 60-59-7306Pmvlxvwxr Oncology NoteG Jorge Alberto Wells MD Work Phone: Radiation OncologyComment on above:Completion Note Start: 06-29-2024 End: 38-14-9182KcxxrnO Jorge Alberto Wells MD Work Phone: Radiation OncologyComment on above:Refill Request Start: 06-28-2024 End: 08-47-3116xciinkcyglN JORGE ALBERTO GUTIERREZacility:[facility] Start: 06-27-2024 End: 66-91-5267Evgkxfq encounter procedureG Jorge Alberto Wells MD Work Phone: Radiation OncologyComment on above:Malignant neoplasm of prostate (HCC) (Primary Dx)Start: 06-27-2024 End: 34-05-0452mekutedfqoL JORGE ALBERTO GUTIERREZacility:[facility] Start: 06-24-2024 End: 89-66-5657rqkzlwvfngR JORGE ALBERTO GUTIERREZacility:[facility] Start: 06-23-2024 End: 12-41-2750esysltuwjxP JORGE ALBERTO GUTIERREZacility:[facility] Start: 06-22-2024 End: 79-95-2039eroeupylrsN JORGE ALBERTO GUTIERREZacility:[facility] Start: 06-21-2024 End: 34-94-4045bvsklgikxiW JORGE ALBERTO GUTIERREZacility:[facility] Start: 06-20-2024 End: 35-89-7857Mvfpllm encounter procedureG Jorge Alberto Wells MD Work Phone: Radiation OncologyComment on above:Malignant neoplasm of prostate (HCC) (Primary Dx)Start: 06-20-2024 End: 85-26-9646oolioyuuzsU PHILLIP ENGELERFacility:[facility] Start: 06-17-2024 End: 09-76-7720urpvxrcjuzR JORGE ALBERTO GUTIERREZacility:[facility] Start: 06-16-2024 End: 24-20-0252hibqqkyvhmJ JORGE ALBERTO GUTIERREZacility:[facility] Start: 06-15-2024 End: 87-52-6048yacpyuvpabO JORGE ALBERTO GUTIERREZacility:[facility] Start: 06-14-2024 End: 74-13-1029nbocaleswwC JORGE ALBERTO GUTIERREZacility:[facility] Start: 06-13-2024 End: 76-69-8029Alkhxbv encounter procedureG Jorge Alberto Wells MD Work Phone: Radiation OncologyComment on above:Malignant neoplasm of prostate (HCC) (Primary Dx)Start: 06-13-2024 End: 03-67-1446rysxwosddxM PHILLIP ENGELERFacility:[facility] Start: 06-10-2024 End: 65-08-4341lsrqjtwxrhD JORGE ALBERTO GUTIERREZacility:[facility] Start: 06-09-2024 End: 36-54-5469hsxxxmqilaE JORGE ALBERTO GUTIERREZacility:[facility] Start: 06-08-2024 End: 88-66-0363Faorkjo encounter procedureG Jorge Alberto Wells MD Work Phone: Radiation OncologyComment on above:Malignant neoplasm of prostate (HCC) (Primary Dx)Start: 06-08-2024 End: 07-32-9744qlbaxnbusnS JORGE ALBERTO GUTIERREZacility:[facility] Start: 06-07-2024 End: 82-80-0153vcrzqsqqjyS JORGE ALBERTO GUTIERREZacility:[facility] Start: 06-06-2024 End: 64-01-7982jlzkjrkouxB JORGE ALBERTO GUTIERREZacility:[facility] Start: 06-03-2024 End: 49-96-4640fpndchbyjpI JORGE ALBERTO GUTIERREZlancaster general hospitality:[facility] Start: 06-02-2024 End: 19-66-7429Ulecnbris Result EncounterGeneric External Data ProviderNOMS External Department UnsolicitedStart: 06-02-2024 End: 27-88-1802Sblkfrywk Result EncounterGeneric External Data ProviderNOMS External Department UnsolicitedStart: 06-02-2024 End: 22-23-6530Suyivdp encounter procedureLab/Torito Janett [place] Work Phone: Radiation OncologyComment on above:Malignant neoplasm of prostate (HCC)Start: 06-02-2024 End: 90-78-0374hajzeavzdoZ JORGE ALBERTO MCDERMOTTacility:[facility] Start: 06-01-2024 End: 98-78-4216nguhytysqtO JORGE ALBERTO CMDERMOTTacility:[facility] Start: 05-31-2024 End: 85-08-5154hsiuhmjavwB JORGE ALBERTO MCDERMOTTacility:[facility] Start: 05-30-2024 End: 14-89-4724Zhllaeg encounter procedureG Jorge Alberto Wells MD Work Phone: Radiation OncologyComment on above:Malignant neoplasm of prostate (HCC) (Primary Dx)Start: 05-30-2024 End: 32-77-5785kffejpnqqpC JORGE ALBERTO MCDERMOTTacility:[facility] Start: 05-27-2024 End: 96-13-3300gmfnmesamuD JORGE ALBERTO MCDERMOTTacility:[facility] Start: 05-26-2024 End: 95-87-9645oovuflgpuwZ JORGE ALBERTO MCDERMOTTWalla Walla General Hospitality:[facility] Start: 05-25-2024 End: 48-47-7982gcsheplccdE JORGE ALBERTO GUTIERREZacility:[facility] Start: 05-24-2024 End: 62-19-9581otjqsrvlniN JORGE ALBERTO GUTIERREZacility:[facility] Start: 05-23-2024 End: 35-14-9066Gnmagku encounter procedureG Jorge Alberto Wells MD Work Phone: Radiation OncologyComment on above:Malignant neoplasm of prostate (HCC) (Primary Dx)Start: 05-23-2024 End: 49-25-2873ppvmubwstbC PHILLIP ENGELERFacility:[facility] Start: 05-18-2024 End: 96-55-8638Yzxjhy outpatient visit 25 minutesPriyanka Saenz NP Work Phone: NOHU CI FMComment on above:Acute bronchitis, unspecified organism (Primary Dx)Start: 05-18-2024 End: 39-20-2295vcqguulynzNAS C MILLERNot AvailableStart: 05-18-2024 End: 22-37-6548Aoatje Alix Saenz ALTERATIONS MANAGER Work Phone: NOMS CI FMStart: 05-18-2024 End: 91-92-6596Wmfbfa Alix Saenz ALTERATIONS MANAGER Work Phone: NOMS CI FMStart: 05-16-2024 End: 77-99-8680Emcrsbxoq encounterG Jorge Alberto Wells MD Work Phone: Radiation OncologyComment on above:OrdersStart: 05-16-2024 End: 62-11-5264ojyjfrtetrK PHILLIP ENGELERFacility:[facility] Start: 05-16-2024 End: 80-93-7871Omllzmj encounter procedureG Jorge Alberto Wells MD Work Phone: Radiation OncologyComment on above:Malignant neoplasm of prostate (HCC) (Primary Dx)Start: 04-28-2024 End: 85-17-3678Ptwsgkhan Oncology NoteG Jorge Alberto Wells MD Work Phone: Radiation OncologyComment on above:Simulation Note Treatment PlanningStart: 04-28-2024 End: 96-87-4136vkqtmhdhriE PHILLIP ENGELERFacility:[facility] Start: 04-28-2024 End: 87-89-6669Ezgieqo encounter procedureG Jorge Alberto Wells MD Work Phone: Radiation OncologyComment on above:Malignant neoplasm of prostate (HCC) (Primary Dx)Start: 03-15-2024 End: 17-33-7537Nqpgtzs encounter procedureCcf ProviderWhite Hospital DepartmentStart: 03-14-2024 End: 89-75-8931ejhkksmiujVvzyq M AldaFacility:[facility] Start: 03-14-2024 End: 03-69-2982vhwtwnnvewLtgeoun R WATERSFacility:EU [place]vueStart: 03-14-2024 End: 26-37-8438Exxbggr encounter procedureSloan DOWNEY [facility] start: 03-08-2024 End: 75-36-7175Jxcplonqi encounterG Jorge Alberto Wells MD Work Phone: Radiation OncologyComment on above:AppointmentStart: 03-08-2024 End: 71-21-9493Ttgbmkx encounter procedureG Jorge Alberto Wells MD Work Phone: Radiation OncologyComment on above:Malignant neoplasm of prostate (HCC) (Primary Dx)Start: 03-08-2024 End: 84-24-0635fqyvnzvrpmQgkogr E Graves RNRadiation OncologyComment on above: Patient EducationStart: 03-08-2024 End: 81-03-2280Jvjihv outpatient new 45 minutesG Jorge Alberto Wells MD Work Phone: Radiation OncologyComment on above:Malignant neoplasm of prostate (HCC) (Primary Dx)Start: 02-24-2024 End: 55-73-6243jjxtanstfdTvwwq M AldaFacility:[facility] Start: 02-15-2024 End: 86-14-4741cezqtfntxaBrgqjgi R WATERSFacility:EU ueStart: 02-15-2024 End: 01-62-4604Vixnqud encounter procedureSloan DOWNEY [facility] start: 02-09-2024 End: 08-10-8529hsenrhnlrjIcponxg R WATERSFacility:EU [place]vueStart: 02-09-2024 End: 20-10-1260Qeythqx encounter procedureSloan DOWNEY [facility] start: 02-04-2024 End: 26-01-5719qztsihmdlqDtklwae [facility] Work Phone: Start: 02-04-2024 End: 16-70-4626Kzuqxijx ReferredSloan Downey MD Work Phone: [facility] HospStart: 02-04-2024 End: 96-73-0078qxrdyoxmbtLwridfi R WATERSFacility:CD:[phone]: 01-20-2024 Non-patient / Non-visitSloan Downey MD Work Phone: [facility] Work Phone: Start: 01-20-2024 End: 17-29-9274Geiumxoba Result EncounterGeneric External Data ProviderNOMS External Department UnsolicitedStart: 01-20-2024 End: 75-34-5227Lvctjnrbs Result EncounterGeneric External Data ProviderNOMS External Department UnsolicitedStart: 01-13-2024 End: 59-34-2594gcqyvkmczyKwsafwr R WATERSFacility:EU [place]Start: 01-13-2024 End: 20-31-0584Wjivrvt encounter procedureSloan DOWNEY [facility] Start: 01-11-2024 End: 93-66-5197Mlwaw of hemosiderin, quantJose Angel Villavicencio MD Work Phone: noms HealthcareStart: 01-11-2024 End: 07-40-0604Phttoqa encounter Gilberto Villavicencio MD Work Phone: noms CI FMComment on above:Routine general medical examination at health care facility (Primary Dx); Abnormal glucose tolerance test; Benign essential hypertension (CMS/HCC); Nocturia; Medicare annual wellness visit, subsequent; Hyperlipidemia, unspecified hyperlipidemia type (CMS/HCC); Impaired fasting glucose; Hyperchylomicronemia (CMS/HCC); Type 2 diabetes mellitus with other specified complication, without long-term current use of insulin (CMS/HCC); Morbid (severe) obesity due to excess calories (CMS/HCC); Encounter for vaccination; Sleep apnea in adultStart: 12-02-2023 End: 58-62-7265Tdbkbsmn SupportMary Del Valle [facility] Work Phone: noMS CI AUDComment on above:Tinnitus, bilateral (Primary Dx); Sensorineural hearing loss, bilateralStart: 60-59-9012Qcnnw Kamar Villavicencio MD Work Phone: noms CI FMStart: 03-31-2023 End: 58-08-5513Bgikwvg encounter procedureSloan DOWNEY [facility] Start: 02-04-2023 End: 65-71-3910Fcyantk encounter procedureSloan DOWNEY [facility] Start: 01-27-2023 End: 99-56-0856Fqqgwgcgc to same day surgery [place]MD Jose Angel Villavicencio Work Phone: [facility]Start: 01-27-2023 End: 12-54-3806maiuccqeuaFT Rugen M Alda Work Phone: [facility] Work Phone: Start: 01-21-2023 End: 37-05-6545Csw Drop offSloan DOWNEY [facility] Start: 01-21-2023 End: 59-94-8181Hsfnpzq encounter procedureSloan DOWNEY [facility] Start: 01-13-2023 End: 22-93-3507xojjalmhqePO Rugen M Alda Work Phone: [facility] Work Phone: Start: 01-13-2023 End: 92-51-7710Opcrxgr encounter procedureMD Jose Angel Villavicencio Work Phone: [facility]-Pre-Surgical Testing Work Phone: Start: 98-62-1723Wikjhz consultation new/estab patient 80 minJose Angel Villavicencio Work Phone: [phone]-Aaeam [facility] [address] DO Work Phone: Start: 80-02-2786ojrydehdadIz. Adalberto Wong IIFacility:[id number]: 07-09-2022 End: 23-53-1063Jzbufez encounter procedurePafelipe DOWNEY [facility] Start: 07-02-2022 End: 64-34-2828gtgnzmjvmoKE RUGEN ALDAFacility:Y8Mnxnn: 06-25-2022 End: 91-81-9281Xqzirco encounter procedurePafelipe Westfall DOWNEY [facility] Start: 06-09-2022 End: 12-51-8279ziipseyeemCJ RUGEN ALDAFacility:R8Zuicd: 05-22-2022 End: 16-05-2779mehjnhwtusAF RUGEN ALDAFacility:E0Tpouz: 01-11-2018 End: 47-38-2015Uqjlmqf encounterCYNTCleveland Clinic [facility] Procedures DateProcedureProcedure DetailPerforming ClinicianStart: 21-54-6568WHV w or wo fol Neeta christensen MD Work Phone: Start: 14-29-9315Nwok tthrc r-t 2d w/wom-mode compl spec&colr dGeneric External Data ProviderStart: 62-91-1749Vzb routine ecg w/least 12 lds w/i&Jhoana Cabello MD Work Phone: Start: 88-90-0521Vhndjljcet glycosylated j1tXhyylStacey MCCARTY Work Phone: Start: 73-90-6125AOD PSA SERPL-MCNCGeneric External Data ProviderStart: 25-67-7861DNA CBC W AUTO DIFF BLDGeneric External Data ProviderStart: 68-10-1276Uepis count complete auto&auto difrntl wbcG Jorge Alberto Wells MD Work Phone: Start: 35-41-2279RWY APTTGeneric External Data ProviderStart: 16-23-3720IJGNQQ PROTHROMBIN TIME INR W/O COUMGeneric External Data ProviderStart: 68-83-8320OKL 12-LEADGeneric External Data ProviderStart: 82-06-6000Gbccgogbcg glycosylated f0hCmsrpJose Angel Villavicencio MD Work Phone: Start: 38-22-2012BTRMQQYR FUNCTION TESTSKitquincy valley medical center [facility] Work Phone: start: 22-81-4571Ukzizdhycicf cholecystectomyMD Jos eAngel Villavicencio Work Phone: Start: 37-66-1250Pyowovtxjnp structure (body structure)Sloan DOWNEY Start: 52-60-4320HjypfuvcohdKasdv Alda MD Work Phone: Start: 33-75-5213Hwrqhdsorap needle biopsy of prostate Sloan DOWNEY Start: 83-67-1846Eeb-scan xtr veins unilateral/limited studyCYNTHIA NYEStart: 96-36-0179WTS 12-LEADCYNTHIA NYEStart: 03-08-2013 ColonoscopyAriana Graves RNCataract extraction and insertion of intraocular lens Sloan DOWNEY ColonoscopyPatrick NASREEN ColonoscopyRugen Rod Villavicencio Work Phone: Decompression of median nerveJose Angel Villavicencio Work Phone: Comment on above:rt;Procedure on backPatrick DOWNEY Procedure on backRugen Rod Villavicencio Work Phone: Comment on above:L4, L5 fused;Repair of shoulderRugen Rod Villavicencio Work Phone: TonsillectomyPatrick DOWNEY TonsillectomyJose Angel Villavicencio Work Phone: Plan of Treatment DateCare ActivityDetailAuthorStart: 31-61-7206Reflhaoti for malignant neoplasm of colonNOCO HealthcareStart: 30-82-2371Zfshakrg ScreeningDiabetes Screening [facility]: 10-21-2026Medicare Annual Wellness (AWV)Medicare Annual Wellness (AWV)[facility]OM[facility] HealthcareStart: 06-98-4367Hvvqq screening for protein Diabetes: Urine Protein ScreeningACADIA HEALTHCARE HealthcareStart: 40-28-3362Uqyagrul screeningDiabetes: Retinopathy ScreeningACADIA HEALTHCARE HealthcareStart: 03-15-2025 End: 47-13-4515Bzuyirb encounter njpegvpzk90/17/2025 12:50 PM EST Office Visit [facility] [address] [phone] Ruddy Cabello MD [address] [facility] [address] [place] [address] [facility]Start: 22-48-1167Ozhoyzrecm A1c measurementDiabetes: Hemoglobin U7ZSOGE HealthcareStart: 01-17-2025 End: 88-32-2448Qofnykh encounter wdrhwwsma46/21/2025 3:30 PM EDT Office Visit [facility] [place] [address] [place] [address] Stacey Guan PA [address] [place] [address] ArrivedNOMS [place] Mallory MedinceComment on above:ArrivedStart: 01-13-2025 End: 51-62-7482Putdboth specific Ag [Mass/volume] in Serum or PlasmaPROSTATE- SPECIFIC ANTIGEN DIAGNOSTIC Lab Routine Malignant neoplasm of prostate (HCC) Expected: 01/13/2025, Expires: 04/14/2025[facility] Work Phone: Comment on above:Expected: 01/13/2025, Expires: 04/14/2025Start: 01-12-2025 End: 43-70-9844Rrtefxe encounter xfpizvqpx94/16/2025 11:00 AM EDT Office Visit Radiation Oncology [address] [place] [address] Rey Wells MD [address] [place] [address] 6 month follow upRadiation OncologyComment on above:6 month follow upStart: 10-15-2025Medicare Annual Wellness VisitMedicare Annual Wellness Visit (AWV)[facility]: 10-14-2025Medicare Annual Wellness (AWV)Medicare Annual Wellness (AWV)[facility] 01-10[facility]2025 Urine screening for proteinDiabetes: Urine Protein ScreeningGeneral [facility] Start: 12-01-2024 End: 65-50-3463Juuecnb encounter aagafvvzc38/04/2025 1:30 PM EDT Appointment [address] [place] [phone] [facility]Start: 52-96-7544FEBXG-19 Vaccine ( season)COVID-19 Vaccine ( season)[facility]: 11-28-2024 Influenza vaccinationInfluenza Vaccine (#1)[facility]Start: 11-14-2024 End: 52-24-8636Voumzwtlhowd / ancillary services ipzgnffrne62/18/2025 3:00 PM EDT Ancillary Procedure [address] [place] [phone] [facility]Start: 11-07-2024 End: 74-95-7461Xlqbit monitor studyHolter Or Event Delivery Man Cardiac Services Routine Abnormal electrocardiogram (ECG) (EKG) Palpitation Expected: 11/07/2024 (Approximate), Expires: 11/07/2026[facility] Service Area Work Phone: Comment on above:Expected: 11/07/2024 (Approximate), Expires: 11/07/2026Start: 11-07-2024 End: 00-13-9489TV Heart TransthoracicTransthoracic Echo Complete Echocardiography Routine Essential (primary) hypertension Abnormal stress test Abnormal electrocardiogram (ECG) (EKG) [place] (obstructive sleep apnea) Expected: 11/07/2024 (Approximate), Expires: 11/07/2026[facility] Work Phone: Comment on above:Expected: 11/07/2024 (Approximate), Expires: 11/07/2026Start: 11-01-2024 End: 67-63-3764Xzsayqj encounter lueomaxkx41/05/2025 2:30 PM EDT [facility] [address] [facility] [address] [place] [address] Stacey Guan PA [address] [facility] [address] [place] [address] ArrivedNOCO [place] Mallory [facility] HospitalnceComment on above:ArrivedStart: 11-01-2024 End: 45-97-5002Jcfjeultejij/Creatinine panel in random UrineMicroalbumin / creatinine, urine ratio Lab Routine Type 2 diabetes mellitus with other specified complication, without long-term current use of insulin (HCC) Expected: 11/01/2024 (Approximate), Expires: 11/01/2025[facility] Work Phone: Comment on above:Expected: 11/01/2024 (Approximate), Expires: 11/01/2025Start: 11-01-2024 End: 17-29-5247WC Heart TransthoracicTransthoracic Echo (TTE) Complete Echocardiography High Priority Atrial fibrillation, unspecified type (HCC) Abnormal electrocardiogram (ECG) (EKG) Expected: 11/01/2024 (Approximate), Expires: 11/01/2026NOCO HealthcareComment on above:Expected: 11/01/2024 (Approximate), Expires: 11/01/2026Start: 19-22-9753Yxqvn screening for protein Diabetes: Urine Protein ScreeningGeneral [facility] HospitalStart: 13-09-9983YXGRJ-19 Vaccine ()COVID-19 Vaccine ()[facility] CenterStart: 02-54-8376Okdjo-19 Vaccine () Covid-19 Vaccine ()[facility] 07-21-2024 End: 06-02-9626Yebggzkv specific Ag [Mass/volume] in Serum or PlasmaPROSTATE- SPECIFIC ANTIGEN DIAGNOSTIC Lab Routine Malignant neoplasm of prostate (HCC) Expected: 07/21/2024 (Approximate), Expires: 10/20/2024[facility] Work Phone: Comment on above:Expected: 07/21/2024 (Approximate), Expires: 10/20/2024Start: 07-14-2024 End: 76-56-4608Advnpdg encounter xdbonmkqy32/17/2025 11:00 AM EDT Office Visit Radiation Oncology [address] [facility] [address] Rey Wells MD [address] [place] [address] [place] [address] 3-4 week Final radiation follow upRadiation OncologyComment on above:3-4 week Final radiation follow upStart: 07-07-2024 End: 96-42-7323Uqdaixj encounter oxrdpsonz97/10/2025 11:15 AM EDT Office Visit [facility] [address] [place] [address] labNortUP Health System LaboratoryComment on above:labStart: 06-29-2024 End: 87-25-0950Ijbopkm encounter gvxrvzfat72/02/2025 11:00 AM EDT Appointment Radiation Oncology [address] [place] [address] Prostate Radiation OncologyComment on above:ProstateStart: 06-28-2024 End: 65-55-0378Yazfmvv encounter utmprndts84/01/2025 11:00 AM EDT Appointment Radiation Oncology [address] [place] [address] Prostate Radiation OncologyComment on above:ProstateStart: 06-27-2024 End: 19-38-3732Pkfhwkn encounter procedureRadiation OncologyComment on above: Prostate needs OTV todayLocation: SA-ON TREATMENT REVStart: 06-24-2024 End: 83-18-5939Sowpgdm encounter fhkcfukax76/28/2025 11:00 AM EDT Appointment Radiation Oncology [address] [place] [address] Prostate Radiation OncologyComment on above:ProstateStart: 06-23-2024 End: 7097Qgdmvmk encounter vlwmimuos55/27/2025 11:00 AM EDT Appointment Radiation Oncology [address] [place] [address] Prostate Radiation OncologyComment on above:ProstateStart: 06-22-2024 End: 57-34-7917Xlvxveh encounter krcomvrzh05/26/2025 11:00 AM EDT Appointment Radiation Oncology [address] [place] [address] Prostate Radiation OncologyComment on above:ProstateStart: 06-21-2024 End: 45-60-1965Wnyzppl encounter oceaqxvkl68/25/2025 11:00 AM EDT Appointment Radiation Oncology [address] [place] [address] Prostate Radiation OncologyComment on above:ProstateStart: 06-20-2024 End: 15-57-5196Zfitkck encounter procedureRadiation OncologyComment on above: ProstateLocation: [facility]-ON TREATMENT REVStart: 06-17-2024 End: 04-90-1446Ioaxpup encounter /21/2025 11:00 AM EDT Appointment Radiation Oncology [address] [place] [address] Prostate Radiation OncologyComment on above:ProstateStart: 06-16-2024 End: 23-37-7339Wfmplis encounter ntstyarnr36/20/2025 11:00 AM EDT Appointment Radiation Oncology [address] [place] [address] Prostate Radiation OncologyComment on above:ProstateStart: 06-15-2024 End: 21-45-9439Uonmcgp encounter puppzczjn77/19/2025 11:00 AM EDT Appointment Radiation Oncology [address] [place] [address] Prostate Radiation OncologyComment on above:ProstateStart: 06-14-2024 End: 03-96-8533Muzlazv encounter icegsytsk08/18/2025 11:00 AM EDT Appointment Radiation Oncology [address] [place] [address] Prostate Radiation OncologyComment on above:ProstateStart: 06-13-2024 End: 70-48-6297Eejjgvb encounter procedureRadiation OncologyComment on above: ProstateLocation: SA-ON TREATMENT REVStart: 06-10-2024 End: 86-48-4560Apilhzx encounter hjjzilxia09/14/2025 11:00 AM EDT Appointment Radiation Oncology [address] [place] [address] Prostate Radiation OncologyComment on above:ProstateStart: 06-09-2024 End: 45-74-2891Gbgspzy encounter ehsiddynv44/13/2025 11:00 AM EDT Appointment Radiation Oncology [address] [place] [address] Prostate Radiation OncologyComment on above:ProstateStart: 06-08-2024 End: 86-45-5946Olnvorz encounter wfaizrrxy10/12/2025 11:00 AM EDT Appointment Radiation Oncology [address] [place] [address] Prostate Radiation OncologyComment on above:ProstateStart: 06-07-2024 End: 80-08-9186Vcnqwbm encounter tnrvrayha12/11/2025 11:00 AM EDT Appointment Radiation Oncology [address] [place] [address] Prostate Radiation OncologyComment on above:ProstateStart: 06-06-2024 End: 22-72-4445Nwyhuwd encounter procedureRadiation OncologyComment on above: ProstateLocation: SA-ON TREATMENT REVStart: 06-03-2024 End: 84-00-7079Zzwsomj encounter iudqdqmuv88/07/2025 11:00 AM EST Appointment Radiation Oncology [address] [place] [address] Prostate Radiation OncologyComment on above:ProstateStart: 06-02-2024 End: 23-05-6150RVO W Auto Differential panel - BloodCOMPLETE BLOOD COUNT AND DIFFERENTIAL Lab Routine Malignant neoplasm of prostate (HCC) Expected: 08/2024, Expires: 09/01/2024[facility] Work Phone: Comment on above:Expected: 06/02/2024, Expires: 09/01/2024Start: 06-02-2024 End: 49-58-6558Ccrcuvs encounter procedureRadiation OncologyComment on above: Prostate--CBC todayRad labStart: 06-01-2024 End: 49-44-1866Iozvrqg encounter eempjcowv24/05/2025 11:00 AM EST Appointment Radiation Oncology [address] [place] [address] Prostate Radiation OncologyComment on above:ProstateStart: 05-31-2024 End: 81-38-0605Nklxxpm encounter grlugygon20/04/2025 11:00 AM EST Appointment Radiation Oncology [address] [place] [address] Prostate Radiation OncologyComment on above:ProstateStart: 05-30-2024 End: 97-81-9127Stonfgd encounter procedureRadiation OncologyComment on above: ProstateLocation: SA-ON TREATMENT REVStart: 05-27-2024 End: 84-26-3660Kqmoafd encounter qdgdrperq03/28/2025 11:45 AM EST Appointment Radiation Oncology [address] [place] [address] Prostate Radiation OncologyComment on above:ProstateStart: 05-26-2024 End: 98-12-7103Xfqxfzt encounter tboksrufr52/27/2025 11:00 AM EST Appointment Radiation Oncology [address] [place] [address] Prostate Radiation OncologyComment on above:ProstateStart: 05-25-2024 End: 85-35-7232Vqibgrf encounter kngdwuzig42/26/2025 11:00 AM EST Appointment Radiation Oncology [address] [place] [address] Prostate Radiation OncologyComment on above:ProstateStart: 05-24-2024 End: 90-75-9256Wvshwwj encounter ewcplhmae11/25/2025 11:00 AM EST Appointment Radiation Oncology [address] [place] [address] Prostate Radiation OncologyComment on above:ProstateStart: 05-23-2024 End: 16-83-1978Vuyfnge encounter procedureRadiation OncologyComment on above:new start prostate rs from 05/16 pt illNEW START ProstateStart: 05-18-2024 End: 53-30-7602Jeaimso encounter fcilofwzy89/19/2025 3:00 PM EST Office Visit [facility] [address] [facility] [address] [place] [id number] Priyanka Saenz, ALTERATIONS MANAGER [address] [facility] [address] [place] [address] ArrivedNOMS CI FMComment on above:ArrivedStart: 05-16-2024 End: 36-98-3511Egenbdc encounter procedureRadiation OncologyComment on above:NEW START PROSTATEprostate- would like around 11: 12Start: 04-28-2024 End: 13-74-2865Fncvhncd specific Ag [Mass/volume] in Serum or PlasmaPROSTATE- SPECIFIC ANTIGEN DIAGNOSTIC Lab Routine Malignant neoplasm of prostate (HCC) Expected: 04/28/2024, Expires: 07/28/2024[facility] Work Phone: Comment on above:Expected: 04/28/2024, Expires: 07/28/2024Start: 04-28-2024 End: 78-38-3846Rhepfgz encounter procedureRadiation OncologyComment on above:Pre SIM PROSTATE, NEEDS CONSENTSIM PROSTATE, NEEDS CONSENTStart: 04-12-2024 Hemoglobin A1c measurementDiabetes: Hemoglobin D2TDVBC HealthcareStart: 10-48-9457Hemnvhf Directive DiscussionAdvance Directive DiscussionCleselect medical specialty hospital - boardman, inc ClinicStart: 01-11-2024 End: 79-89-0985EGR W Auto Differential panel - BloodCBC and differential Lab Routine Medicare annual wellness visit, subsequent Hyperlipidemia, unspecified hyperlipidemia type (CMS/HCC) Impaired fasting glucose Expected: 01/11/2024 (Approximate), Expires: 01/10/2025[facility] Work Phone: Comment on above:Expected: 01/11/2024 (Approximate), Expires: 01/10/2025Start: 01-11-2024 End: 47-99-2597Osjypgtvxosgv metabolic 2000 panel - Serum or PlasmaComprehensive metabolic panel Lab Routine Abnormal glucose tolerance test Benign essential hypertension (CMS/HCC) Medicare annual wellness visit, subsequent Expected: 01/11/2024 (Approximate), Expires: 01/10/2025[facility] HealthcareComment on above: Expected: 01/11/2024 (Approximate), Expires: 01/10/2025Start: 01-11-2024 End: 97-37-2700Xffel 1996 panel - Serum or PlasmaLipid panel Lab Routine Medicare annual wellness visit, subsequent Hyperlipidemia, unspecified hyper lipidemia type (CMS/HCC) Expected: 01/11/2024 (Approximate), Expires: 01/10/2025 [facility] HealthcareComment on above:Expected: 01/11/2024 (Approximate), Expires: 01/10/2025Start: 01-11-2024 End: 91-96-9251Skgpimds specific Ag [Mass/volume] in Serum or PlasmaPSA Lab Routine Nocturia Medicare annual wellness visit, subsequent Expected: 01/11/2024 (Approximate), Expires: 01/10/2025[facility] HealthcareComment on above:Expected: 01/11/2024 (Approximate), Expires: 01/10/2025Start: 01-11-2024 End: 63-00-2003Gjpvdzd encounter qupjdmauf35/14/2024 11:00 AM EDT Office Visit [facility] [address] [facility] [address] [place] [address] Jose Angel Villavicencio MD [address] [facility] [address] [place] [address] NOM[facility] CI FMStart: 10-10-2024Medicare Annual Wellness (AWV) Medicare Annual Wellness (AWV)[facility] HealthcareStart: 73-03-9565Nfgytbykof A1c measurementDiabetes: Hemoglobin C1ZKOHH HealthcareStart: 77-17-5493Icsxg-19 Vaccine ( season)Covid-19 Vaccine ( season)[facility]: 83-79-2249Pfwfryjdk vaccinationInfluenza Vaccine (#1)[facility] HealthcareStart: 05-11-2023 End: 89-17-1634Ebkxblp encounter kmzffcses86/12/2024 2:30 PM EST Office Visit [facility] [address] [facility] [address] [place] [address] Jose Angel Villavicencio MD [address] [facility] [address] [place] [address] NOM[facility] CI FMStart: 94-51-7618Goqvccr Directive DiscussionAdvance Directive DiscussionAultman Hospitaltart: 56-36-3408Dlvzxsvwq for malignant neoplasm of colonHolzer Health System: 31-31-9408FrgqszpsmUniversity Hospitals TriPoint Medical Centertart: 45-49-9457UlrjywiwpUniversity Hospitals TriPoint Medical Centertart: 24-21-8072SZN, Provider: Adalberto Wong, Status: Pen, Time: 9:10 AMFUV, Provider: Adalberto Wong, Status: Pen, Time: 9:10 AMRebecca [place] [address] DO Work Phone: Start: 08-03-7940Iiajpiadf for malignant neoplasm of colonAultman Hospitaltart: 65-62-6390Lhhdixmsa B Vaccines (1 of 3 - Risk 3-dose series)Hepatitis B Vaccines (1 of 3 - Risk 3-dose series)[facility]: 43-83-4710MPF High Risk: (Elderly (60+) or Population) (1 - Risk 60-74 years 1-dose series)RSV High Risk: (Elderly (60+) or Population) (1 - Risk 60-74 years 1-dose series)[facility]: 37-44-3939MQD Vaccine (1 - Risk 60-74 years 1-dose series)RSV Vaccine (1 - Risk 60-74 years 1-dose series)[facility]: 2002 Shingrix Vaccine (1 of 2)Shingrix Vaccine (1 of 2)[facility]: 66-52-3172Dckess Vaccines (1 of 2)Zoster Vaccines (1 of 2)[facility]: 20-62-7635Vhmtrwytc for malignant neoplasm of colonAultman Hospitaltart: 23-48-0485Hxhwj panelLipid ScreeningAultman Hospitaltart: 10-14-0912ILnY/Tdap/Td Vaccines (1 - Tdap)DTaP/Tdap/Td Vaccines (1 - Tdap) [facility]: 76-16-3658Ogflwzicf A Vaccines (1 of 2 - Risk 2-dose series)Hepatitis A Vaccines (1 of 2 - Risk 2-dose series)[facility]: 02-67-0475Rbdng microalbumin profileDTaP,Tdap,Td Vaccine (1 - Tdap)[facility]: 17-21-0178Trovfpk ScreeningAnxiety ScreeningAultman Hospitaltart: 29-00-6653Gjouolaafk ScreeningDepression ScreeningAultman Hospitaltart: 22-25-7255Rczcuckko C screeningHepatitis C ScreeningAultman Hospitaltart: 46-23-1755VBF Vaccines (1 of 1 - Standard series)MMR Vaccines (1 of 1 - Standard series)[facility] Start: 97-61-6199Fcwcbynlx aortic aneurysm screeningAbdominal Aortic Aneurysm ScreeningAultman Hospitaltart: 65-23-7042Asrsi panelLipid PanelUnParkview Health: 98-52-6751Qknxqqhgt for malignant neoplasm of colon [facility] HealthcareBasic metabolic 1998 panel - Serum or PlasmaBasic metabolic panel Lab Routine Atrial fibrillation, unspecified type (HCC) Ordered: 11/01/2024[facility] HealthcareComment on above:Ordered: 11/01/2024T Guidance for radiation treatment of Unspecified body regionCT SIM PLANNING RADIATION ONCOLOGY Radiology Routine Malignant neoplasm of prostate (HCC) Ordered: 04/29/2024[facility] Work Phone: Comment on above:Ordered: 04/29/2024Patient referral [facility] Work Phone: TSH W/REFLEX TO FT4TSH W/REFLEX TO FT4 Lab Routine Atrial fibrillation, unspecified type (HCC) Ordered: 11/01/2024[facility] Comment on above:Ordered: 11/01/2024 Immunizations Immunization DateImmunizationNotesCare IdhxwvemSkewzelg03-32-0573gmwwmpicd, high dose seasonal, preservative-freeJose Angel Villavicencio MD Work Phone: [facility] HospitalJrnpvslqfb15-64-5759rqebqtcvk virus vaccine, unspecified formulationEverplaces [facility] Hospitalue10-14-2024Influenza, High-dose Seasonal, Quadrivalent, Preservative Free Jose Angel Villavicencio MD Work Phone: [facility] HospitalEmdgicfgcb66-52-9753uigagdzox virus vaccine, unspecified formulationPaScoreloop [facility] Centery10-10-2023Influenza, High-dose Seasonal, Quadrivalent, Preservative Free Jose Angel Villavicencio MD Work Phone: [facility] HospitalPoxeslgofk70-45-6405Yrtoyux COVID-19 Bival Booster 50 MCG/0.5ML Intramuscular SuspensionRugen M Maye Work Phone: [facility]10-13-2022Fluzone High-Dose Quadrivalent 0.7 ML Intramuscular Suspension Prefilled SyringeRugen M [place] Work Phone: [phone]-Uoghe [facility] [address] DO Work Phone: [phone]a virus vaccine, unspecified formulationEverplaces [facility]05-25-2022Moderna COVID-19 Vaccine 100 MCG/0.5ML Intramuscular SuspensionRugen M [place] Work Phone: [facility] CenterComment on above: Result Comment: 2022-07-23: PKE4109-54-1594Ifgsvhs COVID-19 Vaccine 100 MCG/0.5ML Intramuscular SuspensionRugen M Maye Work Phone: [facility]11-22-2021Fluzone High-Dose Quadrivalent 0.7 ML Intramuscular Suspension Prefilled SyringeRugen M Maye Work Phone: [phone]-WvtjqOwatonna Hospital 250 DO Work Phone: [phone]oyfb virus vaccine, unspecified formulationPaScoreloop [facility] [place] 560260-26-2021Moderna COVID-19 Vaccine 100 MCG/0.5ML Intramuscular SuspensionRugen M [place] Work Phone: [facility]03-24-2021Moderna COVID-19 Vaccine 100 MCG/0.5ML Intramuscular SuspensionRugen M Maye Work Phone: [facility]02-24-2021Moderna COVID-19 Vaccine 100 MCG/0.5ML Intramuscular SuspensionRugen M Maye Work Phone: [facility]12-08-2020 pneumococcal polysaccharide vaccine, 23 valentRugen M [place] Work Phone: [facility]ery09-25-2020influenza virus vaccine, unspecified formulationEverplaces [facility] Centery09-25-2020Seasonal, quadrivalent, recombinant, injectable influenza vaccine, preservative freeRugen M [place] Work Phone: [phone]-SnweoOwatonna Hospital 250 DO Work Phone: [phone]achin conjugate vaccine, 13 valent Rugen M [place] Work Phone: [facility] [place] 560261-12-2019influenza virus vaccine, unspecified formulationPafelipe DOWNEY [facility] Centery11-12-2019influenza, high dose seasonal, preservative-freeJose Angel Rod Kima Work Phone: [phone]-Juxnf [facility] 250 DO Work Phone: Payers DatePayer CategoryPayerPolicy [id number]-pay2022MedicaidAETNA MEDICARE ADVANTAGE [id number] 2022Medicare [id number] 2022Medicare (Managed Care) [id number] [id number] 07-51-3594Ejxlbve Health [id number] 2.16.840.1.904616.3.57[id number] 2.16.840.1.306367.3.579.[id number] 2.16.840.1.681272.3.57[id number] 2.16.840.1.808819.3.57[id number] 2.16.840.1.525619.3.57[id number] 2.16.840.1.437339.3.57[id number] 2.16.840.1.883539.3.57[id number] 2.16.840.1.336213.3.57[id number] 2.16.840.1.568966.3.57[id number] 2.16.840.1.750235.3.57[id number] 2.16840.1.914645.3.57[id number] 2.16.840.1.381366.3.57[id number] 2.16.840.1.251232.3.57[id number] 2.16.840.1.726681.3.57[id number] 2.16840.1.940795.3.579.2.[id number] 2.16840.1.582427.3.579.[id number] 2.16.840.1.732232.3.579.[id number] 2.16840.1.847361.3.57[id number] 2.16.840.1.291728.3.57[id number] 2.16.840.1.910261.3.579.[id number] 2.16.840.1.683602.3.57[id number] 2.16.840.1.416028.3.57[id number] 2.16.840.1.732981.3.57[id number] 484x9d8o-e7qe-744w-b7s2-[id number] 2.16.840.1.6[id number] 2.16.840.1.793930.3.579.2.531 [id number] 2.16.840.1.133561.3.579.2.531 Social History DateTypeDetailFacilityStart: 06-25-2022 End: 39-44-8760Duiwmnp smoking statusEx-smoker (finding)[facility] Hospitalart: 02-22-2022 End: 33-90-4299Uctmhyd smoking statusNeverExecutive Urology of [facility] Medical CenteryStart: 11-10-2022 End: 06-61-1886[facility] Troytart: 11-10-2022 End: 09-89-5961Xs illicit drug useNo illicit drug use-[place] [address] DO Work Phone: Comment on above:20+ years ago;Start: 19-22-8219Toy Assigned At BirthMalSouthern [facility] Medical Centertart: [birth year]-30-1962 End: 93-42-8331Ohvvhqw of tobacco useCurrent smokerNOCO HealthcareStart: 03-30-1964 End: 52-78-0369Kpxxoah of tobacco useCigarette SmokerNOCO HealthcareStart: 11-10-2022 End: 34-20-1515Nyvbona use and exposureFormer smokeless tobacco userNOCO Healthcare End: 13-97-5823Vtjhaej of tobacco useChews TobaccoNOMS HealthcareStart: 05-08-2023 End: 28-14-9946Jpnjies intakeCurrent drinker of alcohol (finding)[facility] How often to you have a drink containing alcohol?4 or more times a weekNOCO HealthcareHow many standard drinks containing alcohol do you have on a typical day?1 or 2NOMS HealthcareHow often do you have 6 or more drinks on 1 occasion? NeverNOCO HealthcareStart: 78-18-3583Xmcgrdj Comment1-2 drinks 2-4 times a month [facility] HospitalStart: 08-50-6332Dnm Assigned At BirthNot on fileNOCO Healthcare Start: 87-23-9399AniBpfasct sex unknown (finding)[facility] CenterHistory of tobacco useSnuff UserAultman Hospitaltart: 95-94-6426Zbdkwhg CommentoccVincennes ClinicSexual OrientationExecutive [facility] sexMale (finding)[facility] Foundationtart: 13-29-9846Dtfzqiv smoking status NHISNever smoked tobaccoUnUniversity Hospitals St. John Medical Center Work Phone: Start: 93-87-1908Rnyixwj use and exposureSmokeless tobacco non-userUnUniversity Hospitals St. John Medical Center Work Phone: Start: 62-04-2925Ughkjtz CommentrarelyOhioHealth [facility] Center Work Phone: Goals DatePatient GoalDesired Activity/State Functional Status QlonKkzafhjuhgUaomjcHwnolgqo31-91-0246Snksbcv Health Questionnaire 2 item (PHQ- 2) [Reported][facility] HospitalBvncqxuorf51-75-5223Ibhzzmr Health Questionnaire 2 item (PHQ- 2) [Reported][facility] HospitalWflafhnrpc77-02-0914Jocxruyusl StatusN/AExecutive [facility]rology [facility]11-18-2024Functional StatusN/AExec[facility]10-16-2024Functional StatusN/A [facility]01-02-2024Functional StatusN/AFTriHealth [facility]11-08-2023Functional StatusN/AExec[facility]04-12-2023Functional StatusN/A [facility]03-29-2023Functional StatusN/AExecutive [facility]rology [facility] Clinical Notes 06-25-2022 to 01-17-2025 Note Date & ZugcRpneAxdwvbkr61-12-2074 History of Present illness Narrative* LUL Cardona - 01/17/2025 3:30 PM EDT Images from the original note were not included. Subjective Patient ID: Edward Darby is a 74 y.o. male who presents for Medicare Annual Wellness Visit Subsequent. HPI Medicare Wellness Over the past 2 weeks, how often have you been bothered by any of the following problems? Little interest or pleasure in doing things: Not at all Feeling down, depressed, or hopeless: Not at all Patient Health Questionnaire-2 Score: 0 Over the past 2 weeks, how often have you been bothered by any of the following problems? Trouble falling or staying asleep, or sleeping too much: Not at all Feeling tired or having little energy: Not at all Poor appetite or overeating: Not at all Feeling bad about yourself - or that you are a failure or have let yourself or your family down: Not at all Trouble concentrating on things, such as reading the newspaper or watching television: Not at all Moving or speaking so slowly that other people could have noticed? Or the opposite - being so fidgety or restless that you have been moving around a lot more than usual.: Not at all Thoughts that you would be better off or hurting yourself in some way: Not at all Patient Health Questionnaire-9 Score: 0 Green Fall Risk History of [...] apparent by direct observation Three Word Registration: Leader, Season, Table Clock Drawing: Normal Clock - 2 Three Word Recall: 2/3 words correct - 2 Total Score (0-5 Points): 4 Pain Assessment Pain Score: 2 Advance Care Planning Do you have a living will?: No (living will paperwork given to patient) Do you have a medical power of erisa attorney?: Yes Current Outpatient Medications on File Prior to Visit Medication Sig Dispense Refill lisinopril-hydroCHLOROthiazide 10-12.5 MG tablet Take 1 tablet by mouth Daily alfuzosin ER (Uroxatral) 10 MG 24 hr tablet Take 10 mg by mouth Daily allopurinol (Zyloprim) 100 MG tablet Take 1 tablet by mouth twice daily 200 tablet 3 aspirin 81 MG EC tablet Take 81 mg by mouth in the morning. betamethasone dipropionate 0.05 % cream Apply 1 application topically Daily as needed for irritation 45 g 2 Cialis 20 MG tablet Take 20 mg by mouth Daily as needed for erectile dysfunction indomethacin (Indocin) 50 MG capsule Take 1 capsule (50 mg) by mouth 1 (one) time each day at the same time metoprolol succinate XL (Toprol-XL) 50 MG 24 hr tablet Take 1 tablet by mouth once daily 100 tablet3 Multiple Vitamins-Minerals (OCUVITE PO) Take 1 tablet by mouth Daily polycarbophil (Fibercon) 625 MG tablet Take 1 tablet by mouth in the morning. pravastatin (Pravachol) 40 MG tablet Take 1 tablet by mouth once daily 100 tablet 3 semaglutide (Rybelsus) 7 MG tablet Take 1 tablet (7 mg) by mouth in the morning. Take before meals.90 tablet 0 [DISCONTINUED] apixaban (Eliquis) 5 MG tablet Take 1 tablet (5 mg) by mouth in the morning and 1 tablet (5 mg) before bedtime. 60 tablet 2 [DISCONTINUED] lisinopril-hydroCHLOROthiazide 20-25 MG tablet TAKE 1 TABLET BY MOUTH IN THE [id number] tablet 0 No current facility-administered medications on file prior to visit. I have reviewed and reconciled the history and medication list with the patient today. Allergies Allergen Reactions Tetanus Toxoid Other Unknown, child Sulfamethoxazole-Trimethoprim Other Reaction(s): Dyspnea, REYES Social History Tobacco Use Smoking status: Former Current packs/day: 0.00 Types: Cigarettes Quit date: 2001 Years since quittin.8 Smokeless tobacco: Former Types: Chew Quit date: 1979 Vaping Use Vaping status: Unknown Substance Use Topics Alcohol use: Yes Comment: 1-2 drinks 2-4 times a month Drug use: Never Family History Problem Relation Name Age of Onset Lung cancer Sister Past Medical History: Diagnosis Date Chest discomfort Cholecystitis with cholelithiasis 01/17/2025 Problem List clean-up per request of Phys. EHR Cmte Cholelithiasis 11/20/2022 Colon polyps Enthesopathy of ankle and tarsus Unspecified Gout Hepatic steatosis 11/20/2022 History of echocardiogram 07/03/2022 Echo: Normal LV Systolic Function LVEF 55%. Mildly dilated Right ventricle with mildly decreased Right Ventricular systolic function. Grade 2 DD. Moderate biatrial dilatation. No significant valvulardysfunction. History of lumbar fusion 2011 L5 History of stress test 06/09/2022 Decreased activity in the inferior wall, diaphragmatic attenuation artifact versus a fixed defect. No reversible ischemia. Abnormal exercise test secondary EKG changes Rotator cuff tear, left Past Surgical History: Procedure Laterality Date CARPAL TUNNEL RELEASE 1996 CHOLECYSTECTOMY 01/27/2023 COLONOSCOPY 2013 polyp COLONOSCOPY 03/06/2014 polyp COLONOSCOPY 12/29/2022 LUMBAR FUSION 2011 L4-L5 - removed disc and rods placed ROTATOR CUFF REPAIR Left SHOULDER ARTHROSCOPY Left 1997 TONSILLECTOMY Visit Vitals BP 122/86 Pulse 69 Resp 16 Ht 5' 10 Wt 282 lb 12.8 oz SpO2 92% BMI 40.58 kg/m Smoking Status Former BSA 2.51 m Review of Systems Constitutional: Negative for chills, fatigue and fever. HENT: Negative for congestion, ear pain, rhinorrhea, sinus pressure and sore throat. Eyes: Negative for pain, discharge and redness. Respiratory: Negative for cough, shortness of breath and wheezing. Cardiovascular: Negative for chest pain, palpitations and leg swelling. Gastrointestinal: Negative for abdominal pain, constipation, diarrhea, nausea and vomiting. Genitourinary: Negative for dysuria, frequency and urgency. Musculoskeletal: Negative for arthralgias and back pain. Skin: Negative for rash. Neurological: Negative for dizziness, numbness and headaches. Psychiatric/Behavioral: Negative for confusion, dysphoric mood and sleep disturbance. Objective Physical Exam Constitutional: General: He is not in acute distress. Appearance: He is obese. HENT: Head: Normocephalic and atraumatic. Right Ear: Tympanic membrane and ear canal normal. Left Ear: Tympanic membrane and ear canal normal. Nose: Nose normal. Mouth/Throat: Mouth: Mucous membranes are moist. Pharynx: Oropharynx is clear. Eyes: General: No scleral icterus. Extraocular Movements: Extraocular movements intact. Conjunctiva/sclera: Conjunctivae normal. Pupils: Pupils are equal, round, and reactive to light. Neck: Vascular: No carotid bruit. Cardiovascular: Rate and Rhythm: Normal rate and regular rhythm. Pulses: Normal pulses. Pulmonary: Effort: Pulmonary effort is normal. Breath sounds: Normal breath sounds. No wheezing, rhonchi or rales. Abdominal: General: Bowel sounds are normal. There is no distension. Palpations: Abdomen is soft. Tenderness: There is no abdominal tenderness. There is no guarding. Musculoskeletal: General: No swelling, tenderness, deformity or signs of injury. Normal range of motion. Cervical back: Normal range of motion. No tenderness. Lymphadenopathy: Cervical: No cervical adenopathy. Skin: General: Skin is warm and dry. Findings: No erythema. Neurological: General: No focal deficit present. Mental Status: He is alert and oriented to person, place, and time. Cranial Nerves: No cranial nerve deficit. Sensory: No sensory deficit. Motor: No weakness. Coordination: Coordination normal. Gait: Gait normal. Psychiatric: Mood and Affect: Mood normal. Behavior: Behavior normal. Thought Content: Thought content normal. Judgment: Judgment normal. Assessment & Plan 1. Medicare annual wellness visit, subsequent (Primary) Reviewed all relevant preventative screenings with the patient in detail. Medicare Wellness form completed and will be scanned into patient's chart. All needed testing was ordered. Will continue withyearly Medicare Wellness exams. 2. ACP (advance care planning) Patient willing to discuss ACP. Pt has DPOA in place. Living Will paperwork given to the patient. 3. Cardiac arrhythmia, unspecified cardiac arrhythmia type The patient is seeing a medical secretary teacher for this condition, treatment is deferred to that specialist. Correspondence from that specialist and any available testing were reviewed during today's visit. 4. 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 No changes in treatment are suggested at this time. Continue Allopurinol as prescribed. 5. Seasonal allergic rhinitis due to pollen This is a chronic medical condition that is stable since last assessment. No changes in treatment are suggested at this time. Can take OTC allergy medication prn. 6. Congenital spondylolisthesis of lumbar region This is a chronic medical condition that is stable since last assessment. No changes in treatment are suggested at this time. Continue Indomethacin as needed. 7. Diverticulosis of colon This is a chronic medical condition that is stable since last assessment. No concerns at this time.Will continue to monitor. 8. Benign essential hypertension Patient's blood pressure is currently well controlled. Continue with current medications and I willcontinue to monitor. Goal BP remains less than 130/80. 9. Mixed hyperlipidemia This is a chronic medical condition that is stable since last assessment. Will continue to monitor with routine labs. Continue Pravastatin as prescribed. 10. Male hypogonadism The patient is seeing a medical secretary teacher for this condition, treatment is deferred to that specialist. Correspondence from that specialist and any available testing were reviewed during today's visit. 11. Nocturia The patient is seeing a medical secretary teacher for this condition, treatment is deferred to that specialist. Correspondence from that specialist and any available testing were reviewed during today's visit. 12. Primary osteoarthritis involving multiple joints This is a chronic medical condition that is stable since last assessment. No changes in treatment are suggested at this time. Continue Indomethacin as needed. 13. Primary osteoarthritis of right hip This is a chronic medical condition that is stable since last assessment. No changes in treatment are suggested at this time. Continue Indomethacin as needed. 14. Sacroiliitis, not elsewhere classified This is a chronic medical condition that is stable since last assessment. No changes in treatment are suggested at this time. Continue Indomethacin as needed. 15. Sleep apnea in adult Patient is compliant with CPAP usage and perceives benefit from treatment. Treatment has been effective in controlling the patient's symptoms of Sleep Apnea. Will continue to monitor with routine follow up appointments. 16. Eczema, unspecified type This is a chronic medical condition that is stable since last assessment. No changes in treatment are suggested at this time. Continue Betamethasone as needed. 17. Hepatic steatosis This is a chronic medical condition that is stable since last assessment. Will continue to monitor with routine labs. 18. Incomplete bladder emptying The patient is seeing a medical secretary teacher for this condition, treatment is deferred to that specialist. Correspondence from that specialist and any available testing were reviewed during today's visit. 19. Type 2 diabetes mellitus with other specified complication, without long- term current use of insulin (HCC) HgbA1c on 11/01/2024 was 6.3. Will recheck in three months. Continue current medication as prescribed. 20. Hearing loss of right ear, unspecified hearing loss type This is a chronic medical condition that is stable since last assessment. No concerns at this time.Will monitor. 21. Erectile dysfunction, unspecified erectile dysfunction type The patient is seeing a medical secretary teacher for this condition, treatment is deferred to that specialist. Correspondence from that specialist and any available testing were reviewed during today's visit. 22. Prostate cancer (HCC) The patient is seeing a medical secretary teacher for this condition, treatment is deferred to that specialist. Correspondence from that specialist and any available testing were reviewed during today's visit. 23. Urethral false passage The patient is seeing a medical secretary teacher for this condition, treatment is deferred to that specialist. Correspondence from that specialist and any available testing were reviewed during today's visit. 24. Right bundle branch block (RBBB) determined by electrocardiography The patient is seeing a medical secretary teacher for this condition, treatment is deferred to that specialist. Correspondence from that specialist and any available testing were reviewed during today's visit. 25. PVC (premature ventricular contraction) The patient is seeing a medical secretary teacher for this condition, treatment is deferred to that specialist. Correspondence from that specialist and any available testing were reviewed during today's visit. 26. Palpitations The patient is seeing a medical secretary teacher for this condition, treatment is deferred to that specialist. Correspondence from that specialist and any available testing were reviewed during today's visit. 27. Orthostatic hypotension The patient is seeing a medical secretary teacher for this condition, treatment is deferred to that specialist. Correspondence from that specialist and any available testing were reviewed during today's visit. 28. Abnormal stress test The patient is seeing a medical secretary teacher for this condition, treatment is deferred to that specialist. Correspondence from that specialist and any available testing were reviewed during today's visit. 29. Abnormal electrocardiogram (ECG) (EKG) The patient is seeing a medical secretary teacher for this condition, treatment is deferred to that specialist. Correspondence from that specialist and any available testing were reviewed during today's visit. 30. Class 3 severe obesity due to excess calories with serious comorbidity and body mass index (BMI) of 40.0 to 44.9 in adult ([facility]) Encouraged portion control, decrease simple sugars and carbohydrates, gradually increase activity level. Aim for gradual steady weight loss. Follow up with LUL Villatoro in 3 months (on 04/17/2025 Diabetes, HTN). Stacey GILMORE PA-C documented in this encounterGeneral Leonard Wood [facility] Community [id number] NoteHNO ID: [id number] Author: ANA ROSA BARAJAS RN Service: ? Author Type: Registered Nurse Type: Progress Notes Filed: 01/17/2025 15:58 Note Text: [facility]ajas [facility]25 NoteHNO ID: [id number] Author: Rey WELLS MD Service: ? Author Type: Physician Type: Progress Notes Filed: 01/17/2025 15:58 Note Text: Radiation Oncology - Follow Up Note PATIENT NAME: Edward Darby PATIENT DIAGNOSIS: Prostate adenocarcinoma, initial PSA 9.39, biopsy Fulton score 4 + 4 = 8 (grade group 4), clinical stage T1b, N0, M0, stage IIC [T1-T2, N0, M0, PSA <20, GG 4] (AJCC 8th ed.), s/p biopsy. NCCN Risk Group: High Risk Group RADIATION SUMMARY: DATES OF TREATMENT: 05-23-2024 to 06-29-2024 AREA TREATED: Prostate Pelvis DELIVERED DOSE: Area: Prostate Pelvis with daily CBCT Imaging 7000cGy in 28 fractions,3 VMAT Rapid Arc Perez, X10 TOTAL: 7000 cGy in 28 fractions ELAPSED TIME: 37 days. INTERVAL HISTORY: Doing well. No new problems. PSA HISTORY: PSA (ng/mL) Date Value 07/07/2024 0.02 PSA. (no units) Date Value 08/25/2024 <0.1 ALLERGIES Allergen Reactions Bactrim [Sulfametho* Hives, Shortness of Breath bicalutamide (CASODEX) 50 mg tablet Take 1 tablet by mouth once daily. alfuzosin SR (UROXATRAL) 10 mg 24 hr tablet Take 10 mg by mouth. allopurinol (ZYLOPRIM) 100 mg tablet Take 100 mg by mouth two times a day. atorvastatin (LIPITOR) 10 mg tablet daily at bedtime. calcium polycarbophil (FIBERCON) 625 mg tablet Take 1 tablet by mouth every morning. lisinopril-hydroCHLOROthiazide (ZESTORETIC) 20-25 mg per tablet Take 1 tablet by mouth every morning. metoprolol succinate ER (TOPROL XL) 50 mg 24 hr tablet Take 50 mg by mouth once daily. pravastatin (PRAVACHOL) 40 mg tablet Take 40 mg by mouth once daily. semaglutide (RYBELSUS) 7 mg tablet Take 7 mg by mouth. vits A,C,E/lutein/minerals (OCUVITE WITH LUTEIN ORAL) Take by mouth. REVIEW OF SYSTEMS: D/N = 4-6/1-2 Hematuria: none Dysuria: none Incontinence: none Urgency: mild Medications to aid urination: y AUA: 5 Bowel movement frequency: 1/day Bowel movement quality: normal Blood per rectum: none ADT: Currently off PHYSICAL EXAM: Resp 18 Wt 129.4 kg (285 lb 4.4 oz) BMI 42.75 kg/m? KPS: 100 General Appearance: Alert and oriented. No acute distress. ASSESSMENT/PLAN: Prostate adenocarcinoma, initial PSA 9.39, biopsy Rox score 4 + 4 = 8 (grade group 4), clinical stage T1b, N0, M0, stage IIC [T1-T2, N0, M0, PSA <20, GG 4] (AJCC 8th ed.), s/p biopsy. NCCN Risk Group: High Risk Group Doing well. PSA undetectable. Continues follow-up including PSA surveillance with Dr. Downey. No significant postradiation issues. Recommend postradiation follow-up in 6 months. Signed by: Rey Wells MD cc: Jose Angel Villavicencio MD [address] [place] [address] [facility] History of Present illness Narrative* Juliane Holloway MA - 12/20/2024 9:00 AM EDT Pt was given flu shot in his right arm given by juliane holloway documented in this encounterGeneral Leonard Wood [facility] [id number] History of Present illness Narrative* Ruddy Cabello MD - 11/07/2024 10:00 AM EDT Chief Complaint Patient presents with Follow-up Follow up for Hypertension old WPM patient, saw 2 years ago and went PRN Subjective Edward Darby is a 74 y.o. male HPI Patient here for evaluation for questionable atrial fibrillation. He is a former patient of Dr. Wong. Last time he was seen about 2 years ago. The patient was seen by his family physician and was suspected to have atrial fibrillation based on computer interpretation. Patient has long history of hypertension, obstructive sleep apnea and obesity. He had been seen by Dr. Wong in the past for similar concern. His EKG in the past showed sinus rhythm with occasional sinus arrhythmia or PACs. The patient complain of occasional orthostatic symptomatology of lightheadedness and dizziness. He denies chest pain. He denies shortness of breath but admits to limited exercise tolerance. Patient underwent stress test 2 years ago that showed fixed inferior wall defect likely soft tissue attenuation.His previous echocardiogram showed normal LV systolic function. He does describe mild shortness of breath. He just finished treatment for prostate cancer with radiation. Assessment 1. Abnormal EKG with concern about atrial fibrillation. I reviewed the EKG from his family physician and I disagree with the computer interpretation his rhythm is sinus with some sinus arrhythmia today's EKG is sinus rhythm. There has been no documentation of atrial fibrillation that I can see. Thepatient does describe occasional palpitation 2. Symptoms of shortness of breath I suspect due to obesity and deconditioning and recent treatmentfor prostate cancer. His stress test showed no evidence of myocardial ischemia 2 years ago 3. Essential hypertension 4. Symptoms of orthostatic hypotension due to BP medication 5. Morbid obesity with BMI 41 6. Sleep apnea obstructive 7. Status post radiation treatment for prostate cancer Plan 1. I advised the patient that there is no indication at the moment that he has atrial fibrillation.I suggested that he can switch back to aspirin and I suggested 48-hour Holter monitor 2. In view of his symptoms of shortness of breath I suggested an echocardiogram 3. I suggested to him to reduce his lisinopril hydrochlorothiazide by half considering his symptomsof orthostatic hypotension and blood pressure running on the low range 4. I advised the patient to notify of change in cardiac status and symptoms 5. I continue to encourage him to lose weight and exercise 6. Will see him after testing is done Review of Systems Neurological: Positive for headaches and light-headedness. All other systems reviewed and are negative. Vitals: 11/07/24 1006 BP: 114/66 BP Location: Left arm Patient Position: Sitting Pulse: 77 Weight: 128 kg (283 lb) Height: 1.753 m (5' 9 ) EKG done in office today Objective Physical Exam Constitutional: Appearance: Normal appearance. HENT: Nose: Nose normal. Neck: Vascular: No carotid bruit. Cardiovascular: Rate and Rhythm: Normal rate. Pulses: Normal pulses. Heart sounds: Normal heart sounds. Pulmonary: Effort: Pulmonary effort is normal. Abdominal: General: Bowel sounds are normal. Palpations: Abdomen is soft. Musculoskeletal: General: Normal range of motion. Cervical back: Normal range of motion. Right lower leg: No edema. Left lower leg: No edema. Skin: General: Skin is warm and dry. Neurological: General: No focal deficit present. Mental Status: He is alert. Psychiatric: Mood and Affect: Mood normal. Behavior: Behavior normal. Thought Content: Thought content normal. Judgment: Judgment normal. Allergies Bactrim [sulfamethoxazole-trimethoprim] and Tetanus vaccines and toxoid Current Medications Current Outpatient Medications Medication Instructions alfuzosin (UROXATRAL) 10 mg, Daily allopurinol (ZYLOPRIM) 100 mg, 2 times daily aspirin 81 mg, Daily indomethacin (INDOCIN) 50 mg, oral, Daily PRN lisinopriL-hydrochlorothiazide 20-25 mg tablet 1 tablet, Daily before breakfast metoprolol succinate XL (TOPROL-XL) 50 mg, Daily pravastatin (PRAVACHOL) 40 mg, Daily semaglutide (RYBELSUS) 7 mg, Daily Assessment/Plan 1. Essential (primary) hypertension 2. Orthostatic hypotension 3. Abnormal stress test 4. Abnormal electrocardiogram (ECG) (EKG) 5. [place]WICK (obstructive sleep apnea) 6. Morbid obesity with body mass index (BMI) of 40.0 or higher (Multi) 7. Never smoked tobacco Scribe Attestation By signing my name below, I, Lauryn Quinteros LPN , Scribe attest that this documentation has been prepared under the direction and in the presence of MD Jerzy. Provider Attestation - Scribe documentation All medical record entries made by the Scribe were at my direction and personally dictated by me. Ihave reviewed the chart and agree that the record accurately reflects my personal performance of the history, physical exam, discussion and plan. documented in this [facility] Work Phone: [phone] Instructions* Patient Instructions* Lauryn Sr LPN - 11/07/2024 10:00 AM EDT Please bring all medicines, vitamins, and herbal supplements with you when you come to the office. Prescriptions will not be filled unless you are compliant with your follow up appointments or have a follow up appointment scheduled as per instruction of your physician. Refills should be requested at the time of your visit. BMI was above normal measurement. Current weight: 128 kg (283 lb) Weight change since last visit (-) denotes wt loss 4 lbs Weight loss needed to achieve BMI 25: 114.1 Lbs Weight loss needed to achieve BMI 30: 80.3 Lbs Provided instructions on dietary changes Provided instructions on exercise. * Attachments The following attachments cannot be sent through Care Everywhere. * Heart Healthy Diet (Polish) documented in this [facility] Work Phone: [phone]) 819-121908-05-2025 History of Present illness Narrative* LUL Cardona - 11/01/2024 2:30 PM EDT HPI Dizziness Additional comments: This has been going on daily. Also getting headaches daily in the lower back of neck, optimal migraines, shoulders stiff, right ear was feeling plugged but today it is not. He has tried tylenol, zyrtec, nasal spray, does not feel it is really helping other the nasal spray does open his ear up some. Sometimes when he checks his BP his machine beeps that he is having an irregular heart rate. Med Refill Additional comments: Betamethasone cream Last edited by Lima Austin LPN on 11/01/2024 2:32 PM. Subjective Patient ID: Edward Darby is a 74 y.o. male who presents for diabetes. Edward is present today for follow up diabetes. Denies foot ulcers, hypoglycemia. Admits off/on tingling/numbness in extremities. Does not check BS's at home. Currently on Semaglutide. Did do the exercises to reset the crystals in his ears, but it did not help this time like it normally does. Over the past 2 weeks, how often have you been bothered by any of the following problems? Little interest or pleasure in doing things: Not at all Feeling down, depressed, or hopeless: Not at all Patient Health Questionnaire-2 Score: 0 Current Outpatient Medications on File Prior to Visit Medication Sig Dispense Refill Cialis 20 MG tablet Take 20 mg by mouth Daily as needed for erectile dysfunction Multiple Vitamins-Minerals (OCUVITE PO) Take 1 tablet by mouth Daily alfuzosin ER (Uroxatral) 10 MG 24 hr tablet Take 10 mg by mouth Daily allopurinol (Zyloprim) 100 MG tablet Take 1 [...] 1 tablet by mouth once daily 100 tablet3 polycarbophil (Fibercon) 625 MG tablet Take 1 tablet by mouth in the morning. pravastatin (Pravachol) 40 MG tablet Take 1 tablet by mouth once daily 100 tablet 3 semaglutide (Rybelsus) 7 MG tablet Take 1 tablet (7 mg) by mouth in the morning. Take before meals.90 tablet 0 [DISCONTINUED] albuterol HFA 90 mcg/act inhaler Inhale 2 puffs every 4 (four) hours if needed for wheezing or shortness of breath for up to 10 days 18 g 0 [DISCONTINUED] azithromycin (Zithromax) 250 MG tablet 2 tabs x 1 day, then 1 tab x 4 days 6 tablet 0 No current facility-administered medications on file prior to visit. I have reviewed and reconciled the history and medication list with the patient today. Allergies Allergen Reactions Sulfamethoxazole-Trimethoprim Other Reaction(s): Dyspnea, REYES Social History Tobacco Use Smoking status: Former Current packs/day: 0.00 Types: Cigarettes Quit date: 2001 Years since quittin.6 Smokeless tobacco: Former Types: Chew Quit date: 1979 Vaping Use Vaping status: Unknown Substance Use Topics Alcohol use: Yes Comment: 1-2 drinks 2-4 times a month Drug use: Never Family History Problem Relation Name Age of Onset Lung cancer Sister Past Medical History: Diagnosis Date Chest discomfort Cholelithiasis 11/20/2022 Colon polyps Enthesopathy of ankle and tarsus Unspecified Gout Hepatic steatosis 11/20/2022 History of echocardiogram 07/03/2022 Echo: Normal LV Systolic Function LVEF 55%. Mildly dilated Right ventricle with mildly decreased Right Ventricular systolic function. Grade 2 DD. Moderate biatrial dilatation. No significant valvulardysfunction. History of lumbar fusion 2011 L5 History of stress test 06/09/2022 Decreased activity in the inferior wall, diaphragmatic attenuation artifact versus a fixed defect. No reversible ischemia. Abnormal exercise test secondary EKG changes Rotator cuff tear, left Past Surgical History: Procedure Laterality Date CARPAL TUNNEL RELEASE 1996 CHOLECYSTECTOMY 01/27/2023 COLONOSCOPY 2012 polyp COLONOSCOPY 03/06/2014 polyp COLONOSCOPY 12/29/2022 LUMBAR FUSION 2011 L4-L5 - removed disc and rods placed ROTATOR CUFF REPAIR Left SHOULDER ARTHROSCOPY Left 1997 TONSILLECTOMY Visit Vitals BP 110/64 Pulse 84 Resp 16 Ht 5' 10 Wt 284 lb 6.4 oz SpO2 95% BMI 40.81 kg/m Smoking Status Former BSA 2.52 m Review of Systems Constitutional: Negative for chills, fatigue and fever. Respiratory: Negative for cough, shortness of breath and wheezing. Cardiovascular: Positive for palpitations. Negative for chest pain and leg swelling. Gastrointestinal: Negative for abdominal pain, constipation, diarrhea, nausea and vomiting. Skin: Negative for rash. Neurological: Positive for dizziness (With near syncope) and headaches. Objective Physical Exam Constitutional: General: He is not in acute distress. Appearance: He is obese. HENT: Head: Normocephalic and atraumatic. Right Ear: Ear canal normal. A middle ear effusion (Clear) is present. Tympanic membrane is not erythematous. Left Ear: Ear canal normal. A middle ear effusion (Clear) is present. Tympanic membrane is not erythematous. Nose: Right Turbinates: Swollen. Left Turbinates: Swollen. Comments: Turbinates with mild erythema Mouth/Throat: Mouth: Mucous membranes are dry. Pharynx: Posterior oropharyngeal erythema (Mild) present. Eyes: General: No scleral icterus. Extraocular Movements: Extraocular movements intact. Conjunctiva/sclera: Conjunctivae normal. Pupils: Pupils are equal, round, and reactive to light. Cardiovascular: Rate and Rhythm: Normal rate. Rhythm irregularly irregular. Heart sounds: No murmur heard. Pulmonary: Effort: Pulmonary effort is normal. No respiratory distress. Breath sounds: Normal breath sounds. No wheezing, rhonchi or rales. Musculoskeletal: General: No swelling. Lymphadenopathy: Cervical: No cervical adenopathy. Skin: General: Skin is warm and dry. Neurological: General: No focal deficit present. Mental Status: He is alert and oriented to person, place, and time. Cranial Nerves: No cranial nerve deficit. Psychiatric: Mood and Affect: Mood normal. Behavior: Behavior normal. Office Visit on 11/01/2024 Component Date Value Ref Range Status Hemoglobin A1C 11/01/2024 6.3 Final Assessment/Plan Diagnoses and all orders for this visit: Type 2 diabetes mellitus with other specified complication, without long-term current use of insulin ([facility]) - POCT Glycated hemoglobin, total - Microalbumin / creatinine, urine ratio; Future Advised pt that his HgbA1c remains well controlled at 6.3. Continue current medications as prescribed. Will plan to recheck in 6 months. Benign essential hypertension Will continue current medications for now. Suspect the dizziness is coming from the Atrial Fibrillation, not his BP. Eczema, unspecified type - betamethasone dipropionate 0.05 % cream; Apply 1 application topically Daily as needed for irritation Refill provided on the above to continue to use as needed. Right bundle branch block (RBBB) determined by electrocardiography Previously seen on ECG and seen again on today's ECG. PVC (premature ventricular contraction) H/o, previously stable with Metoprolol. Dizziness Continue nasal spray as needed for mild ETD seen on exam. Suspect dizziness is more likely due to the A. Fib. Atrial fibrillation, unspecified type (HCC) - Basic metabolic panel - TSH W/REFLEX TO FT4 - apixaban (Eliquis) 5 MG tablet; Take 1 tablet (5 mg) by mouth in the morning and 1 tablet (5 mg) before bedtime. - Transthoracic Echo (TTE) Complete; Future Patient has new onset Atrial Fibrillation, currently rate controlled, c/o dizziness, near syncope. Denies chest pain. His last OV with Dr. Wong 07/10/2022. Will obtain ECHO at this time for further evaluation and make sure Dr. Wong's office receives a copy of the results. Will have patient start Eliquis as prescribed. Did review potential s/e of the medication includingincreased risk of potentially severe bleeding. Monitor for any abnormal bleeding, seek medical attention when/if needed. Will check a BMP and TSH today to r/o other causes of A. Fib. Will notify pt of the results once received. They will contact Dr. Wong's office to get scheduled for an appointment. Reviewed s/s that would warrant an ER visit. He and his voiced understanding to all of the above. Abnormal electrocardiogram (ECG) (EKG) - Transthoracic Echo (TTE) Complete; Future See above. Patient's symptoms, vitals, exam, and treatment plan discussed and reviewed with Dr. Jose Angel Villavicencio. Follow up in about 2 months (around 01/12/2025) for Medicare Wellness Visit. documented in this encounterGeneral Leonard Wood [facility] Community [id number] Hospital Discharge instructions Patient Education 09/05/2024 15:15:06 Hormone Suppression Therapy for Prostate Cancer Hormone Suppression Therapy for Prostate Cancer Hormone suppression therapy is a treatment for prostate cancer that can help slow the growth of cancer cells in the prostate gland. It is also called androgen deprivation therapy (ADT) or androgen suppression therapy. Hormone suppression therapy targets male sex hormones (androgens) in the body that help cancer cells grow. Hormone suppression therapy alone will not cure prostate cancer, but it can slow the growth of cancer cells and may shrink tumors over time. Your health care provider can help you find the best treatment that fits your lifestyle. Hormone suppression therapy may be used in the following cases: When prostate cancer has spread too far to other places in the body and cannot be cured by surgery or radiation. When a person has health problems that prevent the use of surgery or radiation. Before radiation to help shrink the size of the cancer and make the radiation treatment more effective. If the prostate cancer remains or comes back following treatment with surgery or radiation. What are the types of hormone suppression therapy? Orchiectomy Orchiectomy, also called surgical castration, is a surgery to remove one or both testicles. The testicles make the two main androgens testosterone and dihydrotestosterone (DHT). This surgery reduces the levels of testosterone in the blood, leading to decreased androgen production. Medicine therapy Medicine therapy, also called medical or chemical castration, involves taking medicines to keep your body from making or using androgens. Medicines can do this in one of three ways: 1.Reducing androgen production by the testicles. Luteinizing hormone-releasing hormone (LHRH) agonists. These medicines are injected or implanted under your skin to lower the amount of androgens that your testicles make. Depending on the medicine, they can be given monthly or up to every 3 to 6 months. If you take these medicines, you may also beprescribed other medicines to help with side effects. LHRH antagonists. These medicines also work to lower the amount of androgens made in the testicles,but they work faster than LHRH agonist medicines and have less severe side effects. They are given as a monthly injection under the skin, and they are used when prostate cancer is in an advanced stage. Estrogens. These medicines are female hormones that help to reduce androgen production by the testicles. Estrogens are not used as commonly as other types of hormone suppression therapy due to their side effects. However, they may be used if other treatments do not work. 2.Blocking androgen attachment throughout the body. Anti-androgen medicines, also called androgen receptor antagonists, block areas on the body where androgens attach. These are pills that are usually used in combination with other types of hormone suppression therapy, like orchiectomy and other medicines. 3.Blocking androgen production throughout the body. Androgen synthesis inhibitor medicines. These medicines help to stop other areas of the body from making androgens. They are taken as pills. They may be used if the prostate cancer is advanced and has not gotten better with surgery or other medicines. A steroid medicine may be given with this type of medicine to help with side effects. What are the risks? Hormone suppression therapy may cause side effects, including: Hot flashes. Diarrhea and nausea. Itching. Sexual side effects, such as: ?Decrease or lack of sexual desire. ?Decrease in size of the penis or testicles. ?Inability to get an erection (erectile dysfunction, or impotence). ?Breast tenderness or increase in breast size. Fatigue. Weight gain. Anemia. Thinning of the bones (osteoporosis) and loss of muscle mass. Depression, mood swings, and trouble with thinking or focusing. Hormone suppression therapy may also increase your risk of high blood pressure, increased cholesterol levels, stroke, heart attack, or diabetes. What are the benefits? One of the main benefits of hormone suppression therapy is having additional treatment options. Youmay have only one type of treatment, or two or more types at the same time. Treatments may be combined to: Help with side effects. Treat advanced cancer. Where to find more information [place] [employer]: www.cancer.org National Cancer [place]: www.cancer.gov Contact a health care provider if: You have pain or side effects that do not get better with treatment. You have trouble urinating. You have new side effects that do not go away. Get help right away if: You have severe chest pain. You have trouble breathing. You have an irregular heartbeat. You have numbness or paralysis in the lower half of your body. You are confused. You have trouble talking or understanding speech. These symptoms may be an emergency. Do not wait to see if the symptoms will go away. Get medical help right away. Call your local emergency services (911 in the [place] Do not drive yourself to the hospital. Summary Hormone suppression therapy is a treatment for prostate cancer that can help to slow the growth of cancer cells in the prostate gland. Hormone suppression therapy alone will not cure prostate cancer, but it can slow the growth of prostate cancer and may shrink tumors over time. Treatment to suppress hormones may include surgery or medicines. Side effects such as hot flashes, changes in sexual function or desire, and weakened bones can result from hormone suppression therapy. This information is not intended to replace advice given to you by your health care provider. Make sure you discuss any questions you have with your health care provider. Document Revised: 06/27/2021 Document Reviewed: 06/27/2021 [employer] Patient Education 2023 [employer]. Follow Up Care 03/14/2024 10:26:54 With:NASREEN CARMONA, Sloan Westfall, URL Address: [facility] [address] [place] [address]- When: Unknown [facility] 06-09-2025 NotePatient Education Oncology Hormone Suppression Therapy for Prostate Cancer Hormone suppression therapy is a treatment for prostate cancer that can help slow the growth of cancer cells in the prostate gland. It is also called androgen deprivation therapy (ADT) or androgen suppression therapy. Hormone suppression therapy targets male sex hormones (androgens) in the body that help cancer cells grow. Hormone suppression therapy alone will not cure prostate cancer, but it can slow the growth of cancer cells and may shrink tumors over time. Your health care provider can help you find the best treatment that fits your lifestyle. Hormone suppression therapy may be used in the following cases: ??? When prostate cancer has spread too far to other places in the body and cannot be cured by surgery or radiation. ??? When a person has health problems that prevent the use of surgery or radiation. ??? Before radiation to help shrink the size of the cancer and make the radiation treatment more effective. ??? If the prostate cancer remains or comes back following treatment with surgery or radiation. What are the types of hormone suppression therapy? Orchiectomy Orchiectomy, also called surgical castration, is a surgery to remove one or both testicles. The testicles make the two main androgens?testosterone and dihydrotestosterone (DHT). This surgery reduces the levels of testosterone in the blood, leading to decreased androgen production. Medicine therapy Medicine therapy, also called medical or chemical castration, involves taking medicines to keep your body from making or using androgens. Medicines can do this in one of three ways: 1. Reducing androgen production by the testicles. ??? Luteinizing hormone-releasing hormone (LHRH) agonists. These medicines are injected or implanted under your skin to lower the amount of androgens that your testicles make. Depending on the medicine, they can be given monthly or up to every 3 to 6 months. If you take these medicines, you may also be prescribed other medicines to help with side effects. ??? LHRH antagonists. These medicines also work to lower the amount of androgens made in the testicles, but they work faster than LHRH agonist medicines and have less severe side effects. They are given as a monthly injection under the skin, and they are used when prostate cancer is in an advanced stage. ??? Estrogens. These medicines are female hormones that help to reduce androgen production by the testicles. Estrogens are not used as commonly as other types of hormone suppression therapy due to their side effects. However, they may be used if other treatments do not work. 2. Blocking androgen attachment throughout the body. ??? Anti-androgen medicines, also called androgen receptor antagonists, block areas on the body where androgens attach. These are pills that are usually used in combination with other types of hormone suppression therapy, like orchiectomy and other medicines. 3. Blocking androgen production throughout the body. ??? Androgen synthesis inhibitor medicines. These medicines help to stop other areas of the body from making androgens. They are taken as pills. They may be used if the prostate cancer is advanced and has not gotten better with surgery or other medicines. A steroid medicine may be given with this type of medicine to help with side effects. What are the risks? Hormone suppression therapy may cause side effects, including: ??? Hot flashes. ??? Diarrhea and nausea. ??? Itching. ??? Sexual side effects, such as: ? Decrease or lack of sexual desire. ? Decrease in size of the penis or testicles. ? Inability to get an erection (erectile dysfunction, or impotence). ? Breast tenderness or increase in breast size. ??? Fatigue. ??? Weight gain. ??? Anemia. ??? Thinning of the bones (osteoporosis) and loss of muscle mass. ??? Depression, mood swings, and trouble with thinking or focusing. Hormone suppression therapy may also increase your risk of high blood pressure, increased cholesterol levels, stroke, heart attack, or diabetes. What are the benefits? One of the main benefits of hormone suppression therapy is having additional treatment options. Youmay have only one type of treatment, or two or more types at the same time. Treatments may be combined to: ??? Help with side effects. ??? Treat advanced cancer. Where to find more information ??? [place] [employer]: www.cancer.org ??? National Cancer [place]: www.cancer.gov Contact a health care provider if: ??? You have pain or side effects that do not get better with treatment. ??? You have trouble urinating. ??? You have new side effects that do not go away. Get help right away if: ??? You have severe chest pain. ??? You have trouble breathing. ??? You have an irregular heartbeat. ??? You have numbness or paralysis in the lower half of your body. ??? You are confused. ??? You (more content not included)...[facility]04-17-2025 Note HNO ID: [id number] Author: Rey WELLS MD Service: ? Author Type: Physician Type: Progress Notes Filed: 07/14/2024 10:52 Note Text: AUA= [address] [place], [place] [id number] NoteHNO ID: [id number] Author: Rey WELLS MD Service: ? Author Type: Physician Type: Progress Notes Filed: 07/14/2024 10:52 Note Text: Radiation Oncology - Follow Up Note PATIENT NAME: Edward Darby PATIENT DIAGNOSIS: Prostate adenocarcinoma, initial PSA 9.39, biopsy Fulton score 4 + 4 = 8 (grade group 4), clinical stage T1b, N0, M0, stage IIC [T1-T2, N0, M0, PSA <20, GG 4] (AJCC 8th ed.), s/p biopsy. NCCN Risk Group: High Risk Group RADIATION SUMMARY: DATES OF TREATMENT: 05-23-2024 to 06-29-2024 AREA TREATED: Prostate Pelvis DELIVERED DOSE: Area: Prostate Pelvis with daily CBCT Imaging 7000cGy in 28 fractions,3 VMAT Rapid Arc Perez, X10 TOTAL: 7000 cGy in 28 fractions ELAPSED TIME: 37 days. INTERVAL HISTORY: The patient presents for routine follow-up after recent completion of radiation. His fatigue. Denies other issues or problems. PSA HISTORY: PSA (ng/mL) Date Value 07/07/2024 0.02 ALLERGIES Allergen Reactions Bactrim [Sulfametho* Hives, Shortness of Breath bicalutamide (CASODEX) 50 mg tablet Take 1 tablet by mouth once daily. alfuzosin SR (UROXATRAL) 10 mg 24 hr tablet Take 10 mg by mouth. allopurinol (ZYLOPRIM) 100 mg tablet Take 100 mg by mouth two times a day. atorvastatin (LIPITOR) 10 mg tablet daily at bedtime. calcium polycarbophil (FIBERCON) 625 mg tablet Take 1 tablet by mouth every morning. lisinopril-hydroCHLOROthiazide (ZESTORETIC) 20-25 mg per tablet Take 1 tablet by mouth every morning. metoprolol succinate ER (TOPROL XL) 50 mg 24 hr tablet Take 50 mg by mouth once daily. pravastatin (PRAVACHOL) 40 mg tablet Take 40 mg by mouth once daily. semaglutide (RYBELSUS) 7 mg tablet Take 7 mg by mouth. vits A,C,E/lutein/minerals (OCUVITE WITH LUTEIN ORAL) Take by mouth. REVIEW OF SYSTEMS: D/N = 4-6/1-2 Hematuria: none Dysuria: none Incontinence: none Urgency: mild Medications to aid urination: y AUA: 13 Bowel movement frequency: 1/day Bowel movement quality: normal Blood per rectum: none PHYSICAL EXAM: BP 107/54 Pulse 66 Temp 36.2 ?C (97.2 ?F) Resp 20 Wt 128 kg (282 lb 3 oz) SpO2 97% BMI 42.28 kg/m? KPS: 100 General Appearance: Alert and oriented. No acute distress. ASSESSMENT/PLAN: Prostate adenocarcinoma, initial PSA 9.39, biopsy Rox score 4 + 4 = 8 (grade group 4), clinical stage T1b, N0, M0, stage IIC [T1-T2, N0, M0, PSA <20, GG 4] (AJCC 8th ed.), s/p biopsy. NCCN Risk Group: High Risk Group Doing well. Initial PSA response. Continues ADT with Dr. Downey and PSA surveillance. No significant postradiation issues. Recommend postradiation follow-up in 6 months. Signed by: Rey Wells MD cc: Jose Angel Villavicencio MD [address] [place] [address] [facility] of Present illness Narrative* Rey Wells MD - 07/14/2024 10:41 AM EDT AUA= 13 * Rey Wells MD - 07/14/2024 10:41 AM EDT Radiation Oncology - Follow Up Note PATIENT NAME: Edward Darby PATIENT DIAGNOSIS: Prostate adenocarcinoma, initial PSA 9.39, biopsy Rox score 4 + 4 = 8 (grade group 4), clinical stage T1b, N0, M0, stage IIC [T1-T2, N0, M0, PSA <20, GG 4] (AJCC 8th ed.), s/p biopsy. NCCN Risk Group: High Risk Group RADIATION SUMMARY: DATES OF TREATMENT: 05-23-2024 to 06-29-2024 AREA TREATED: Prostate Pelvis DELIVERED DOSE: Area: Prostate Pelvis with daily CBCT Imaging 7000cGy in 28 fractions,3 VMAT Rapid Arc Perez, X10 TOTAL: 7000 cGy in 28 fractions ELAPSED TIME: 37 days. INTERVAL HISTORY: The patient presents for routine follow-up after recent completion of radiation. His fatigue. Denies other issues or problems. PSA HISTORY: PSA (ng/mL) Date Value 07/07/2024 0.02 ALLERGIES Allergen Reactions Bactrim [Sulfametho* Hives, Shortness of Breath bicalutamide (CASODEX) 50 mg tablet Take 1 tablet by mouth once daily. alfuzosin SR (UROXATRAL) 10 mg 24 hr tablet Take 10 mg by mouth. allopurinol (ZYLOPRIM) 100 mg tablet Take 100 mg by mouth two times a day. atorvastatin (LIPITOR) 10 mg tablet daily at bedtime. calcium polycarbophil (FIBERCON) 625 mg tablet Take 1 tablet by mouth every morning. lisinopril-hydroCHLOROthiazide (ZESTORETIC) 20-25 mg per tablet Take 1 tablet by mouth every morning. metoprolol succinate ER (TOPROL XL) 50 mg 24 hr tablet Take 50 mg by mouth once daily. pravastatin (PRAVACHOL) 40 mg tablet Take 40 mg by mouth once daily. semaglutide (RYBELSUS) 7 mg tablet Take 7 mg by mouth. vits A,C,E/lutein/minerals (OCUVITE WITH LUTEIN ORAL) Take by mouth. REVIEW OF SYSTEMS: D/N = 4-6/1-2 Hematuria: none Dysuria: none Incontinence: none Urgency: mild Medications to aid urination: y AUA: 13 Bowel movement frequency: 1/day Bowel movement quality: normal Blood per rectum: none PHYSICAL EXAM: BP 107/54 Pulse 66 Temp 36.2 C (97.2 F) Resp 20 Wt 128 kg (282 lb 3 oz) SpO2 97% BMI 42.28 kg/m KPS: 100 General Appearance: Alert and oriented. No acute distress. ASSESSMENT/PLAN: Prostate adenocarcinoma, initial PSA 9.39, biopsy Fulton score 4 + 4 = 8 (grade group 4), clinical stage T1b, N0, M0, stage IIC [T1-T2, N0, M0, PSA <20, GG 4] (AJCC 8th ed.), s/pbiopsy. NCCN Risk Group: High Risk Group Doing well. Initial PSA response. Continues ADT with Dr. Downey and PSA surveillance. No significant postradiation issues. Recommend postradiation follow-up in 6 months. Signed by: Rey Wells MD cc: Jose Angel Villavicencio MD [address] [place] [address] Dr. Downey [facility] Telephone encounter Note * Telephone Encounter - Ankur Winston RN - 07/01/2024 8:53 AM EDT [facility] faxed refill request for bicalutamide 50mg. Prescription was sent already on 06/29/24 per . Ankur Winston RN [facility]04-04-2025 Miscellaneous Notes* Telephone Encounter - Ankur Winston RN - 07/01/2024 8:53 AM EDT [facility] faxed refill request for bicalutamide 50mg. Prescription was sent already on 06/29/24 per . Ankur Winston RN documented in this encounterWhite Hospital04-02-2025 History of Present illness Narrative* Rey Wells MD - 06/29/2024 12:00 AM EDT [facility] Radiation Oncology Department RADIATION ONCOLOGY - COMPLETION NOTE PATIENT: AUSTYN DARBY: 1950 DATES OF TREATMENT: 05-23-2024 to 06-29-2024 DIAGNOSIS: Padenocarcinoma, initial PSA 9.39, biopsy Rox score 4 + 4 = 8 (grade group 4), clinical stage T1b, N0, M0, stage IIC [T1-T2, N0, M0, PSA <20, GG 4] (AJCC 8th ed.), s/p biopsy. NCCN Risk Group: High Risk Group AREA TREATED: Prostate Pelvis DELIVERED DOSE: Area: Prostate Pelvis with daily CBCT Imaging 7000cGy in 28 fractions,3 VMAT Rapid Arc Perez, X10 TOTAL: 7000 cGy in 28 fractions ELAPSED TIME: 37 days. CLINICAL SUMMARY: The patient tolerated radiation with mild radiation related cystitis, diarrhea and fatigue as expected. No other issues. The patient was able to complete treatment as intended without break interruption or modification of prescription plan. The disease response will be assessed in clinic. The patient will be seen again in 3-4 weeks for post radiation follow-up. Staff Physician Jorge Alberto Wells M.D. / ANGEL :12 AM Electronically Signed cc: Dr. Nasreen Villavicencio documented in this encounterWhite Hospital04-02-2025 NoteHNO ID: [id number] Author: Rey WELLS MD Service: ? Author Type: Physician Type: Progress Notes Filed: 07/01/2024 08:12 Note Text: [facility] Radiation Oncology Department RADIATION ONCOLOGY - COMPLETION NOTE PATIENT: ALEX DARBYB: 1950 DATES OF TREATMENT: 05-23-2024 to 06-29-2024 DIAGNOSIS: Padenocarcinoma, initial PSA 9.39, biopsy Rox score 4 + 4 = 8 (grade group 4), clinical stage T1b, N0, M0, stage IIC [T1-T2, N0, M0, PSA <20, GG 4] (AJCC 8th ed.), s/p biopsy. NCCN Risk Group: High Risk Group AREA TREATED: Prostate Pelvis DELIVERED DOSE: Area: Prostate Pelvis with daily CBCT Imaging 7000cGy in 28 fractions,3 VMAT Rapid Arc Perez, X10 TOTAL: 7000 cGy in 28 fractions ELAPSED TIME: 37 days. CLINICAL SUMMARY: The patient tolerated radiation with mild radiation related cystitis, diarrhea and fatigue as expected. No other issues. The patient was able to complete treatment as intended without break interruption or modification of prescription plan. The disease response will be assessed in clinic. The patient will be seen again in 3-4 weeks for post radiation follow-up. Staff Physician Jorge Alberto Wells M.D. / ANGEL 58:12 AM Electronically Signed cc: Dr. Nasreen [facility]Mary [facility]25 NoteHNO ID: [id number] Author: Rey WELLS MD Service: ? Author Type: Physician Type: Progress Notes Filed: 06/27/2024 09:11 Note Text: Radiation Oncology - On Treatment Review (OTR) Note PATIENT NAME: Edward Darby PATIENT DIAGNOSIS: Prostate adenocarcinoma, initial PSA 9.39, biopsy Fulton score 4 + 4 = 8 (grade group 4), clinical stage T1b, N0, M0, stage IIC [T1-T2, N0, M0, PSA <20, GG 4] (AJCC 8th ed.), s/p biopsy. NCCN Risk Group: High Risk Group COURSE: definitive AREA TREATED: Pelvis/prostate CURRENT DOSE: 6500 cGy in 26 fx PLANNED DOSE: 7000 cGy in 28 fx SUBJECTIVE: Doing fairly well. Rash buttocks area improved. Small rash left posterior shoulder area. EXAM: 06/27/24 0843 BP: 135/80 Pulse: 76 Resp: 18 Temp: 36.1 ?C (96.9 ?F) SpO2: 97% Weight: 127.6 kg (281 lb 4.9 oz) KPS: 100 General Appearance: Alert and oriented. No acute distress. Radiation dermatitis: No Area of previous eruption mostly flat dry no vesicular lesions. 3 small dry lesions left posterior shoulder does not appear follicular vesicular area where he has scratched his back with back structure likely related this. IMAGING/LAB RESULTS: Hemoglobin (g/dL) Date Value 06/02/2024 13.9 Hematocrit (%) Date Value 06/02/2024 40.3 WBC (k/uL) Date Value 06/02/2024 4.59 Platelet Count (k/uL) Date Value 06/02/2024 172 Treatment chart checked: Yes Patient treatment site reviewed and verified:Yes Port films reviewed and current:Yes Medications started: None ASSESSMENT/PLAN: Patient doing well. Concerned that he may have shingles, Famvir prescribed. Otherwise continue radiation. Chart and imaging reviewed. Rey Wells, [facility]03-31-2025 History of Present illness Narrative* Rey Wells MD - 06/27/2024 8:51 AM EDT Radiation Oncology - On Treatment Review (OTR) Note PATIENT NAME: Edward Darby PATIENT DIAGNOSIS: Prostate adenocarcinoma, initial PSA 9.39, biopsy Rox score 4 + 4 = 8 (grade group 4), clinical stage T1b, N0, M0, stage IIC [T1-T2, N0, M0, PSA <20, GG 4] (AJCC 8th ed.), s/p biopsy. NCCN Risk Group: High Risk Group COURSE: definitive AREA TREATED: Pelvis/prostate CURRENT DOSE: 6500 cGy in 26 fx PLANNED DOSE: 7000 cGy in 28 fx SUBJECTIVE: Doing fairly well. Rash buttocks area improved. Small rash left posterior shoulder area. EXAM: 06/27/24 0843 BP: 135/80 Pulse: 76 Resp: 18 Temp: 36.1 C (96.9 F) SpO2: 97% Weight: 127.6 kg (281 lb 4.9 oz) KPS: 100 General Appearance: Alert and oriented. No acute distress. Radiation dermatitis: No Area of previous eruption mostly flat dry no vesicular lesions. 3 small dry lesions left posterior shoulder does not appear follicular vesicular area where he has scratched his back with back structure likely related this. IMAGING/LAB RESULTS: Hemoglobin (g/dL) Date Value 06/02/2024 13.9 Hematocrit (%) Date Value 06/02/2024 40.3 WBC (k/uL) Date Value 06/02/2024 4.59 Platelet Count (k/uL) Date Value 06/02/2024 172 Treatment chart checked: Yes Patient treatment site reviewed and verified:Yes Port films reviewed and current:Yes Medications started: None ASSESSMENT/PLAN: Patient doing well. Concerned that he may have shingles, Famvir prescribed. Otherwise continue radiation. Chart and imaging reviewed. Rey Wells MD documented in this encounterWhite Hospital03-24-2025 NoteHNO ID: [id number] Author: Rey WELLS MD Service: ? Author Type: Physician Type: Progress Notes Filed: 06/20/2024 11:51 Note Text: Radiation Oncology - On Treatment Review (OTR) Note PATIENT NAME: Edward Darby PATIENT DIAGNOSIS: Prostate adenocarcinoma, initial PSA 9.39, biopsy Rox score 4 + 4 = 8 (grade group 4), clinical stage T1b, N0, M0, stage IIC [T1-T2, N0, M0, PSA <20, GG 4] (AJCC 8th ed.), s/p biopsy. NCCN Risk Group: High Risk Group COURSE: definitive AREA TREATED: Pelvis/prostate CURRENT DOSE: 5250 cGy in 22 fx PLANNED DOSE: 7000 cGy in 28 fx SUBJECTIVE: Doing fairly well. No new rash upper buttocks region. Nonpainful. Increased nocturia without dysuria or hematuria. EXAM: 06/20/24 1111 BP: 134/83 Pulse: 77 Resp: 18 Temp: 36.1 ?C (96.9 ?F) SpO2: 96% Weight: 127.3 kg (280 lb 10.3 oz) KPS: 100 General Appearance: Alert and oriented. No acute distress. Radiation dermatitis: No Patchy area of somewhat confluent follicular eruption mid upper buttocks and 1 patch. IMAGING/LAB RESULTS: Hemoglobin (g/dL) Date Value 06/02/2024 13.9 Hematocrit (%) Date Value 06/02/2024 40.3 WBC (k/uL) Date Value 06/02/2024 4.59 Platelet Count (k/uL) Date Value 06/02/2024 172 Treatment chart checked: Yes Patient treatment site reviewed and verified:Yes Port films reviewed and current:Yes Medications started: None ASSESSMENT/PLAN: Patient doing well. Concerned that he may have shingles, Famvir prescribed. Otherwise continue radiation. Chart and imaging reviewed. Rey Wells, [facility]03-24-2025 History of Present illness Narrative* Rey Wells MD - 06/20/2024 11:17 AM EDT Radiation Oncology - On Treatment Review (OTR) Note PATIENT NAME: Edward Darby PATIENT DIAGNOSIS: Prostate adenocarcinoma, initial PSA 9.39, biopsy Fulton score 4 + 4 = 8 (grade group 4), clinical stage T1b, N0, M0, stage IIC [T1-T2, N0, M0, PSA <20, GG 4] (AJCC 8th ed.), s/p biopsy. NCCN Risk Group: High Risk Group COURSE: definitive AREA TREATED: Pelvis/prostate CURRENT DOSE: 5250 cGy in 22 fx PLANNED DOSE: 7000 cGy in 28 fx SUBJECTIVE: Doing fairly well. No new rash upper buttocks region. Nonpainful. Increased nocturia without dysuria or hematuria. EXAM: 06/20/24 1111 BP: 134/83 Pulse: 77 Resp: 18 Temp: 36.1 C (96.9 F) SpO2: 96% Weight: 127.3 kg (280 lb 10.3 oz) KPS: 100 General Appearance: Alert and oriented. No acute distress. Radiation dermatitis: No Patchy area of somewhat confluent follicular eruption mid upper buttocks and 1 patch. IMAGING/LAB RESULTS: Hemoglobin (g/dL) Date Value 06/02/2024 13.9 Hematocrit (%) Date Value 06/02/2024 40.3 WBC (k/uL) Date Value 06/02/2024 4.59 Platelet Count (k/uL) Date Value 06/02/2024 172 Treatment chart checked: Yes Patient treatment site reviewed and verified:Yes Port films reviewed and current:Yes Medications started: None ASSESSMENT/PLAN: Patient doing well. Concerned that he may have shingles, Famvir prescribed. Otherwise continue radiation. Chart and imaging reviewed. Rey Wells MD documented in this encounterWhite Hospital03-17-2025 NoteHNO ID: [id number] Author: Rey WELLS MD Service: ? Author Type: Physician Type: Progress Notes Filed: 06/13/2024 11:49 Note Text: Radiation Oncology - On Treatment Review (OTR) Note PATIENT NAME: Edward Darby PATIENT DIAGNOSIS: Prostate adenocarcinoma, initial PSA 9.39, biopsy Rox score 4 + 4 = 8 (grade group 4), clinical stage T1b, N0, M0, stage IIC [T1-T2, N0, M0, PSA <20, GG 4] (AJCC 8th ed.), s/p biopsy. NCCN Risk Group: High Risk Group COURSE: definitive AREA TREATED: Pelvis/prostate CURRENT DOSE: 4000 cGy in 16 fx PLANNED DOSE: 7000 cGy in 28 fx SUBJECTIVE: Doing well. Mild dysuria. Mild diarrhea. EXAM: 06/13/24 1134 BP: 127/78 Pulse: 72 Resp: 20 Temp: 36.1 ?C (96.9 ?F) SpO2: 97% Weight: 129.3 kg (285 lb 0.9 oz) KPS: 100 General Appearance: Alert and oriented. No acute distress. Radiation dermatitis: No IMAGING/LAB RESULTS: Hemoglobin (g/dL) Date Value 06/02/2024 13.9 Hematocrit (%) Date Value 06/02/2024 40.3 WBC (k/uL) Date Value 06/02/2024 4.59 Platelet Count (k/uL) Date Value 06/02/2024 172 Treatment chart checked: Yes Patient treatment site reviewed and verified:Yes Port films reviewed and current:Yes Medications started: None ASSESSMENT/PLAN: Patient doing well. Chart and imaging reviewed. Continue radiation as outlined. Rey Wells, [facility]03-17-2025 History of Present illness Narrative* Rey Wells MD - 06/13/2024 11:37 AM EDT Radiation Oncology - On Treatment Review (OTR) Note PATIENT NAME: Edward Darby PATIENT DIAGNOSIS: Prostate adenocarcinoma, initial PSA 9.39, biopsy Fulton score 4 + 4 = 8 (grade group 4), clinical stage T1b, N0, M0, stage IIC [T1-T2, N0, M0, PSA <20, GG 4] (AJCC 8th ed.), s/p biopsy. NCCN Risk Group: High Risk Group COURSE: definitive AREA TREATED: Pelvis/prostate CURRENT DOSE: 4000 cGy in 16 fx PLANNED DOSE: 7000 cGy in 28 fx SUBJECTIVE: Doing well. Mild dysuria. Mild diarrhea. EXAM: 06/13/24 1134 BP: 127/78 Pulse: 72 Resp: 20 Temp: 36.1 C (96.9 F) SpO2: 97% Weight: 129.3 kg (285 lb 0.9 oz) KPS: 100 General Appearance: Alert and oriented. No acute distress. Radiation dermatitis: No IMAGING/LAB RESULTS: Hemoglobin (g/dL) Date Value 06/02/2024 13.9 Hematocrit (%) Date Value 06/02/2024 40.3 WBC (k/uL) Date Value 06/02/2024 4.59 Platelet Count (k/uL) Date Value 06/02/2024 172 Treatment chart checked: Yes Patient treatment site reviewed and verified:Yes Port films reviewed and current:Yes Medications started: None ASSESSMENT/PLAN: Patient doing well. Chart and imaging reviewed. Continue radiation as outlined. Rey Wells MD documented in this encounterWhite Hospital03-12-2025 NoteHNO ID: [id number] Author: Rey WELLS MD Service: ? Author Type: Physician Type: Progress Notes Filed: 06/13/2024 11:37 Note Text: Radiation Oncology - On Treatment Review (OTR) Note PATIENT NAME: Edward Darby PATIENT DIAGNOSIS: Prostate adenocarcinoma, initial PSA 9.39, biopsy Rox score 4 + 4 = 8 (grade group 4), clinical stage T1b, N0, M0, stage IIC [T1-T2, N0, M0, PSA <20, GG 4] (AJCC 8th ed.), s/p biopsy. NCCN Risk Group: High Risk Group COURSE: definitive AREA TREATED: Pelvis/prostate CURRENT DOSE: 3250 cGy in 13 fx PLANNED DOSE: 7000 cGy in 28 fx SUBJECTIVE: Doing well. EXAM: 06/08/24 1104 BP: 113/62 Pulse: 76 Resp: 18 Temp: 36.1 ?C (96.9 ?F) SpO2: 96% Weight: 128.6 kg (283 lb 8.2 oz) KPS: 100 General Appearance: Alert and oriented. No acute distress. Radiation dermatitis: No IMAGING/LAB RESULTS: None Treatment chart checked: Yes Patient treatment site reviewed and verified:Yes Port films reviewed and current:Yes Medications started: None ASSESSMENT/PLAN: Patient doing well. Chart and imaging reviewed. Continue radiation as outlined. Rey Wells, [facility]03-12-2025 History of Present illness Narrative* Rey Wells MD - 06/08/2024 11:35 AM EDT Radiation Oncology - On Treatment Review (OTR) Note PATIENT NAME: Edward Darby PATIENT DIAGNOSIS: Prostate adenocarcinoma, initial PSA 9.39, biopsy Rox score 4 + 4 = 8 (grade group 4), clinical stage T1b, N0, M0, stage IIC [T1-T2, N0, M0, PSA <20, GG 4] (AJCC 8th ed.), s/p biopsy. NCCN Risk Group: High Risk Group COURSE: definitive AREA TREATED: Pelvis/prostate CURRENT DOSE: 3250 cGy in 13 fx PLANNED DOSE: 7000 cGy in 28 fx SUBJECTIVE: Doing well. EXAM: 06/08/24 1104 BP: 113/62 Pulse: 76 Resp: 18 Temp: 36.1 C (96.9 F) SpO2: 96% Weight: 128.6 kg (283 lb 8.2 oz) KPS: 100 General Appearance: Alert and oriented. No acute distress. Radiation dermatitis: No IMAGING/LAB RESULTS: None Treatment chart checked: Yes Patient treatment site reviewed and verified:Yes Port films reviewed and current:Yes Medications started: None ASSESSMENT/PLAN: Patient doing well. Chart and imaging reviewed. Continue radiation as outlined. Rey Wells MD documented in this encounterWhite Hospital03-06-2025 NoteHNO ID: [id number] Author: ANA ROSA BARAJAS RN Service: ? Author Type: Registered Nurse Type: Progress Notes Filed: 06/02/2024 11:12 Note Text: Edward Wilner presents in office today for: CECE Schaeffer . Ordering Provider: Jorge Alberto Wells M.D. Test (s) ordered: CBC Method for obtaining blood: Phlebotomy was performed, accessing right antecubital vein. Needle removed intact. Dressing secured. Patient denies discomfort, dizziness, light-headedness or weakness and left the department without assist. [facility] History of Present illness Narrative* Ana Rosa Barajas RN - 06/02/2024 11:11 AM EST Edward Darby presents in office today for: CECE Schaeffer . Ordering Provider: Jorge Alberto Wells M.D. Test (s) ordered: CBC Method for obtaining blood: Phlebotomy was performed, accessing right antecubital vein. Needle removed intact. Dressing secured. Patient denies discomfort, dizziness, light-headedness or weakness and left the department without assist. Ana Rosa Barajas RN documented in this encounterWhite Hospital03-03-2025 NoteHNO ID: [id number] Author: Rey WELLS MD Service: ? Author Type: Physician Type: Progress Notes Filed: 05/30/2024 13:07 Note Text: Radiation Oncology - On Treatment Review (OTR) Note PATIENT NAME: Edward Darby PATIENT DIAGNOSIS: Prostate adenocarcinoma, initial PSA 9.39, biopsy Rox score 4 + 4 = 8 (grade group 4), clinical stage T1b, N0, M0, stage IIC [T1-T2, N0, M0, PSA <20, GG 4] (AJCC 8th ed.), s/p biopsy. NCCN Risk Group: High Risk Group COURSE: definitive AREA TREATED: Pelvis/prostate CURRENT DOSE: 1500 cGy in 6 fx PLANNED DOSE: 7000 cGy in 28 fx SUBJECTIVE: Doing well. Mild diarrhea. No other issues. EXAM: 05/30/24 1116 BP: 156/83 Pulse: 80 Resp: 18 Temp: (!) 35.9 ?C (96.7 ?F) SpO2: 97% Weight: 125.4 kg (276 lb 7.3 oz) KPS: 100 General Appearance: Alert and oriented. No acute distress. Radiation dermatitis: No IMAGING/LAB RESULTS: None Treatment chart checked: Yes Patient treatment site reviewed and verified:Yes Port films reviewed and current:Yes Medications started: None ASSESSMENT/PLAN: Patient doing well. Mild diarrhea discussed diet modification and Imodium use. Chart and imaging reviewed. Continue radiation as outlined. Rey Wells [facility]03-03-2025 History of Present illness Narrative* Rey Wells MD - 05/30/2024 11:17 AM EST Radiation Oncology - On Treatment Review (OTR) Note PATIENT NAME: dEward Darby PATIENT DIAGNOSIS: Prostate adenocarcinoma, initial PSA 9.39, biopsy Rox score 4 + 4 = 8 (grade group 4), clinical stage T1b, N0, M0, stage IIC [T1-T2, N0, M0, PSA <20, GG 4] (AJCC 8th ed.), s/p biopsy. NCCN Risk Group: High Risk Group COURSE: definitive AREA TREATED: Pelvis/prostate CURRENT DOSE: 1500 cGy in 6 fx PLANNED DOSE: 7000 cGy in 28 fx SUBJECTIVE: Doing well. Mild diarrhea. No other issues. EXAM: 05/30/24 1116 BP: 156/83 Pulse: 80 Resp: 18 Temp: (!) 35.9 C (96.7 F) SpO2: 97% Weight: 125.4 kg (276 lb 7.3 oz) KPS: 100 General Appearance: Alert and oriented. No acute distress. Radiation dermatitis: No IMAGING/LAB RESULTS: None Treatment chart checked: Yes Patient treatment site reviewed and verified:Yes Port films reviewed and current:Yes Medications started: None ASSESSMENT/PLAN: Patient doing well. Mild diarrhea discussed diet modification and Imodium use. Chart and imaging reviewed. Continue radiation as outlined. Rey Wells MD documented in this encounterWhite Hospital02-24-2025 NoteHNO ID: [id number] Author: Rey WELLS MD Service: ? Author Type: Physician Type: Progress Notes Filed: 05/23/2024 13:21 Note Text: Radiation Oncology - On Treatment Review (OTR) Note PATIENT NAME: Edward Darby PATIENT DIAGNOSIS: Prostate adenocarcinoma, initial PSA 9.39, biopsy Fulton score 4 + 4 = 8 (grade group 4), clinical stage T1b, N0, M0, stage IIC [T1-T2, N0, M0, PSA <20, GG 4] (AJCC 8th ed.), s/p biopsy. NCCN Risk Group: High Risk Group COURSE: definitive AREA TREATED: Pelvis/prostate CURRENT DOSE: 250 cGy in 1fx PLANNED DOSE: 7000 cGy in 28 fx SUBJECTIVE: Doing better after recent upper respiratory infection. EXAM: There were no vitals filed for this visit. KPS: 100 General Appearance: Alert and oriented. No acute distress. Radiation dermatitis: No IMAGING/LAB RESULTS: None Treatment chart checked: Yes Patient treatment site reviewed and verified:Yes Port films reviewed and current:Yes Medications started: None ASSESSMENT/PLAN: Patient starting radiation today. Plan of care and expectations again reviewed. Plan, MU calculations and qa report reviewed. Initial imaging including cone beam ct and verification reviewed and approved. First treatment given. Continue radiation as prescribed. Rey Wells, [facility]02-24-2025 History of Present illness Narrative* Rey Wells MD - 05/23/2024 12:16 PM EST Radiation Oncology - On Treatment Review (OTR) Note PATIENT NAME: Edward Darby PATIENT DIAGNOSIS: Prostate adenocarcinoma, initial PSA 9.39, biopsy Rox score 4 + 4 = 8 (grade group 4), clinical stage T1b, N0, M0, stage IIC [T1-T2, N0, M0, PSA <20, GG 4] (AJCC 8th ed.), s/p biopsy. NCCN Risk Group: High Risk Group COURSE: definitive AREA TREATED: Pelvis/prostate CURRENT DOSE: 250 cGy in 1fx PLANNED DOSE: 7000 cGy in 28 fx SUBJECTIVE: Doing better after recent upper respiratory infection. EXAM: There were no vitals filed for this visit. KPS: 100 General Appearance: Alert and oriented. No acute distress. Radiation dermatitis: No IMAGING/LAB RESULTS: None Treatment chart checked: Yes Patient treatment site reviewed and verified:Yes Port films reviewed and current:Yes Medications started: None ASSESSMENT/PLAN: Patient starting radiation today. Plan of care and expectations again reviewed. Plan, MU calculations and qa report reviewed. Initial imaging including cone beam ct and verification reviewed and approved. First treatment given. Continue radiation as prescribed. Rey Wells MD documented in this encounterWhite Hospital02-19-2025 History of Present illness Narrative* Priyanka Saenz, MARJORIE - 05/18/2024 3:00 PM EST Images from the original note were not included. Subjective Patient ID: Edward Darby is a 73 y.o. male who presents for a cough. Edward presents today for issue with a cough with sinus drainage and chest congestion. This has been going on for a week. Current Outpatient Medications on File Prior to Visit Medication Sig Dispense Refill allopurinol (Zyloprim) 100 MG tablet Take 1 tablet by mouth twice daily 200 tablet 0 betamethasone dipropionate 0.05 % cream Apply 1 [...] 1 tablet by mouth once daily 100 tablet0 polycarbophil (Fibercon) 625 MG tablet Take 1 tablet by mouth in the morning. pravastatin (Pravachol) 40 MG tablet Take 1 tablet by mouth once daily 90 tablet 0 semaglutide (Rybelsus) 7 MG tablet Take 1 tablet (7 mg) by mouth in the morning. Take before meals.30 tablet 0 No current facility-administered medications on file prior to visit. I have reviewed and reconciled the history and medication list with the patient today. Allergies Allergen Reactions Sulfamethoxazole-Trimethoprim Other Reaction(s): Dyspnea, REYES Social History Tobacco Use Smoking status: Former Current packs/day: 0.00 Types: Cigarettes Quit date: 2001 Years since quittin.1 Smokeless tobacco: Former Types: Chew Quit date: 1979 Vaping Use Vaping status: Unknown Substance Use Topics Alcohol use: Yes Comment: 1-2 drinks 2-4 times a month Drug use: Never Family History Problem Relation Name Age of Onset Lung cancer Sister Past Medical History: Diagnosis Date Chest discomfort Cholelithiasis 11/20/2022 Colon polyps Enthesopathy of ankle and tarsus Unspecified Gout Hepatic steatosis 11/20/2022 History of echocardiogram 07/03/2022 Echo: Normal LV Systolic Function LVEF 55%. Mildly dilated Right ventricle with mildly decreased Right Ventricular systolic function. Grade 2 DD. Moderate biatrial dilatation. No significant valvulardysfunction. History of lumbar fusion 2011 L5 History of stress test 06/09/2022 Decreased activity in the inferior wall, diaphragmatic attenuation artifact versus a fixed defect. No reversible ischemia. Abnormal exercise test secondary EKG changes Rotator cuff tear, left Past Surgical History: Procedure Laterality Date CARPAL TUNNEL RELEASE 1996 CHOLECYSTECTOMY 01/27/2023 COLONOSCOPY 2012 polyp COLONOSCOPY 03/06/2014 polyp COLONOSCOPY 12/29/2022 LUMBAR FUSION 2011 L4-L5 - removed disc and rods placed ROTATOR CUFF REPAIR Left SHOULDER ARTHROSCOPY Left 1998 TONSILLECTOMY Visit Vitals Smoking Status Former Review of Systems Constitutional: Positive for fatigue. HENT: Positive for congestion, postnasal drip, sinus pressure and sinus pain. Eyes: Negative. Respiratory: Positive for cough and wheezing. Cardiovascular: Negative. Gastrointestinal: Negative. Genitourinary: Negative. Skin: Negative. Neurological: Negative. Psychiatric/Behavioral: Negative. Hematological: Negative. Endocrine: Negative. Allergic/Immunologic: Negative. Objective Physical Exam Vitals reviewed. Constitutional: Appearance: He is ill-appearing. HENT: Head: Normocephalic and atraumatic. Right Ear: Tympanic membrane, ear canal and external ear normal. Left Ear: Tympanic membrane, ear canal and external ear normal. Nose: Congestion present. Mouth/Throat: Mouth: Mucous membranes are moist. Pharynx: Oropharynx is clear. Eyes: Extraocular Movements: Extraocular movements intact. Conjunctiva/sclera: Conjunctivae normal. Pupils: Pupils are equal, round, and reactive to light. Cardiovascular: Rate and Rhythm: Normal rate and regular rhythm. Heart sounds: Normal heart sounds. Pulmonary: Effort: Pulmonary effort is normal. Breath sounds: Normal breath sounds. Abdominal: Palpations: Abdomen is soft. Musculoskeletal: General: Normal range of motion. Cervical back: Normal range of motion and neck supple. Skin: General: Skin is warm and dry. Neurological: General: No focal deficit present. Mental Status: He is alert and oriented to person, place, and time. Psychiatric: Mood and Affect: Mood normal. Behavior: Behavior normal. Thought Content: Thought content normal. Judgment: Judgment normal. Assessment/Plan 1. Acute bronchitis, unspecified organism (Primary) Discussed diagnosis, use of benzonatate, azithromycin, albuterol, medrol and their most common sideeffects. He is advised to increase his fluids, rest, continue all medication as ordered, may use otc tylenol as directed, follow up for continuing or worsening symptoms. - benzonatate (Tessalon) 200 MG capsule; Take 1 capsule (200 mg) by mouth in the morning and 1 capsule (200 mg) in the evening and 1 capsule (200 mg) before bedtime. Do all this for 10 days. Do not crush or chew.. Dispense: 20 capsule; Refill: 0 - azithromycin (Zithromax) 250 MG tablet; 2 tabs x 1 day, then 1 tab x 4 days Dispense: 6 tablet; Refill: 0 - albuterol HFA 90 mcg/act inhaler; Inhale 2 puffs every 4 (four) hours if needed for wheezing or shortness of breath for up to 10 days Dispense: 18 g; Refill: 0 - methylPREDNISolone (Medrol Dospak) 4 MG tablets; Follow schedule on package instructions Dispense: 21 tablet; Refill: 0 No follow-ups on file. documented in this encounterGeneral [facility] [id number] Instructions* Patient Instructions* Priyanka Saenz NP - 05/18/2024 3:00 PM EST Albuterol INH added Zithromax pack added Medrol pack added Benzonatate added documented in this encounterGeneral Leonard Wood [facility] [id number] Telephone encounter Note* Telephone Encounter - Ankur Winston RN - 05/16/2024 3:07 PM EST CBC order pending your approval. Ankur Winston RN [facility] Miscellaneous Notes* Telephone Encounter - Ankur Winston RN - 05/16/2024 3:07 PM EST CBC order pending your approval. Ankur Winston RN documented in this encounterWhite Hospital02-17-2025 NoteHNO ID: [id number] Author: Rey WELLS MD Service: ? Author Type: Physician Type: Progress Notes Filed: 05/16/2024 12:31 Note Text: Radiation Oncology - On Treatment Review (OTR) Note PATIENT NAME: Edward Darby PATIENT DIAGNOSIS: Prostate adenocarcinoma, initial PSA 9.39, biopsy Rox score 4 + 4 = 8 (grade group 4), clinical stage T1b, N0, M0, stage IIC [T1-T2, N0, M0, PSA <20, GG 4] (AJCC 8th ed.), s/p biopsy. NCCN Risk Group: High Risk Group COURSE: definitive AREA TREATED: Pelvis/prostate CURRENT DOSE: 0 cGy in 0 fx PLANNED DOSE: 7000 cGy in 28 fx SUBJECTIVE: Has upper respiratory infection no fever no shortness of breath postop follow-up. EXAM: 05/16/24 1144 BP: 148/84 Pulse: 87 Resp: 18 Temp: 36.1 ?C (97 ?F) SpO2: 97% Weight: 126.2 kg (278 lb 3.5 oz) KPS: 100 General Appearance: Alert and oriented. No acute distress. Radiation dermatitis: No IMAGING/LAB RESULTS: None Treatment chart checked: Yes Patient treatment site reviewed and verified:Yes Port films reviewed and current:Yes Medications started: None ASSESSMENT/PLAN: Unable to tolerate first fraction due to cough when laying flat. Recommend deferring till later this week or next Thursday when he is feeling better. Rey Wells, [facility]02-17-2025 History of Present illness Narrative* Rey Wells MD - 05/16/2024 12:06 PM EST Radiation Oncology - On Treatment Review (OTR) Note PATIENT NAME: Edward Darby PATIENT DIAGNOSIS: Prostate adenocarcinoma, initial PSA 9.39, biopsy Fulton score 4 + 4 = 8 (grade group 4), clinical stage T1b, N0, M0, stage IIC [T1-T2, N0, M0, PSA <20, GG 4] (AJCC 8th ed.), s/p biopsy. NCCN Risk Group: High Risk Group COURSE: definitive AREA TREATED: Pelvis/prostate CURRENT DOSE: 0 cGy in 0 fx PLANNED DOSE: 7000 cGy in 28 fx SUBJECTIVE: Has upper respiratory infection no fever no shortness of breath postop follow-up. EXAM: 05/16/24 1144 BP: 148/84 Pulse: 87 Resp: 18 Temp: 36.1 C (97 F) SpO2: 97% Weight: 126.2 kg (278 lb 3.5 oz) KPS: 100 General Appearance: Alert and oriented. No acute distress. Radiation dermatitis: No IMAGING/LAB RESULTS: None Treatment chart checked: Yes Patient treatment site reviewed and verified:Yes Port films reviewed and current:Yes Medications started: None ASSESSMENT/PLAN: Unable to tolerate first fraction due to cough when laying flat. Recommend deferring till later this week or next Thursday when he is feeling better. Rey Wells MD documented in this [facility]01-31-2025 NoteHNO ID: [id number] Author: Rey WELLS MD Service: ? Author Type: Physician Type: Progress Notes Filed: 04/29/2024 07:45 Note Text: [facility]01-31-2025 History of Present illness Narrative* Rey Wells MD - 04/29/2024 7:44 AM EST sim documented in this encounterWhite Hospital01-30-2025 History of Present illness Narrative* Rey Wells MD - 04/28/2024 12:00 AM EST WILNEREDWARD [id number] 04/28/2024 [facility] Radiation Oncology Department SIMULATION NOTE DATE OF SIMULATION: 04/28/2024 THERAPIST: Dayana Castro MACHINE: [employer] DIAGNOSIS: Malignant neoplasm of [id number] AREA: PELVIS CONTRAST: None Consent in Epic: Yes PATIENT POSITION: Supine. FIXATION DEVICE: In order to achieve accurate and reproducible treatments, the patient is immobilized with THE ORFIT AIO SYSTEM. A time-out was conducted and recorded by the therapist. CT scan was completed for target localization and planning. Field arrangement will be determined after plan has been completed. The patient is scheduled for a verification simulation on the treatment machine to ensure proper set-up and field arrangement is correct prior to the first treatment of primary and boost perez if applicable. Patient education will be completed per nursing. Electronically Signed Jorge Alberto Wells M.D. / NRS 54:00 PM documented in this encounterWhite Hospital01-30-2025 History of Present illness Narrative* Rey Wells MD - 04/28/2024 12:00 AM EST EDWARD DARBY [id number] 04/28/2024 [facility] Department of Radiation Oncology Treatment Planning Note For reasons stated in the consult note, Edward Darby is a candidate for radiation therapy. Based onreview and interpretation of the relevant diagnostic studies together with the exam findings, Petros was simulated on 04/28/2024 at which time the target volume and/or requisite perez were delineated, as indicated in the simulation note, to be treated according to the prescription. The treatment target and organs at risk were contoured on the simulation scan using the fused MRI /. After reviewing multiple treatment plans with dosimetry, the best plan was approved to deliver the prescribed course of radiation to the target area using inverse planning to allow for the best isodose distribution, treating to the 97.3% isodose line with 10MV and 3 perez. Custom MLC asym jaws forIMRT were the treatment devices used to shape/modify the beams. Limiting dose to normal tissue was confirmed upon review of the calculated dose volume histogram. IMRT planning was used because it best met the dose/volume constraints for the organs at risk for this patient, better than what could be achieved using conventional or 3D planning. The specific doserequirements for the PTV, organs at risk and dose-volume histograms are contained in this treatmentplan and/or elsewhere in the medical record. A completed summary of this plan dated 05/13/2024 incorporated herein by reference includes dose, beam arrangements, energy, blocking, isodose distribution, and/or ports and DVH. Electronically Signed Jorge Alberto Wells M.D. 2:50 PM documented in this encounterWhite Hospital01-30-2025 NoteHNO ID: [id number] Author: Rey WELLS MD Service: ? Author Type: Physician Type: Progress Notes Filed: 04/28/2024 16:00 Note Text: EDWARD DARBY [id number] 04/28/2024 [facility] Radiation Oncology Department SIMULATION NOTE DATE OF SIMULATION: 04/28/2024 THERAPIST: Dayana Castro MACHINE: M-SIX mCT DIAGNOSIS: Malignant neoplasm of [id number] AREA: PELVIS CONTRAST: None Consent in Epic: Yes PATIENT POSITION: Supine. FIXATION DEVICE: In order to achieve accurate and reproducible treatments, the patient is immobilized with THE ORFIT AIO SYSTEM. A time-out was conducted and recorded by the therapist. CT scan was completed for target localization and planning. Field arrangement will be determined after plan has been completed. The patient is scheduled for a verification simulation on the treatment machine to ensure proper set-up and field arrangement is correct prior to the first treatment of primary and boost perez if applicable. Patient education will be completed per nursing. Electronically Signed Jorge Alberto Wells M.D. / NRS 54:00 [facility]01-30-2025 NoteHNO ID: [id number] Author: Rey WELLS MD Service: ? Author Type: Physician Type: Progress Notes Filed: 05/13/2024 12:50 Note Text: EDWARD DARBY [id number] 04/28/2024 [facility] Department of Radiation Oncology Treatment Planning Note For reasons stated in the consult note, Edward Darby is a candidate for radiation therapy. Based on review and interpretation of the relevant diagnostic studies together with the exam findings, Edward Darby was simulated on 04/28/2024 at which time the target volume and/or requisite perez were delineated, as indicated in the simulation note, to be treated according to the prescription. The treatment target and organs at risk were contoured on the simulation scan using the fused MRI /. After reviewing multiple treatment plans with dosimetry, the best plan was approved to deliver the prescribed course of radiation to the target area using inverse planning to allow for the best isodose distribution, treating to the 97.3% isodose line with 10MV and 3 perez. Custom MLC asym jaws for IMRT were the treatment devices used to shape/modify the beams. Limiting dose to normal tissue was confirmed upon review of the calculated dose volume histogram. IMRT planning was used because it best met the dose/volume constraints for the organs at risk for this patient, better than what could be achieved using conventional or 3D planning. The specific dose requirements for the PTV, organs at risk and dose-volume histograms are contained in this treatment plan and/or elsewhere in the medical record. A completed summary of this plan dated 05/13/2024 incorporated herein by reference includes dose, beam arrangements, energy, blocking, isodose distribution, and/or ports and DVH. Electronically Signed Jorge Alberto Wells M.D. 512:50 [facility]12-16-2024 Hospital Discharge instructions Patient Education 03/14/2024 10:20:54 Hormone Suppression Therapy for Prostate Cancer Hormone Suppression Therapy for Prostate Cancer Hormone suppression therapy is a treatment for prostate cancer that can help slow the growth of cancer cells in the prostate gland. It is also called androgen deprivation therapy (ADT) or androgen suppression therapy. Hormone suppression therapy targets male sex hormones (androgens) in the body that help cancer cells grow. Hormone suppression therapy alone will not cure prostate cancer, but it can slow the growth of cancer cells and may shrink tumors over time. Your health care provider can help you find the best treatment that fits your lifestyle. Hormone suppression therapy may be used in the following cases: When prostate cancer has spread too far to other places in the body and cannot be cured by surgery or radiation. When a person has health problems that prevent the use of surgery or radiation. Before radiation to help shrink the size of the cancer and make the radiation treatment more effective. If the prostate cancer remains or comes back following treatment with surgery or radiation. What are the types of hormone suppression therapy? Orchiectomy Orchiectomy, also called surgical castration, is a surgery to remove one or both testicles. The testicles make the two main androgens testosterone and dihydrotestosterone (DHT). This surgery reduces the levels of testosterone in the blood, leading to decreased androgen production. Medicine therapy Medicine therapy, also called medical or chemical castration, involves taking medicines to keep your body from making or using androgens. Medicines can do this in one of three ways: 1.Reducing androgen production by the testicles. Luteinizing hormone-releasing hormone (LHRH) agonists. These medicines are injected or implanted under your skin to lower the amount of androgens that your testicles make. Depending on the medicine, they can be given monthly or up to every 3 to 6 months. If you take these medicines, you may also beprescribed other medicines to help with side effects. LHRH antagonists. These medicines also work to lower the amount of androgens made in the testicles,but they work faster than LHRH agonist medicines and have less severe side effects. They are given as a monthly injection under the skin, and they are used when prostate cancer is in an advanced stage. Estrogens. These medicines are female hormones that help to reduce androgen production by the testicles. Estrogens are not used as commonly as other types of hormone suppression therapy due to their side effects. However, they may be used if other treatments do not work. 2.Blocking androgen attachment throughout the body. Anti-androgen medicines, also called androgen receptor antagonists, block areas on the body where androgens attach. These are pills that are usually used in combination with other types of hormone suppression therapy, like orchiectomy and other medicines. 3.Blocking androgen production throughout the body. Androgen synthesis inhibitor medicines. These medicines help to stop other areas of the body from making androgens. They are taken as pills. They may be used if the prostate cancer is advanced and has not gotten better with surgery or other medicines. A steroid medicine may be given with this type of medicine to help with side effects. What are the risks? Hormone suppression therapy may cause side effects, including: Hot flashes. Diarrhea and nausea. Itching. Sexual side effects, such as: ?Decrease or lack of sexual desire. ?Decrease in size of the penis or testicles. ?Inability to get an erection (erectile dysfunction, or impotence). ?Breast tenderness or increase in breast size. Fatigue. Weight gain. Anemia. Thinning of the bones (osteoporosis) and loss of muscle mass. Depression, mood swings, and trouble with thinking or focusing. Hormone suppression therapy may also increase your risk of high blood pressure, increased cholesterol levels, stroke, heart attack, or diabetes. What are the benefits? One of the main benefits of hormone suppression therapy is having additional treatment options. Youmay have only one type of treatment, or two or more types at the same time. Treatments may be combined to: Help with side effects. Treat advanced cancer. Where to find more information [place] [employer]: www.cancer.org National Cancer [place]: www.cancer.gov Contact a health care provider if: You have pain or side effects that do not get better with treatment. You have trouble urinating. You have new side effects that do not go away. Get help right away if: You have severe chest pain. You have trouble breathing. You have an irregular heartbeat. You have numbness or paralysis in the lower half of your body. You are confused. You have trouble talking or understanding speech. These symptoms may be an emergency. Do not wait to see if the symptoms will go away. Get medical help right away. Call your local emergency services (911 in the [place] Do not drive yourself to the hospital. Summary Hormone suppression therapy is a treatment for prostate cancer that can help to slow the growth of cancer cells in the prostate gland. Hormone suppression therapy alone will not cure prostate cancer, but it can slow the growth of prostate cancer and may shrink tumors over time. Treatment to suppress hormones may include surgery or medicines. Side effects such as hot flashes, changes in sexual function or desire, and weakened bones can result from hormone suppression therapy. This information is not intended to replace advice given to you by your health care provider. Make sure you discuss any questions you have with your health care provider. Document Revised: 06/27/2021 Document Reviewed: 06/27/2021 [employer] Patient Education 2023 [employer]. Follow Up Care 03/08/2024 11:03:00 With:NASREEN CARMONA, Sloan Westfall, URL Address: [facility] [address], [place] [address]- When: Unknown [facility] 12-16-2024 NotePatient Education Oncology Hormone Suppression Therapy for Prostate Cancer Hormone suppression therapy is a treatment for prostate cancer that can help slow the growth of cancer cells in the prostate gland. It is also called androgen deprivation therapy (ADT) or androgen suppression therapy. Hormone suppression therapy targets male sex hormones (androgens) in the body that help cancer cells grow. Hormone suppression therapy alone will not cure prostate cancer, but it can slow the growth of cancer cells and may shrink tumors over time. Your health care provider can help you find the best treatment that fits your lifestyle. Hormone suppression therapy may be used in the following cases: ??? When prostate cancer has spread too far to other places in the body and cannot be cured by surgery or radiation. ??? When a person has health problems that prevent the use of surgery or radiation. ??? Before radiation to help shrink the size of the cancer and make the radiation treatment more effective. ??? If the prostate cancer remains or comes back following treatment with surgery or radiation. What are the types of hormone suppression therapy? Orchiectomy Orchiectomy, also called surgical castration, is a surgery to remove one or both testicles. The testicles make the two main androgens?testosterone and dihydrotestosterone (DHT). This surgery reduces the levels of testosterone in the blood, leading to decreased androgen production. Medicine therapy Medicine therapy, also called medical or chemical castration, involves taking medicines to keep your body from making or using androgens. Medicines can do this in one of three ways: 1. Reducing androgen production by the testicles. ??? Luteinizing hormone-releasing hormone (LHRH) agonists. These medicines are injected or implanted under your skin to lower the amount of androgens that your testicles make. Depending on the medicine, they can be given monthly or up to every 3 to 6 months. If you take these medicines, you may also be prescribed other medicines to help with side effects. ??? LHRH antagonists. These medicines also work to lower the amount of androgens made in the testicles, but they work faster than LHRH agonist medicines and have less severe side effects. They are given as a monthly injection under the skin, and they are used when prostate cancer is in an advanced stage. ??? Estrogens. These medicines are female hormones that help to reduce androgen production by the testicles. Estrogens are not used as commonly as other types of hormone suppression therapy due to their side effects. However, they may be used if other treatments do not work. 2. Blocking androgen attachment throughout the body. ??? Anti-androgen medicines, also called androgen receptor antagonists, block areas on the body where androgens attach. These are pills that are usually used in combination with other types of hormone suppression therapy, like orchiectomy and other medicines. 3. Blocking androgen production throughout the body. ??? Androgen synthesis inhibitor medicines. These medicines help to stop other areas of the body from making androgens. They are taken as pills. They may be used if the prostate cancer is advanced and has not gotten better with surgery or other medicines. A steroid medicine may be given with this type of medicine to help with side effects. What are the risks? Hormone suppression therapy may cause side effects, including: ??? Hot flashes. ??? Diarrhea and nausea. ??? Itching. ??? Sexual side effects, such as: ? Decrease or lack of sexual desire. ? Decrease in size of the penis or testicles. ? Inability to get an erection (erectile dysfunction, or impotence). ? Breast tenderness or increase in breast size. ??? Fatigue. ??? Weight gain. ??? Anemia. ??? Thinning of the bones (osteoporosis) and loss of muscle mass. ??? Depression, mood swings, and trouble with thinking or focusing. Hormone suppression therapy may also increase your risk of high blood pressure, increased cholesterol levels, stroke, heart attack, or diabetes. What are the benefits? One of the main benefits of hormone suppression therapy is having additional treatment options. Youmay have only one type of treatment, or two or more types at the same time. Treatments may be combined to: ??? Help with side effects. ??? Treat advanced cancer. Where to find more information ??? [place] [employer]: www.cancer.org ??? National Cancer [place]: www.cancer.gov Contact a health care provider if: ??? You have pain or side effects that do not get better with treatment. ??? You have trouble urinating. ??? You have new side effects that do not go away. Get help right away if: ??? You have severe chest pain. ??? You have trouble breathing. ??? You have an irregular heartbeat. ??? You have numbness or paralysis in the lower half of your body. ??? You are confused. ??? You (more content not included)...[facility]12-13-2024 Note HNO ID: [id number] Author: Rey WELLS MD Service: ? Author Type: Physician Type: Progress Notes Filed: 03/11/2024 13:30 Note Text: [facility] History of Present illness Narrative* Rey Wells MD - 03/11/2024 1:30 PM EST See nursing note documented in this encounterWhite Hospital12-12-2024 Telephone encounter Note * Telephone Encounter - Whit Granados - 03/10/2024 11:37 AM EST Notified patient of date and time. [facility]12-12-2024 Miscellaneous Notes* Telephone Encounter - Whit Granados - 03/10/2024 11:37 AM EST Notified patient of date and time. * Telephone Encounter - Isabella Castro RT(R) - 03/10/2024 7:50 AM EST Sim scheduled at 1145 on 04/28/24 PSS - please add to ct schedule (SIM PROSTATE STEPHEN) at 1145 x45 min. Presim consent with STEPHEN [id number]. Thanks! Isabella Castro RT(R) * Telephone Encounter - Whit Granados - 03/08/2024 11:02 AM EST Patient to see Dr. Downey in [place] office on March 14 at 9:30am. New office at [facility] [facility], [address] * Telephone Encounter - Ankur Winston RN - 03/08/2024 10:52 AM EST PSS/RT See Nasreen Lewis asap Return for sim last week Mar with psa, full bladder Presim consent needed Nurse ed today Thanks Ankur Winston RN documented in this encounterWhite Hospital12-12-2024 Telephone encounter Note * Telephone Encounter - Isabella Castro RT(R) - 03/10/2024 7:50 AM EST Sim scheduled at 1145 on 04/28/24 PSS - please add to ct schedule (SIM PROSTATE STEPHEN) at 1145 x45 min. Presim consent with STEPHEN [id number]. Thanks! Isabella Castro RT(R) [facility] Work Phone: 1(303) 554-328012-10-2024 NoteHNO ID: [id number] Author: ANKUR WINSTON, ALVA Service: ? Author Type: Registered Nurse Type: Progress Notes Filed: 03/08/2024 11:50 Note Text: Radiation Therapy - Patient Education Note PATIENT NAME: Edward Darby PATIENT March 08, 2024 [facility] FACILITY/LOCATION: [facility] READINESS TO LEARN Cognitive Ability: Alert and oriented Motivation to learn: Interested Family Support: High - Very involved in pt care Instruction provide to: Patient and Spouse Patient learns best by: Multiple Methods Factors effecting learning: None Physical limitations effecting learning: None LEARNING RESPONSE Diagnosis: Pt simulated today for radiation therapy to pelvis. Education Topic/Teaching Points: Radiation therapy, Side effects, and OTV: Method of instruction: Written instruction/Handouts Verbal instruction Patient /Family response: Patient and family verbalized understanding of radiation treatments, side effects, OTV, and transportation. Follow-up plan: Patient instructed to call with any further issues Recommend - Recommend continued instruction and follow up as directed Contact information given. Supplemental material: Informational handouts on Bladder function, Diarrhea, Fatigue, Pelvic handout, Skin changes, and patient education binder. Referral (recommendation): None, Pt denied need for social work, van service, and hand surgeon. Was PED reviewed? No Patient has an Onbody or Implanted device: No Signed by: Ankur Winston [facility]12-[facility] History of Present illness Narrative* Ankur Winston RN - 03/08/2024 11:49 AM EST Radiation Therapy - Patient Education Note PATIENT NAME: Edward Darby PATIENT March 08, 2024 [facility] FACILITY/LOCATION: [facility] READINESS TO LEARN Cognitive Ability: Alert and oriented Motivation to learn: Interested Family Support: High - Very involved in pt care Instruction provide to: Patient and Spouse Patient learns best by: Multiple Methods Factors effecting learning: None Physical limitations effecting learning: None LEARNING RESPONSE Diagnosis: Pt simulated today for radiation therapy to pelvis. Education Topic/Teaching Points: Radiation therapy, Side effects, and OTV: Method of instruction: Written instruction/Handouts Verbal instruction Patient /Family response: Patient and family verbalized understanding of radiation treatments, sideeffects, OTV, and transportation. Follow-up plan: Patient instructed to call with any further issues Recommend - Recommend continued instruction and follow up as directed Contact information given. Supplemental material: Informational handouts on Bladder function, Diarrhea, Fatigue, Pelvic handout, Skin changes, and patient education binder. Referral (recommendation): None, Pt denied need for social work, van service, and hand surgeon. Was PED reviewed? No Patient has an Onbody or Implanted device: No Signed by: Ankur Winston RN documented in this encounterWhite Hospital12-10-2024 Telephone encounter Note * Telephone Encounter - Whit Granados - 03/08/2024 11:02 AM EST Patient to see Dr. Downey in [place] office on Thursday, March 14 at 9:30am. New office at [facility] [facility]12[facility] Telephone encounter Note* Telephone Encounter - Ankur Winston RN - 03/08/2024 10:52 AM EST PSS/RT See Nasreen gutierres Return for sim last week Mar with psa, full bladder Presim consent needed Nurse ed today Thanks Ankur Winston RN [facility]12-10-2024 History of Present illness Narrative* Rey Wells MD - 03/08/2024 10:00 AM EST Radiation Oncology - Prostate Cancer New Patient/Consult Note PATIENT NAME: Edward Darby PATIENT REQUESTING PROVIDER: Dr. Downey DIAGNOSIS: 73 year old male with prostate adenocarcinoma, initial PSA 9.39, biopsy Fulton score 4 + 4 = 8 (grade group 4), clinical stage T1b, N0, M0, stage IIC [T1-T2, N0, M0, PSA <20, GG 4] (AJCC 8th ed.), s/p biopsy. NCCN Risk Group: High Risk Group HPI: 73 year old male with prostate adenocarcinoma who presents for an opinion regarding the role of radiation therapy in the management of the patient's disease. Final recommendations will be communicated back to the requesting physician by way of the shared medical record, or letter to requestingphysician via [place] mail. The patient was diagnosed with prostate cancer and comes in today to discuss treatment options. Patient initially presented with elevated PSA. PSA on 06/11/2022 7.1. He underwent transrectal ultrasound-guided biopsy 07/20 without any pathologic findings. He was started on dutasteride in June 2022. PSA has continued to climb, 4.6 on 01/21/2023 and 9.39 on 01/11/2024. Patient's obstructive symptoms also worsened refractory to medical treatment. He underwent TURP on 02/04/2024. Pathology revealing adenocarcinoma, Rox 8 (4+4) involving 35% of the chips submitted. Areas suspicious for lymph-vascular invasion, and perineural invasion was seen. Staging Studies: MR Results: Pending PET Scan Results: 03/01/2024, no evidence of metastasis evidence of uptake in the prostate only Previous Treatment for Prostate Cancer: None Genomic Testing: None The patient reports the following pertinent history: Urinary frequency (D/N): 4-6/1 Dysuria: No Incontinence: 1- No pads Hematuria: No - AUA Questionnaire (symptoms within the past 1 month) - Total AUA Score: 11 Bowel Movement Frequency: 1/day Bowel Movement Quality: Normal Blood per Rectum: No Last Colonoscopy: last year, nml Androgen Deprivation: none Prior Radiation Therapy, Collagen Vascular Disease, or Inflammatory Bowel Disease: No Any implanted or external electric devices? No Currently on Anticoagulation: No History of Hip Replacement: No History of Prior TURP: Yes ALLERGIES Allergen Reactions Bactrim [Sulfametho* Hives, Shortness of Breath alfuzosin SR (UROXATRAL) 10 mg 24 hr tablet Take 10 mg by mouth. allopurinol (ZYLOPRIM) 100 mg tablet Take 100 mg by mouth two times a day. atorvastatin (LIPITOR) 10 mg tablet daily at bedtime. calcium polycarbophil (FIBERCON) 625 mg tablet Take 1 tablet by mouth every morning. lisinopril-hydroCHLOROthiazide (ZESTORETIC) 20-25 mg per tablet Take 1 tablet by mouth every morning. metoprolol succinate ER (TOPROL XL) 50 mg 24 hr tablet Take 50 mg by mouth once daily. pravastatin (PRAVACHOL) 40 mg tablet Take 40 mg by mouth once daily. semaglutide (RYBELSUS) 7 mg tablet Take 7 mg by mouth. vits A,C,E/lutein/minerals (OCUVITE WITH LUTEIN ORAL) Take by mouth. bicalutamide (CASODEX) 50 mg tablet Take 1 tablet by mouth once daily. PAST MEDICAL HISTORY Diagnosis Date Diabetes mellitus (HCC) Gout HTN (hypertension) Hypercholesteremia PAST SURGICAL HISTORY Procedure Laterality Date CHOLECYSTECTOMY HX PAST SURGICAL HISTORY OF spinal fusion L4-L5 PAST SURGICAL HISTORY OF left shoulder decompression REVISE MEDIAN N/CARPAL TUNNEL SURG Right TONSILLECTOMY & ADENOIDECTOMY <AGE 14 FAMILY HISTORY Problem Relation Age of Onset Lung Cancer Sister Prostate Cancer Brother cause of -Dementia Social History Tobacco Use Smoking status: Former Average packs/day: 0.5 packs/day for 37.0 years (18.5 ttl pk-yrs) Types: Cigarettes Start date: 1962 Smokeless tobacco: Former Types: Snuff Substance Use Topics Alcohol use: Yes Comment: occ REVIEW OF SYSTEMS: GENERAL: feeling well without fatigue, no recent change in weight NECK: denies swelling or pain in neck RESPIRATORY: no cough, no wheezing or shortness of breath CARDIOVASCULAR: no chest pain, no palpitations MUSCULOSKELETAL: denies any painful or swollen joints, no muscle aches SKIN: no rash NEURO: no numbness or paresthesias and no weakness of the extremities As noted in HPI PHYSICAL EXAM: VS: BP 133/83 Pulse 73 Temp 36.8 C (98.3 F) Resp 18 Ht 174 cm (5' 8.5 ) Wt 124 kg (273 lb5.9 oz) SpO2 97% BMI 40.96 kg/m KARNOFSKY PERFORMANCE STATUS: 100 General Appearance: Alert and oriented. No acute distress. HEENT: NCAT. Sclera anicteric. PERRL. EOMI. Chest: No respiratory distress. Lungs clear to auscultation bilaterally. Abdomen: Soft. Nontender. Nondistended. Musculoskeletal: No edema. Normal ROM in extremities. No bone or spine tenderness. Neuro: Speech fluent. Gait normal. No focal deficits. Rectal: Deferred RADIOLOGY/LABORATORY DATA: see HPI ASSESSMENT/PLAN: Prostate adenocarcinoma, initial PSA 9.39, biopsy Rox score 4 + 4 = 8 (grade group 4), clinical stage T1b, N0, M0, stage IIC [T1-T2, N0, M0, PSA <20, GG 4] (AJCC 8th ed.), s/pbiopsy. NCCN Risk Group: High Risk Group Patient presents with high risk localized adenocarcinoma prostate found at TURP. He had had prior negative biopsy. He is having MRI for further staging. He does have high-grade disease and PSA of close to 10 (on finasteride), would be considered high risk presentation. Staging fortunately without evidence of metastatic disease although he does have 1 prominent left pelvic lymph node seen on PET but not showing any abnormal uptake (very likely reactive after recent procedure can follow with subsequent CT). I do feel combined radiation with ADT indicated. Potential radiation options discussed at length. I am not sure he is a good candidate based on TURP for brachytherapy. After long discussion plan to proceed with ADT. Will have him see Dr. Downey to initiate ADT as well as initiate bicalutamide. Will plan to give him 1 to 2 months further healing after his TURP. Will have him back at that time for simulation and anticipate initiation of treatment shortly after that. Signed by: Rey Wells MD cc: To use this Smartlink, specify the provider ID whose address you want to display, e.g., .PROVADDR[1(where 1 is the provider ID). Sloan Downey [address] [facility] [id number] * Ankur Winston RN - 03/08/2024 9:59 AM EST AUA= 11 * Ankur Winston RN - 03/08/2024 9:59 AM EST Pacemaker/Defibrillator?N Previous Cancer(s)?N Previous Radiation?N Lupus/Scleroderma?N On body monitoring device?N documented in this encounterWhite Hospital12-10-2024 NoteHNO ID: [id number] Author: Rey WELLS MD Service: ? Author Type: Physician Type: Progress Notes Filed: 03/11/2024 13:29 Note Text: Radiation Oncology - Prostate Cancer New Patient/Consult Note PATIENT NAME: Edward Darby PATIENT REQUESTING PROVIDER: Dr. Downey DIAGNOSIS: 73 year old male with prostate adenocarcinoma, initial PSA 9.39, biopsy Rox score 4 + 4 = 8 (grade group 4), clinical stage T1b, N0, M0, stage IIC [T1-T2, N0, M0, PSA <20, GG 4] (AJCC 8th ed.), s/p biopsy. NCCN Risk Group: High Risk Group HPI: 73 year old male with prostate adenocarcinoma who presents for an opinion regarding the role of radiation therapy in the management of the patient's disease. Final recommendations will be communicated back to the requesting physician by way of the shared medical record, or letter to requesting physician via US mail. The patient was diagnosed with prostate cancer and comes in today to discuss treatment options. Patient initially presented with elevated PSA. PSA on 06/11/2022 7.1. He underwent transrectal ultrasound-guided biopsy 07/20 without any pathologic findings. He was started on dutasteride in June 2022. PSA has continued to climb, 4.6 on 01/21/2023 and 9.39 on 01/11/2024. Patient's obstructive symptoms also worsened refractory to medical treatment. He underwent TURP on 02/04/2024. Pathology revealing adenocarcinoma, Rox 8 (4+4) involving 35% of the chips submitted. Areas suspicious for lymph-vascular invasion, and perineural invasion was seen. Staging Studies: MR Results: Pending PET Scan Results: 03/01/2024, no evidence of metastasis evidence of uptake in the prostate only Previous Treatment for Prostate Cancer: None Genomic Testing: None The patient reports the following pertinent history: Urinary frequency (D/N): 4-6/1 Dysuria: No Incontinence: 1- No pads Hematuria: No - AUA Questionnaire (symptoms within the past 1 month) - Total AUA Score: 11 Bowel Movement Frequency: 1/day Bowel Movement Quality: Normal Blood per Rectum: No Last Colonoscopy: last year, nml Androgen Deprivation: none Prior Radiation Therapy, Collagen Vascular Disease, or Inflammatory Bowel Disease: No Any implanted or external electric devices? No Currently on Anticoagulation: No History of Hip Replacement: No History of Prior TURP: Yes ALLERGIES Allergen Reactions Bactrim [Sulfametho* Hives, Shortness of Breath alfuzosin SR (UROXATRAL) 10 mg 24 hr tablet Take 10 mg by mouth. allopurinol (ZYLOPRIM) 100 mg tablet Take 100 mg by mouth two times a day. atorvastatin (LIPITOR) 10 mg tablet daily at bedtime. calcium polycarbophil (FIBERCON) 625 mg tablet Take 1 tablet by mouth every morning. lisinopril-hydroCHLOROthiazide (ZESTORETIC) 20-25 mg per tablet Take 1 tablet by mouth every morning. metoprolol succinate ER (TOPROL XL) 50 mg 24 hr tablet Take 50 mg by mouth once daily. pravastatin (PRAVACHOL) 40 mg tablet Take 40 mg by mouth once daily. semaglutide (RYBELSUS) 7 mg tablet Take 7 mg by mouth. vits A,C,E/lutein/minerals (OCUVITE WITH LUTEIN ORAL) Take by mouth. bicalutamide (CASODEX) 50 mg tablet Take 1 tablet by mouth once daily. PAST MEDICAL HISTORY Diagnosis Date Diabetes mellitus (HCC) Gout HTN (hypertension) Hypercholesteremia PAST SURGICAL HISTORY Procedure Laterality Date CHOLECYSTECTOMY HX PAST SURGICAL HISTORY OF spinal fusion L4-L5 PAST SURGICAL HISTORY OF left shoulder decompression REVISE MEDIAN N/CARPAL TUNNEL SURG Right TONSILLECTOMY AND ADENOIDECTOMY FAMILY HISTORY Problem Relation Age of Onset Lung Cancer Sister Prostate Cancer Brother cause of -Dementia Social History Tobacco Use Smoking status: Former Average packs/day: 0.5 packs/day for 37.0 years (18.5 ttl pk-yrs) Types: Cigarettes Start date: 1962 Smokeless tobacco: Former Types: Snuff Substance Use Topics Alcohol use: Yes Comment: occ REVIEW OF SYSTEMS: GENERAL: feeling well without fatigue, no recent change in weight NECK: denies swelling or pain in neck RESPIRATORY: no cough, no wheezing or shortness of breath CARDIOVASCULAR: no chest pain, no palpitations MUSCULOSKELETAL: denies any painful or swollen joints, no muscle aches SKIN: no rash NEURO: no numbness or paresthesias and no weakness of the extremities As noted in HPI PHYSICAL EXAM: VS: BP 133/83 Pulse 73 Temp 36.8 ?C (98.3 ?F) Resp 18 Ht 174 cm (5' 8.5 ) Wt 124 kg (273 lb 5.9 oz) SpO2 97% BMI 40.96 kg/m? KARNOFSKY PERFORMANCE STATUS: 100 General Appearance: Alert and oriented. No acute distress. HEENT: NCAT. Sclera anicteric. PERRL. EOMI. Chest: No respiratory distress. Lungs clear to auscultation bilaterally. Abdomen: Soft. Nontender. Nondistended. Musculoskeletal: No edema. Normal ROM in extremities. No bone or spine tenderness. Neuro: Speech fluent. Gait normal. No focal deficits. Rectal: Deferred RADIOLO (more content not included)...[facility]12-10-2024 Note HNO ID: [id number] Author: NAKUR WINSTON RN Service: ? Author Type: Registered Nurse Type: Progress Notes Filed: 03/11/2024 13:29 Note Text[facility] Note[facility]NO ID: [id number] Author: ANKUR WINSTON RN Service: ? Author Type: Registered Nurse Type: Progress Notes Filed: 03/11/2024 13:29 Note Text: Pacemaker/Defibrillator?N Previous Cancer(s)?N Previous Radiation?N Lupus/Scleroderma?N On body monitoring device?[facility]12-10-2024 NoteEducation (RADTSA) EDWARD DARBY ([id number]) 1950 M Date Time Provider Department 03/08/24 ANKUR WINSTON Reason for Visit: Patient Education [91] During your visit today, we recorded the following information about you: Allergies As of Date: 03/08/2024 Noted Allergy Reaction BACTRIM (SULFAMETHOXAZOLE-TRIMETH*03/08/2024 4 - Hives 12 - Shortness of Breath Date Reviewed: 03/08/2024 Reviewed by: Ankur Winston, RN - Fully Assessed Prescriptions as of 03/08/2024 - alfuzosin SR (UROXATRAL) 10 mg 24 hr tablet Take 10 mg by mouth. - allopurinol (ZYLOPRIM) 100 mg tablet Take 100 mg by mouth two times a day. - atorvastatin (LIPITOR) 10 mg tablet daily at bedtime. - calcium polycarbophil (FIBERCON) 625 mg tablet Take 1 tablet by mouth every morning. - lisinopril-hydroCHLOROthiazide (ZESTORETIC) 20-25 mg per tablet Take 1 tablet by mouth every morning. - metoprolol succinate ER (TOPROL XL) 50 mg 24 hr tablet Take 50 mg by mouth once daily. - pravastatin (PRAVACHOL) 40 mg tablet Take 40 mg by mouth once daily. - semaglutide (RYBELSUS) 7 mg tablet Take 7 mg by mouth. - vits A,C,E/lutein/minerals (OCUVITE WITH LUTEIN ORAL) Take by mouth. - bicalutamide (CASODEX) 50 mg tablet Take 1 tablet by mouth once daily. Encounter Status:Closed by ANKUR WINSTON on 03/08/24[facility]11[facility] Hospital Discharge instructions Patient Education 02/15/2024 10:24:16 Prostate Cancer Prostate Cancer The prostate is a small gland that produces fluid that makes up semen (seminal fluid). It is located below the bladder in men, in front of the rectum. Prostate cancer is the abnormal growth of cells in the prostate gland. What are the causes? The exact cause of this condition is not known. What increases the risk? You are more likely to develop this condition if: You are 65 years of age or older. You have a family history of prostate cancer. You have a family history of breast and ovarian cancer. You have genes that are passed from parent to child (inherited), such as BRCA1 and BRCA2. You have Velazco syndrome. men and men of descent are diagnosed with prostate cancer at higher rates than other men. The reasons for this are not well understood and are likely due to a combination of genetic and environmental factors. What are the signs or symptoms? Symptoms of this condition include: Problems with urination. This may include: ?A weak or interrupted flow of urine. ?Trouble starting or stopping urination. ?Trouble emptying the bladder all the way. ?The need to urinate more often, especially at night. Blood in urine or semen. Persistent pain or discomfort in the lower back, lower abdomen, or hips. Trouble getting an erection. Weakness or numbness in the legs or feet. How is this diagnosed? This condition can be diagnosed with: A digital rectal exam. For this exam, a health care provider inserts a gloved finger into the rectum to feel the prostate gland. A blood test called a prostate-specific antigen (PSA) test. A procedure in which a sample of tissue is taken from the prostate and checked under a microscope (prostate biopsy). An imaging test called transrectal ultrasonography. Once the condition is diagnosed, tests will be done to determine how far the cancer has spread. This is called staging the cancer. Staging may involve imaging tests, such as a bone scan, CT scan, PETscan, or MRI. Stages of prostate cancer The stages of prostate cancer are as follows: Stage 1 (I). At this stage, the cancer is found in the prostate only. The cancer is not visible on imaging tests, and it is usually found by accident, such as during prostate surgery. Stage 2 (II). At this stage, the cancer is more advanced than it is in stage 1, but the cancer has not spread outside the prostate. Stage 3 (III). At this stage, the cancer has spread beyond the outer layer of the prostate to nearby tissues. The cancer may be found in the seminal vesicles, which are near the bladder and the prostate. Stage 4 (IV). At this stage, the cancer has spread to other parts of the body, such as the lymph nodes, bones, bladder, rectum, liver, or lungs. Prostate cancer grading Prostate cancer is also graded according to how the cancer cells look under a microscope. This is called the Fulton score and the total score can range from 6 10, indicating how likely it is that the cancer will spread (metastasize) to other parts of the body. The higher the score, the greater thelikelihood that the cancer will spread. Fulton 6 or lower: This indicates that the cancer cells look similar to normal prostate cells (well differentiated). Rox 7: This indicates that the cancer cells look somewhat similar to normal prostate cells (moderately differentiated). Rox 8, 9, or 10: This indicates that the cancer cells look very different than normal prostate cells (poorly differentiated). How is this treated? Treatment for this condition depends on several factors, including the stage of the cancer, your age, personal preferences, and your overall health. Talk with your health care provider about treatment options that are recommended for you. Common treatments include: Observation for early stage prostate cancer (active surveillance). This involves having exams, blood tests, and in some cases, more biopsies. For some men, this is the only treatment needed. Surgery. Types of surgeries include: ?Open surgery (radical prostatectomy). In this surgery, a larger incision is made to remove the prostate. ?A laparoscopic radical prostatectomy. This is a surgery to remove the prostate and lymph nodes through several small incisions. It is often referred to as a minimally invasive surgery. ?A robotic radical prostatectomy. This is laparoscopic surgery to remove the prostate and lymph nodes with the help of robotic arms that are controlled by the surgeon. ?Cryoablation. This is surgery to freeze and destroy cancer cells. Radiation treatment. Types of radiation treatment include: ?External beam radiation. This type aims beams of radiation from outside the body at the prostate to destroy cancerous cells. ?Brachytherapy. This type uses radioactive needles, seeds, wires, or tubes that are implanted into the prostate gland. Like external beam radiation, brachytherapy destroys cancerous cells. An advantage is that this type of radiation limits the damage to surrounding tissue and has fewer side effects. Chemotherapy. This treatment kills cancer cells or stops them from multiplying. It kills both cancer cells and normal cells. Targeted therapy. This treatment uses medicines to kill cancer cells without damaging normal cells. Hormone treatment. This treatment involves taking medicines that act on testosterone, one of the male hormones, by: ?Stopping your body from producing testosterone. ?Blocking testosterone from reaching cancer cells. Follow these instructions at home: Lifestyle Do not use any products that contain nicotine or tobacco. These products include cigarettes, chewing tobacco, and vaping devices, such as e-cigarettes. If you need help quitting, ask your health careprovider. Eat a healthy diet. To do this: ?Eat foods that are high in fiber. These include beans, whole grains, and fresh fruits and vegetables. ?Limit foods that are high in fat and sugar. These include fried or sweet foods. Treatment for prostate cancer may affect sexual function. If you have a partner, continue to have intimate moments. This may include touching, holding, hugging, and caressing your partner. Get plenty of sleep. Consider joining a support group for men who have prostate cancer. Meeting with a support group mayhelp you learn to manage the stress of having cancer. General instructions Take enmd-vje-drqfhhi and prescription medicines only as told by your health care provider. If you have to go to the hospital, notify your cancer specialist (oncologist). Keep all follow-up visits. This is important. Where to find more information [place] [employer]: www.cancer.org [place] [employer]: www.cancer.net National Cancer [place]: www.cancer.gov Contact a health care provider if: You have new or increasing trouble urinating. You have new or increasing blood in your urine. You have new or increasing pain in your hips, back, or chest. Get help right away if: You have weakness or numbness in your legs. You cannot control urination or your bowel movements (incontinence). You have chills or a fever. Summary The prostate is a small gland that is involved in the production of semen. It is located below a man's bladder, in front of the rectum. Prostate cancer is the abnormal growth of cells in the prostate gland. Treatment for this condition depends on the stage of the cancer, your age, personal preferences, and your overall health. Talk with your health care provider about treatment options that are recommended for you. Consider joining a support group for men who have prostate cancer. Meeting with a support group mayhelp you learn to manage the stress of having cancer. This information is not intended to replace advice given to you by your health care provider. Make sure you discuss any questions you have with your health care provider. Document Revised: 06/12/2021 Document Reviewed: 06/12/2021 [employer] Patient Education 2023 [employer]. Follow Up Care 01/13/2024 15:16:43 With:NASREEN CARMONA, Sloan Westfall, URL Address: [facility] [address] , [place] [address]- [phone] When: Unknown [facility] 11-18-2024 NotePatient Education Oncology Prostate Cancer The prostate is a small gland that produces fluid that makes up semen (seminal fluid). It is located below the bladder in men, in front of the rectum. Prostate cancer is the abnormal growth of cells in the prostate gland. What are the causes? The exact cause of this condition is not known. What increases the risk? You are more likely to develop this condition if: ??? You are 65 years of age or older. ??? You have a family history of prostate cancer. ??? You have a family history of breast and ovarian cancer. ??? You have genes that are passed from parent to child (inherited), such as BRCA1 and BRCA2. ??? You have Velazco syndrome. men and men of descent are diagnosed with prostate cancer at higher rates than other men. The reasons for this are not well understood and are likely due to a combination of genetic and environmental factors. What are the signs or symptoms? Symptoms of this condition include: ??? Problems with urination. This may include: ? A weak or interrupted flow of urine. ? Trouble starting or stopping urination. ? Trouble emptying the bladder all the way. ? The need to urinate more often, especially at night. ??? Blood in urine or semen. ??? Persistent pain or discomfort in the lower back, lower abdomen, or hips. ??? Trouble getting an erection. ??? Weakness or numbness in the legs or feet. How is this diagnosed? This condition can be diagnosed with: ??? A digital rectal exam. For this exam, a health care provider inserts a gloved finger into the rectum to feel the prostate gland. ??? A blood test called a prostate-specific antigen (PSA) test. ??? A procedure in which a sample of tissue is taken from the prostate and checked under a microscope (prostate biopsy). ??? An imaging test called transrectal ultrasonography. Once the condition is diagnosed, tests will be done to determine how far the cancer has spread. This is called staging the cancer. Staging may involve imaging tests, such as a bone scan, CT scan, PETscan, or MRI. Stages of prostate cancer The stages of prostate cancer are as follows: ??? Stage 1 (I). At this stage, the cancer is found in the prostate only. The cancer is not visibleon imaging tests, and it is usually found by accident, such as during prostate surgery. ??? Stage 2 (II). At this stage, the cancer is more advanced than it is in stage 1, but the cancer has not spread outside the prostate. ??? Stage 3 (III). At this stage, the cancer has spread beyond the outer layer of the prostate to nearby tissues. The cancer may be found in the seminal vesicles, which are near the bladder and the prostate. ??? Stage 4 (IV). At this stage, the cancer has spread to other parts of the body, such as the lymph nodes, bones, bladder, rectum, liver, or lungs. Prostate cancer grading Prostate cancer is also graded according to how the cancer cells look under a microscope. This is called the Rox score and the total score can range from 6?10, indicating how likely it is that the cancer will spread (metastasize) to other parts of the body. The higher the score, the greater thelikelihood that the cancer will spread. ??? Rox 6 or lower: This indicates that the cancer cells look similar to normal prostate cells (well differentiated). ??? Rox 7: This indicates that the cancer cells look somewhat similar to normal prostate cells (moderately differentiated). ??? Fulton 8, 9, or 10: This indicates that the cancer cells look very different than normal prostate cells (poorly differentiated). How is this treated? Treatment for this condition depends on several factors, including the stage of the cancer, your age, personal preferences, and your overall health. Talk with your health care provider about treatment options that are recommended for you. Common treatments include: ??? Observation for early stage prostate cancer (active surveillance). This involves having exams, blood tests, and in some cases, more biopsies. For some men, this is the only treatment needed. ??? Surgery. Types of surgeries include: ? Open surgery (radical prostatectomy). In this surgery, a larger incision is made to remove the prostate. ? A laparoscopic radical prostatectomy. This is a surgery to remove the prostate and lymph nodes through several small incisions. It is often referred to as a minimally invasive surgery. ? A robotic radical prostatectomy. This is laparoscopic surgery to remove the prostate and lymph nodes with the help of robotic arms that are controlled by the surgeon. ? Cryoablation. This is surgery to freeze and destroy cancer cells. ??? Radiation treatment. Types of radiation treatment include: ? External beam radiation. This type aims beams of radiation from outside the body at the prostate to destroy cancerous cells. ? Brachytherapy. This type uses radioactive needles, seeds, wires, o (more content not included)...[facility]10-16-2024 Hospital Discharge instructions Patient Education 01/13/2024 15:21:36 [...] light, a camera, and an electric cutting edge(resectoscope) is passed through the urethra and into the prostate. The opening of the urethra is at the end of the penis. Tell a health care provider about: Any allergies you have. All medicines you are taking, including vitamins, herbs, eye drops, creams, and wqzk-njb-pguetjd medicines. Any problems you or family members [...] provider tells you to take them. Taking vwaf-opl-hlimnjv medicines, vitamins, herbs, and supplements. Surgery safety Ask your health care provider what steps will be taken to help prevent infection. These steps may include: Removing hair at the surgery site. Washing skin with a germ-killing soap. Taking antibiotic medicine. General instructions Do not use any products that contain nicotine or tobacco for at least 4 weeks before the procedure.These products include cigarettes, chewing tobacco, and vaping [...] blood oxygen level will be monitored until youleave the hospital or clinic. You will be [...] provider. Document Revised: 12/10/2021 Document Reviewed: 12/10/2021 [employer] Patient Education 2023 [employer]. 01/13/2024 15:06:23 Erectile Dysfunction Erectile Dysfunction Erectile dysfunction (ED) is the inability to get or keep an erection in order to have sexual intercourse. ED is considered a symptom of an underlying disorder and is not considered a disease. ED mayinclude: Inability to get an erection. Lack of [...] back or pelvic injuries, multiple sclerosis, Parkinson's disease,spinal cord injury, and stroke. Certain medicines, such [...] or the penis may be too curved toallow for intercourse. Never having nighttime or morning [...] penis. During this procedure, a blood vessel froma different part of the body is placed into the penis to allow blood to flow around (bypass) damaged or blocked blood vessels. Lifestyle changes, such as exercising more, losing weight, and quitting smoking. Follow these instructions at home: Medicines Take nucn-uci-iskzhmr and prescription medicines only as told by your health care provider. Do not increase the dosage without first discussing it with your health care provider. If you are using self-injections, do injections as directed by your health care provider. Make sureyou avoid any veins that are on the surface of the penis. After giving an injection, apply pressureto the injection site for 5 minutes. Talk [...] you need help quitting, ask your health careprovider. Before using a vacuum pump, read the instructions that come with the pump and discuss any questionswith your health care provider. Keep all follow-up [...] provider. Document Revised: 06/12/2021 Document Reviewed: 06/12/2021 [employer] Patient Education 2023 [employer]. 01/13/2024 14:41:49 Prostate Cancer Screening Prostate Cancer Screening Prostate cancer screening is testing that is done to check for the presence of prostate cancer in men. The prostate gland is a walnut-sized gland that is located below the bladder and in front of therectum in males. The function of the prostate is to add fluid to semen during ejaculation. Prostatecancer is one of the most common types of cancer in men. Who should have prostate cancer screening? Screening recommendations vary based on age and other risk factors, as well as between the professional organizations who make the recommendations. In general, screening is recommended if: You are age 50 to 70 and have an average risk for prostate cancer. You should talk with your healthcare provider about your need for screening and [...] diagnosed with prostate cancer. The risk is higherif your family member's cancer occurred at an early age or if you have multiple family members withprostate cancer at an early age. ?Being a [...] is a blood test called the prostate-specific antigen(PSA) test. PSA is a protein that is [...] treatment? Where to find more information [employer] [place] [employer]: www.cancer.org [place] [employer]: www.auanet.org Contact a health care [...] the recommended screening test for prostate cancer, butit has associated risks. Discuss the risks and [...] provider. Document Revised: 09/09/2021 Document Reviewed: 09/09/2021 [employer] Patient Education 2023 [employer]. Follow Up Care 01/12/2024 15:01:17 With:NASREEN CARMONA, Sloan Westfall, URL Address: [facility] [address] , [place] [address] When: Unknown [facility] 10-16-2024 NotePatient Education Oncology Prostate Cancer Screening Prostate cancer screening is testing that is done to check for the presence of prostate cancer in men. The prostate gland is a walnut-sized gland that is located below the bladder and in front of therectum in males. The function of the prostate is to add fluid to semen during ejaculation. Prostatecancer is one of the most common types [...] , screening in this age group is generallyreserved for men who have a 10- to [...] is a blood test called the prostate-specific antigen(PSA) test. PSA is a protein that is [...] cancer, and most men with prostate cancer diefrom a different cause. What are the risks [...] Where to find more information ? The [place] [employer]: www.cancer.org ? [place] [employer]: www.auanet.org Contact a health care [...] front of the rectum. (more content not included)...[facility]10-14-[facility]24 History of Present illness Narrative* Jose Angel Villavicencio MD - 01/11/2024 11:21 AM EDTAssociated Problem(s): Sleep apnea in adult Patient is compliant with CPAP usage and perceives benefit from treatment. Treatment has been effective in controlling the patient's symptoms of Sleep Apnea. Will continue to monitor with routine follow up appointments. * Jose Angel Villavicencio MD - 01/11/2024 11:09 AM EDTAssociated Problem(s): Hyperlipidemia (CMS/HCC) This is a chronic medical condition that is stable since last assessment. No changes in treatment are suggested at this time. Continue Current meds. * Jose Angel Villavicencio MD - 01/11/2024 11:09 AM EDTAssociated Problem(s): Medicare annual wellness visit, subsequent Colonoscopy every 10 years or Cologuard every 3 years ages 50-75 Flu Vaccine yearly Pneumovax and Prevnar Mammo yearly for women and PSA yearly for men Labs/Screening yearly to rule out Diabetes, Chronic Kidney disease and liver disease Hepatitis Screen forat risk populations Shingles vaccine after65 if indicated Tetanus Vaccine every 10 years Lipids yearly under the age of 75 If Smoking history: one time CT scan of chest and Ultrasound of Aorta to screen for Anuerysm * Jose Angel Villavicencio MD - 01/11/2024 11:09 AM EDTAssociated Problem(s): Morbid (severe) obesity due to excess calories (CMS/HCC) Weight loss encouraged * Jose Angel Villavicencio MD - 01/11/2024 11:09 AM EDTAssociated Problem(s): Type 2 diabetes mellitus with other specified complication (CMS/HCC) No Tobacco use Follow ADA 1800 diet low carbohydrate Continue Med Compliance Goal LDL less than 100Goal BP 130/80 Goal HgbA1c < 7.0% Monitor Feet, monitor for infection Needs Exercise Yearly eye exams Prior to your visit today we reviewed your chart and outlined testing and treatment needed foryour care. Reviewed sadiqble complications of diabetes including, loss of vision, kidney failure and increased risk of heart attacks and stroke. We made recommendations on how to control your blood sugars, and minimize your risk of these complications. We discussed your current barriers to a healthy living and importance of healthy diet and exercise. * Jose Angel Villavicencio MD - 01/11/2024 11:00 AM EDT Images from the original note were not [...] 1 tablet by mouth once daily 100 tablet3 polycarbophil (Fibercon) 625 MG tablet Take 1 [...] of current healthcare providers: Patient Care Team: Jose Angel Villavicencio MD as PCP - General (Family [...] by direct observation Three Word Registration: Banana, North Star, Chair Clock Drawing: Normal Clock - 2 [...] (CMS/HCC) Relevant Orders Comprehensive metabolic panel Hyperlipidemia ([facility]) This is a chronic medical condition that is stable since last assessment. No changes in treatment are suggested at this time. Continue Current meds. Relevant Orders CBC and differential Lipid panel Impaired fasting glucose Relevant Orders CBC and differential Morbid (severe) obesity due to excess calories (CMS/[facility]) Weight loss encouraged Nocturia Relevant Orders PSA Sleep apnea in adult Patient is compliant with CPAP usage and perceives benefit from treatment. Treatment has been effective in controlling the patient's symptoms of Sleep Apnea. Will continue to monitor with routine follow up appointments. Type 2 diabetes mellitus with other specified complication ([facility]) No Tobacco use Follow ADA 1800 diet low carbohydrate Continue Med Compliance Goal LDL less than 100Goal BP 130/80 Goal HgbA1c < 7.0% Monitor Feet, monitor for infection Needs Exercise Yearly eye exams Prior to your visit today we reviewed your chart and outlined testing and treatment needed foryour care. Reviewed poissble complications of diabetes including, [...] Hepatitis Screen forat risk populations Shingles vaccine after65 if indicated Tetanus Vaccine every 10 years [...] Relevant Orders Influenza, high-dose seasonal, quadrivalent, PF (PJB547) (Fluzone High Dose Quad North 0.7mL dose) (Completed) Orders Placed This Encounter Procedures Influenza, high-dose seasonal, quadrivalent, PF (TPR161) (Fluzone High Dose Quad North 0.7mL dose) [...] POCT Glycated hemoglobin, total Electronically signed by Jose Angel Villavicencio MD on January 11, 2024 documented in this encounterGeneral [facility] [id number] History of Present illness Narrative* Mary Del Valle, CCC-A - 12/02/2023 1:00 PM EDT History: Pt was referred to Audiology because of hearing loss. Pt has noticed a change in hearing in his right ear. His CPAP machine usually pops his ears but it has not popped his right ear. Pt reports periodic tinnitus, sometimes in the evening.History is positive for noise exposure. History is positive for chronic ear problems as a child. Otoscopic Exam: Ear canal clear and TM intact AU Pure Tone Audiometry Right Ear: Mild to severe mixed, predominately sensorineural hearing loss above 2K Hz. 15 dB air-bone gap at 4K Hz. Left Ear: Mild hearing loss at 1K Hz. Mild to hearing loss above 2K Hz Speech Audiometry Right SRT = 30 dB and word discrimination score at 65 dBHL (masked) = 96% Left SRT = 25 dB and word discrimination score at 65 dBHL (masked) = 100% Tympanometry Right Ear: Type A tympanogram Left Ear: Type A tympanogram Impressions: Bilateral sensorineural hearing loss, slightly worse in the right ear. Pt is not noticing difficulty communicating and is not ready for hearing aids yet. documented in this encounterGeneral [facility] [id number] Evaluation + Plan note Future Scheduled Tests Laboratory* PSA Free & Total 07/29/23 [facility] 01-02-2024 Hospital Discharge instructions Patient Education 03/31/2023 11:00:44 [...] 100 degrees. Follow Up Care 02/04/2023 10:56:49 With:Sloan DOWNEY Address: [facility] [address] [place] [address]- Business (1) When: Unknown Comments:Patient will callPlease call if you need to reschedule [facility]11-08-2023 Hospital Discharge instructions Patient Education 02/04/2023 10:34:35 [...] or stopping your regular medicines. This is especiallyimportant if you are taking diabetes medicines or blood thinners. You may be asked to avoid urinating before coming to the test so that you arrive with a full bladder. Tell a health care provider about: ?Any allergies you have. ?All medicines you are taking, including vitamins, herbs, eye drops, creams, and xpsi-fay-clowgbd medicines. ?Whether you are or may be [...] flexible tube (catheter) into your bladder after youurinate. The remaining urine will be removed through [...] bladder will be filled with warm, germ-free (sterile)water. Pressure measurements will be taken: ?As your bladder fills. ?When you feel the need to urinate. ?As your bladder is emptied. You may be asked to cough or bear down to check for leakage. In some cases, your bladder may be filled with a material that shows up on X- rays (contrast material) so that X-ray pictures can [...] (warm compresses) may relieve any discomfort near yoururethra. What do the results mean? Talk with [...] provider. Document Revised: 11/27/2021 Document Reviewed: 10/19/2020 [employer] Patient Education 2022 PowerPlan. 02/04/2023 10:34:28 Cystoscopy Cystoscopy Cystoscopy is a [...] including vitamins, herbs, eye drops, creams, and opfx-dce-jjjqovk medicines. Any problems you or family members [...] provider tells you to take them. Taking ajlh-jwm-zrkoxku medicines, vitamins, herbs, and supplements. Tests You [...] Follow these instructions at home: Medicines Take ajpp-ynh-stamwis and prescription medicines only as told by your health care provider. If you were prescribed an antibiotic medicine, take it as told by your health care provider. Do notstop taking the antibiotic even if you start [...] blood in your urine increases, call your healthcare provider. Follow instructions from your health care provider about eating or drinking restrictions. If a tissue sample was removed for testing (biopsy) during your procedure, it is up to you to get your test results. Ask your health care provider, or the department that is doing the test, when yourresults will be ready. Drink enough fluid to [...] blood in your urine increases, call your healthcare provider. If you were prescribed an antibiotic medicine, take it as told by your health care provider. Do notstop taking the antibiotic even if you start to feel better. This information is not intended to replace advice given to you by your health care provider. Make sure you discuss any questions you have with your health care provider. Document Revised: 11/27/2021 Document Reviewed: 10/26/2020 [employer] Patient Education 2022 PowerPlan. Follow Up Care 07/23/2022 10:08:45 With:NASREEN CARMONA, Sloan Westfall, URL Address: [facility] [address] [place] [address]- When: Unknown [facility] [place] 04-12-2023 Hospital Discharge instructions Patient Education 07/09/2022 07:45:12 [...] discomfort near your rectum, especially while sitting. Yuba-colored urine due to small amounts of blood in your urine. A burning feeling while urinating. Blood in your stool (feces) or bleeding from your rectum. Blood in your semen. Follow these instructions at home: Medicines Take prto-zam-objslnc and prescription medicines only as told by [...] pain and discomfort around your rectum, especially whilesitting. You may have blood in your urine [...] 09/07/2017 Document Revised: 07/06/2019 Document Reviewed: 09/07/2017 [employer] Patient Education 2019 PowerPlan. Follow Up Care 06/25/2022 16:49:16 With:NASREEN CARMONA, Sloan Westfall, URL Address: [facility] [address] [place] [address]- When: Unknown [facility] [place] 03-29-2023 Hospital Discharge instructions Patient Education 06/25/2022 16:06:14 [...] done before cancer symptoms start. Screening can helpto identify cancer at an early stage, when [...] if you need screening if you have oneof these risk factors: ?Being of -[place] descent. ?Having a family history of prostate [...] you: Are older than age 55. Are -[place]. Have a father, brother, or uncle who [...] not tell you if your cancer needs lisandra treated. Slow-growing prostate cancer may not need [...] 12/25/2017 Document Revised: 02/26/2018 Document Reviewed: 12/25/2017 [employer] Patient Education 2020 PowerPlan. Follow Up Care 06/24/2022 15:07:03 With:Sloan DOWNEY MD, URL Address: [facility] [address] , [place] [address]- When: Unknown [facility] Chief complaint Narrative - ReportedEDWARD DARBY is being seen for a consultation for abnormal test(s) results.[facility] 250 DO Work Phone: Evaluation + Plan note Future Appointments Appointment Date:07/09/2022 07:45:00 AM Scheduled Provider:Sloan DOWNEY MD Location:[facility] Appointment Type:URO Procedure 15 min Appointment Date:07/23/2022 08:45:00 AM Scheduled Provider:Sloan DOWNEY MD Location:[facility] Appointment Type:URO Office Visit [facility] Evaluation + Plan note Future Appointments Appointment Date:07/23/2022 08:45:00 AM Scheduled Provider:Sloan DOWNEY MD Location:[facility] Appointment Type:URO Office Visit Diagnostic Tests Pending * Prostate Histology ([facility]) 07/09/22 [facility] Evaluation + Plan note Future Appointments Appointment Date:02/04/2023 09:45:00 AM Scheduled Provider:Sloan DOWNEY MD Location:[facility] Appointment Type:URO Office Visit [facility] evaluation + Plan note Future Appointments Appointment Date:03/31/2023 09:00:00 AM Scheduled Provider: Location:[facility] Appointment Type:Urology FT Appointment Date:03/31/2023 10:00:00 AM Scheduled Provider: Location:[facility] Appointment Type:Urology FT Future Scheduled Tests Laboratory* PSA Free & Total 07/29/23 [facility] Evaluation + Plan note Future Scheduled Tests Laboratory* PSA Free & Total [facility]ments Appointment Date:02/08/2024 09:30:00 AM Scheduled Provider: Location:[facility] Appointment Type:URO Nurse Visit Appointment Date:02/29/2024 09:15:00 AM Scheduled Provider:[facility] DOWNEY MD [facility] Office Visit Future Scheduled Tests Laboratory* PSA Free & Total 07/29/23 [facility] Evaluation + Plan note Future Appointments Appointment Date:02/29/2024 09:15:00 AM Scheduled Provider:[facility] DOWNEY [facility] Office Visit Future Scheduled Tests Laboratory* PSA Free & Total 07/29/23 [facility] evaluation + Plan note Future Appointments Appointment Date:09/05/2024 01:45:00 PM Scheduled Provider:[facility]OWNEY [facility] Office Visit Diagnostic Tests Pending * PSA Total 03/14/24 Future Scheduled Tests Laboratory* PSA Free & Total 07/29/23 [facility] evaluation + Plan note Future Appointments Appointment Date:09/05/2024 01:45:00 PM Scheduled Provider:Sloan DOWNEY MD Location:[facility] Appointment Type:URO Office Visit [facility] evaluation + Plan note Future Appointments Appointment Date:03/03/2025 08:00:00 AM Scheduled Provider: Location:[facility] Appointment Type:URO Nurse Visit Appointment Date:03/13/2025 11:15:00 AM Scheduled Provider:Sloan DOWNEY MD Location:[facility] Appointment Type:URO Office Visit Diagnostic Tests Pending * Testosterone Level Total 09/05/24 Future Scheduled Tests Laboratory* PSA Total 09/05/24 [facility] evalwkelfk noteNo assessment information available [facility] Work Phone: Evaluation note* Diagnosis Impaired fasting glucose- Primary Blood in [...] apnea in adult documented in this encounter [facility] Healthcare[facility]* Diagnosis Malignant neoplasm of prostate (HCC)- Primary Malignant [facility]oplasm of prostate [facility] Malignant neoplasm of prostate (HCC)- Primary Malignant neoplasm of prostate [facility] Tinnitus, bilateral- Primary Unspecified tinnitus Sensorineural hearing loss, bilateral documented in this encounter [facility] HealthcareEvaluation note* Diagnosis Malignant neoplasm of prostate (HCC)- Primary Malignant neoplasm of prostate [facility] Diagnosis Malignant neoplasm of prostate (HCC)- Primary Malignant neoplasm of prostate [facility] Diagnosis Malignant neoplasm of prostate (HCC)- Primary Malignant neoplasm of prostate [facility] Diagnosis Malignant neoplasm of prostate (HCC)- Primary Malignant neoplasm of prostate [facility] Diagnosis Malignant neoplasm of prostate (HCC)- Primary Malignant neoplasm of prostate [facility] Diagnosis Impaired fasting glucose- Primary Blood in [...] Encounter for vaccination Sleep apnea in adult Acute bronchitis, unspecified organism- Primary documented [facility] this encounter [facility]* Diagnosis Malignant neoplasm of prostate (HCC)- Primary Malignant neoplasm of prostate [facility] Diagnosis Malignant neoplasm of prostate (HCC) Malignant neoplasm of prostate [facility] Diagnosis Malignant neoplasm of prostate (HCC)- Primary Malignant neoplasm of prostate [facility] Diagnosis Malignant neoplasm of prostate (HCC)- Primary Malignant neoplasm of prostate [facility] Diagnosis Malignant neoplasm of prostate (HCC)- Primary Malignant neoplasm of prostate [facility] Diagnosis Impaired fasting glucose- Primary Blood in stool, cahim LLQ pain Abdominal pain, left lower quadrant Diverticulitis Diverticulitis of colon (without mention of hemorrhage) Eczema, unspecified type- Primary Blood in stool, chaim Hepatic steatosis Other chronic nonalcoholic liver disease Routine general medical examination at health care facility- Primary Routine general medical examination at a health care facility Essential hypertension Unspecified essential hypertension Benign prostatic hyperplasia with urinary frequency Impaired fasting glucose Calculus of gallbladder without cholecystitis without obstruction Flu vaccine need Essential hypertension- Primary Unspecified essential hypertension Gout, unspecified cause, unspecified chronicity, unspecified site Impaired fasting glucose Type 2 diabetes mellitus without complication, without long-term current use of insulin (HCC) Morbid (severe) obesity due to excess calories (E66.01) Body mass index [BMI] 40.0-44.9, adult (Z68.41) Sleep apnea in adult LLQ pain- Primary Abdominal pain, left lower quadrant Impaired fasting glucose Low back pain without sciatica, unspecified back pain laterality, unspecified chronicity Type 2 diabetes mellitus with other specified complication (HCC) Hyperlipidemia, unspecified Other specified hearing loss of right ear, unspecified hearing status on contralateral side Routine general medical examination at health care facility- Primary Routine general medical examination at a health care facility Abnormal glucose tolerance test Impaired glucose tolerance test Benign essential hypertension Essential hypertension, benign Nocturia Medicare annual wellness visit, subsequent Hyperlipidemia, unspecified hyperlipidemia type Impaired fasting glucose Hyperchylomicronemia Hyperchylomicronemia Type 2 diabetes mellitus with other specified complication, without long-term current use of insulin (HCC) Morbid (severe) obesity due to excess calories ([facility]) Encounter for vaccination Sleep apnea in adult Type 2 diabetes mellitus with other specified complication, without long-term current use of insulin ([facility])- Primary Benign essential hypertension Essential hypertension, benign Eczema, unspecified type Right bundle branch block (RBBB) determined by electrocardiography PVC (premature ventricular contraction) Other premature beats Dizziness Dizziness and giddiness Atrial fibrillation, unspecified type (HCC) Abnormal electrocardiogram (ECG) (EKG) documented [facility] Diagnosis Essential (primary) hypertension- Primary Unspecified essential hypertension Orthostatic hypotension Abnormal stress test Other nonspecific abnormal cardiovascular system function study Abnormal electrocardiogram (ECG) (EKG) [place] (obstructive sleep apnea) Obstructive sleep apnea (adult) (pediatric) Morbid obesity with body mass index (BMI) of 40.0 or higher (Multi) Never smoked tobacco Palpitation Palpitations Palpitations documented in this encounter [facility] Work Phone: Evaluation note* Diagnosis Essential (primary) hypertension Unspecified essential hypertension Abnormal stress test Other nonspecific abnormal cardiovascular system function study Abnormal electrocardiogram (ECG) (EKG) [place] (obstructive sleep apnea) Obstructive sleep apnea (adult) (pediatric) documented in this encounter [facility] Work Phone: Evaluation note* Diagnosis Impaired fasting glucose- Primary Blood in stool, chaim LLQ pain Abdominal pain, left lower quadrant Diverticulitis Diverticulitis of colon (without mention of hemorrhage) Eczema, unspecified type- Primary Blood in stool, chaim Hepatic steatosis Other chronic nonalcoholic liver disease Routine general medical examination at health care facility- Primary Routine general medical examination at a health care facility Essential hypertension Unspecified essential hypertension Benign prostatic hyperplasia with urinary frequency Impaired fasting glucose Calculus of gallbladder without cholecystitis without obstruction Flu vaccine need Essential hypertension- Primary Unspecified essential hypertension Gout, unspecified cause, unspecified chronicity, unspecified site Impaired fasting glucose Type 2 diabetes mellitus without complication, without long-term current use of insulin (HCC) Morbid (severe) obesity due to excess calories (E66.01) Body mass index [BMI] 40.0-44.9, adult (Z68.41) Sleep apnea in adult LLQ pain- Primary Abdominal pain, left lower quadrant Impaired fasting glucose Low back pain without sciatica, unspecified back pain laterality, unspecified chronicity Type 2 diabetes mellitus with other specified complication (HCC) Hyperlipidemia, unspecified Other specified hearing loss of right ear, unspecified hearing status on contralateral side Routine general medical examination at health care facility- Primary Routine general medical examination at a [facility] care facility Abnormal glucose tolerance test Impaired glucose tolerance test Benign essential hypertension Essential hypertension, benign Nocturia Medicare annual wellness visit, subsequent Hyperlipidemia, unspecified hyperlipidemia type Impaired fasting glucose Hyperchylomicronemia Hyperchylomicronemia Type 2 diabetes mellitus with other specified complication, without long-term current use of insulin (HCC) Morbid (severe) obesity due to excess calories ([facility]) Encounter for vaccination Sleep apnea in adult Encounter for vaccination documented in this encounter [facility]Evaluation [facility]* Diagnosis Eczema, unspecified type- Primary Blood in stool, chaim Hepatic steatosis Other chronic nonalcoholic liver disease Routine general medical examination at health care facility- Primary Routine general medical examination at a [facility] care facility Essential hypertension Unspecified essential hypertension Benign prostatic hyperplasia with urinary frequency Impaired fasting glucose Calculus of gallbladder without cholecystitis without obstruction Flu vaccine need Essential hypertension- Primary Unspecified essential hypertension Gout, unspecified cause, unspecified chronicity, unspecified site Impaired fasting glucose Type 2 diabetes mellitus without complication, without long-term current use of insulin (HCC) Morbid (severe) obesity due to excess calories (E66.01) Body mass index [BMI] 40.0-44.9, adult (Z68.41) Sleep apnea in adult LLQ pain- Primary Abdominal pain, left lower quadrant Impaired fasting glucose Low back pain without sciatica, unspecified back pain laterality, unspecified chronicity Type 2 diabetes mellitus with other specified complication (HCC) Hyperlipidemia, unspecified Other specified hearing loss of right ear, unspecified hearing status on contralateral side Routine general medical examination at health care facility- Primary Routine general medical examination at a health care facility Abnormal glucose tolerance test Impaired glucose tolerance test Benign essential hypertension Essential hypertension, benign Nocturia Medicare annual wellness visit, subsequent Hyperlipidemia, unspecified hyperlipidemia type Impaired fasting glucose Hyperchylomicronemia Type 2 diabetes mellitus with other specified complication, without long-term current use of insulin ([facility]) Morbid (severe) obesity due to excess calories [place] [place] Encounter for vaccination Sleep apnea in adult Medicare annual wellness visit, subsequent- Primary ACP (advance care planning) Other specified counseling Cardiac arrhythmia, unspecified cardiac arrhythmia type 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 Seasonal allergic rhinitis due to pollen Congenital spondylolisthesis of lumbar region Diverticulosis of colon Diverticulosis of colon (without mention of hemorrhage) Benign essential hypertension Essential hypertension, benign Mixed hyperlipidemia Male hypogonadism Other testicular hypofunction Nocturia 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 Sacroiliitis, not elsewhere classified Sleep apnea in adult Eczema, unspecified type Hepatic steatosis Other chronic nonalcoholic liver disease Incomplete bladder emptying Type 2 diabetes mellitus with other specified complication, without long-term current use of insulin ([facility]) Hearing loss of right ear, unspecified hearing loss type Erectile dysfunction, unspecified erectile dysfunction type Prostate cancer ([facility]) Malignant neoplasm of prostate Urethral false passage Right bundle branch block (RBBB) determined by electrocardiography PVC (premature ventricular contraction) Other premature beats Palpitations Orthostatic hypotension Abnormal stress test Other nonspecific abnormal cardiovascular system function study Abnormal electrocardiogram (ECG) (EKG) Class 3 severe obesity due to excess calories with serious comorbidity and body mass index (BMI) of40.0 to 44.9 in adult [place] [place] documented in this encounter [facility] [...] he see me in about 6 months. -[facility] 250 DO Work Phone: Hospital course Narrative No data available for this section [facility] Discharge instructions No data available for this section [facility] Discharge instructions Additional Instructions DISCHARGE INSTRUCTIONS [...] directed for pain unless a prescription was provided.[facility] Work Phone: Progress note No data available for this section [facility] Reason for referral (narrative) Referred by: Sloan DOWNEY MD [facility] reason for visit Narrative* Consultation (Routine) - ClosedSpecialtyDiagnoses / ProceduresReferred By ContactReferred To Contact Audiology Diagnoses Other specified hearing loss of right ear, unspecified hearing status on contralateral side Procedures [place] OFFICE/OUTPATIENT [facility] 60 MINUTES Jose Angel Villavicencio MD [address] [facility] [address] [place] [address] Mary Del Valle, [facility] [address] [facility] [address] [place] [address] Referral IDStatusReasonStold bethpage DateExpiration DateVisits RequestedVisits [id number] Specialty Services Required SAMMY Bolaños for visit Narrative* CV Imaging (Routine) - Authorized SpecialtyDiagnoses / ProceduresReferred By ContactReferred To Contact Cardiology Diagnoses Essential (primary) hypertension Abnormal stress test Abnormal electrocardiogram (ECG) (EKG) [place] (obstructive sleep apnea) Procedures Transthoracic Echo Complete [place] ECHO [facility] R-T 2D W/WOM-MODE COMPL SPEC&COLR D Ruddy Cabello MD 7[address] [facility] [address], [address] [address] Phone: tel: fax: Referral IDStatusKathyasonStart DateExpiration DateVisits RequestedVisits [id number] Perform Procedure [facility] Work Phone: Summary Purpose Family History Unknown Family Member Name Dates Details Family history of myocardial infarction: Mother, Father(V17.3, Z82.49) Status:ActiveFamily history of cardiac disorder: Mother, Father, Brother(V17.49, Z82.49) Status:ActiveCoronary artery graft present: Mother, Father, Brother Status:ActiveFamily history of malignant neoplasm: Mother, Father, Sister, Brother(V16.9, Z80.9) Status:ActiveFamily history of lung cancer: Mother, Father, Sister, Brother (V16.1, Z80.1) Status:Active Relationship Condition Age at Onset Recorded Date/T man father Myocardial infarction Unknown Not SpecifiedMyocardial infarctionUnknownbrotherMyocardial infarctionUnknown Alzheimer's diseaseUnknownsisterMalignant neoplasm of lungUnknown Relationship Condition Age at Onset Recorded Date/T man father Myocardial infarction Unknown motherMyocardial infarctionUnknownbrotherMyocardial infarctionUnknownAlzheimer's diseaseUnknownsisterMalignant neoplasm of lungUnknown Advance Directives Advance Directive Response Recorded Date/ Time Advance Directives No January 05, 2023 4:19pm Advance Directive Response Recorded Date/ Time Advance Directives No January 05, 2023 3:19pm Chief Complaint and Reason for Visit Chief Complaint Cholelithiasis Chief Complaint Cholelithiasis Cholelithiasis Chief Complaint Admit Date Unknown February 04, 2024 2 :32pm Reason for Referral SpecialtyDiagnoses / ProceduresReferred By ContactReferred To Contact Diagnoses Malignant neoplasm of prostate (HCC) Procedures CT SIM PLANNING RADIATION ONCOLOGY THER RAD SIMULAJ-AIDED FIELD SETTING COMPLEX Rey Wells MD [address] [place] [address] [place] [address] Referral IDStatusReasonStart DateExpiration DateVisits RequestedVisits [id number] Request PCP Requested Referral Additional Source Comments (unrecognized sect ion and content) No Status Records FoundNo Status Records FoundNo Status Records FoundNo Status Records FoundNo Status Records FoundNo Status Records FoundNo Status Records FoundNo Status Records FoundNo Status Records FoundNo Status Records FoundNo Status Records FoundNo Status Records FoundNo Status Records Found INFORMATION SOURCE (unrecogn ized section and content) DATE CREATED AUTHOR 02/14/2018 [facility] DATE CREATED AUTHOR AUTHOR'S ORGANIZ ATION 08/03/2021 [facility] [employer] DATE CREATED AUTHOR AUTHOR'S ORGANIZ ATION 07/12/2022 [facility]3] DATE CREATED AUTHOR AUTHOR'S ORGANIZ ATION 07/12/2022 [employer] DATE CREATED AUTHOR AUTHOR'S ORGANIZ ATION 07/12/[address] [facility] DATE CREATED AUTHOR AUTHOR'S ORGANIZ ATION 03/17/2024 [facility] DATE CREATED AUTHOR AUTHOR'S ORGANIZ ATION 09/06/[address] [facility] DATE CREATED AUTHOR AUTHOR'S ORGANIZ ATION 11/04/2024 [facility] DATE CREATED AUTHOR AUTHOR'S ORGANIZ ATION 12/04/2024 [facility] DATE CREATED AUTHOR AUTHOR'S ORGANIZ ATION 12/05/2024 [facility] DATE CREATED AUTHOR AUTHOR'S ORGANIZ ATION 01/19/2025 [facility] DATE CREATED AUTHOR AUTHOR'S ORGANIZ ATION 01/19/2025 [facility] Patient Care team informatio n (unrecognized section and content) Team Status: Active Member Role Status Dates Jose Angel Villavicencio MD Primary Care Provider Active Team Status: Inactive Member Role Status Dates Jose Angel Villavicencio MD Primary Care Provider Active Alex Harris ProviderActiveTeam MemberRelationshipSpecialty Start DateEnd Date Jose Angel Villavicencio MD [address] [place] [address] [facility]/05/22Team MemberRelationshipSpecialtyStart DateEnd Date Jose Angel Villavicencio MD [address] [place] [address] [facility] - [facility]08/05/22Team MemberRelationshipSpecialtyStart DateEnd Date Jose Angel Villavicencio MD [address] [facility] [address] [place] [address] [facility]08/05/22 Team Status: Active Member Role Status Dates Jose Angel Villavicencio MD Primary Care Provider Active S tart: January 20, 2024 Alex Arango ProviderActiveStart: January 20, 2024 Team Status: Inactive Member Role Status Dates Sloan Downey MD Attending Provider Active St art: February 04, 2024 End: February 04, 2024Team MemberRelationshipSpecialtyStart DateEnd Date Jose Angel Villavicencio MD [address] [place] [address] [facility] Milgqrnl89/10/24Team MemberRelationshipSpecialtyStart Date End Date Jose Angel Villavicencio MD [address] [place] [address] PCP - GeneralFamily Qpwbtmmv75/10/24Team MemberRelationshipSpecialtyStart Date End Date Jose Angel Villavicencio MD [address] [place] [address] PCP - GeneralFamily Clicolom78/10/24Team MemberRelationshipSpecialtyStart Date End Date Jose Angel Villavicencio MD [address] [place] [address] PCP - GeneralFamily Qjbznltl89/10/24Team MemberRelationshipSpecialtyStart Date End Date Jose Angel Villavicencio MD [address] [place] [address] PCP - GeneralFamily Ohnidpeg75/10/24Team MemberRelationshipSpecialtyStart Date End Date Jose Angel Villavicencio MD [address] [place] [address] PCP - GeneralFamily Medicine08/05/22Team MemberRelationshipSpecialtyStart DateEnd Date Jose Angel Villavicencio MD [address] [place] [address] PCP - GeneralFamily Wpgemmbq65/10/24Team MemberRelationshipSpecialtyStart Date End Date Jose Angel Villavicencio MD [address] [place] [address] PCP - GeneralFamily Yqwpubrd22/10/24Team MemberRelationshipSpecialtyStart Date End Date Jose Angel Villavicencio MD [address] [place] [address] PCP - GeneralFamily Hzunijjl59/10/24Team MemberRelationshipSpecialtyStart Date End Date Jose Angel Villavicencio MD [address] [place] [address] PCP - GeneralFamily Xadhlxvl43/10/24Team MemberRelationshipSpecialtyStart Date End Date Jose Angel Villavicencio MD [address] [place] [address] PCP - GeneralFamily Hhagdxyj28/10/24Team MemberRelationshipSpecialtyStart Date End Date Jose Angel Villavicencio MD [address] [place] [address] PCP - GeneralFami Apxibqzx02/10/24Team MemberRelationshipSpecialtyStart Date End Date Jose Angel Villavicencio MD [address] [place] [address] PCP - GeneralFamily Medicine08/05/22Team MemberRelationshipSpecialtyStart DateEnd Date Jose Angel Villavicencio MD [address] [place] [address] PCP - GeneralFamily Ajkplxwu29/10/24Team MemberRelationshipSpecialtyStart Date End Date Jose Angel Villavicencio MD [address] [place] [address] PCP - GeneralFamily Medicine08/05/22Team MemberRelationshipSpecialtyStart DateEnd Date Jose Angel Villavicencio MD [address] [place] [address] PCP - GeneralFamily Yzijfdks41/10/24Team MemberRelationshipSpecialtyStart Date End Date Jose Angel Villavicencio MD [address] [place] [address] PCP - GeneralFamily Bqrxdxcp99/10/24Team MemberRelationshipSpecialtyStart Date End Date Jose Angel Villavicencio MD [address] [place] [address] PCP - GeneralFamily Oovlhyao96/10/24Team MemberRelationshipSpecialtyStart Date End Date Jose Angel Villavicencio MD [address] [facility] [address] [place] [address] PCP - GeneralFamily Jjedfchz34/10/24Team MemberRelationshipSpecialtyStart Date End Date Jose Angel Villavicencio MD [address] [place] [address] PCP - GeneralFamily Ybxzdqye83/10/24Team MemberRelationshipSpecialtyStart Date End Date Jose Angel Villavicencio MD [address] [place] [address] PCP - GeneralFamily Medicine08/05/22Team MemberRelationshipSpecialtyStart DateEnd Date Jose Angel Villavicencio MD [address] [place] [address] PCP - GeneralFamily Medicine08/05/22Team MemberRelationshipSpecialtyStart DateEnd Date Jose Angel Villavicencio MD [address] [place] [address] PCP - General07/04/22Team MemberRelationshipSpecialtyStart DateEnd Date Jose Angel Villavicencio MD [address] [facility] [address] [place] [address] PCP - General07/04/22Team MemberRelationshipSpecialtyStart DateEnd Date Jose Angel Villavicencio MD [address] [facility] [address] [place] [address] PCP - [facility] Medicine08/05/22Team MemberRelationshipSpecialtyStart DateEnd Date Jose Angel Villavicencio MD [address] [facility] [address] [place] [address] PCP - [facility]08/05/22Team MemberRelationshipSpecialtyStart DateEnd Date Jose Angel Villavicencio MD [address] [facility] [address] [place] [address] PCP - [facility]08/05/22 Goals (unrecognized section and content) Goals may be documented in a n alternate section Reason for Visit (unrecogniz ed section and content) ReasonCommentsMedicare Annual Wellness Visit SubsequentReasonCommentsPatient EducationReasonCommentsAppointmentReasonCommentsConsultReasonOnset DateComments Simulation Request Form04/28/2024SpecialtyDiagnoses / ProceduresReferred By ContactReferred To ContactRADIATION ONCOLOGY Diagnoses Malignant neoplasm of prostate IMRT 28 FX plus sim Procedures INTENSITY MODULATED RADIATION TX DLVR SIMPLE Simulation IMRT 28 FX plus sim Rey Wells MD [address] [place] [address] [place] [address] Rey Wells MD [address] [place] [address] [place] [address] Referral IDStatusReasonStart DateExpiration DateVisits RequestedVisits [id number] On- treatment VisitReasonCommentsOrdersReasonCommentsPhlebotomyReasonOnset Date CommentsRefill Botkplb1906/29/2024ReasonOnset DateCommentsRefill Aqjxtyn1107/01/2024 ReasonCommentsProstate CancerReasonCommentsDizzinessThis has been going on daily. Also getting headaches daily in the lower back of neck, optimal migrai chastity, shoulders stiff, right ear was feeling plugged but today it is not. He has tried tylenol, zyrtec, nasal spray, does not feel it is really helping other the nasal spray does open his ear up some.Sometimes when he checks his BP his machine beeps that he is having an irregular heart rate.Med RefillBetamethasone creamReasonCommentsFollow-upFollow up for Hypertension old WPM patient, saw 2 years ago and went PRNSpecialtyDiagnoses / ProceduresReferred By ContactReferred To Contact Diagnoses Abnormal electrocardiogram (ECG) (EKG) Procedures ECG 12 Lead Ruddy Cabello MD [address] [address], [place] [id number] Phone: tel: fax: Referral IDStatusReasonStart DateExpiration DateVisits RequestedVisits [id number] Vaccine Source Comments (unrecognize d section and content) In the event this informatio n is protected by the Federal Confidentiality of Alcohol and Drug Abuse Patient Records regulations: The Federal rules restrict any use of the information to criminally investigate or prosecute any alcohol or drug abuse patient.[facility] HospitalIn the event this information is protected by the Federal Confidentiality of Alcohol and Drug Abuse Patient Records regulations: The Federal rules restrict any use of the information to criminally investigate or prosecute any alcohol or drug abuse patient.[facility] HospitalIn the event this information is protected by the Federal Confidentiality of Alcohol and Drug Abuse Patient Records regulations: The Federal rules restrict any use of the information to criminally investigate or prosecute any alcohol or drug abuse patient.[facility] HospitalIn the event this information is protected by the Federal Confidentiality of Alcohol and Drug Abuse Patient Records regulations: The Federal rules restrict any use of the information to criminally investigate or prosecute any alcohol or drug abuse patient.[facility] HospitalIn the event this information is protected by the Federal Confidentiality of Alcohol and Drug Abuse Patient Records regulations: The Federal rules restrict any use of the information to criminally investigate or prosecute any alcohol or drug abuse patient.[facility] HospitalIn the event this information is protected by the Federal Confidentiality of Alcohol and Drug Abuse Patient Records regulations: The Federal rules restrict any use of the information to criminally investigate or prosecute any alcohol or drug abuse patient.[facility] HospitalIn the event this information is protected by the Federal Confidentiality of Alcohol and Drug Abuse Patient Records regulations: The Federal rules restrict any use of the information to criminally investigate or prosecute any alcohol or drug abuse patient.[facility] HospitalIn the event this information is protected by the Federal Confidentiality of Alcohol and Drug Abuse Patient Records regulations: The Federal rules restrict any use of the information to criminally investigate or prosecute any alcohol or drug abuse patient.[facility] HospitalIn the event this information is protected by the Federal Confidentiality of Alcohol and Drug Abuse Patient Records regulations: The Federal rules restrict any use of the information to criminally investigate or prosecute any alcohol or drug abuse patient.[facility] HospitalIn the event this information is protected by the Federal Confidentiality of Alcohol and Drug Abuse Patient Records regulations: The Federal rules restrict any use of the information to criminally investigate or prosecute any alcohol or drug abuse patient.[facility] HospitalIn the event this information is protected by the Federal Confidentiality of Alcohol and Drug Abuse Patient Records regulations: The Federal rules restrict any use of the information to criminally investigate or prosecute any alcohol or drug abuse patient.[facility] HospitalIn the event this information is protected by the Federal Confidentiality of Alcohol and Drug Abuse Patient Records regulations: The Federal rules restrict any use of the information to criminally investigate or prosecute any alcohol or drug abuse patient.[facility] HospitalIn the event this information is protected by the Federal Confidentiality of Alcohol and Drug Abuse Patient Records regulations: The Federal rules restrict any use of the information to criminally investigate or prosecute any alcohol or drug abuse patient.[facility] HospitalIn the event this information is protected by the Federal Confidentiality of Alcohol and Drug Abuse Patient Records regulations: The Federal rules restrict any use of the information to criminally investigate or prosecute any alcohol or drug abuse patient.[facility] HospitalIn the event this information is protected by the Federal Confidentiality of Alcohol and Drug Abuse Patient Records regulations: The Federal rules restrict any use of the information to criminally investigate or prosecute any alcohol or drug abuse patient.[facility] HospitalIn the event this information is protected by the Federal Confidentiality of Alcohol and Drug Abuse Patient Records regulations: The Federal rules restrict any use of the information to criminally investigate or prosecute any alcohol or drug abuse patient.[facility] HospitalIn the event this information is protected by the Federal Confidentiality of Alcohol and Drug Abuse Patient Records regulations: The Federal rules restrict any use of the information to criminally investigate or prosecute any alcohol or drug abuse patient.[facility] HospitalIn the event this information is protected by the Federal Confidentiality of Alcohol and Drug Abuse Patient Records regulations: The Federal rules restrict any use of the information to criminally investigate or prosecute any alcohol or drug abuse patient.[facility] HospitalIn the event this information is protected by the Federal Confidentiality of Alcohol and Drug Abuse Patient Records regulations: The Federal rules restrict any use of the information to criminally investigate or prosecute any alcohol or drug abuse patient.[facility] HospitalIn the event this information is protected by the Federal Confidentiality of Alcohol and Drug Abuse Patient Records regulations: The Federal rules restrict any use of the information to criminally investigate or prosecute any alcohol or drug abuse patient.[facility] HospitalIn the event this information is protected by the Federal Confidentiality of Alcohol and Drug Abuse Patient Records regulations: The Federal rules restrict any use of the information to criminally investigate or prosecute any alcohol or drug abuse patient.[facility] HospitalIn the event this information is protected by the Federal Confidentiality of Alcohol and Drug Abuse Patient Records regulations: The Federal rules restrict any use of the information to criminally investigate or prosecute any alcohol or drug abuse patient.[facility] HospitalIn the event this information is protected by the Federal Confidentiality of Alcohol and Drug Abuse Patient Records regulations: The Federal rules restrict any use of the information to criminally investigate or prosecute any alcohol or drug abuse patient.[facility] FOR RECORDS PERTAINING TO PATIENTS WHO ARE [...] BE BASED ON THE PRIMARY CLINICAL RECORDS. [facility] [employer] [facility]. provides no warranty or guarantee of the accuracy or completeness of information in this document.
[2025-03-03 10:54] LABS: Prostate Specific Antigen Dx <0.13 ng/mL (<=4.00)
== END 2025-03-03 08:54 | disposition home or self-care (01) ==
LOC: LAB 08:55
PROVIDERS: PCP Family Medicine; Visit Provider Urology
DX: C61 Malignant neoplasm of prostate (principal); R53.83 Other fatigue
CPT/HCPCS: 36415; 84153; 84403